=== PATIENT | female | born 1955 | race Caucasian/White ===

== ENCOUNTER 2017-02-24 18:40 | Inpatient (IN) | payer MEDICARE ==
[~2017-02-24] VITALS: Ht 157.5 cm; Wt 105.9 kg
--- NOTE | 2017-02-24 22:00 | NUR ---
Admission Note: Patient arrived to [facility] rm 228 via stretcher/EMS staff. Dx: Schizoaffective disorder; bipolar disorder. Vital sign on arrival: 98.1, 116/67, 18 unlabored, 93% RA , 66 (regular). PERRLA. On arrival, pt mood labile alternating between calm, anxious-wanting staff to stay with her and hold her hand. Patient alert to self and situation; difficulty expressing needs, following simple directions, and communicating with staff as patient is deaf and cannot sign. She does however reads lips. Assessment and history completed (see nursing documentation for details) and medications documented. Patient provided with HS snack and oral hydration prior to sleep. Nursing will continue to monitor.
[2017-02-24 23:00] VITALS: BP 116/67
[2017-02-25] MEDS ORDERED: LOSA50TA6 PO (00:29)
[2017-02-25] MEDS ORDERED: ACET325T9 PO (00:29)
[2017-02-25] MEDS ORDERED: CHLO25TA4 PO (00:29)
[2017-02-25] MEDS ORDERED: DIVA500T9 PO ×2 (00:29→07:04)
[2017-02-25] MEDS ORDERED: CITA20TA9 PO (00:29)
[2017-02-25] MEDS ORDERED: INSU100I13 SQ (00:29)
[2017-02-25] MEDS ORDERED: GABA-586 PO (00:29)
[2017-02-25] MEDS ORDERED: LORA1TAB PO (00:29)
[2017-02-25] MEDS ORDERED: TRAZ50TA15 PO (00:29)
[2017-02-25] MEDS ORDERED: HYDR-2758 PO (00:29)
[2017-02-25] MEDS ORDERED: INSU100I17 SQ (00:29)
[2017-02-25] MEDS ORDERED: RISP0.5T24 PO (00:29)
[2017-02-25] MEDS ORDERED: OXYC-323 PO (00:29)
[2017-02-25] MEDS ORDERED: SENN1TAB9 PO (00:29)
[2017-02-25] MEDS ORDERED: MAGN2400 PO (00:29)
[2017-02-25] MEDS ORDERED: AMLO10TA2 PO (00:29)
[2017-02-25] MEDS ORDERED: MAGNESIUM HYDROXIDE 2,400 MG/30 ML ORAL.SUSP. PO PRN ×2 (00:30→07:45)
[2017-02-25] MEDS ORDERED: ACETAMINOPHEN 325 MG TABLET PO PRN (00:30)
[2017-02-25] MEDS ORDERED: METHYL SALICYLATE/MENTHOL TOPICAL OINTMENT 29GM TUBE. TP PRN (00:30)
[2017-02-25] MEDS ORDERED: MAG HYDROX/AL HYDROX/SIMETH 30 ML ORAL.SUSP PO PRN (00:30)
[2017-02-25 01:31] LABS: ALBUMIN/GLOBULIN RATIO 0.8 (1.0-1.7); CALCIUM 8.5 mg/dL (8.5-10.1); CREATININE 0.8 mg/dL (0.6-1.0); GFR 72.9; MAGNESIUM 1.9 mg/dL (1.8-2.4); POTASSIUM 4.1 mmol/L (3.5-5.1); TOTAL BILIRUBIN 0.3 mg/dL (0.2-1.0); TOTAL PROTEIN 6.6 g/dL (6.4-8.2)
[2017-02-25 01:34] LABS: VAL ACID 56 mcg/mL (50-100)
[2017-02-25 01:39] LABS: BASO % 1 % (0-3); EOS # 0.1 x10^3/uL (0.0-0.7); EOS % 2 % (0-3); HEMATOCRIT 38.1 % (36.0-47.0); HEMOGLOBIN 12.4 g/dL (12.0-15.5); LYMPH # 2.4 x10^3/uL (1.0-4.8); LYMPH % 36 % (24-48); MEAN CORPUSCULAR HEMOGLOBIN 30 pg (25-35); MEAN CORPUSCULAR HGB CONC 33 g/dL (31-37); MEAN CORPUSCULAR VOLUME 94 fL (79-100); MONO # 0.6 x10^3/uL (0.0-1.1); MONO % 9 % (0-9); NEUT # 3.5 x10^3uL (1.8-7.7); NEUT % 52 % (31-73); PLATELET COUNT 188 x10^3/uL (140-400); RED BLOOD COUNT 4.07 x10^6/uL (3.50-5.40); RED CELL DISTRIBUTION WIDTH 14.1 % (11.5-14.5); WHITE BLOOD COUNT 6.7 x10^3/uL (4.0-11.0)
--- NOTE | 2017-02-25 06:12 | EKG ---
[address] [address] Test Date: 2017-02-25 Test Time: 05:12:26 Pat Name: HAILY MIR Department: Room: [address] [place] [address] Gender: F Emergency Communications Officer: LISA : 1955 Requested By: NANCY HAHN Order Number: [id number] Reading MD: Aleksander Alba Measurements Intervals [place] Rate: 65 P: 61 DC: 166 QRS: 73 QRSD: 86 T: 52 QT: 378 QTc: 394 Interpretive Statements SINUS RHYTHM POOR R-WAVE PROGRESSION Electronically Signed On 02-27-2017 15:31:56 CDT by Aleksander Alba
[2017-02-25 07:06] VITALS: BP 179/68
[2017-02-25] MEDS: INSULIN ASPART 300 UNITS/3 ML INSULN.PEN SQ SCH ×3 (08:00→17:36)
[2017-02-25] MEDS: amLODIPine BESYLATE 10 MG TABLET PO SCH (10:40)
[2017-02-25] MEDS: risperiDONE 0.5 MG TABLET. PO SCH ×2 (10:41→19:52)
[2017-02-25] MEDS: LOSARTAN 50 MG TABLET. PO SCH (10:41)
[2017-02-25] MEDS: SENNOSIDES/DOCUSATE 8.6/50MG TABLET. PO SCH (10:41)
[2017-02-25] MEDS: GABAPENTIN 300 MG CAPSULE. PO SCH ×3 (10:41→19:52)
[2017-02-25] MEDS: HYDROcodone/APAP 5/325MG 1 TAB TABLET PO SCH ×2 (10:42→19:52)
[2017-02-25] MEDS: CITALOPRAM 20 MG TABLET. PO SCH (10:42)
[2017-02-25] MEDS: DIVALPROEX 125 MG CAP.SPRINK PO SCH ×3 (10:42→19:52)
--- NOTE | 2017-02-25 10:45 | NUR ---
Behavior Intervention Response and Plan: BIRP Note: Behavior: Assumed Care of patient, patient located in Day Room at shift change. Patient exhibited the following behavior Restless, Demanding, Disorganized. Brief assessment on rounds of vital signs, medication needs, lab studies, and pain. Treatment plan problems 1 & 2. Intervention: Patient assessed and the following interventions initiated safety checks 15 Minute Checks Cognitive Assessment , Head to toe Assessment , Medications. Response: After interactions and interventions patient responded in the following manner, Calm , Compliant ,Cooperative. Continue to assess behaviors and condition will continue to monitor throughout the shift as needed. Plan: Continue to monitor Master Treatment Plan for patient's progress toward short term goals of Decreased Agitation, Decreased Aggression, drum maker goals to return to previous living setting vs placement. Continue to assess patient for changes in above assessment. Monitor for medication needs, pain, and safety concerns. Hourly rounding performed to ensure safe environment.
[2017-02-25] MEDS: chlorproMAZINE HCL 25 MG TABLET PO SCH ×2 (11:09→19:54)
[2017-02-25 11:29] LABS: THYROID STIM HORMONE (TSH) 2.507 uIU/mL (0.358-3.740)
[2017-02-25 14:07] LABS: T3 TOTAL 101 ng/dL (71-180); THYROXINE 6.4 ug/dL (4.5-12.0)
[2017-02-25 17:42] VITALS: BP 143/91
[2017-02-25] MEDS ORDERED: INSULIN DETEMIR 300 UNITS/3 ML INSULN.PEN. SQ SCH (21:00)
--- NOTE | 2017-02-25 21:11 | PDOC ---
Exam Johann Demential Exam: Johann Note: Please also refer to the separate dictated note~for this date of service dictated separately.~Patient seen individually. Discussed the patient with Nursing staff reviewed the chart.~Reviewed interim history and current functioning. Reviewed vital signs,~Labs/ Radiology~and current medications noted below. Continue current treatment with the changes noted in the dictated addendum note Assessment: Vital Signs: Vital Signs Date Time Temp Pulse Resp B/P Pulse Ox O2 Delivery O2 Flow Rate FiO2 02/25/17 19:52 18 02/25/17 17:42 97.6 81 143/91 93 02/24/17 23:00 Room Air Labs: Laboratory Tests Test 02/24/17 22:13 02/25/17 00:10 02/25/17 07:07 02/25/17 11:39 Glucose (Fingerstick) 91mg/dL (70-99) 179mg/dL (70-99) H 270mg/dL (70-99) H White Blood Count 6.7x10^3/uL (4.0-11.0) Red Blood Count 4.07x10^6/uL (3.50-5.40) Hemoglobin 12.4g/dL (12.0-15.5) Hematocrit 38.1% (36.0-47.0) Mean Corpuscular Volume 94fL (79-100) Mean Corpuscular Hemoglobin 30pg (25-35) Mean Corpuscular Hemoglobin Concent 33g/dL (31-37) Red Cell Distribution Width 14.1% (11.5-14.5) Platelet Count 188x10^3/uL (140-400) Neutrophils (%) (Auto) 52% (31-73) Lymphocytes (%) (Auto) 36% (24-48) Monocytes (%) (Auto) 9% (0-9) Eosinophils (%) (Auto) 2% (0-3) Basophils (%) (Auto) 1% (0-3) Neutrophils # (Auto) 3.5x10^3uL (1.8-7.7) Lymphocytes # (Auto) 2.4x10^3/uL (1.0-4.8) Monocytes # (Auto) 0.6x10^3/uL (0.0-1.1) Eosinophils # (Auto) 0.1x10^3/uL (0.0-0.7) Basophils # (Auto) 0.0x10^3/uL (0.0-0.2) Sodium Level 142mmol/L (136-145) Potassium Level 4.1mmol/L (3.5-5.1) Chloride Level 104mmol/L (98-107) Carbon Dioxide Level 29mmol/L (21-32) Anion Gap 9 (6-14) Blood Urea Nitrogen 13mg/dL (7-20) Creatinine 0.8mg/dL (0.6-1.0) Estimated GFR (Cockcroft-Gault) 72.9 BUN/Creatinine Ratio 16 (6-20) Glucose Level 135mg/dL (70-99) H Calcium Level 8.5mg/dL (8.5-10.1) Magnesium Level 1.9mg/dL (1.8-2.4) Iron Level 55ug/dL (50-170) Total Iron Binding Capacity 316ug/dL (250-450) Iron Saturation 17% (15-34) Total Bilirubin 0.3mg/dL (0.2-1.0) Aspartate Amino Transferase (AST) 21U/L (15-37) Alanine Aminotransferase (ALT) 19U/L (14-59) Alkaline Phosphatase 71U/L (46-116) Total Protein 6.6g/dL (6.4-8.2) Albumin 3.0g/dL (3.4-5.0) L Albumin/Globulin Ratio 0.8 (1.0-1.7) L Triglycerides Level 206mg/dL (0-150) H Cholesterol Level 140mg/dL (0-200) LDL Cholesterol, Calculated 56mg/dL (0-100) VLDL Cholesterol, Calculated 41mg/dL (0-40) H Non-HDL Cholesterol Calculated 97mg/dL (0-129) HDL Cholesterol 43mg/dL (40-60) Cholesterol/HDL Ratio 3.0 25-Hydroxy Vitamin D Total Pending Thyroid Stimulating Hormone (TSH) 2.507uIU/mL (0.358-3.740) Thyroxine (T4) 6.4ug/dL (4.5-12.0) Total Triiodothyronine (TT3) 101ng/dL (71-180) Valproic Acid Level 56mcg/mL (50-100) Valproic Acid Last Dose Date 02/24/17 Valproic Acid Last Dose Time 1400 RPR Titer Additional Testing Pending Test 02/25/17 17:17 02/25/17 19:18 Glucose (Fingerstick) 218mg/dL (70-99) H 242mg/dL (70-99) H Current Medications: Meds: Current Medications Acetaminophen (Tylenol) 650 mg PRN Q6HRS PRN PO PAIN / TEMP; Start 02/25/17 at 00:30; Stop 02/25/17 at 15:05; Status DC Multi-Ingredient Ointment (Analgesic [place]) 1 marcell PRN QID PRN TP MUSCLE PAIN; Start 02/25/17 at 00:30 Al Hydroxide/Mg Hydroxide (Mylanta Plus Xs) 15 ml PRN AFTMEALHC PRN PO DYSPEPSIA; Start 02/25/17 at 00:30 Magnesium Hydroxide (Milk Of Magnesia) 2,400 mg PRN QHS PRN PO CONSTIPATION; Start 02/25/17 at 00:30; Stop 02/25/17 at 15:05; Status DC Chlorpromazine HCl (Thorazine) 25 mg BID PO Last administered on 02/25/17 19: 54; Start 02/25/17 at 09:00 Citalopram Hydrobromide (Celexa) 20 mg DAILY PO Last administered on 02/25/17 10:42; Start 02/25/17 at 09:00 Lorazepam (Ativan) 1 mg PRN Q3HRS PRN PO ANXIETY / AGITATION; Start 02/25/17 at 00:30 Risperidone (Risperdal) 0.5 mg BID PO Last administered on 02/25/17 19:52; Start 02/25/17 at 09:00 Trazodone HCl (Desyrel) 50 mg PRN QHS PRN PO INSOMNIA; Start 02/25/17 at 00:30 Divalproex Sodium (Depakote Sprinkles) 500 mg TID PO Last administered on 19:52; Start 02/25/17 at 09:00 Acetaminophen (Tylenol) 650 mg PRN Q8HRS PRN PO PAIN; Start 02/25/17 at 07:30 Amlodipine Besylate (Norvasc) 10 mg DAILY PO Last administered on 02/25/17 10: 40; Start 02/25/17 at 09:00 Gabapentin (Neurontin) 300 mg TID PO Last administered on 02/25/17 19:52; Start 02/25/17 at 09:00 Acetaminophen/ Hydrocodone Bitart (Lortab 5/325) 1 tab Q12HR PO Last administered on 02/25/17 19:52; Start 02/25/17 at 09:00 Insulin Aspart (Novolog) 6 units TIDWMEALS SQ Last administered on 02/25/17 17 :36; Start 02/25/17 at 08:00 Losartan Potassium (Cozaar) 50 mg DAILY PO Last administered on 02/25/17 10:41 ; Start 02/25/17 at 09:00 Senna/Docusate Sodium (Senna Plus) 1 tab DAILY PO Last administered on 10:41; Start 02/25/17 at 09:00 Insulin Detemir (Levemir) 15 units QHS SQ Last administered on 02/25/17 19:55 ; Start 02/25/17 at 21:00 Magnesium Hydroxide (Milk Of Magnesia) 2,400 mg PRN DAILY PRN PO CONSTIPATION; Start 02/25/17 at 07:45 Active Scripts Active Reported Lantus Solostar (Insulin Glargine,Hum.rec.anlog) 100 Unit/1 Ml Insuln.pen 15 Unit SQ QHS Lorazepam 1 Mg Tablet 1 Mg PO PRN Q3HRS PRN Risperdal (Risperidone) 0.5 Mg Tablet 0.5 Mg PO BID Chlorpromazine Hcl 25 Mg Tablet 25 Mg PO BID Novolog Flexpen (Insulin Aspart) 100 Unit/1 Ml Insuln.pen 6 Unit SQ TIDWMEALS Gabapentin 300 Mg Capsule 300 Mg PO TID Milk Of Magnesia (Magnesium Hydroxide) 2,400 Mg/10 Ml Oral.susp 2,400 Mg PO PRN DAILY Trazodone Hcl 50 Mg Tablet 50 Mg PO PRN QHS PRN Divalproex Sodium 500 Mg Tablet.dr 500 Mg PO TID Losartan Potassium 50 Mg Tablet 50 Mg PO DAILY Senexon-S Tablet (Sennosides/Docusate Sodium) 1 Each Tablet 8.6-50 Mg PO DAILY Celexa (Citalopram Hydrobromide) 20 Mg Tablet 20 Mg PO DAILY Amlodipine Besylate 10 Mg Tablet 10 Mg PO DAILY Percocet 5-325 Mg Tablet (Oxycodone Hcl/Acetaminophen) 1 Each Tablet 1 Tab PO PRN Q8HRS PRN Hydrocodone-Apap 5-325 (Hydrocodone Bit/Acetaminophen) 1 Each Tablet 1 Tab PO Q12HR Tylenol (Acetaminophen) 325 Mg Tablet 650 Mg PO PRN Q8HRS PRN Diagnosis: Problems: (1) Psychiatric disorder NANCY HAHN MD Feb 25, 2017 21:11
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
--- NOTE | 2017-02-26 04:57 | NUR ---
Behavior Intervention Response and Plan: BIRP Note: Behavior: Assumed Care of patient, patient located in Day Room at shift change. Patient exhibited the following behavior Calm, Compliant, Cooperative. Brief assessment on rounds of vital signs, medication needs, lab studies, and pain. Treatment plan problems Alteration in Mood and Fall Risk. Intervention: Patient assessed and the following interventions initiated safety checks 15 Minute Checks Cognitive Assessment , Head to toe Assessment , Medications. Response: After interactions and interventions patient responded in the following manner, Calm , Compliant ,Cooperative. Continue to assess behaviors and condition will continue to monitor throughout the shift as needed. Plan: Continue to monitor Master Treatment Plan for patient's progress toward short term goals of Decreased Anxiety, Improved Mood, termination clerk goals to return to previous living setting vs placement. Continue to assess patient for changes in above assessment. Monitor for medication needs, pain, and safety concerns. Hourly rounding performed to ensure safe environment.
[2017-02-26 07:00] VITALS: BP 106/72
[2017-02-26] MEDS: GABAPENTIN 300 MG CAPSULE. PO SCH ×3 (09:33→19:48)
[2017-02-26] MEDS: DIVALPROEX 125 MG CAP.SPRINK PO SCH ×3 (09:33→19:49)
[2017-02-26] MEDS: amLODIPine BESYLATE 10 MG TABLET PO SCH (09:34)
[2017-02-26] MEDS: HYDROcodone/APAP 5/325MG 1 TAB TABLET PO SCH ×2 (09:34→19:48)
[2017-02-26] MEDS: CITALOPRAM 20 MG TABLET. PO SCH (09:34)
[2017-02-26] MEDS: chlorproMAZINE HCL 25 MG TABLET PO SCH (09:34)
[2017-02-26] MEDS: LOSARTAN 50 MG TABLET. PO SCH (09:34)
[2017-02-26] MEDS: risperiDONE 0.5 MG TABLET. PO SCH (09:34)
[2017-02-26] MEDS: SENNOSIDES/DOCUSATE 8.6/50MG TABLET. PO SCH (09:34)
[2017-02-26] MEDS: INSULIN ASPART 300 UNITS/3 ML INSULN.PEN SQ SCH ×3 (09:35→17:35)
--- NOTE | 2017-02-26 14:29 | NUR ---
Behavior Intervention Response and Plan: BIRP Note: Behavior: Assumed Care of patient, patient located in Day Room at shift change. Patient exhibited the following behavior Calm, Social, Compliant. Brief assessment on rounds of vital signs, medication needs, lab studies, and pain. Treatment plan problems . Intervention: Patient assessed and the following interventions initiated safety checks 15 Minute Checks Cognitive Assessment , Head to toe Assessment , Medications. Response: After interactions and interventions patient responded in the following manner, Calm , Compliant ,Cooperative. Continue to assess behaviors and condition will continue to monitor throughout the shift as needed. Plan: Continue to monitor Master Treatment Plan for patient's progress toward short term goals of Decreased Agitation, Decreased Aggression, adjunct faculty for medical terminology goals to return to previous living setting vs placement. Continue to assess patient for changes in above assessment. Monitor for medication needs, pain, and safety concerns. Hourly rounding performed to ensure safe environment.
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
--- NOTE | 2017-02-26 15:29 | NUR ---
SW reviewed PT. insurance upon admit. Face sheet, CSNAP and intake state Pt's insurance is Medicare Primary/only. No auth needed.
[2017-02-26 16:15] VITALS: BP 134/77
[2017-02-26] MEDS: INSULIN DETEMIR 300 UNITS/3 ML INSULN.PEN. SQ SCH (19:51)
[2017-02-26] MEDS: risperiDONE 0.25 MG TABLET. PO SCH (20:09)
[2017-02-26] MEDS ORDERED: risperiDONE 0.25 MG TABLET. PO SCH (21:00)
[2017-02-26] MEDS: LORazepam 1 MG TABLET PO PRN (22:54)
[2017-02-26] MEDS: traZODone 50 MG TABLET. PO PRN (22:55)
--- NOTE | 2017-02-26 23:06 | NUR ---
Behavior Intervention Response and Plan: BIRP Note: Behavior: Assumed Care of patient, patient located in hallway at shift change. Patient exhibited the following behavior Calm, Social, Compliant. Brief assessment on rounds of vital signs, medication needs, lab studies, and pain. Treatment plan problems 1-2 . Intervention: Patient assessed and the following interventions initiated safety checks 15 Minute Checks Cognitive Assessment , Head to toe Assessment , Medications. Response: After interactions and interventions patient responded in the following manner, Calm , Compliant ,Cooperative. Continue to assess behaviors and condition will continue to monitor throughout the shift as needed. Plan: Continue to monitor Master Treatment Plan for patient's progress toward short term goals of Decreased Agitation, Decreased Aggression, retirement goals to return to previous living setting vs placement. Continue to assess patient for changes in above assessment. Monitor for medication needs, pain, and safety concerns. Hourly rounding performed to ensure safe environment.
--- NOTE | 2017-02-26 23:08 | NUR ---
Patient very agitated, banging walker on the side of bed. Tried to redirect once that was unsuccessful I gave patient a PRN. Will continue to monitor.
--- NOTE | 2017-02-26 23:49 | PDOC ---
Exam Johann Demential Exam: Johann Note: Please also refer to the separate dictated note~for this date of service dictated separately.~Patient seen individually. Discussed the patient with Nursing staff reviewed the chart.~Reviewed interim history and current functioning. Reviewed vital signs,~Labs/ Radiology~and current medications noted below. Continue current treatment with the changes noted in the dictated addendum note Assessment: Vital Signs: Vital Signs Date Time Temp Pulse Resp B/P Pulse Ox O2 Delivery O2 Flow Rate FiO2 02/26/17 20:48 Room Air 02/26/17 16:15 97.1 73 17 134/77 94 I&O Intake and Output 02/26/17 07:00 Intake Total 1440 ml Balance 1440 ml Intake Oral 1440 ml # Bowel Movements 1 Labs: Laboratory Tests Test 02/26/17 07:21 02/26/17 11:46 02/26/17 17:09 02/26/17 19:16 Glucose (Fingerstick) 110mg/dL (70-99) H 106mg/dL (70-99) H 144mg/dL (70-99) H 230mg/dL (70-99) H Current Medications: Meds: Current Medications Acetaminophen (Tylenol) 650 mg PRN Q6HRS PRN PO PAIN / TEMP; Start 02/25/17 at 00:30; Stop 02/25/17 at 15:05; Status DC Multi-Ingredient Ointment (Analgesic [place]) 1 marcell PRN QID PRN TP MUSCLE PAIN; Start 02/25/17 at 00:30 Al Hydroxide/Mg Hydroxide (Mylanta Plus Xs) 15 ml PRN AFTMEALHC PRN PO DYSPEPSIA; Start 02/25/17 at 00:30 Magnesium Hydroxide (Milk Of Magnesia) 2,400 mg PRN QHS PRN PO CONSTIPATION; Start 02/25/17 at 00:30; Stop 02/25/17 at 15:05; Status DC Chlorpromazine HCl (Thorazine) 25 mg BID PO Last administered on 02/26/17 09: 34; Start 02/25/17 at 09:00; Stop 02/26/17 at 18:22; Status DC Citalopram Hydrobromide (Celexa) 20 mg DAILY PO Last administered on 02/26/17 09:34; Start 02/25/17 at 09:00 Lorazepam (Ativan) 1 mg PRN Q3HRS PRN PO ANXIETY / AGITATION Last administered on 02/26/17 22:54; Start 02/25/17 at 00:30 Risperidone (Risperdal) 0.5 mg BID PO Last administered on 02/26/17 09:34; Start 02/25/17 at 09:00; Stop 02/26/17 at 18:22; Status DC Trazodone HCl (Desyrel) 50 mg PRN QHS PRN PO INSOMNIA Last administered on 02/26 22:55; Start 02/25/17 at 00:30 Divalproex Sodium (Depakote Sprinkles) 500 mg TID PO Last administered on 19:49; Start 02/25/17 at 09:00 Acetaminophen (Tylenol) 650 mg PRN Q8HRS PRN PO PAIN; Start 02/25/17 at 07:30 Amlodipine Besylate (Norvasc) 10 mg DAILY PO Last administered on 02/26/17 09: 34; Start 02/25/17 at 09:00 Gabapentin (Neurontin) 300 mg TID PO Last administered on 02/26/17 19:48; Start 02/25/17 at 09:00 Acetaminophen/ Hydrocodone Bitart (Lortab 5/325) 1 tab Q12HR PO Last administered on 02/26/17 19:48; Start 02/25/17 at 09:00 Insulin Aspart (Novolog) 6 units TIDWMEALS SQ Last administered on 02/26/17 17 :35; Start 02/25/17 at 08:00 Losartan Potassium (Cozaar) 50 mg DAILY PO Last administered on 02/26/17 09:34 ; Start 02/25/17 at 09:00 Senna/Docusate Sodium (Senna Plus) 1 tab DAILY PO Last administered on 09:34; Start 02/25/17 at 09:00 Insulin Detemir (Levemir) 15 units QHS SQ Last administered on 02/25/17 19:55 ; Start 02/25/17 at 21:00; Stop 02/26/17 at 14:21; Status DC Magnesium Hydroxide (Milk Of Magnesia) 2,400 mg PRN DAILY PRN PO CONSTIPATION; Start 02/25/17 at 07:45 Insulin Detemir (Levemir) 15 units QHS SQ Last administered on 02/26/17 19:51 ; Start 02/26/17 at 14:21 Chlorpromazine HCl (Thorazine) 25 mg DAILY PO ; Start 02/27/17 at 09:00 Risperidone (Risperdal) 0.5 mg DAILY PO ; Start 02/27/17 at 09:00 Risperidone (Risperdal) 0.75 mg HS PO ; Start 02/26/17 at 21:00; Stop 02/26/17 at 21:00; Status DC Risperidone (Risperdal) 0.75 mg 14 PO Last administered on 02/26/17 20:09; Start 02/26/17 at 21:00 Active Scripts Active Reported Lantus Solostar (Insulin Glargine,Hum.rec.anlog) 100 Unit/1 Ml Insuln.pen 15 Unit SQ QHS Lorazepam 1 Mg Tablet 1 Mg PO PRN Q3HRS PRN Risperdal (Risperidone) 0.5 Mg Tablet 0.5 Mg PO BID Chlorpromazine Hcl 25 Mg Tablet 25 Mg PO BID Novolog Flexpen (Insulin Aspart) 100 Unit/1 Ml Insuln.pen 6 Unit SQ TIDWMEALS Gabapentin 300 Mg Capsule 300 Mg PO TID Milk Of Magnesia (Magnesium Hydroxide) 2,400 Mg/10 Ml Oral.susp 2,400 Mg PO PRN DAILY Trazodone Hcl 50 Mg Tablet 50 Mg PO PRN QHS PRN Divalproex Sodium 500 Mg Tablet.dr 500 Mg PO TID Losartan Potassium 50 Mg Tablet 50 Mg PO DAILY Senexon-S Tablet (Sennosides/Docusate Sodium) 1 Each Tablet 8.6-50 Mg PO DAILY Celexa (Citalopram Hydrobromide) 20 Mg Tablet 20 Mg PO DAILY Amlodipine Besylate 10 Mg Tablet 10 Mg PO DAILY Percocet 5-325 Mg Tablet (Oxycodone Hcl/Acetaminophen) 1 Each Tablet 1 Tab PO PRN Q8HRS PRN Hydrocodone-Apap 5-325 (Hydrocodone Bit/Acetaminophen) 1 Each Tablet 1 Tab PO Q12HR Tylenol (Acetaminophen) 325 Mg Tablet 650 Mg PO PRN Q8HRS PRN Diagnosis: Problems: (1) Psychiatric disorder (2) Bipolar affective, mixed, sev w/ psych (3) Anxiety disorder (4) Dementia in Alzheimer's disease with delusions (5) Impulse control disorder NANCY HAHN MD Feb 26, 2017 23:49
[2017-02-27 06:23] VITALS: BP 130/67
[2017-02-27] MEDS: INSULIN ASPART 300 UNITS/3 ML INSULN.PEN SQ SCH ×3 (09:17→17:41)
[2017-02-27] MEDS: LOSARTAN 50 MG TABLET. PO SCH (09:18)
[2017-02-27] MEDS: SENNOSIDES/DOCUSATE 8.6/50MG TABLET. PO SCH (09:18)
[2017-02-27] MEDS: GABAPENTIN 300 MG CAPSULE. PO SCH ×3 (09:18→19:58)
[2017-02-27] MEDS: DIVALPROEX 125 MG CAP.SPRINK PO SCH ×3 (09:19→20:01)
[2017-02-27] MEDS: amLODIPine BESYLATE 10 MG TABLET PO SCH (09:19)
[2017-02-27] MEDS: chlorproMAZINE HCL 25 MG TABLET PO SCH (09:19)
[2017-02-27] MEDS: CITALOPRAM 20 MG TABLET. PO SCH (09:19)
[2017-02-27] MEDS: HYDROcodone/APAP 5/325MG 1 TAB TABLET PO SCH ×2 (09:23→20:03)
[2017-02-27] MEDS: risperiDONE 0.5 MG TABLET. PO SCH (09:23)
--- NOTE | 2017-02-27 10:00 | NUR ---
THERAPEUTIC RECREATION GROUP NOTE TITLE :Butterflies and Hotbed Operator Art ACTIVITY : Arts and Crafts GOAL : Increase socialization, fine motor skills, creativity DURATION : 30 minutes RESPONSE : Moderate participation. Pt. joined the group about half way through and was social and pleasant. She messed with the materials but did not complete a desired task.
--- NOTE | 2017-02-27 11:15 | NUR ---
THERAPEUTIC RECREATION GROUP NOTE TITLE :Movement to Music: Flexibility ACTIVITY : Movement/ Exercise GOAL : Increase morale, attention, flexibility. Decrease stress/anxiety. DURATION : 40 Minutes RESPONSE : Full participation. Pt.sat next to a male patient and the two held hands occasionally. They were redirected to keep space between them and they complied each time. Pt. took breaks as needed and was pleasant the entire time.
[2017-02-27 12:08] LABS: HEMOGLOBIN A1C 6.9 % (4.8-5.6)
[2017-02-27] MEDS: risperiDONE 0.25 MG TABLET. PO SCH (13:43)
--- NOTE | 2017-02-27 14:00 | NUR ---
THERAPEUTIC RECREATION GROUP NOTE TITLE :Sing along with Frances ACTIVITY : Music GOAL : Increase socialization, elevate mood, stimulate memory DURATION : 60 Minutes RESPONSE : Full participation. Pt. followed along with rico sheet occasionally, swayed to the music, and was social with others and often sharing her rico sheet. She followed the beat and reminisced about several of the songs.
--- NOTE | 2017-02-27 14:00 | NUR ---
Behavior Intervention Response and Plan: BIRP Note: Behavior: Assumed Care of patient, patient located in Day Room at shift change. Patient exhibited the following behavior Calm, Disorganized, Cooperative. Brief assessment on rounds of vital signs, medication needs, lab studies, and pain. Treatment plan problems . Intervention: Patient assessed and the following interventions initiated safety checks 15 Minute Checks Call maddox in reach , Medications , Nutrition. Response: After interactions and interventions patient responded in the following manner, Calm , Disorganized ,Cooperative. Continue to assess behaviors and condition will continue to monitor throughout the shift as needed. 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 Continue to assess patient for changes in above assessment. Monitor for medication needs, pain, and safety concerns. Hourly rounding performed to ensure safe environment.
--- NOTE | 2017-02-27 15:30 | NUR ---
ACTIVITY THERAPY ASSESSMENT Completed based on observations and interview on [facility] Pt. was agreeable and talkative. She expressed herself clearly. 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 She can read if messages need to be wrote out and she will ask you to write it if she needs you to. She recalled past favorite leisure activities with ease. She does not like others going into her room. Pt. stated she is "very very lonely," "I'm so lonely I could ," "I'm desperate for friends." She talked about the suffering her parents and family went through. She enjoys reading, watching TV, and typing. She said she would take off her hear aid, leave the room or close her eyes if she gets stressed or overwhelmed. She talked about being thankful she is deaf because she can tune people out easily. Initial goal: Pt. will participate in all groups she is invited to.
[2017-02-27 16:24] VITALS: BP 133/85
[2017-02-27 16:52] LABS: CLARITY,URINE HAZY; COLOR,URINE YELLOW
[2017-02-27 16:53] LABS: BACTERIA,URINE MOD /HPF (0-FEW); BILIRUBIN,URINE NEG (NEG); GLUCOSE,URINE 500 mg/dL (NEG); NITRITE,URINE POS (NEG); RBC,URINE OCC /HPF (0-2); SQUAMOUS EPITHELIAL CELL,UR OCC /LPF; UROBILINOGEN,URINE 0.2 mg/dL (0.2 mg/dL)
[2017-02-27] MEDS: busPIRone 5 MG TABLET. PO SCH (20:01)
[2017-02-27] MEDS: INSULIN DETEMIR 300 UNITS/3 ML INSULN.PEN. SQ SCH (20:06)
--- NOTE | 2017-02-27 21:47 | PDOC ---
Exam Johann Demential Exam: Johann Note: Please also refer to the separate dictated note~for this date of service dictated separately.~Patient seen individually. Discussed the patient with Nursing staff reviewed the chart.~Reviewed interim history and current functioning. Reviewed vital signs,~Labs/ Radiology~and current medications noted below. Continue current treatment with the changes noted in the dictated addendum note Assessment: Vital Signs: Vital Signs Date Time Temp Pulse Resp B/P Pulse Ox O2 Delivery O2 Flow Rate FiO2 02/27/17 20:03 20 Nasal Cannula 02/27/17 16:24 97.4 69 133/85 93 I&O Intake and Output 02/27/17 07:00 Intake Total 1080 ml Balance 1080 ml Intake Oral 1080 ml Labs: Laboratory Tests Test 02/27/17 07:21 02/27/17 11:07 02/27/17 16:00 02/27/17 16:44 Glucose (Fingerstick) 101mg/dL (70-99) H 259mg/dL (70-99) H 217mg/dL (70-99) H Urine Collection Type Unknown Urine Color Yellow Urine Clarity Hazy Urine pH 6.0 Urine Specific [place] 1.015 Urine Protein Neg (NEG-TRACE) Urine Glucose (UA) 500mg/dL (NEG) Urine Ketones (Stick) Tracemg/dL (NEG) Urine Blood Small (NEG) Urine Nitrite Pos (NEG) Urine Bilirubin Neg (NEG) Urine Urobilinogen Dipstick 0.2mg/dL (0.2 mg/dL) Urine Leukocyte Esterase Trace (NEG) Urine RBC Occ/HPF (0-2) Urine WBC 1-4/HPF (0-4) Urine Squamous Epithelial Cells Occ/LPF Urine Bacteria Mod/HPF (0-FEW) Urine Mucus Slight/LPF Test 02/27/17 19:10 Glucose (Fingerstick) 248mg/dL (70-99) H Current Medications: Meds: Current Medications Acetaminophen (Tylenol) 650 mg PRN Q6HRS PRN PO PAIN / TEMP; Start 02/25/17 at 00:30; Stop 02/25/17 at 15:05; Status DC Multi-Ingredient Ointment (Analgesic [place]) 1 marcell PRN QID PRN TP MUSCLE PAIN; Start 02/25/17 at 00:30 Al Hydroxide/Mg Hydroxide (Mylanta Plus Xs) 15 ml PRN AFTMEALHC PRN PO DYSPEPSIA; Start 02/25/17 at 00:30 Magnesium Hydroxide (Milk Of Magnesia) 2,400 mg PRN QHS PRN PO CONSTIPATION; Start 02/25/17 at 00:30; Stop 02/25/17 at 15:05; Status DC Chlorpromazine HCl (Thorazine) 25 mg BID PO Last administered on 02/26/17 09: 34; Start 02/25/17 at 09:00; Stop 02/26/17 at 18:22; Status DC Citalopram Hydrobromide (Celexa) 20 mg DAILY PO Last administered on 02/27/17 09:19; Start 02/25/17 at 09:00 Lorazepam (Ativan) 1 mg PRN Q3HRS PRN PO ANXIETY / AGITATION Last administered on 02/26/17 22:54; Start 02/25/17 at 00:30 Risperidone (Risperdal) 0.5 mg BID PO Last administered on 02/26/17 09:34; Start 02/25/17 at 09:00; Stop 02/26/17 at 18:22; Status DC Trazodone HCl (Desyrel) 50 mg PRN QHS PRN PO INSOMNIA Last administered on 02/26 22:55; Start 02/25/17 at 00:30 Divalproex Sodium (Depakote Sprinkles) 500 mg TID PO Last administered on 20:01; Start 02/25/17 at 09:00 Acetaminophen (Tylenol) 650 mg PRN Q8HRS PRN PO PAIN; Start 02/25/17 at 07:30 Amlodipine Besylate (Norvasc) 10 mg DAILY PO Last administered on 02/27/17 09: 19; Start 02/25/17 at 09:00 Gabapentin (Neurontin) 300 mg TID PO Last administered on 02/27/17 19:58; Start 02/25/17 at 09:00 Acetaminophen/ Hydrocodone Bitart (Lortab 5/325) 1 tab Q12HR PO Last administered on 02/27/17 20:03; Start 02/25/17 at 09:00 Insulin Aspart (Novolog) 6 units TIDWMEALS SQ Last administered on 02/27/17 17 :41; Start 02/25/17 at 08:00 Losartan Potassium (Cozaar) 50 mg DAILY PO Last administered on 02/27/17 09:18 ; Start 02/25/17 at 09:00 Senna/Docusate Sodium (Senna Plus) 1 tab DAILY PO Last administered on 09:18; Start 02/25/17 at 09:00 Insulin Detemir (Levemir) 15 units QHS SQ Last administered on 02/25/17 19:55 ; Start 02/25/17 at 21:00; Stop 02/26/17 at 14:21; Status DC Magnesium Hydroxide (Milk Of Magnesia) 2,400 mg PRN DAILY PRN PO CONSTIPATION; Start 02/25/17 at 07:45 Insulin Detemir (Levemir) 15 units QHS SQ Last administered on 02/27/17 20:06 ; Start 02/26/17 at 14:21 Chlorpromazine HCl (Thorazine) 25 mg DAILY PO Last administered on 02/27/17 09 :19; Start 02/27/17 at 09:00 Risperidone (Risperdal) 0.5 mg DAILY PO Last administered on 02/27/17 09:23; Start 02/27/17 at 09:00 Risperidone (Risperdal) 0.75 mg HS PO ; Start 02/26/17 at 21:00; Stop 02/26/17 at 21:00; Status DC Risperidone (Risperdal) 0.75 mg 14 PO Last administered on 02/27/17 13:43; Start 02/26/17 at 21:00 Buspirone HCl (Buspar) 5 mg BID PO Last administered on 02/27/17 20:01; Start 02/27/17 at 21:00 Active Scripts Active Reported Lantus Solostar (Insulin Glargine,Hum.rec.anlog) 100 Unit/1 Ml Insuln.pen 15 Unit SQ QHS Lorazepam 1 Mg Tablet 1 Mg PO PRN Q3HRS PRN Risperdal (Risperidone) 0.5 Mg Tablet 0.5 Mg PO BID Chlorpromazine Hcl 25 Mg Tablet 25 Mg PO BID Novolog Flexpen (Insulin Aspart) 100 Unit/1 Ml Insuln.pen 6 Unit SQ TIDWMEALS Gabapentin 300 Mg Capsule 300 Mg PO TID Milk Of Magnesia (Magnesium Hydroxide) 2,400 Mg/10 Ml Oral.susp 2,400 Mg PO PRN DAILY Trazodone Hcl 50 Mg Tablet 50 Mg PO PRN QHS PRN Divalproex Sodium 500 Mg Tablet.dr 500 Mg PO TID Losartan Potassium 50 Mg Tablet 50 Mg PO DAILY Senexon-S Tablet (Sennosides/Docusate Sodium) 1 Each Tablet 8.6-50 Mg PO DAILY Celexa (Citalopram Hydrobromide) 20 Mg Tablet 20 Mg PO DAILY Amlodipine Besylate 10 Mg Tablet 10 Mg PO DAILY Percocet 5-325 Mg Tablet (Oxycodone Hcl/Acetaminophen) 1 Each Tablet 1 Tab PO PRN Q8HRS PRN Hydrocodone-Apap 5-325 (Hydrocodone Bit/Acetaminophen) 1 Each Tablet 1 Tab PO Q12HR Tylenol (Acetaminophen) 325 Mg Tablet 650 Mg PO PRN Q8HRS PRN Diagnosis: Problems: (1) Psychiatric disorder (2) Bipolar affective, mixed, sev w/ psych (3) Anxiety disorder (4) Dementia in Alzheimer's disease with delusions (5) Impulse control disorder NANCY HAHN MD Feb 27, 2017 21:47
--- NOTE | 2017-02-28 04:10 | PN ---
DATE: 02/26/2017 PSYCHIATRIC PROGRESS NOTE This is a late entry for 02/26/2017, covers the elements not covered in my initial note. SUBJECTIVE: Per nursing report, the patient has a history of frequent UTIs, antibiotics last course completed 02/05/2017. We will be repeating UA, extremely hard of hearing, communicate with nonverbally and by writing on a piece of paper and she has writing board as well. She gets easily agitated with noises, calling out loudly. REVIEW OF SYSTEMS: No CV, , pulmonary, eye system symptoms on review, hard of hearing. Reliability poor. MENTAL STATUS EXAM: Oriented to herself and situation. Speech coherent, loud at times, has marked speech deficit. Consequent to disability, abstraction fair, computation impaired, language function intact. Mood and affect, intermittently labile. LABORATORY DATA: Valproic acid level is 56, therapeutic. IMPRESSION: Bipolar 1 disorder, mixed with psychotic features, schizoaffective disorder, bipolar type, mixed with psychotic features, questionable history of ____. PLAN: Continue Celexa, increase Risperdal from 0.5 mg b.i.d. to 0.5 mg in the morning, 0.75 mg at 2 p.m., Thorazine is 25 mg b.i.d. We will reduce it to once a day and then taper and stop it. Continue Ativan p.r.n., trazodone p.r.n., Depakote 500 mg 3 times a day ____Valproic acid level therapeutic at 56. Adjust further as clinically indicated. NANCY HAHN MD DR: MARGA/estelle JOB#: [id number] / [id number]
[2017-02-28 06:35] VITALS: BP 131/84
--- NOTE | 2017-02-28 06:47 | NUR ---
Behavior Intervention Response and Plan: BIRP Note: Behavior: Assumed Care of patient, patient located in Day Room at shift change. Patient exhibited the following behavior Calm, Interactive, Appropriate. Brief assessment on rounds of vital signs, medication needs, lab studies, and pain. Treatment plan problems Alteration in Mood and Fall Risk. Intervention: Patient assessed and the following interventions initiated safety checks 15 Minute Checks Cognitive Assessment , Medications , Oral Hydration. Response: After interactions and interventions patient responded in the following manner, Calm , Interactive ,Appropriate. Continue to assess behaviors and condition will continue to monitor throughout the shift as needed. 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 Continue to assess patient for changes in above assessment. Monitor for medication needs, pain, and safety concerns. Hourly rounding performed to ensure safe environment.
[2017-02-28] MEDS: INSULIN ASPART 300 UNITS/3 ML INSULN.PEN SQ SCH ×3 (08:57→17:56)
[2017-02-28] MEDS: LOSARTAN 50 MG TABLET. PO SCH (08:58)
[2017-02-28] MEDS: CITALOPRAM 20 MG TABLET. PO SCH (08:58)
[2017-02-28] MEDS: busPIRone 5 MG TABLET. PO SCH ×2 (08:58→19:17)
[2017-02-28] MEDS: amLODIPine BESYLATE 10 MG TABLET PO SCH (08:58)
[2017-02-28] MEDS: SENNOSIDES/DOCUSATE 8.6/50MG TABLET. PO SCH (08:58)
[2017-02-28] MEDS: GABAPENTIN 300 MG CAPSULE. PO SCH ×3 (08:58→19:17)
[2017-02-28] MEDS: DIVALPROEX 125 MG CAP.SPRINK PO SCH ×3 (08:59→19:17)
[2017-02-28] MEDS: risperiDONE 0.5 MG TABLET. PO SCH (08:59)
[2017-02-28] MEDS: HYDROcodone/APAP 5/325MG 1 TAB TABLET PO SCH ×2 (09:09→19:20)
[2017-02-28] MEDS: chlorproMAZINE HCL 25 MG TABLET PO SCH (09:09)
[2017-02-28] MEDS: ACETAMINOPHEN 325 MG TABLET PO PRN (12:56)
[2017-02-28] MEDS: risperiDONE 0.25 MG TABLET. PO SCH (12:56)
--- NOTE | 2017-02-28 14:00 | NUR ---
Behavior Intervention Response and Plan: BIRP Note: Behavior: Assumed Care of patient, patient located in Day Room at shift change. Patient exhibited the following behavior Compliant, Disorganized, Calm. Brief assessment on rounds of vital signs, medication needs, lab studies, and pain. Treatment plan problems . Intervention: Patient assessed and the following interventions initiated safety checks 15 Minute Checks Personal Alarm in place , Call maddox in reach , Medications. Response: After interactions and interventions patient responded in the following manner, Compliant , Calm ,Disorganized. Continue to assess behaviors and condition will continue to monitor throughout the shift as needed. Plan: Continue to monitor Master Treatment Plan for patient's progress toward short term goals of Decreased Agitation, Decreased Anxiety, skilled nursing goals to return to previous living setting vs placement. Continue to assess patient for changes in above assessment. Monitor for medication needs, pain, and safety concerns. Hourly rounding performed to ensure safe environment.
[2017-02-28 15:58] VITALS: BP 136/73
[2017-02-28] MEDS: INSULIN DETEMIR 300 UNITS/3 ML INSULN.PEN. SQ SCH (19:23)
--- NOTE | 2017-02-28 21:14 | PDOC ---
Exam Johnan Demential Exam: Johann Note: Please also refer to the separate dictated note~for this date of service dictated separately.~Patient seen individually. Discussed the patient with Nursing staff reviewed the chart.~Reviewed interim history and current functioning. Reviewed vital signs,~Labs/ Radiology~and current medications noted below. Continue current treatment with the changes noted in the dictated addendum note Assessment: Vital Signs: Vital Signs Date Time Temp Pulse Resp B/P Pulse Ox O2 Delivery O2 Flow Rate FiO2 02/28/17 19:20 18 02/28/17 15:58 97.4 83 136/73 94 02/28/17 10:15 Room Air I&O Intake and Output 02/28/17 07:00 Intake Total 1100 ml Balance 1100 ml Intake Oral 1100 ml Labs: Laboratory Tests Test 02/28/17 07:54 02/28/17 12:23 02/28/17 16:48 02/28/17 19:17 Glucose (Fingerstick) 108mg/dL (70-99) H 109mg/dL (70-99) H 169mg/dL (70-99) H 253mg/dL (70-99) H Current Medications: Meds: Current Medications Acetaminophen (Tylenol) 650 mg PRN Q6HRS PRN PO PAIN / TEMP; Start 02/25/17 at 00:30; Stop 02/25/17 at 15:05; Status DC Multi-Ingredient Ointment (Analgesic [place]) 1 marcell PRN QID PRN TP MUSCLE PAIN; Start 02/25/17 at 00:30 Al Hydroxide/Mg Hydroxide (Mylanta Plus Xs) 15 ml PRN AFTMEALHC PRN PO DYSPEPSIA; Start 02/25/17 at 00:30 Magnesium Hydroxide (Milk Of Magnesia) 2,400 mg PRN QHS PRN PO CONSTIPATION; Start 02/25/17 at 00:30; Stop 02/25/17 at 15:05; Status DC Chlorpromazine HCl (Thorazine) 25 mg BID PO Last administered on 02/26/17 09: 34; Start 02/25/17 at 09:00; Stop 02/26/17 at 18:22; Status DC Citalopram Hydrobromide (Celexa) 20 mg DAILY PO Last administered on 02/28/17 08:58; Start 02/25/17 at 09:00 Lorazepam (Ativan) 1 mg PRN Q3HRS PRN PO ANXIETY / AGITATION Last administered on 02/26/17 22:54; Start 02/25/17 at 00:30 Risperidone (Risperdal) 0.5 mg BID PO Last administered on 02/26/17 09:34; Start 02/25/17 at 09:00; Stop 02/26/17 at 18:22; Status DC Trazodone HCl (Desyrel) 50 mg PRN QHS PRN PO INSOMNIA Last administered on 02/26 22:55; Start 02/25/17 at 00:30 Divalproex Sodium (Depakote Sprinkles) 500 mg TID PO Last administered on 19:17; Start 02/25/17 at 09:00 Acetaminophen (Tylenol) 650 mg PRN Q8HRS PRN PO PAIN Last administered on 12:56; Start 02/25/17 at 07:30 Amlodipine Besylate (Norvasc) 10 mg DAILY PO Last administered on 02/28/17 08: 58; Start 02/25/17 at 09:00 Gabapentin (Neurontin) 300 mg TID PO Last administered on 02/28/17 19:17; Start 02/25/17 at 09:00 Acetaminophen/ Hydrocodone Bitart (Lortab 5/325) 1 tab Q12HR PO Last administered on 02/28/17 19:20; Start 02/25/17 at 09:00 Insulin Aspart (Novolog) 6 units TIDWMEALS SQ Last administered on 02/28/17 17 :56; Start 02/25/17 at 08:00 Losartan Potassium (Cozaar) 50 mg DAILY PO Last administered on 02/28/17 08:58 ; Start 02/25/17 at 09:00 Senna/Docusate Sodium (Senna Plus) 1 tab DAILY PO Last administered on 08:58; Start 02/25/17 at 09:00 Insulin Detemir (Levemir) 15 units QHS SQ Last administered on 02/25/17 19:55 ; Start 02/25/17 at 21:00; Stop 02/26/17 at 14:21; Status DC Magnesium Hydroxide (Milk Of Magnesia) 2,400 mg PRN DAILY PRN PO CONSTIPATION; Start 02/25/17 at 07:45 Insulin Detemir (Levemir) 15 units QHS SQ Last administered on 02/28/17 19:23 ; Start 02/26/17 at 14:21 Chlorpromazine HCl (Thorazine) 25 mg DAILY PO Last administered on 02/28/17 09 :09; Start 02/27/17 at 09:00; Stop 02/28/17 at 15:50; Status DC Risperidone (Risperdal) 0.5 mg DAILY PO Last administered on 02/28/17 08:59; Start 02/27/17 at 09:00 Risperidone (Risperdal) 0.75 mg HS PO ; Start 02/26/17 at 21:00; Stop 02/26/17 at 21:00; Status DC Risperidone (Risperdal) 0.75 mg 14 PO Last administered on 02/28/17 12:56; Start 02/26/17 at 21:00 Buspirone HCl (Buspar) 5 mg BID PO Last administered on 02/28/17 19:17; Start 02/27/17 at 21:00 Active Scripts Active Reported Lantus Solostar (Insulin Glargine,Hum.rec.anlog) 100 Unit/1 Ml Insuln.pen 15 Unit SQ QHS Lorazepam 1 Mg Tablet 1 Mg PO PRN Q3HRS PRN Risperdal (Risperidone) 0.5 Mg Tablet 0.5 Mg PO BID Chlorpromazine Hcl 25 Mg Tablet 25 Mg PO BID Novolog Flexpen (Insulin Aspart) 100 Unit/1 Ml Insuln.pen 6 Unit SQ TIDWMEALS Gabapentin 300 Mg Capsule 300 Mg PO TID Milk Of Magnesia (Magnesium Hydroxide) 2,400 Mg/10 Ml Oral.susp 2,400 Mg PO PRN DAILY Trazodone Hcl 50 Mg Tablet 50 Mg PO PRN QHS PRN Divalproex Sodium 500 Mg Tablet.dr 500 Mg PO TID Losartan Potassium 50 Mg Tablet 50 Mg PO DAILY Senexon-S Tablet (Sennosides/Docusate Sodium) 1 Each Tablet 8.6-50 Mg PO DAILY Celexa (Citalopram Hydrobromide) 20 Mg Tablet 20 Mg PO DAILY Amlodipine Besylate 10 Mg Tablet 10 Mg PO DAILY Percocet 5-325 Mg Tablet (Oxycodone Hcl/Acetaminophen) 1 Each Tablet 1 Tab PO PRN Q8HRS PRN Hydrocodone-Apap 5-325 (Hydrocodone Bit/Acetaminophen) 1 Each Tablet 1 Tab PO Q12HR Tylenol (Acetaminophen) 325 Mg Tablet 650 Mg PO PRN Q8HRS PRN Diagnosis: Problems: (1) Psychiatric disorder (2) Bipolar affective, mixed, sev w/ psych (3) Anxiety disorder (4) Dementia in Alzheimer's disease with delusions (5) Impulse control disorder NANCY HAHN MD Feb 28, 2017 21:14
--- NOTE | 2017-02-28 23:05 | NUR ---
Behavior Intervention Response and Plan: BIRP Note: Behavior: Assumed Care of patient, patient located in Day Room at shift change. Patient exhibited the following behavior Calm, Interactive, Compliant. Brief assessment on rounds of vital signs, medication needs, lab studies, and pain. Treatment plan problems Alteration in Mood and Fall Risk. Intervention: Patient assessed and the following interventions initiated safety checks 15 Minute Checks Cognitive Assessment , Medications , Oral Hydration. Response: After interactions and interventions patient responded in the following manner, Calm , Disorganized ,Compliant. Continue to assess behaviors and condition will continue to monitor throughout the shift as needed. 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 Continue to assess patient for changes in above assessment. Monitor for medication needs, pain, and safety concerns. Hourly rounding performed to ensure safe environment.
[2017-03-01 06:53] VITALS: BP 120/65
[2017-03-01] MEDS: HYDROcodone/APAP 5/325MG 1 TAB TABLET PO SCH ×2 (08:38→20:22)
[2017-03-01] MEDS: CITALOPRAM 20 MG TABLET. PO SCH (08:38)
[2017-03-01] MEDS: risperiDONE 0.5 MG TABLET. PO SCH (08:38)
[2017-03-01] MEDS: SENNOSIDES/DOCUSATE 8.6/50MG TABLET. PO SCH (08:38)
[2017-03-01] MEDS: DIVALPROEX 125 MG CAP.SPRINK PO SCH ×3 (08:38→20:22)
[2017-03-01] MEDS: GABAPENTIN 300 MG CAPSULE. PO SCH ×3 (08:38→20:21)
[2017-03-01] MEDS: busPIRone 5 MG TABLET. PO SCH (08:38)
[2017-03-01] MEDS: amLODIPine BESYLATE 10 MG TABLET PO SCH (08:39)
[2017-03-01] MEDS: LOSARTAN 50 MG TABLET. PO SCH (08:39)
[2017-03-01] MEDS: INSULIN ASPART 300 UNITS/3 ML INSULN.PEN SQ SCH ×3 (08:41→17:36)
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
--- NOTE | 2017-03-01 11:15 | NUR ---
THERAPEUTIC RECREATION GROUP NOTE TITLE :Movement to Music: Flexibility ACTIVITY : Movement/ Exercise GOAL : Increase morale, attention, flexibility. Decrease stress/anxiety. DURATION : 40 Minutes RESPONSE : Minimal participation. Pt. joined the group a little late and did her own workout and dance moves for a few minutes. She read a magazine the rest of the time.
--- NOTE | 2017-03-01 11:36 | NUR ---
Behavior Intervention Response and Plan: BIRP Note: Behavior: Assumed Care of patient, patient located in Day Room at shift change. Patient exhibited the following behavior Interactive, Disorganized, Cooperative. Brief assessment on rounds of vital signs, medication needs, lab studies, and pain. Treatment plan problems . Intervention: Patient assessed and the following interventions initiated safety checks 15 Minute Checks Cognitive Assessment , Head to toe Assessment , Medications. Response: After interactions and interventions patient responded in the following manner, Disorganized , Cooperative ,Attention Seeking. Continue to assess behaviors and condition will continue to monitor throughout the shift as needed. 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 Continue to assess patient for changes in above assessment. Monitor for medication needs, pain, and safety concerns. Hourly rounding performed to ensure safe environment.
--- NOTE | 2017-03-01 14:00 | NUR ---
THERAPEUTIC RECREATION GROUP NOTE TITLE :Balloon Bop with Noodles ACTIVITY : Activities and Games GOAL : Increase socialization and alertness. Maintain/improve mental and physical functioning. DURATION : 30 minutes RESPONSE : Full participation. Pt. was playful and needed to prompting to stay on task. She was proud of herself when she batted the balloon on both sides. She got up and danced with pool noodle once in the activity. She was a pleasure to have in group.
[2017-03-01] MEDS: risperiDONE 0.25 MG TABLET. PO SCH (14:51)
[2017-03-01 15:53] VITALS: BP 144/83
--- NOTE | 2017-03-01 18:05 | NUR ---
Dr. Montesinos notified of pt's final urine cx. Received orders for Bactrim x7days.
[2017-03-01] MEDS: busPIRone 10 MG TABLET. PO SCH (20:21)
[2017-03-01] MEDS: INSULIN DETEMIR 300 UNITS/3 ML INSULN.PEN. SQ SCH (20:25)
--- NOTE | 2017-03-01 21:17 | PDOC ---
Exam Johann Demential Exam: Johann Note: Please also refer to the separate dictated note~for this date of service dictated separately.~Patient seen individually. Discussed the patient with Nursing staff reviewed the chart.~Reviewed interim history and current functioning. Reviewed vital signs,~Labs/ Radiology~and current medications noted below. Continue current treatment with the changes noted in the dictated addendum note Assessment: Vital Signs: Vital Signs Date Time Temp Pulse Resp B/P Pulse Ox O2 Delivery O2 Flow Rate FiO2 03/01/17 20:22 20 Room Air 03/01/17 15:53 97.9 66 144/83 94 I&O Intake and Output 03/01/17 07:00 Intake Total 1320 ml Balance 1320 ml Intake Oral 1320 ml # Bowel Movements 1 Labs: Laboratory Tests Test 03/01/17 07:08 03/01/17 11:13 03/01/17 16:10 03/01/17 19:12 Glucose (Fingerstick) 158mg/dL (70-99) H 148mg/dL (70-99) H 104mg/dL (70-99) H 176mg/dL (70-99) H Current Medications: Meds: Current Medications Acetaminophen (Tylenol) 650 mg PRN Q6HRS PRN PO PAIN / TEMP; Start 02/25/17 at 00:30; Stop 02/25/17 at 15:05; Status DC Multi-Ingredient Ointment (Analgesic [place]) 1 marcell PRN QID PRN TP MUSCLE PAIN; Start 02/25/17 at 00:30 Al Hydroxide/Mg Hydroxide (Mylanta Plus Xs) 15 ml PRN AFTMEALHC PRN PO DYSPEPSIA; Start 02/25/17 at 00:30 Magnesium Hydroxide (Milk Of Magnesia) 2,400 mg PRN QHS PRN PO CONSTIPATION; Start 02/25/17 at 00:30; Stop 02/25/17 at 15:05; Status DC Chlorpromazine HCl (Thorazine) 25 mg BID PO Last administered on 02/26/17 09: 34; Start 02/25/17 at 09:00; Stop 02/26/17 at 18:22; Status DC Citalopram Hydrobromide (Celexa) 20 mg DAILY PO Last administered on 03/01/17 08:38; Start 02/25/17 at 09:00 Lorazepam (Ativan) 1 mg PRN Q3HRS PRN PO ANXIETY / AGITATION Last administered on 02/26/17 22:54; Start 02/25/17 at 00:30 Risperidone (Risperdal) 0.5 mg BID PO Last administered on 02/26/17 09:34; Start 02/25/17 at 09:00; Stop 02/26/17 at 18:22; Status DC Trazodone HCl (Desyrel) 50 mg PRN QHS PRN PO INSOMNIA Last administered on 02/26 22:55; Start 02/25/17 at 00:30 Divalproex Sodium (Depakote Sprinkles) 500 mg TID PO Last administered on 20:22; Start 02/25/17 at 09:00 Acetaminophen (Tylenol) 650 mg PRN Q8HRS PRN PO PAIN Last administered on 12:56; Start 02/25/17 at 07:30 Amlodipine Besylate (Norvasc) 10 mg DAILY PO Last administered on 03/01/17 08: 39; Start 02/25/17 at 09:00 Gabapentin (Neurontin) 300 mg TID PO Last administered on 03/01/17 20:21; Start 02/25/17 at 09:00 Acetaminophen/ Hydrocodone Bitart (Lortab 5/325) 1 tab Q12HR PO Last administered on 03/01/17 20:22; Start 02/25/17 at 09:00 Insulin Aspart (Novolog) 6 units TIDWMEALS SQ Last administered on 03/01/17 17 :36; Start 02/25/17 at 08:00 Losartan Potassium (Cozaar) 50 mg DAILY PO Last administered on 03/01/17 08:39 ; Start 02/25/17 at 09:00 Senna/Docusate Sodium (Senna Plus) 1 tab DAILY PO Last administered on 08:38; Start 02/25/17 at 09:00 Insulin Detemir (Levemir) 15 units QHS SQ Last administered on 02/25/17 19:55 ; Start 02/25/17 at 21:00; Stop 02/26/17 at 14:21; Status DC Magnesium Hydroxide (Milk Of Magnesia) 2,400 mg PRN DAILY PRN PO CONSTIPATION; Start 02/25/17 at 07:45 Insulin Detemir (Levemir) 15 units QHS SQ Last administered on 03/01/17 20:25 ; Start 02/26/17 at 14:21 Chlorpromazine HCl (Thorazine) 25 mg DAILY PO Last administered on 02/28/17 09 :09; Start 02/27/17 at 09:00; Stop 02/28/17 at 15:50; Status DC Risperidone (Risperdal) 0.5 mg DAILY PO Last administered on 03/01/17 08:38; Start 02/27/17 at 09:00 Risperidone (Risperdal) 0.75 mg HS PO ; Start 02/26/17 at 21:00; Stop 02/26/17 at 21:00; Status DC Risperidone (Risperdal) 0.75 mg 14 PO Last administered on 03/01/17 14:51; Start 02/26/17 at 21:00 Buspirone HCl (Buspar) 5 mg BID PO Last administered on 03/01/17 08:38; Start 02/27/17 at 21:00; Stop 03/01/17 at 12:38; Status DC Buspirone HCl (Buspar) 10 mg BID PO Last administered on 03/01/17 20:21; Start 03/01/17 at 21:00 Trimethoprim/ Sulfamethoxazole (Bactrim Ds) 1 tab DAILY PO ; Start 03/02/17 at 09:00; Stop 03/09/17 at 09:01 Active Scripts Active Reported Lantus Solostar (Insulin Glargine,Hum.rec.anlog) 100 Unit/1 Ml Insuln.pen 15 Unit SQ QHS Lorazepam 1 Mg Tablet 1 Mg PO PRN Q3HRS PRN Risperdal (Risperidone) 0.5 Mg Tablet 0.5 Mg PO BID Chlorpromazine Hcl 25 Mg Tablet 25 Mg PO BID Novolog Flexpen (Insulin Aspart) 100 Unit/1 Ml Insuln.pen 6 Unit SQ TIDWMEALS Gabapentin 300 Mg Capsule 300 Mg PO TID Milk Of Magnesia (Magnesium Hydroxide) 2,400 Mg/10 Ml Oral.susp 2,400 Mg PO PRN DAILY Trazodone Hcl 50 Mg Tablet 50 Mg PO PRN QHS PRN Divalproex Sodium 500 Mg Tablet.dr 500 Mg PO TID Losartan Potassium 50 Mg Tablet 50 Mg PO DAILY Senexon-S Tablet (Sennosides/Docusate Sodium) 1 Each Tablet 8.6-50 Mg PO DAILY Celexa (Citalopram Hydrobromide) 20 Mg Tablet 20 Mg PO DAILY Amlodipine Besylate 10 Mg Tablet 10 Mg PO DAILY Percocet 5-325 Mg Tablet (Oxycodone Hcl/Acetaminophen) 1 Each Tablet 1 Tab PO PRN Q8HRS PRN Hydrocodone-Apap 5-325 (Hydrocodone Bit/Acetaminophen) 1 Each Tablet 1 Tab PO Q12HR Tylenol (Acetaminophen) 325 Mg Tablet 650 Mg PO PRN Q8HRS PRN Diagnosis: Problems: (1) Psychiatric disorder (2) Bipolar affective, mixed, sev w/ psych (3) Anxiety disorder (4) Dementia in Alzheimer's disease with delusions (5) Impulse control disorder NANCY HAHN MD Mar 01, 2017 21:17
[2017-03-01] MEDS: traZODone 50 MG TABLET. PO PRN (21:53)
[2017-03-01] MEDS: LORazepam 1 MG TABLET PO PRN (21:53)
--- NOTE | 2017-03-01 21:55 | NUR ---
Nursing Note Patient peeing on floor and yelling in rainey repeatedly. Patient non redirectable after multiple attempts. Patient given PRN Ativan and Trazodone.
--- NOTE | 2017-03-02 00:44 | NUR ---
Behavior Intervention Response and Plan: BIRP Note: Behavior: Assumed Care of patient, patient located in Hallway at shift change. Patient exhibited the following behavior Wandering, Disorganized, Social. Brief assessment on rounds of vital signs, medication needs, lab studies, and pain. Treatment plan problems Alteration in mood and fall risk. Intervention: Patient assessed and the following interventions initiated safety checks 15 Minute Checks Cognitive Assessment , Medications , ADL's. Response: After interactions and interventions patient responded in the following manner, Interactive , Wandering ,Social. Continue to assess behaviors and condition will continue to monitor throughout the shift as needed. 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 Continue to assess patient for changes in above assessment. Monitor for medication needs, pain, and safety concerns. Hourly rounding performed to ensure safe environment.
[2017-03-02 05:59] VITALS: BP 124/79
[2017-03-02] MEDS: busPIRone 10 MG TABLET. PO SCH ×2 (08:05→19:23)
[2017-03-02] MEDS: GABAPENTIN 300 MG CAPSULE. PO SCH ×4 (08:05→19:23)
[2017-03-02] MEDS: DIVALPROEX 125 MG CAP.SPRINK PO SCH ×4 (08:05→19:23)
[2017-03-02] MEDS: SENNOSIDES/DOCUSATE 8.6/50MG TABLET. PO SCH (08:05)
[2017-03-02] MEDS: amLODIPine BESYLATE 10 MG TABLET PO SCH (08:05)
[2017-03-02] MEDS: risperiDONE 0.5 MG TABLET. PO SCH (08:06)
[2017-03-02] MEDS: LOSARTAN 50 MG TABLET. PO SCH (08:06)
[2017-03-02] MEDS: CITALOPRAM 20 MG TABLET. PO SCH (08:06)
[2017-03-02] MEDS: HYDROcodone/APAP 5/325MG 1 TAB TABLET PO SCH ×2 (08:08→19:23)
[2017-03-02] MEDS: SMZ/TMP 800/160MG TABLET. PO SCH (08:08)
[2017-03-02] MEDS: INSULIN ASPART 300 UNITS/3 ML INSULN.PEN SQ SCH ×3 (08:10→17:00)
--- NOTE | 2017-03-02 12:18 | NUR ---
SW spoke w/PT's Justin COUCH regarding target dc date set for mid to late next week. SW will follow up early next week.
--- NOTE | 2017-03-02 12:41 | NUR ---
Patient became very agitated in the day room during lunch. Patient asking for corn bread and more water, nurse attempted to explain we had no more cornbread. She then proceeded to yell "more cornbread and water" over and over and not redirectable. Patient was removed from dining room d/t disruptive behaviors, and she continued to yell in hallway. She has been yelling and cursing at other patients and staff, will not allow nurse to speak with her. She is currently sitting in chair in hallway outside of dining room, will continue to monitor. Addendum: 03/02/17 at 1400 by JACQUIE STEVENSON RN Nurse went to check on patient who is now laying in bed in her room. Patient still very irritable and yelling at nurse. Patient states that this nurse is a "bitch" and she just wants to be left alone. Nurse used dry-erase board to communicate the reason why she was removed from dining room and she states she does not care. Patient told nurse to pour her meds in her mouth, then opened it while laying down. Nurse told her she needed to sit up and take her medicine, that this nurse will not pour them in her mouth, so then patient refused and states she wants to be left alone, will continue to monitor. Addendum: 03/02/17 at 1522 by JACQUIE STEVENSON RN Patient is now in the day room working on cross-word puzzles, appears to be in a better mood and was compliant with medications, no other concerns at this time.
[2017-03-02] MEDS: risperiDONE 0.25 MG TABLET. PO SCH ×2 (13:46→14:00)
--- NOTE | 2017-03-02 14:46 | NUR ---
SW provided PT. w/a variety of Anger/relaxation activities. The Activities were shown to Pt. and then left in the room. PT. asked politely to be left alone.
[2017-03-02 15:50] VITALS: BP 140/76
--- NOTE | 2017-03-02 15:56 | NUR ---
Behavior Intervention Response and Plan: BIRP Note: Behavior: Assumed Care of patient, patient located in Dining Room at shift change. Patient exhibited the following behavior Demanding, Irritable, Resistive. Brief assessment on rounds of vital signs, medication needs, lab studies, and pain. Treatment plan problems . Intervention: Patient assessed and the following interventions initiated safety checks 15 Minute Checks Cognitive Assessment , Head to toe Assessment , Medications. Response: After interactions and interventions patient responded in the following manner, Calm , Compliant ,Cooperative. Continue to assess behaviors and condition will continue to monitor throughout the shift as needed. Plan: Continue to monitor Master Treatment Plan for patient's progress toward short term goals of Decreased Agitation, Decreased Anxiety, [facility] goals to return to previous living setting vs placement. Continue to assess patient for changes in above assessment. Monitor for medication needs, pain, and safety concerns. Hourly rounding performed to ensure safe environment.
[2017-03-02] MEDS: INSULIN DETEMIR 300 UNITS/3 ML INSULN.PEN. SQ SCH (19:25)
--- NOTE | 2017-03-02 21:00 | NUR ---
Behavior Intervention Response and Plan: BIRP Note: Behavior: Assumed Care of patient, patient located in Day Room at shift change. Patient exhibited the following behavior Calm, Cooperative, Non Compliant, attention seeking, . Brief assessment on rounds of vital signs, medication needs, lab studies, and pain. Treatment plan problems: alteration in mood and fall risk . Intervention: Patient assessed and the following interventions initiated safety checks 15 Minute Checks Cognitive Assessment , Head to toe Assessment , Medications, oral hydration, nutrition. Response: After interactions and interventions patient responded in the following manner, Calm , Interactive ,Compliant, cooperative, less attention seeking . Continue to assess behaviors and condition will continue to monitor throughout the shift as needed. Plan: Continue to monitor Master Treatment Plan for patient's progress toward short term goals of Decreased Anxiety, Decreased Agitation, Medication Compliance, Improved Mood, longterm goals to return to previous living setting vs placement. Continue to assess patient for changes in above assessment. Monitor for medication needs, pain, and safety concerns. Hourly rounding performed to ensure safe environment.
--- NOTE | 2017-03-03 01:38 | PDOC ---
Exam Johann Demential Exam: Johann Note: Please also refer to the separate dictated note~for this date of service dictated separately.~Patient seen individually. Discussed the patient with Nursing staff reviewed the chart.~Reviewed interim history and current functioning. Reviewed vital signs,~Labs/ Radiology~and current medications noted below. Continue current treatment with the changes noted in the dictated addendum note Assessment: Vital Signs: Vital Signs Date Time Temp Pulse Resp B/P Pulse Ox O2 Delivery O2 Flow Rate FiO2 03/02/17 19:23 18 03/02/17 15:50 97.3 85 140/76 94 Room Air I&O Intake and Output 03/02/17 07:00 Intake Total 1640 ml Balance 1640 ml Intake Oral 1640 ml # Voids 2 Labs: Laboratory Tests Test 03/02/17 06:55 03/02/17 11:18 03/02/17 16:43 03/02/17 19:21 Glucose (Fingerstick) 76mg/dL (70-99) 113mg/dL (70-99) H 149mg/dL (70-99) H 265mg/dL (70-99) H Current Medications: Meds: Current Medications Acetaminophen (Tylenol) 650 mg PRN Q6HRS PRN PO PAIN / TEMP; Start 02/25/17 at 00:30; Stop 02/25/17 at 15:05; Status DC Multi-Ingredient Ointment (Analgesic Lohman) 1 marcell PRN QID PRN TP MUSCLE PAIN; Start 02/25/17 at 00:30 Al Hydroxide/Mg Hydroxide (Mylanta Plus Xs) 15 ml PRN AFTMEALHC PRN PO DYSPEPSIA; Start 02/25/17 at 00:30 Magnesium Hydroxide (Milk Of Magnesia) 2,400 mg PRN QHS PRN PO CONSTIPATION; Start 02/25/17 at 00:30; Stop 02/25/17 at 15:05; Status DC Chlorpromazine HCl (Thorazine) 25 mg BID PO Last administered on 02/26/17 09: 34; Start 02/25/17 at 09:00; Stop 02/26/17 at 18:22; Status DC Citalopram Hydrobromide (Celexa) 20 mg DAILY PO Last administered on 03/02/17 08:06; Start 02/25/17 at 09:00 Lorazepam (Ativan) 1 mg PRN Q3HRS PRN PO ANXIETY / AGITATION Last administered on 03/01/17 21:53; Start 02/25/17 at 00:30 Risperidone (Risperdal) 0.5 mg BID PO Last administered on 02/26/17 09:34; Start 02/25/17 at 09:00; Stop 02/26/17 at 18:22; Status DC Trazodone HCl (Desyrel) 50 mg PRN QHS PRN PO INSOMNIA Last administered on 03/01 21:53; Start 02/25/17 at 00:30 Divalproex Sodium (Depakote Sprinkles) 500 mg TID PO Last administered on 19:23; Start 02/25/17 at 09:00 Acetaminophen (Tylenol) 650 mg PRN Q8HRS PRN PO PAIN Last administered on 12:56; Start 02/25/17 at 07:30 Amlodipine Besylate (Norvasc) 10 mg DAILY PO Last administered on 03/02/17 08: 05; Start 02/25/17 at 09:00 Gabapentin (Neurontin) 300 mg TID PO Last administered on 03/02/17 19:23; Start 02/25/17 at 09:00 Acetaminophen/ Hydrocodone Bitart (Lortab 5/325) 1 tab Q12HR PO Last administered on 03/02/17 19:23; Start 02/25/17 at 09:00 Insulin Aspart (Novolog) 6 units TIDWMEALS SQ Last administered on 03/02/17 17 :00; Start 02/25/17 at 08:00 Losartan Potassium (Cozaar) 50 mg DAILY PO Last administered on 03/02/17 08:06 ; Start 02/25/17 at 09:00 Senna/Docusate Sodium (Senna Plus) 1 tab DAILY PO Last administered on 08:05; Start 02/25/17 at 09:00 Insulin Detemir (Levemir) 15 units QHS SQ Last administered on 02/25/17 19:55 ; Start 02/25/17 at 21:00; Stop 02/26/17 at 14:21; Status DC Magnesium Hydroxide (Milk Of Magnesia) 2,400 mg PRN DAILY PRN PO CONSTIPATION; Start 02/25/17 at 07:45 Insulin Detemir (Levemir) 15 units QHS SQ Last administered on 03/02/17 19:25 ; Start 02/26/17 at 14:21 Chlorpromazine HCl (Thorazine) 25 mg DAILY PO Last administered on 02/28/17 09 :09; Start 02/27/17 at 09:00; Stop 02/28/17 at 15:50; Status DC Risperidone (Risperdal) 0.5 mg DAILY PO Last administered on 03/02/17 08:06; Start 02/27/17 at 09:00 Risperidone (Risperdal) 0.75 mg HS PO ; Start 02/26/17 at 21:00; Stop 02/26/17 at 21:00; Status DC Risperidone (Risperdal) 0.75 mg 14 PO Last administered on 03/02/17 14:00; Start 02/26/17 at 21:00 Buspirone HCl (Buspar) 5 mg BID PO Last administered on 03/01/17 08:38; Start 02/27/17 at 21:00; Stop 03/01/17 at 12:38; Status DC Buspirone HCl (Buspar) 10 mg BID PO Last administered on 03/02/17 08:05; Start 03/01/17 at 21:00; Stop 03/02/17 at 18:06; Status DC Trimethoprim/ Sulfamethoxazole (Bactrim Ds) 1 tab DAILY PO Last administered on 03/02/17 08:08; Start 03/02/17 at 09:00; Stop 03/09/17 at 09:01 Buspirone HCl (Buspar) 10 mg TIDAFTMEAL PO Last administered on 03/02/17 19:23 ; Start 03/03/17 at 09:00 Vitamin D (Vitamin D3) 50,000 unit WEEKLY PO ; Start 03/03/17 at 09:00 Active Scripts Active Reported Lantus Solostar (Insulin Glargine,Hum.rec.anlog) 100 Unit/1 Ml Insuln.pen 15 Unit SQ QHS Lorazepam 1 Mg Tablet 1 Mg PO PRN Q3HRS PRN Risperdal (Risperidone) 0.5 Mg Tablet 0.5 Mg PO BID Chlorpromazine Hcl 25 Mg Tablet 25 Mg PO BID Novolog Flexpen (Insulin Aspart) 100 Unit/1 Ml Insuln.pen 6 Unit SQ TIDWMEALS Gabapentin 300 Mg Capsule 300 Mg PO TID Milk Of Magnesia (Magnesium Hydroxide) 2,400 Mg/10 Ml Oral.susp 2,400 Mg PO PRN DAILY Trazodone Hcl 50 Mg Tablet 50 Mg PO PRN QHS PRN Divalproex Sodium 500 Mg Tablet.dr 500 Mg PO TID Losartan Potassium 50 Mg Tablet 50 Mg PO DAILY Senexon-S Tablet (Sennosides/Docusate Sodium) 1 Each Tablet 8.6-50 Mg PO DAILY Celexa (Citalopram Hydrobromide) 20 Mg Tablet 20 Mg PO DAILY Amlodipine Besylate 10 Mg Tablet 10 Mg PO DAILY Percocet 5-325 Mg Tablet (Oxycodone Hcl/Acetaminophen) 1 Each Tablet 1 Tab PO PRN Q8HRS PRN Hydrocodone-Apap 5-325 (Hydrocodone Bit/Acetaminophen) 1 Each Tablet 1 Tab PO Q12HR Tylenol (Acetaminophen) 325 Mg Tablet 650 Mg PO PRN Q8HRS PRN Diagnosis: Problems: (1) Psychiatric disorder (2) Bipolar affective, mixed, sev w/ psych (3) Anxiety disorder (4) Dementia in Alzheimer's disease with delusions (5) Impulse control disorder NANCY HAHN MD Mar 02, 2017 21:08
[2017-03-03] MEDS: LORazepam 1 MG TABLET PO PRN (05:41)
[2017-03-03 06:07] VITALS: BP 127/73
[2017-03-03] MEDS: risperiDONE 0.5 MG TABLET. PO SCH (09:01)
[2017-03-03] MEDS: DIVALPROEX 125 MG CAP.SPRINK PO SCH ×3 (09:01→20:58)
[2017-03-03] MEDS: SMZ/TMP 800/160MG TABLET. PO SCH (09:01)
[2017-03-03] MEDS: GABAPENTIN 300 MG CAPSULE. PO SCH ×3 (09:01→20:59)
[2017-03-03] MEDS: LOSARTAN 50 MG TABLET. PO SCH (09:02)
[2017-03-03] MEDS: amLODIPine BESYLATE 10 MG TABLET PO SCH (09:02)
[2017-03-03] MEDS: SENNOSIDES/DOCUSATE 8.6/50MG TABLET. PO SCH (09:02)
[2017-03-03] MEDS: CITALOPRAM 20 MG TABLET. PO SCH (09:02)
[2017-03-03] MEDS: HYDROcodone/APAP 5/325MG 1 TAB TABLET PO SCH ×2 (09:03→20:59)
[2017-03-03] MEDS: CHOLECALCIFEROL (VITAMIN D3) 50,000 UNIT CAPSULE PO SCH (09:03)
[2017-03-03] MEDS: INSULIN ASPART 300 UNITS/3 ML INSULN.PEN SQ SCH ×3 (09:06→17:58)
--- NOTE | 2017-03-03 12:17 | PN ---
DATE: 02/28/2017 PSYCHIATRIC PROGRESS NOTE This is a late entry of 02/28/2017 covers elements not covered in my initial note. SUBJECTIVE: The patient's blood sugars have been stable. Sleeping about 7-3/4 hours extremely loud verbally, but that is partly because she is deaf. Not aggressive. REVIEW OF SYSTEMS: Hard of hearing, difficulty with her speech consequent to the above, impaired ambulation. No CV, , pulmonary, eye system symptoms on review. Reliability varies. MENTAL STATUS EXAM: Oriented to herself at times to situation. Speech is as above. Abstraction fair, computation impaired, language function intact. Mood and affect remains labile. LABORATORY DATA: Reviewed. IMPRESSION: Schizoaffective disorder bipolar type, mixed with psychotic features. Rest unchanged. PLAN: Continue psychotropics mentioned in my initial note. Valproic acid level therapeutic at 56. May need to increase BuSpar for anxiety in due course. Thorazine has been stopped. NANCY HAHN MD DR: MARGA/estelle JOB#: [id number] / [id number]
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
[2017-03-03] MEDS: risperiDONE 0.25 MG TABLET. PO SCH (13:16)
[2017-03-03] MEDS: busPIRone 10 MG TABLET. PO SCH ×2 (13:16→17:56)
--- NOTE | 2017-03-03 15:45 | NUR ---
Behavior Intervention Response and Plan: BIRP Note: Behavior: Assumed Care of patient, patient located in Hallway at shift change. Patient exhibited the following behavior Calm, Disorganized, Compliant. Brief assessment on rounds of vital signs, medication needs, lab studies, and pain. Treatment plan problems 1 and 2. Intervention: Patient assessed and the following interventions initiated safety checks 15 Minute Checks Cognitive Assessment , Head to toe Assessment , Medications. Response: After interactions and interventions patient responded in the following manner, Interactive , Disorganized ,Compliant. Continue to assess behaviors and condition will continue to monitor throughout the shift as needed. 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 Continue to assess patient for changes in above assessment. Monitor for medication needs, pain, and safety concerns. Hourly rounding performed to ensure safe environment.
--- NOTE | 2017-03-03 15:46 | NUR ---
Patient wandering hallway, calm and compliant with medications. Incontinent of urine, cooperative with cares during brief change. Will continue to monitor.
[2017-03-03 16:37] VITALS: BP 127/74
[2017-03-03] MEDS: traZODone 50 MG TABLET. PO PRN (21:01)
[2017-03-03] MEDS: INSULIN DETEMIR 300 UNITS/3 ML INSULN.PEN. SQ SCH (21:14)
--- NOTE | 2017-03-03 22:34 | PDOC ---
Exam Johann Demential Exam: Johann Note: Please also refer to the separate dictated note~for this date of service dictated separately.~Patient seen individually. Discussed the patient with Nursing staff reviewed the chart.~Reviewed interim history and current functioning. Reviewed vital signs,~Labs/ Radiology~and current medications noted below. Continue current treatment with the changes noted in the dictated addendum note Assessment: Vital Signs: Vital Signs Date Time Temp Pulse Resp B/P Pulse Ox O2 Delivery O2 Flow Rate FiO2 03/03/17 16:37 97.5 63 15 127/74 96 03/02/17 20:23 Room Air I&O Intake and Output 03/03/17 07:00 Intake Total 1380 ml Balance 1380 ml Intake Oral 1380 ml # Voids 2 Labs: Laboratory Tests Test 03/03/17 07:20 03/03/17 11:41 03/03/17 16:59 03/03/17 19:21 Glucose (Fingerstick) 225mg/dL (70-99) H 143mg/dL (70-99) H 205mg/dL (70-99) H 222mg/dL (70-99) H Current Medications: Meds: Current Medications Acetaminophen (Tylenol) 650 mg PRN Q6HRS PRN PO PAIN / TEMP; Start 02/25/17 at 00:30; Stop 02/25/17 at 15:05; Status DC Multi-Ingredient Ointment (Analgesic [place]) 1 marcell PRN QID PRN TP MUSCLE PAIN; Start 02/25/17 at 00:30 Al Hydroxide/Mg Hydroxide (Mylanta Plus Xs) 15 ml PRN AFTMEALHC PRN PO DYSPEPSIA; Start 02/25/17 at 00:30 Magnesium Hydroxide (Milk Of Magnesia) 2,400 mg PRN QHS PRN PO CONSTIPATION; Start 02/25/17 at 00:30; Stop 02/25/17 at 15:05; Status DC Chlorpromazine HCl (Thorazine) 25 mg BID PO Last administered on 02/26/17 09: 34; Start 02/25/17 at 09:00; Stop 02/26/17 at 18:22; Status DC Citalopram Hydrobromide (Celexa) 20 mg DAILY PO Last administered on 03/03/17 09:02; Start 02/25/17 at 09:00 Lorazepam (Ativan) 1 mg PRN Q3HRS PRN PO ANXIETY / AGITATION Last administered on 03/03/17 05:41; Start 02/25/17 at 00:30 Risperidone (Risperdal) 0.5 mg BID PO Last administered on 02/26/17 09:34; Start 02/25/17 at 09:00; Stop 02/26/17 at 18:22; Status DC Trazodone HCl (Desyrel) 50 mg PRN QHS PRN PO INSOMNIA Last administered on 03/03 21:01; Start 02/25/17 at 00:30 Divalproex Sodium (Depakote Sprinkles) 500 mg TID PO Last administered on 20:58; Start 02/25/17 at 09:00 Acetaminophen (Tylenol) 650 mg PRN Q8HRS PRN PO PAIN Last administered on 12:56; Start 02/25/17 at 07:30 Amlodipine Besylate (Norvasc) 10 mg DAILY PO Last administered on 03/03/17 09: 02; Start 02/25/17 at 09:00 Gabapentin (Neurontin) 300 mg TID PO Last administered on 03/03/17 20:59; Start 02/25/17 at 09:00 Acetaminophen/ Hydrocodone Bitart (Lortab 5/325) 1 tab Q12HR PO Last administered on 03/03/17 20:59; Start 02/25/17 at 09:00 Insulin Aspart (Novolog) 6 units TIDWMEALS SQ Last administered on 03/03/17 17 :58; Start 02/25/17 at 08:00 Losartan Potassium (Cozaar) 50 mg DAILY PO Last administered on 03/03/17 09:02 ; Start 02/25/17 at 09:00 Senna/Docusate Sodium (Senna Plus) 1 tab DAILY PO Last administered on 09:02; Start 02/25/17 at 09:00 Insulin Detemir (Levemir) 15 units QHS SQ Last administered on 02/25/17 19:55 ; Start 02/25/17 at 21:00; Stop 02/26/17 at 14:21; Status DC Magnesium Hydroxide (Milk Of Magnesia) 2,400 mg PRN DAILY PRN PO CONSTIPATION; Start 02/25/17 at 07:45 Insulin Detemir (Levemir) 15 units QHS SQ Last administered on 03/03/17 21:14 ; Start 02/26/17 at 14:21 Chlorpromazine HCl (Thorazine) 25 mg DAILY PO Last administered on 02/28/17 09 :09; Start 02/27/17 at 09:00; Stop 02/28/17 at 15:50; Status DC Risperidone (Risperdal) 0.5 mg DAILY PO Last administered on 03/03/17 09:01; Start 02/27/17 at 09:00 Risperidone (Risperdal) 0.75 mg HS PO ; Start 02/26/17 at 21:00; Stop 02/26/17 at 21:00; Status DC Risperidone (Risperdal) 0.75 mg 14 PO Last administered on 03/03/17 13:16; Start 02/26/17 at 21:00 Buspirone HCl (Buspar) 5 mg BID PO Last administered on 03/01/17 08:38; Start 02/27/17 at 21:00; Stop 03/01/17 at 12:38; Status DC Buspirone HCl (Buspar) 10 mg BID PO Last administered on 03/02/17 08:05; Start 03/01/17 at 21:00; Stop 03/02/17 at 18:06; Status DC Trimethoprim/ Sulfamethoxazole (Bactrim Ds) 1 tab DAILY PO Last administered on 03/03/17 09:01; Start 03/02/17 at 09:00; Stop 03/09/17 at 09:01 Buspirone HCl (Buspar) 10 mg TIDAFTMEAL PO Last administered on 03/03/17 17:56 ; Start 03/03/17 at 09:00 Vitamin D (Vitamin D3) 50,000 unit WEEKLY PO Last administered on 03/03/17 09: 03; Start 03/03/17 at 09:00 Active Scripts Active Reported Lantus Solostar (Insulin Glargine,Hum.rec.anlog) 100 Unit/1 Ml Insuln.pen 15 Unit SQ QHS Lorazepam 1 Mg Tablet 1 Mg PO PRN Q3HRS PRN Risperdal (Risperidone) 0.5 Mg Tablet 0.5 Mg PO BID Chlorpromazine Hcl 25 Mg Tablet 25 Mg PO BID Novolog Flexpen (Insulin Aspart) 100 Unit/1 Ml Insuln.pen 6 Unit SQ TIDWMEALS Gabapentin 300 Mg Capsule 300 Mg PO TID Milk Of Magnesia (Magnesium Hydroxide) 2,400 Mg/10 Ml Oral.susp 2,400 Mg PO PRN DAILY Trazodone Hcl 50 Mg Tablet 50 Mg PO PRN QHS PRN Divalproex Sodium 500 Mg Tablet.dr 500 Mg PO TID Losartan Potassium 50 Mg Tablet 50 Mg PO DAILY Senexon-S Tablet (Sennosides/Docusate Sodium) 1 Each Tablet 8.6-50 Mg PO DAILY Celexa (Citalopram Hydrobromide) 20 Mg Tablet 20 Mg PO DAILY Amlodipine Besylate 10 Mg Tablet 10 Mg PO DAILY Percocet 5-325 Mg Tablet (Oxycodone Hcl/Acetaminophen) 1 Each Tablet 1 Tab PO PRN Q8HRS PRN Hydrocodone-Apap 5-325 (Hydrocodone Bit/Acetaminophen) 1 Each Tablet 1 Tab PO Q12HR Tylenol (Acetaminophen) 325 Mg Tablet 650 Mg PO PRN Q8HRS PRN Diagnosis: Problems: (1) Psychiatric disorder (2) Bipolar affective, mixed, sev w/ psych (3) Anxiety disorder (4) Dementia in Alzheimer's disease with delusions (5) Impulse control disorder NANCY HAHN MD Mar 03, 2017 22:34
--- NOTE | 2017-03-04 00:40 | NUR ---
Behavior Intervention Response and Plan: BIRP Note: Behavior: Assumed Care of patient, patient located in Day Room at shift change. Patient exhibited the following behavior Calm, Able to Focus on Task, Compliant. Brief assessment on rounds of vital signs, medication needs, lab studies, and pain. Treatment plan problems:1-2 Intervention: Patient assessed and the following interventions initiated safety checks 15 Minute Checks Cognitive Assessment , Head to toe Assessment , Medications. Response: After interactions and interventions patient responded in the following manner, Calm , Disorganized ,Cooperative. Continue to assess behaviors and condition will continue to monitor throughout the shift as needed. Pt given prn trazadone w/ her HS meds tonight secondary to only sleeping 4hrs last noc. Currently pt is in bed & appears to be sleeping. 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 Continue to assess patient for changes in above assessment. Monitor for medication needs, pain, and safety concerns. Hourly rounding performed to ensure safe environment.
[2017-03-04 06:13] VITALS: BP 140/73
[2017-03-04] MEDS: SMZ/TMP 800/160MG TABLET. PO SCH (08:34)
[2017-03-04] MEDS: GABAPENTIN 300 MG CAPSULE. PO SCH ×3 (08:34→19:21)
[2017-03-04] MEDS: DIVALPROEX 125 MG CAP.SPRINK PO SCH ×3 (08:35→19:21)
[2017-03-04] MEDS: busPIRone 10 MG TABLET. PO SCH ×3 (08:35→17:24)
[2017-03-04] MEDS: SENNOSIDES/DOCUSATE 8.6/50MG TABLET. PO SCH (08:35)
[2017-03-04] MEDS: risperiDONE 0.5 MG TABLET. PO SCH (08:35)
[2017-03-04] MEDS: LOSARTAN 50 MG TABLET. PO SCH (08:35)
[2017-03-04] MEDS: amLODIPine BESYLATE 10 MG TABLET PO SCH (08:37)
[2017-03-04] MEDS: CITALOPRAM 20 MG TABLET. PO SCH (08:39)
[2017-03-04] MEDS: INSULIN ASPART 300 UNITS/3 ML INSULN.PEN SQ SCH ×3 (08:43→17:26)
[2017-03-04] MEDS: HYDROcodone/APAP 5/325MG 1 TAB TABLET PO SCH ×2 (08:44→19:21)
--- NOTE | 2017-03-04 13:14 | NUR ---
Behavior Intervention Response and Plan: BIRP Note: Behavior: Assumed Care of patient, patient located in Dining Room at shift change. Patient exhibited the following behavior Calm, Compliant, Cooperative. Brief assessment on rounds of vital signs, medication needs, lab studies, and pain. Treatment plan problems . Intervention: Patient assessed and the following interventions initiated safety checks 15 Minute Checks Cognitive Assessment , Head to toe Assessment , Medications. Response: After interactions and interventions patient responded in the following manner, Calm , Compliant ,Cooperative. Continue to assess behaviors and condition will continue to monitor throughout the shift as needed. 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 Continue to assess patient for changes in above assessment. Monitor for medication needs, pain, and safety concerns. Hourly rounding performed to ensure safe environment.
[2017-03-04] MEDS: risperiDONE 0.25 MG TABLET. PO SCH (13:26)
[2017-03-04 17:44] VITALS: BP 145/71
[2017-03-04] MEDS: INSULIN DETEMIR 300 UNITS/3 ML INSULN.PEN. SQ SCH (19:19)
[2017-03-04] MEDS: traZODone 50 MG TABLET. PO PRN (23:31)
--- NOTE | 2017-03-05 01:16 | NUR ---
Behavior Intervention Response and Plan: BIRP Note: Behavior: Assumed Care of patient, patient located in Day Room at shift change. Patient exhibited the following behavior Calm, Able to Focus on Task, Cooperative. Brief assessment on rounds of vital signs, medication needs, lab studies, and pain. Treatment plan problems :1-2 Intervention: Patient assessed and the following interventions initiated safety checks 15 Minute Checks Cognitive Assessment , Head to toe Assessment , Medications. Response: After interactions and interventions patient responded in the following manner, Able to Focus on Task , Anxious ,Defensive. Continue to assess behaviors and condition will continue to monitor throughout the shift as needed. Pt settled well @ HS but then awoke & was crying & upset stating that she missed her family. Pt was brought to the dayroom & allowed to express her sadness & was offered prn trazadone which she took w/ good results. Currently she is in bed & appears asleep. 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 Continue to assess patient for changes in above assessment. Monitor for medication needs, pain, and safety concerns. Hourly rounding performed to ensure safe environment.
--- NOTE | 2017-03-05 03:53 | PN ---
DATE: 03/02/2017 PSYCHIATRIC PROGRESS NOTE This is a late entry 03/02 covers elements not covered in my initial note. SUBJECTIVE: The patient remains somewhat labile, had a "meltdown at lunch," per nursing report, yelling, cursing, resistive to care, then apologize. REVIEW OF SYSTEMS: Hard of hearing, loud in her speech. No CV, , pulmonary, eye system symptoms on review. MENTAL STATUS EXAM: Oriented to herself and situation. Speech is difficult to understand, abstraction fair, computation impaired, language function intact, attention span short. Mood and affect remains intermittently labile. LABORATORY DATA: Valproic acid level 56. IMPRESSION: Unchanged from initial note. PLAN: Continue psychotropics include increase BuSpar from 10 b.i.d. to 10 t.i.d., maintain Risperdal, Celexa, Ativan p.r.n., trazodone, Depakote, valproic acid level therapeutic at 56. NANCY HAHN MD DR: MARGA/estelle JOB#: [id number] / [id number]
[2017-03-05 06:13] VITALS: BP 131/78
[2017-03-05] MEDS: busPIRone 10 MG TABLET. PO SCH ×3 (08:31→17:19)
[2017-03-05] MEDS: SMZ/TMP 800/160MG TABLET. PO SCH (08:31)
[2017-03-05] MEDS: HYDROcodone/APAP 5/325MG 1 TAB TABLET PO SCH ×2 (08:31→20:32)
[2017-03-05] MEDS: risperiDONE 0.5 MG TABLET. PO SCH (08:32)
[2017-03-05] MEDS: LOSARTAN 50 MG TABLET. PO SCH (08:32)
[2017-03-05] MEDS: GABAPENTIN 300 MG CAPSULE. PO SCH ×3 (08:32→20:31)
[2017-03-05] MEDS: DIVALPROEX 125 MG CAP.SPRINK PO SCH ×3 (08:32→20:32)
[2017-03-05] MEDS: CITALOPRAM 20 MG TABLET. PO SCH (08:32)
[2017-03-05] MEDS: SENNOSIDES/DOCUSATE 8.6/50MG TABLET. PO SCH (08:32)
[2017-03-05] MEDS: amLODIPine BESYLATE 10 MG TABLET PO SCH (08:32)
[2017-03-05] MEDS: INSULIN ASPART 300 UNITS/3 ML INSULN.PEN SQ SCH ×3 (08:35→17:19)
[2017-03-05 11:53] LABS: BASO % 0 % (0-3); EOS # 0.1 x10^3/uL (0.0-0.7); EOS % 1 % (0-3); HEMATOCRIT 42.7 % (36.0-47.0); HEMOGLOBIN 13.9 g/dL (12.0-15.5); LYMPH # 1.8 x10^3/uL (1.0-4.8); LYMPH % 29 % (24-48); MEAN CORPUSCULAR HEMOGLOBIN 30 pg (25-35); MEAN CORPUSCULAR HGB CONC 32 g/dL (31-37); MEAN CORPUSCULAR VOLUME 93 fL (79-100); MONO # 0.6 x10^3/uL (0.0-1.1); MONO % 10 % (0-9); NEUT # 3.6 x10^3uL (1.8-7.7); NEUT % 59 % (31-73); PLATELET COUNT 173 x10^3/uL (140-400); RED BLOOD COUNT 4.58 x10^6/uL (3.50-5.40); RED CELL DISTRIBUTION WIDTH 14.1 % (11.5-14.5); WHITE BLOOD COUNT 6.2 x10^3/uL (4.0-11.0)
[2017-03-05 12:06] LABS: ALBUMIN 3.4 g/dL (3.4-5.0); ALBUMIN/GLOBULIN RATIO 0.8 (1.0-1.7); ALK PHOS 73 U/L (46-116); ALT (SGPT) 23 U/L (14-59); ANION GAP 8 (6-14); AST (SGOT) 20 U/L (15-37); BLOOD UREA NITROGEN 15 mg/dL (7-20); BUN/CREATININE RATIO 17 (6-20); CARBON DIOXIDE 31 mmol/L (21-32); CHLORIDE 103 mmol/L (98-107); CREATININE 0.9 mg/dL (0.6-1.0); GFR 63.7; GLUCOSE 95 mg/dL (70-99); MAGNESIUM 2.1 mg/dL (1.8-2.4); POTASSIUM 4.3 mmol/L (3.5-5.1); SODIUM 142 mmol/L (136-145); TOTAL BILIRUBIN 0.5 mg/dL (0.2-1.0); TOTAL PROTEIN 7.5 g/dL (6.4-8.2)
[2017-03-05 12:09] LABS: VAL ACID 89 mcg/mL (50-100)
--- NOTE | 2017-03-05 12:59 | NUR ---
OMA received call from PT's DPOA/Justin and his regarding concerns w/Pt. returning to [place]. Justin believes Pt. may be better suited for a Level II facility due to her continued behaviors of tantrums and purposeful urinating on the floor. Pt's requirements while in [place] have become quite costly as they are having to pay additional money for certain cares (ie: incontinence). Pt. has previous psych admits at [facility] and [facility] both in 2016. OMA explained the Level II facilities in the area are somewhat limited. Pt. will be private pay for a while before having to apply for Medicaid. SW requested CARE Assessment for [place] to trigger for a Level II evaluation.
[2017-03-05] MEDS: risperiDONE 0.25 MG TABLET. PO SCH (13:32)
--- NOTE | 2017-03-05 14:28 | PN ---
DATE: 03/03/2017 PSYCHIATRIC PROGRESS NOTE This is a late entry 03/03/2017, covers the elements not covered in my initial note. SUBJECTIVE: Overall, the patient has been more cooperative, less labile, uses some sign language. REVIEW OF SYSTEMS: Hard of hearing. No CV, , pulmonary, eye system symptoms on review. MENTAL STATUS EXAM: Oriented to herself and situation, wanting to see her family and nursing staff, will attempt to get FaceTime to connect with the family if possible since she certainly cannot hear them on the telephone. MENTAL STATUS EXAM: Oriented to herself and situation. Speech is difficult to understand, loud at times. Abstraction fair, computation impaired, language function intact. Mood and affect somewhat anxious, labile showing improvement, less aggressive. LABORATORY DATA: Reviewed. IMPRESSION: Unchanged. PLAN: Continue current psychotropics mentioned in my initial note, rest as above. MAN Kemal HAHN MD DR: MARGA/estelle JOB#: [id number] / [id number]
--- NOTE | 2017-03-05 15:05 | RAD ---
Indication leg swelling. Grayscale color Doppler and spectral imaging was performed. The examination was targeted to the veins of the left lower extremity. The common femoral, femoral and popliteal vessels demonstrate normal flow compressibility and augmentation. No DVT is seen. Visualized calf veins appeared unremarkable IMPRESSION: Negative study for deep venous thrombosis
[2017-03-05 15:51] VITALS: BP 150/72
[2017-03-05] MEDS: MIRTAZAPINE 7.5 MG TABLET. PO SCH (20:31)
[2017-03-05] MEDS: INSULIN DETEMIR 300 UNITS/3 ML INSULN.PEN. SQ SCH (20:33)
--- NOTE | 2017-03-05 20:47 | PDOC ---
Exam Johann Demential Exam: Johann Note: Please also refer to the separate dictated note~for this date of service dictated separately.~Patient seen individually. Discussed the patient with Nursing staff reviewed the chart.~Reviewed interim history and current functioning. Reviewed vital signs,~Labs/ Radiology~and current medications noted below. Continue current treatment with the changes noted in the dictated addendum note Assessment: Vital Signs: Vital Signs Date Time Temp Pulse Resp B/P Pulse Ox O2 Delivery O2 Flow Rate FiO2 03/05/17 20:32 18 Room Air 03/05/17 15:51 97.3 70 150/72 97 I&O Intake and Output 03/05/17 07:00 Intake Total 1560 ml Balance 1560 ml Intake Oral 1560 ml # Bowel Movements 1 Labs: Laboratory Tests Test 03/05/17 07:35 03/05/17 11:45 03/05/17 11:56 03/05/17 17:13 Glucose (Fingerstick) 96mg/dL (70-99) 82mg/dL (70-99) 153mg/dL (70-99) H White Blood Count 6.2x10^3/uL (4.0-11.0) Red Blood Count 4.58x10^6/uL (3.50-5.40) Hemoglobin 13.9g/dL (12.0-15.5) Hematocrit 42.7% (36.0-47.0) Mean Corpuscular Volume 93fL (79-100) Mean Corpuscular Hemoglobin 30pg (25-35) Mean Corpuscular Hemoglobin Concent 32g/dL (31-37) Red Cell Distribution Width 14.1% (11.5-14.5) Platelet Count 173x10^3/uL (140-400) Neutrophils (%) (Auto) 59% (31-73) Lymphocytes (%) (Auto) 29% (24-48) Monocytes (%) (Auto) 10% (0-9) H Eosinophils (%) (Auto) 1% (0-3) Basophils (%) (Auto) 0% (0-3) Neutrophils # (Auto) 3.6x10^3uL (1.8-7.7) Lymphocytes # (Auto) 1.8x10^3/uL (1.0-4.8) Monocytes # (Auto) 0.6x10^3/uL (0.0-1.1) Eosinophils # (Auto) 0.1x10^3/uL (0.0-0.7) Basophils # (Auto) 0.0x10^3/uL (0.0-0.2) Sodium Level 142mmol/L (136-145) Potassium Level 4.3mmol/L (3.5-5.1) Chloride Level 103mmol/L (98-107) Carbon Dioxide Level 31mmol/L (21-32) Anion Gap 8 (6-14) Blood Urea Nitrogen 15mg/dL (7-20) Creatinine 0.9mg/dL (0.6-1.0) Estimated GFR (Cockcroft-Gault) 63.7 BUN/Creatinine Ratio 17 (6-20) Glucose Level 95mg/dL (70-99) Calcium Level 9.0mg/dL (8.5-10.1) Magnesium Level 2.1mg/dL (1.8-2.4) Total Bilirubin 0.5mg/dL (0.2-1.0) Aspartate Amino Transferase (AST) 20U/L (15-37) Alanine Aminotransferase (ALT) 23U/L (14-59) Alkaline Phosphatase 73U/L (46-116) Total Protein 7.5g/dL (6.4-8.2) Albumin 3.4g/dL (3.4-5.0) Albumin/Globulin Ratio 0.8 (1.0-1.7) L Valproic Acid Level 89mcg/mL (50-100) Valproic Acid Last Dose Date 03/04/17 Valproic Acid Last Dose Time 2100 Test 03/05/17 19:22 Glucose (Fingerstick) 184mg/dL (70-99) H Current Medications: Meds: Current Medications Acetaminophen (Tylenol) 650 mg PRN Q6HRS PRN PO PAIN / TEMP; Start 02/25/17 at 00:30; Stop 02/25/17 at 15:05; Status DC Multi-Ingredient Ointment (Analgesic [place]) 1 marcell PRN QID PRN TP MUSCLE PAIN; Start 02/25/17 at 00:30 Al Hydroxide/Mg Hydroxide (Mylanta Plus Xs) 15 ml PRN AFTMEALHC PRN PO DYSPEPSIA; Start 02/25/17 at 00:30 Magnesium Hydroxide (Milk Of Magnesia) 2,400 mg PRN QHS PRN PO CONSTIPATION; Start 02/25/17 at 00:30; Stop 02/25/17 at 15:05; Status DC Chlorpromazine HCl (Thorazine) 25 mg BID PO Last administered on 02/26/17 09: 34; Start 02/25/17 at 09:00; Stop 02/26/17 at 18:22; Status DC Citalopram Hydrobromide (Celexa) 20 mg DAILY PO Last administered on 03/05/17 08:32; Start 02/25/17 at 09:00 Lorazepam (Ativan) 1 mg PRN Q3HRS PRN PO ANXIETY / AGITATION Last administered on 03/03/17 05:41; Start 02/25/17 at 00:30 Risperidone (Risperdal) 0.5 mg BID PO Last administered on 02/26/17 09:34; Start 02/25/17 at 09:00; Stop 02/26/17 at 18:22; Status DC Trazodone HCl (Desyrel) 50 mg PRN QHS PRN PO INSOMNIA Last administered on 03/04 23:31; Start 02/25/17 at 00:30 Divalproex Sodium (Depakote Sprinkles) 500 mg TID PO Last administered on 20:32; Start 02/25/17 at 09:00 Acetaminophen (Tylenol) 650 mg PRN Q8HRS PRN PO PAIN Last administered on 12:56; Start 02/25/17 at 07:30 Amlodipine Besylate (Norvasc) 10 mg DAILY PO Last administered on 03/05/17 08: 32; Start 02/25/17 at 09:00 Gabapentin (Neurontin) 300 mg TID PO Last administered on 03/05/17 20:31; Start 02/25/17 at 09:00 Acetaminophen/ Hydrocodone Bitart (Lortab 5/325) 1 tab Q12HR PO Last administered on 03/05/17 20:32; Start 02/25/17 at 09:00 Insulin Aspart (Novolog) 6 units TIDWMEALS SQ Last administered on 03/05/17 17: 19; Start 02/25/17 at 08:00 Losartan Potassium (Cozaar) 50 mg DAILY PO Last administered on 03/05/17 08:32 ; Start 02/25/17 at 09:00 Senna/Docusate Sodium (Senna Plus) 1 tab DAILY PO Last administered on 08:32; Start 02/25/17 at 09:00 Insulin Detemir (Levemir) 15 units QHS SQ Last administered on 02/25/17 19:55 ; Start 02/25/17 at 21:00; Stop 02/26/17 at 14:21; Status DC Magnesium Hydroxide (Milk Of Magnesia) 2,400 mg PRN DAILY PRN PO CONSTIPATION; Start 02/25/17 at 07:45 Insulin Detemir (Levemir) 15 units QHS SQ Last administered on 03/05/17 20:33; Start 02/26/17 at 14:21 Chlorpromazine HCl (Thorazine) 25 mg DAILY PO Last administered on 02/28/17 09 :09; Start 02/27/17 at 09:00; Stop 02/28/17 at 15:50; Status DC Risperidone (Risperdal) 0.5 mg DAILY PO Last administered on 03/05/17 08:32; Start 02/27/17 at 09:00 Risperidone (Risperdal) 0.75 mg HS PO ; Start 02/26/17 at 21:00; Stop 02/26/17 at 21:00; Status DC Risperidone (Risperdal) 0.75 mg 14 PO Last administered on 03/05/17 13:32; Start 02/26/17 at 21:00 Buspirone HCl (Buspar) 5 mg BID PO Last administered on 03/01/17 08:38; Start 02/27/17 at 21:00; Stop 03/01/17 at 12:38; Status DC Buspirone HCl (Buspar) 10 mg BID PO Last administered on 03/02/17 08:05; Start 03/01/17 at 21:00; Stop 03/02/17 at 18:06; Status DC Trimethoprim/ Sulfamethoxazole (Bactrim Ds) 1 tab DAILY PO Last administered on 03/05/17 08:31; Start 03/02/17 at 09:00; Stop 03/09/17 at 09:01 Buspirone HCl (Buspar) 10 mg TIDAFTMEAL PO Last administered on 03/05/17 17:19 ; Start 03/03/17 at 09:00 Vitamin D (Vitamin D3) 50,000 unit WEEKLY PO Last administered on 03/03/17 09: 03; Start 03/03/17 at 09:00 Mirtazapine (Remeron) 7.5 mg QHS PO Last administered on 03/05/17 20:31; Start 03/05/17 at 21:00 Active Scripts Active Reported Lantus Solostar (Insulin Glargine,Hum.rec.anlog) 100 Unit/1 Ml Insuln.pen 15 Unit SQ QHS Lorazepam 1 Mg Tablet 1 Mg PO PRN Q3HRS PRN Risperdal (Risperidone) 0.5 Mg Tablet 0.5 Mg PO BID Chlorpromazine Hcl 25 Mg Tablet 25 Mg PO BID Novolog Flexpen (Insulin Aspart) 100 Unit/1 Ml Insuln.pen 6 Unit SQ TIDWMEALS Gabapentin 300 Mg Capsule 300 Mg PO TID Milk Of Magnesia (Magnesium Hydroxide) 2,400 Mg/10 Ml Oral.susp 2,400 Mg PO PRN DAILY Trazodone Hcl 50 Mg Tablet 50 Mg PO PRN QHS PRN Divalproex Sodium 500 Mg Tablet.dr 500 Mg PO TID Losartan Potassium 50 Mg Tablet 50 Mg PO DAILY Senexon-S Tablet (Sennosides/Docusate Sodium) 1 Each Tablet 8.6-50 Mg PO DAILY Celexa (Citalopram Hydrobromide) 20 Mg Tablet 20 Mg PO DAILY Amlodipine Besylate 10 Mg Tablet 10 Mg PO DAILY Percocet 5-325 Mg Tablet (Oxycodone Hcl/Acetaminophen) 1 Each Tablet 1 Tab PO PRN Q8HRS PRN Hydrocodone-Apap 5-325 (Hydrocodone Bit/Acetaminophen) 1 Each Tablet 1 Tab PO Q12HR Tylenol (Acetaminophen) 325 Mg Tablet 650 Mg PO PRN Q8HRS PRN Diagnosis: Problems: (1) Psychiatric disorder (2) Bipolar affective, mixed, sev w/ psych (3) Anxiety disorder (4) Dementia in Alzheimer's disease with delusions (5) Impulse control disorder NANCY HAHN MD March 05, 2017 20:47
--- NOTE | 2017-03-06 03:36 | NUR ---
Behavior Intervention Response and Plan: BIRP Note: Behavior: Assumed Care of patient, patient located in Patient Room at shift change. Patient exhibited the following behavior Interactive, Calm, Social. Brief assessment on rounds of vital signs, medication needs, lab studies, and pain. Treatment plan problems Alteration in mood and fall risk. Intervention: Patient assessed and the following interventions initiated safety checks 15 Minute Checks Cognitive Assessment , Medications , ADL's. Response: After interactions and interventions patient responded in the following manner, Wandering , Disorganized ,Compliant. Continue to assess behaviors and condition will continue to monitor throughout the shift as needed. 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 Continue to assess patient for changes in above assessment. Monitor for medication needs, pain, and safety concerns. Hourly rounding performed to ensure safe environment.
[2017-03-06 06:33] VITALS: BP 104/55
--- NOTE | 2017-03-06 07:47 | PN ---
DATE: 03/04/2017 SUBJECTIVE: This is late entry for date of service 03/04/2017. The patient was seen individually evening of 03/04/2017. Discussed with nursing staff and reviewed the chart. Temperature 97.6, BP 131/78, pulse 59, and respirations 18. Overall, the patient has done better. Her ex [id number] said she was very pleased with it and thanking me for arranging the visit. Happy and pleasant. No urination on the floor. Less labile and more helpful on the unit per nursing report. REVIEW OF SYSTEMS: Hard of hearing, difficulty with her speech. No CV, , pulmonary, or eye system symptoms on review. MENTAL STATUS EXAM: Reasonably oriented. Speech as above, abstraction fair, computation impaired, and language function intact. Attention span short, short term memory, and does have some deficits. LABORATORY DATA: Valproic acid level 56. IMPRESSION: Schizoaffective disorder bipolar type mixed with psychotic features, in partial remission. Rest unchanged. PLAN: Continue Celexa 20 mg a day, Risperdal 0.5 mg a.m. and 0.75 14:00; Ativan p.r.n., trazodone p.r.n., Depakote 500 mg 3 times a day, and BuSpar 10 t.i.d. Adjust further as clinically indicated. MAN Kemal HAHN MD DR: MARGA/estelle JOB#: [id number] / [id number]
[2017-03-06] MEDS: HYDROcodone/APAP 5/325MG 1 TAB TABLET PO SCH ×2 (08:56→19:28)
[2017-03-06] MEDS: busPIRone 10 MG TABLET. PO SCH ×3 (08:56→16:55)
[2017-03-06] MEDS: SMZ/TMP 800/160MG TABLET. PO SCH (08:56)
[2017-03-06] MEDS: DIVALPROEX 125 MG CAP.SPRINK PO SCH ×3 (08:56→19:25)
[2017-03-06] MEDS: risperiDONE 0.5 MG TABLET. PO SCH (08:57)
[2017-03-06] MEDS: CITALOPRAM 20 MG TABLET. PO SCH (08:57)
[2017-03-06] MEDS: SENNOSIDES/DOCUSATE 8.6/50MG TABLET. PO SCH (08:57)
[2017-03-06] MEDS: LOSARTAN 50 MG TABLET. PO SCH (08:57)
[2017-03-06] MEDS: amLODIPine BESYLATE 10 MG TABLET PO SCH (08:57)
[2017-03-06] MEDS: GABAPENTIN 300 MG CAPSULE. PO SCH ×3 (09:00→19:24)
[2017-03-06] MEDS: INSULIN ASPART 300 UNITS/3 ML INSULN.PEN SQ SCH ×3 (09:02→16:55)
--- NOTE | 2017-03-06 11:05 | NUR ---
Behavior Intervention Response and Plan: BIRP Note: Behavior: Assumed Care of patient, patient located in Day Room at shift change. Patient exhibited the following behavior Restless, Disorganized, Compliant. Brief assessment on rounds of vital signs, medication needs, lab studies, and pain. Treatment plan problems 1 & 2. Intervention: Patient assessed and the following interventions initiated safety checks 15 Minute Checks Cognitive Assessment , Head to toe Assessment , Medications. Response: After interactions and interventions patient responded in the following manner, Calm , Appropriate ,Cooperative. Continue to assess behaviors and condition will continue to monitor throughout the shift as needed. 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 Continue to assess patient for changes in above assessment. Monitor for medication needs, pain, and safety concerns. Hourly rounding performed to ensure safe environment.
--- NOTE | 2017-03-06 11:28 | NUR ---
Group Note [facility] Group Type [place] Start Time: 10:45 End Time: 11:10 Problem: Anxiety Purpose: Stimulate Memory, express feelings, Level of Participation: High Behaviors or Symptoms Observed: Pts talked about their mothers and the positive qualities Interventions: Reminiscence Response: Each pt wrote the qualities on a flower petal as they shared with the group. Plan: Group Participation Additional Comments:
[2017-03-06] MEDS: risperiDONE 0.25 MG TABLET. PO SCH (13:41)
[2017-03-06 16:01] VITALS: BP 134/64
[2017-03-06] MEDS: LORazepam 1 MG TABLET PO PRN (16:55)
--- NOTE | 2017-03-06 17:00 | NUR ---
Patient displaying increased agitation, speaking very loudly with an angry tone of voice. She is stating that she wants to call her [id number] because she is going home tonight. [id number] called, he hung up after listening to her, she became more agitated. She told me not to speak to her, just write everything down because she cannot understand me. PRN meds provided per eMAR, will monitor behaviours. Patient's FSBS is 89, insulin dose held
[2017-03-06] MEDS: MIRTAZAPINE 7.5 MG TABLET. PO SCH (19:24)
[2017-03-06] MEDS: MIRTAZAPINE 15 MG TABLET PO SCH (20:00)
[2017-03-06] MEDS: INSULIN DETEMIR 300 UNITS/3 ML INSULN.PEN. SQ SCH (20:03)
--- NOTE | 2017-03-06 21:24 | PDOC ---
Exam Johann Demential Exam: Johann Note: Please also refer to the separate dictated note~for this date of service dictated separately.~Patient seen individually. Discussed the patient with Nursing staff reviewed the chart.~Reviewed interim history and current functioning. Reviewed vital signs,~Labs/ Radiology~and current medications noted below. Continue current treatment with the changes noted in the dictated addendum note Assessment: Vital Signs: Vital Signs Date Time Temp Pulse Resp B/P Pulse Ox O2 Delivery O2 Flow Rate FiO2 03/06/17 19:28 20 Room Air 03/06/17 16:01 97.2 64 134/64 97 I&O Intake and Output 03/06/17 07:00 Intake Total 1200 ml Balance 1200 ml Intake Oral 1200 ml # Voids 2 Labs: Laboratory Tests Test 03/06/17 07:09 03/06/17 11:19 03/06/17 16:42 03/06/17 19:06 Glucose (Fingerstick) 90mg/dL (70-99) 126mg/dL (70-99) H 89mg/dL (70-99) 153mg/dL (70-99) H Current Medications: Meds: Current Medications Acetaminophen (Tylenol) 650 mg PRN Q6HRS PRN PO PAIN / TEMP; Start 02/25/17 at 00:30; Stop 02/25/17 at 15:05; Status DC Multi-Ingredient Ointment (Analgesic [place]) 1 marcell PRN QID PRN TP MUSCLE PAIN; Start 02/25/17 at 00:30 Al Hydroxide/Mg Hydroxide (Mylanta Plus Xs) 15 ml PRN AFTMEALHC PRN PO DYSPEPSIA; Start 02/25/17 at 00:30 Magnesium Hydroxide (Milk Of Magnesia) 2,400 mg PRN QHS PRN PO CONSTIPATION; Start 02/25/17 at 00:30; Stop 02/25/17 at 15:05; Status DC Chlorpromazine HCl (Thorazine) 25 mg BID PO Last administered on 02/26/17 09: 34; Start 02/25/17 at 09:00; Stop 02/26/17 at 18:22; Status DC Citalopram Hydrobromide (Celexa) 20 mg DAILY PO Last administered on 03/06/17 08:57; Start 02/25/17 at 09:00 Lorazepam (Ativan) 1 mg PRN Q3HRS PRN PO ANXIETY / AGITATION Last administered on 03/06/17 16:55; Start 02/25/17 at 00:30 Risperidone (Risperdal) 0.5 mg BID PO Last administered on 02/26/17 09:34; Start 02/25/17 at 09:00; Stop 02/26/17 at 18:22; Status DC Trazodone HCl (Desyrel) 50 mg PRN QHS PRN PO INSOMNIA Last administered on 03/04 23:31; Start 02/25/17 at 00:30 Divalproex Sodium (Depakote Sprinkles) 500 mg TID PO Last administered on 19:25; Start 02/25/17 at 09:00 Acetaminophen (Tylenol) 650 mg PRN Q8HRS PRN PO PAIN Last administered on 12:56; Start 02/25/17 at 07:30 Amlodipine Besylate (Norvasc) 10 mg DAILY PO Last administered on 03/06/17 08: 57; Start 02/25/17 at 09:00 Gabapentin (Neurontin) 300 mg TID PO Last administered on 03/06/17 19:24; Start 02/25/17 at 09:00 Acetaminophen/ Hydrocodone Bitart (Lortab 5/325) 1 tab Q12HR PO Last administered on 03/06/17 19:28; Start 02/25/17 at 09:00 Insulin Aspart (Novolog) 6 units TIDWMEALS SQ Last administered on 03/06/17 12: 14; Start 02/25/17 at 08:00 Losartan Potassium (Cozaar) 50 mg DAILY PO Last administered on 03/06/17 08:57 ; Start 02/25/17 at 09:00 Senna/Docusate Sodium (Senna Plus) 1 tab DAILY PO Last administered on 08:57; Start 02/25/17 at 09:00 Insulin Detemir (Levemir) 15 units QHS SQ Last administered on 02/25/17 19:55 ; Start 02/25/17 at 21:00; Stop 02/26/17 at 14:21; Status DC Magnesium Hydroxide (Milk Of Magnesia) 2,400 mg PRN DAILY PRN PO CONSTIPATION; Start 02/25/17 at 07:45 Insulin Detemir (Levemir) 15 units QHS SQ Last administered on 03/06/17 20:03; Start 02/26/17 at 14:21 Chlorpromazine HCl (Thorazine) 25 mg DAILY PO Last administered on 02/28/17 09 :09; Start 02/27/17 at 09:00; Stop 02/28/17 at 15:50; Status DC Risperidone (Risperdal) 0.5 mg DAILY PO Last administered on 03/06/17 08:57; Start 02/27/17 at 09:00 Risperidone (Risperdal) 0.75 mg HS PO ; Start 02/26/17 at 21:00; Stop 02/26/17 at 21:00; Status DC Risperidone (Risperdal) 0.75 mg 14 PO Last administered on 03/06/17 13:41; Start 02/26/17 at 21:00 Buspirone HCl (Buspar) 5 mg BID PO Last administered on 03/01/17 08:38; Start 02/27/17 at 21:00; Stop 03/01/17 at 12:38; Status DC Buspirone HCl (Buspar) 10 mg BID PO Last administered on 03/02/17 08:05; Start 03/01/17 at 21:00; Stop 03/02/17 at 18:06; Status DC Trimethoprim/ Sulfamethoxazole (Bactrim Ds) 1 tab DAILY PO Last administered on 03/06/17 08:56; Start 03/02/17 at 09:00; Stop 03/09/17 at 09:01 Buspirone HCl (Buspar) 10 mg TIDAFTMEAL PO Last administered on 03/06/17 16:55 ; Start 03/03/17 at 09:00 Vitamin D (Vitamin D3) 50,000 unit WEEKLY PO Last administered on 03/03/17 09: 03; Start 03/03/17 at 09:00 Mirtazapine (Remeron) 7.5 mg QHS PO Last administered on 03/06/17 19:24; Start 03/05/17 at 21:00 Mirtazapine (Remeron) 15 mg QHS PO Last administered on 5/2/17at 20:00; Start 03/06/17 at 21:00 Active Scripts Active Reported Lantus Solostar (Insulin Glargine,Hum.rec.anlog) 100 Unit/1 Ml Insuln.pen 15 Unit SQ QHS Lorazepam 1 Mg Tablet 1 Mg PO PRN Q3HRS PRN Risperdal (Risperidone) 0.5 Mg Tablet 0.5 Mg PO BID Chlorpromazine Hcl 25 Mg Tablet 25 Mg PO BID Novolog Flexpen (Insulin Aspart) 100 Unit/1 Ml Insuln.pen 6 Unit SQ TIDWMEALS Gabapentin 300 Mg Capsule 300 Mg PO TID Milk Of Magnesia (Magnesium Hydroxide) 2,400 Mg/10 Ml Oral.susp 2,400 Mg PO PRN DAILY Trazodone Hcl 50 Mg Tablet 50 Mg PO PRN QHS PRN Divalproex Sodium 500 Mg Tablet.dr 500 Mg PO TID Losartan Potassium 50 Mg Tablet 50 Mg PO DAILY Senexon-S Tablet (Sennosides/Docusate Sodium) 1 Each Tablet 8.6-50 Mg PO DAILY Celexa (Citalopram Hydrobromide) 20 Mg Tablet 20 Mg PO DAILY Amlodipine Besylate 10 Mg Tablet 10 Mg PO DAILY Percocet 5-325 Mg Tablet (Oxycodone Hcl/Acetaminophen) 1 Each Tablet 1 Tab PO PRN Q8HRS PRN Hydrocodone-Apap 5-325 (Hydrocodone Bit/Acetaminophen) 1 Each Tablet 1 Tab PO Q12HR Tylenol (Acetaminophen) 325 Mg Tablet 650 Mg PO PRN Q8HRS PRN Diagnosis: Problems: (1) Psychiatric disorder (2) Bipolar affective, mixed, sev w/ psych (3) Anxiety disorder (4) Dementia in Alzheimer's disease with delusions (5) Impulse control disorder NANCY HAHN MD March 06, 2017 21:24
--- NOTE | 2017-03-07 04:16 | NUR ---
Behavior Intervention Response and Plan: BIRP Note: Behavior: Assumed Care of patient, patient located in Day Room at shift change. Patient exhibited the following behavior Calm, Compliant, Cooperative. Brief assessment on rounds of vital signs, medication needs, lab studies, and pain. Treatment plan problems Alteration in mood and fall risk. Intervention: Patient assessed and the following interventions initiated safety checks 15 Minute Checks Cognitive Assessment , Medications , Oral Hydration. Response: After interactions and interventions patient responded in the following manner, Calm , Cooperative ,Compliant. Continue to assess behaviors and condition will continue to monitor throughout the shift as needed. Plan: Continue to monitor Master Treatment Plan for patient's progress toward short term goals of Decreased Agitation, Decreased Aggression, skilled nursing goals to return to previous living setting vs placement. Continue to assess patient for changes in above assessment. Monitor for medication needs, pain, and safety concerns. Hourly rounding performed to ensure safe environment.
[2017-03-07 06:35] VITALS: BP 149/84
--- NOTE | 2017-03-07 07:25 | NUR ---
Patient knocking on nurses' station door, states she was supposed to go home yesterday in an angry tone of voice. Informed her that she has to wait for Dr. Stokes, not clear if she understood; this information was written down for her yesterday. Will continue to monitor behaviours.
[2017-03-07] MEDS: INSULIN ASPART 300 UNITS/3 ML INSULN.PEN SQ SCH ×3 (07:33→17:04)
--- NOTE | 2017-03-07 07:34 | NUR ---
Patient's FSBS=86; morning insulin held.
[2017-03-07] MEDS: busPIRone 10 MG TABLET. PO SCH ×3 (08:22→17:00)
[2017-03-07] MEDS: LOSARTAN 50 MG TABLET. PO SCH (08:22)
[2017-03-07] MEDS: SENNOSIDES/DOCUSATE 8.6/50MG TABLET. PO SCH (08:22)
[2017-03-07] MEDS: CITALOPRAM 20 MG TABLET. PO SCH (08:23)
[2017-03-07] MEDS: SMZ/TMP 800/160MG TABLET. PO SCH (08:23)
[2017-03-07] MEDS: risperiDONE 0.5 MG TABLET. PO SCH (08:23)
[2017-03-07] MEDS: amLODIPine BESYLATE 10 MG TABLET PO SCH (08:23)
[2017-03-07] MEDS: GABAPENTIN 300 MG CAPSULE. PO SCH ×3 (08:23→19:20)
[2017-03-07] MEDS: DIVALPROEX 125 MG CAP.SPRINK PO SCH ×3 (08:24→19:20)
--- NOTE | 2017-03-07 08:25 | PN ---
DATE: 03/05/2017 This is a late entry for 03/05/2017, covers elements not covered in my initial note. SUBJECTIVE: The patient slept just 1-1/2 hours last night, excited as her family visited the previous day, restless the previous night, got trazodone with little effect. REVIEW OF SYSTEMS: Hard of hearing, difficulty with her speech, which is loud as a consequent of being hard of hearing. No CV, , Pulmonary, eye system symptoms on review. MENTAL STATUS EXAM: Oriented to herself and situation. Speech as above, abstraction fair, computation impaired, language function intact, attention span short. Mood and affect remain somewhat anxious, labile, but better than before. LABORATORY DATA: Reviewed. IMPRESSION: Schizoaffective disorder, bipolar type; anxiety disorder, unspecified. PLAN: Start Remeron 7.5 mg at bedtime to help with insomnia. Continue trazodone, Celexa 20 mg a day, Risperdal 0.5 in the morning, 0.75 at 1400; Ativan p.r.n., Depakote 500 mg 3 times a day, level therapeutic at 56; BuSpar 10 t.i.d., may need to increase this if anxiety resurfaces or agitation resurfaces. MAN Kemal HAHN MD DR: MARGA/estelle JOB#: [id number] / [id number]
[2017-03-07] MEDS: HYDROcodone/APAP 5/325MG 1 TAB TABLET PO SCH ×2 (08:27→19:26)
--- NOTE | 2017-03-07 09:50 | NUR ---
Behavior Intervention Response and Plan: BIRP Note: Behavior: Assumed Care of patient, patient located in Day Room at shift change. Patient exhibited the following behavior Demanding, Restless, Irritable. Brief assessment on rounds of vital signs, medication needs, lab studies, and pain. Treatment plan problems 1 & 2. Intervention: Patient assessed and the following interventions initiated safety checks 15 Minute Checks Cognitive Assessment , Head to toe Assessment , Medications. Response: After interactions and interventions patient responded in the following manner, Calm , Compliant ,Appropriate. Continue to assess behaviors and condition will continue to monitor throughout the shift as needed. 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 Continue to assess patient for changes in above assessment. Monitor for medication needs, pain, and safety concerns. Hourly rounding performed to ensure safe environment.
[2017-03-07] MEDS: LORazepam 1 MG TABLET PO PRN ×2 (13:50→19:20)
--- NOTE | 2017-03-07 13:51 | NUR ---
Pt is in the day room yelling, getting agitated with others. Pt yelling and writing on her white board "Hurry up!" Redirected numerous times without success. Directed pt to her room to encourage relaxation. PRN Ativan given at this time. Will continue to monitor and report.
[2017-03-07] MEDS: risperiDONE 0.25 MG TABLET. PO SCH (14:12)
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
--- NOTE | 2017-03-07 14:18 | NUR ---
SW followed up w/Keren from [facility] regarding status of Level II request. Information has been sent and SW awaiting for eval from [facility].
--- NOTE | 2017-03-07 15:16 | NUR ---
Patient currently sitting in dayroom with other patients, appears to be calmer. She is more polite and less demanding when asking for treats. Will continue to monitor behaviour.
[2017-03-07 15:49] VITALS: BP 118/64
[2017-03-07] MEDS: MIRTAZAPINE 15 MG TABLET PO SCH (19:20)
[2017-03-07] MEDS: MIRTAZAPINE 7.5 MG TABLET. PO SCH (19:20)
[2017-03-07] MEDS: traZODone 50 MG TABLET. PO PRN (19:20)
[2017-03-07] MEDS: INSULIN DETEMIR 300 UNITS/3 ML INSULN.PEN. SQ SCH (19:28)
--- NOTE | 2017-03-07 19:40 | NUR ---
Nursing Note Patient is yelling and demanding that staff call her claim rep and that she is going home "Now". Patient is difficult to redirect. Patient yelling at staff and other patients. Patient agitation is increasing. Patient given PRN Ativan and Trazodone per PRN order.
--- NOTE | 2017-03-07 21:11 | PDOC ---
Exam Johann Demential Exam: Johann Note: Please also refer to the separate dictated note~for this date of service dictated separately.~Patient seen individually. Discussed the patient with Nursing staff reviewed the chart.~Reviewed interim history and current functioning. Reviewed vital signs,~Labs/ Radiology~and current medications noted below. Continue current treatment with the changes noted in the dictated addendum note Assessment: Vital Signs: Vital Signs Date Time Temp Pulse Resp B/P Pulse Ox O2 Delivery O2 Flow Rate FiO2 03/07/17 19:26 20 Room Air 03/07/17 15:49 97.9 73 118/64 95 I&O Intake and Output 03/07/17 07:00 Intake Total 720 ml Balance 720 ml Intake Oral 720 ml # Voids 2 Labs: Laboratory Tests Test 03/07/17 07:21 03/07/17 11:38 03/07/17 16:57 03/07/17 19:14 Glucose (Fingerstick) 86mg/dL (70-99) 113mg/dL (70-99) H 219mg/dL (70-99) H 203mg/dL (70-99) H Current Medications: Meds: Current Medications Acetaminophen (Tylenol) 650 mg PRN Q6HRS PRN PO PAIN / TEMP; Start 02/25/17 at 00:30; Stop 02/25/17 at 15:05; Status DC Multi-Ingredient Ointment (Analgesic [place]) 1 marcell PRN QID PRN TP MUSCLE PAIN; Start 02/25/17 at 00:30 Al Hydroxide/Mg Hydroxide (Mylanta Plus Xs) 15 ml PRN AFTMEALHC PRN PO DYSPEPSIA; Start 02/25/17 at 00:30 Magnesium Hydroxide (Milk Of Magnesia) 2,400 mg PRN QHS PRN PO CONSTIPATION; Start 02/25/17 at 00:30; Stop 02/25/17 at 15:05; Status DC Chlorpromazine HCl (Thorazine) 25 mg BID PO Last administered on 02/26/17 09: 34; Start 02/25/17 at 09:00; Stop 02/26/17 at 18:22; Status DC Citalopram Hydrobromide (Celexa) 20 mg DAILY PO Last administered on 03/07/17 08:23; Start 02/25/17 at 09:00 Lorazepam (Ativan) 1 mg PRN Q3HRS PRN PO ANXIETY / AGITATION Last administered on 03/07/17 19:20; Start 02/25/17 at 00:30 Risperidone (Risperdal) 0.5 mg BID PO Last administered on 02/26/17 09:34; Start 02/25/17 at 09:00; Stop 02/26/17 at 18:22; Status DC Trazodone HCl (Desyrel) 50 mg PRN QHS PRN PO INSOMNIA Last administered on 19:20; Start 02/25/17 at 00:30 Divalproex Sodium (Depakote Sprinkles) 500 mg TID PO Last administered on 19:20; Start 02/25/17 at 09:00 Acetaminophen (Tylenol) 650 mg PRN Q8HRS PRN PO PAIN Last administered on 12:56; Start 02/25/17 at 07:30 Amlodipine Besylate (Norvasc) 10 mg DAILY PO Last administered on 03/07/17 08: 23; Start 02/25/17 at 09:00 Gabapentin (Neurontin) 300 mg TID PO Last administered on 03/07/17 19:20; Start 02/25/17 at 09:00 Acetaminophen/ Hydrocodone Bitart (Lortab 5/325) 1 tab Q12HR PO Last administered on 03/07/17 19:26; Start 02/25/17 at 09:00 Insulin Aspart (Novolog) 6 units TIDWMEALS SQ Last administered on 03/07/17 17: 04; Start 02/25/17 at 08:00 Losartan Potassium (Cozaar) 50 mg DAILY PO Last administered on 03/07/17 08:22 ; Start 02/25/17 at 09:00 Senna/Docusate Sodium (Senna Plus) 1 tab DAILY PO Last administered on 08:22; Start 02/25/17 at 09:00 Insulin Detemir (Levemir) 15 units QHS SQ Last administered on 02/25/17 19:55 ; Start 02/25/17 at 21:00; Stop 02/26/17 at 14:21; Status DC Magnesium Hydroxide (Milk Of Magnesia) 2,400 mg PRN DAILY PRN PO CONSTIPATION; Start 02/25/17 at 07:45 Insulin Detemir (Levemir) 15 units QHS SQ Last administered on 03/07/17 19:28; Start 02/26/17 at 14:21 Chlorpromazine HCl (Thorazine) 25 mg DAILY PO Last administered on 02/28/17 09 :09; Start 02/27/17 at 09:00; Stop 02/28/17 at 15:50; Status DC Risperidone (Risperdal) 0.5 mg DAILY PO Last administered on 03/07/17 08:23; Start 02/27/17 at 09:00; Stop 03/07/17 at 18:51; Status DC Risperidone (Risperdal) 0.75 mg HS PO ; Start 02/26/17 at 21:00; Stop 02/26/17 at 21:00; Status DC Risperidone (Risperdal) 0.75 mg 14 PO Last administered on 03/07/17 14:12; Start 02/26/17 at 21:00 Buspirone HCl (Buspar) 5 mg BID PO Last administered on 03/01/17 08:38; Start 02/27/17 at 21:00; Stop 03/01/17 at 12:38; Status DC Buspirone HCl (Buspar) 10 mg BID PO Last administered on 03/02/17 08:05; Start 03/01/17 at 21:00; Stop 03/02/17 at 18:06; Status DC Trimethoprim/ Sulfamethoxazole (Bactrim Ds) 1 tab DAILY PO Last administered on 03/07/17 08:23; Start 03/02/17 at 09:00; Stop 03/09/17 at 09:01 Buspirone HCl (Buspar) 10 mg TIDAFTMEAL PO Last administered on 03/07/17 17:00 ; Start 03/03/17 at 09:00 Vitamin D (Vitamin D3) 50,000 unit WEEKLY PO Last administered on 03/03/17 09: 03; Start 03/03/17 at 09:00 Mirtazapine (Remeron) 7.5 mg QHS PO Last administered on 03/07/17 19:20; Start 03/05/17 at 21:00 Mirtazapine (Remeron) 15 mg QHS PO Last administered on 03/07/17t 19:20; Start 03/06/17 at 21:00 Risperidone (Risperdal) 0.75 mg DAILY PO ; Start 03/08/17 at 09:00 Active Scripts Active Reported Lantus Solostar (Insulin Glargine,Hum.rec.anlog) 100 Unit/1 Ml Insuln.pen 15 Unit SQ QHS Lorazepam 1 Mg Tablet 1 Mg PO PRN Q3HRS PRN Risperdal (Risperidone) 0.5 Mg Tablet 0.5 Mg PO BID Chlorpromazine Hcl 25 Mg Tablet 25 Mg PO BID Novolog Flexpen (Insulin Aspart) 100 Unit/1 Ml Insuln.pen 6 Unit SQ TIDWMEALS Gabapentin 300 Mg Capsule 300 Mg PO TID Milk Of Magnesia (Magnesium Hydroxide) 2,400 Mg/10 Ml Oral.susp 2,400 Mg PO PRN DAILY Trazodone Hcl 50 Mg Tablet 50 Mg PO PRN QHS PRN Divalproex Sodium 500 Mg Tablet.dr 500 Mg PO TID Losartan Potassium 50 Mg Tablet 50 Mg PO DAILY Senexon-S Tablet (Sennosides/Docusate Sodium) 1 Each Tablet 8.6-50 Mg PO DAILY Celexa (Citalopram Hydrobromide) 20 Mg Tablet 20 Mg PO DAILY Amlodipine Besylate 10 Mg Tablet 10 Mg PO DAILY Percocet 5-325 Mg Tablet (Oxycodone Hcl/Acetaminophen) 1 Each Tablet 1 Tab PO PRN Q8HRS PRN Hydrocodone-Apap 5-325 (Hydrocodone Bit/Acetaminophen) 1 Each Tablet 1 Tab PO Q12HR Tylenol (Acetaminophen) 325 Mg Tablet 650 Mg PO PRN Q8HRS PRN Diagnosis: Problems: (1) Psychiatric disorder (2) Bipolar affective, mixed, sev w/ psych (3) Anxiety disorder (4) Dementia in Alzheimer's disease with delusions (5) Impulse control disorder NANCY HAHN MD March 07, 2017 21:11
--- NOTE | 2017-03-08 00:39 | NUR ---
Behavior Intervention Response and Plan: BIRP Note: Behavior: Assumed Care of patient, patient located in Day Room at shift change. Patient exhibited the following behavior Restless, Disorganized, Agitated. Brief assessment on rounds of vital signs, medication needs, lab studies, and pain. Treatment plan problems Alteration in Mood and Fall Risk. Intervention: Patient assessed and the following interventions initiated safety checks 15 Minute Checks Cognitive Assessment , Medications , ADL's. Response: After interactions and interventions patient responded in the following manner, Interactive , Agitated ,Anxious. Continue to assess behaviors and condition will continue to monitor throughout the shift as needed. 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 Continue to assess patient for changes in above assessment. Monitor for medication needs, pain, and safety concerns. Hourly rounding performed to ensure safe environment.
--- NOTE | 2017-03-08 02:55 | PN ---
DATE: 03/06/2017 PSYCHIATRIC PROGRESS NOTE This is a late entry for 03/06/2017, covers elements not covered in my initial note. SUBJECTIVE: The patient slept 7 hours previous night. The morning of 03/06/2017, she was anxious, restless, believes she was going home, confused, easily gets upset, loud at times, but redirects. She is again asking to call her [id number]. REVIEW OF SYSTEMS: Hard of hearing. Difficulty with her speech. No CV, , pulmonary, eye system symptoms on review. MENTAL STATUS EXAM: Oriented to herself and situation. Speech as above. Abstraction fair, computation impaired, language function intact, attention span short. Mood and affect remains somewhat anxious at times. LABORATORY DATA: Reviewed. IMPRESSION: Unchanged. PLAN: Continue Celexa 20 mg a day, Risperdal 0.5 mg in the morning and 0.75 mg at 1400 hours, Ativan as p.r.n., trazodone p.r.n., Depakote 500 mg 3 times a day, level therapeutic at 56, BuSpar 10 mg t.i.d., increase Remeron from 7.5 at bedtime to 15 mg at bedtime. Adjust further as clinically indicated. NANCY HAHN MD DR: MARGA/estelle JOB#: [id number] / [id number]
[2017-03-08] MEDS: INSULIN ASPART 300 UNITS/3 ML INSULN.PEN SQ SCH ×3 (07:50→17:00)
[2017-03-08] MEDS: busPIRone 10 MG TABLET. PO SCH ×4 (08:22→19:23)
[2017-03-08] MEDS: GABAPENTIN 300 MG CAPSULE. PO SCH ×4 (08:22→19:26)
[2017-03-08] MEDS: CITALOPRAM 20 MG TABLET. PO SCH (08:22)
[2017-03-08] MEDS: SMZ/TMP 800/160MG TABLET. PO SCH (08:23)
[2017-03-08] MEDS: LOSARTAN 50 MG TABLET. PO SCH (08:23)
[2017-03-08] MEDS: DIVALPROEX 125 MG CAP.SPRINK PO SCH ×4 (08:23→19:23)
[2017-03-08] MEDS: SENNOSIDES/DOCUSATE 8.6/50MG TABLET. PO SCH (08:23)
[2017-03-08] MEDS: amLODIPine BESYLATE 10 MG TABLET PO SCH (08:23)
[2017-03-08] MEDS: risperiDONE 0.5 MG TABLET. PO SCH (08:25)
[2017-03-08] MEDS: HYDROcodone/APAP 5/325MG 1 TAB TABLET PO SCH ×2 (08:26→19:25)
--- NOTE | 2017-03-08 08:43 | NUR ---
Patient upset, demanding to call [employer] Systems Administrator. Yelling in hallway. Redirected to dayroom to watch TV and will continue to monitor.
[2017-03-08 10:04] VITALS: BP 126/54
--- NOTE | 2017-03-08 10:47 | NUR ---
Behavior Intervention Response and Plan: BIRP Note: Behavior: Assumed Care of patient, patient located in Day Room at shift change. Patient exhibited the following behavior Able to Focus on Task, Attention Seeking, Cooperative. Brief assessment on rounds of vital signs, medication needs, lab studies, and pain. Treatment plan problems 1 and 2. Intervention: Patient assessed and the following interventions initiated safety checks 15 Minute Checks Cognitive Assessment , Head to toe Assessment , Medications. Response: After interactions and interventions patient responded in the following manner, Social , Compliant ,Restless. Continue to assess behaviors and condition will continue to monitor throughout the shift as needed. Plan: Continue to monitor Master Treatment Plan for patient's progress toward short term goals of Decreased Agitation, Decreased Aggression, fci goals to return to previous living setting vs placement. Continue to assess patient for changes in above assessment. Monitor for medication needs, pain, and safety concerns. Hourly rounding performed to ensure safe environment.
--- NOTE | 2017-03-08 10:48 | NUR ---
Patient writing letter with paper and marker. Looking at magazines at table in dayroom. Reduced agitation at this time.
--- NOTE | 2017-03-08 12:07 | NUR ---
Patient became very agitated in hallway near [facility]. Demanding to go home right now and call forensic identification specialist. Verbal redirection with dry erase board failed. Patient began screaming "I hate you", "I want to go home now", "you bitches and bastards". Patient escorted to [facility] for de-escalation. Will continue to monitor.
[2017-03-08] MEDS: LORazepam 1 MG TABLET PO PRN ×2 (12:13→19:26)
--- NOTE | 2017-03-08 12:30 | NUR ---
Patient remains highly agitated and is yelling "I will bridgette you" over and over at this nurse in the [facility]. Patient states she is angry because she was told she could go home on March 05, and it is now March 08 and she is still here. Patient refused lunch and insulin, swinging fist at this nurse. Patient refusing to use dry erase board to communicate (patient is deaf). This nurse then approached patient with PRN Lorazepam per order which she refused. Patient cursing and throwing up middle finger at staff in nursing station. Will continue to attempt to give PRN for agitation/anxiety.
--- NOTE | 2017-03-08 12:54 | NUR ---
Called Dr. Stokes regarding patients yelling, agitation, etc. Received order for PRN zyprexa zydis 5mg PRN [id number] for agitation, max dose 20mg/24 hours. Administered as ordered. Will continue to monitor.
[2017-03-08] MEDS: risperiDONE 0.25 MG TABLET. PO SCH ×2 (14:38→15:00)
--- NOTE | 2017-03-08 14:59 | NUR ---
approached multiple times with 1400 meds. patient yelling and refusing to take them. continues to be in the [facility].
--- NOTE | 2017-03-08 19:00 | NUR ---
Behavior Intervention Response and Plan: BIRP Note: Behavior: Assumed Care of patient, patient located in Hallway at shift change. Patient exhibited the following behavior Non Compliant with Meds, Demanding, Able to Focus on Task. Brief assessment on rounds of vital signs, medication needs, lab studies, and pain. Treatment plan problems . Intervention: Patient assessed and the following interventions initiated safety checks 15 Minute Checks Cognitive Assessment , Head to toe Assessment , Medications. Response: After interactions and interventions patient responded in the following manner, Disorganized , Manic ,Attention Seeking. Continue to assess behaviors and condition will continue to monitor throughout the shift as needed. Plan: Continue to monitor Master Treatment Plan for patient's progress toward short term goals of Decreased Aggression, Medication Compliance, shelter goals to return to previous living setting vs placement. Continue to assess patient for changes in above assessment. Monitor for medication needs, pain, and safety concerns. Hourly rounding performed to ensure safe environment.
[2017-03-08] MEDS: MIRTAZAPINE 15 MG TABLET PO SCH (19:26)
[2017-03-08] MEDS: traZODone 50 MG TABLET. PO PRN (19:26)
[2017-03-08] MEDS: MIRTAZAPINE 7.5 MG TABLET. PO SCH (19:26)
[2017-03-08] MEDS: INSULIN DETEMIR 300 UNITS/3 ML INSULN.PEN. SQ SCH (19:30)
--- NOTE | 2017-03-08 20:00 | NUR ---
Pt is aggressive, cussing, screaming, refusing to take meds, urinated on floor and then yelled for staff to do their job and clean up after her. Gave PRN zydis, and then ativan, but had little affect on behavior. After cleaning her up and the urine on the floor, she took off her clean brief, got down on floor and spread her legs, told staff to "look at my pussy". She then urinated on the floor again and rolled in it.
--- NOTE | 2017-03-08 20:30 | PDOC ---
Exam Johann Demential Exam: Johann Note: Please also refer to the separate dictated note~for this date of service dictated separately.~Patient seen individually. Discussed the patient with Nursing staff reviewed the chart.~Reviewed interim history and current functioning. Reviewed vital signs,~Labs/ Radiology~and current medications noted below. Continue current treatment with the changes noted in the dictated addendum note Assessment: Vital Signs: Vital Signs Date Time Temp Pulse Resp B/P (MAP) Pulse Ox O2 Delivery O2 Flow Rate FiO2 03/08/17 19:25 98 Room Air 03/08/17 10:04 97.8 82 16 126/54 (78) I&O Intake and Output 03/08/17 07:00 Intake Total 1320 ml Balance 1320 ml Intake Oral 1320 ml # Voids 1 Labs: Laboratory Tests Test 03/08/17 07:08 03/08/17 11:25 03/08/17 16:55 03/08/17 19:05 Glucose (Fingerstick) 88 mg/dL (70-99) 142 mg/dL (70-99) H 76 mg/dL (70-99) 219 mg/dL (70-99) H Current Medications: Meds: Current Medications Acetaminophen (Tylenol) 650 mg PRN Q6HRS PRN PO PAIN / TEMP; Start 02/25/17 at 00:30; Stop 02/25/17 at 15:05; Status DC Multi-Ingredient Ointment (Analgesic [place]) 1 marcell PRN QID PRN TP MUSCLE PAIN; Start 02/25/17 at 00:30 Al Hydroxide/Mg Hydroxide (Mylanta Plus Xs) 15 ml PRN AFTMEALHC PRN PO DYSPEPSIA; Start 02/25/17 at 00:30 Magnesium Hydroxide (Milk Of Magnesia) 2,400 mg PRN QHS PRN PO CONSTIPATION; Start 02/25/17 at 00:30; Stop 02/25/17 at 15:05; Status DC Chlorpromazine HCl (Thorazine) 25 mg BID PO Last administered on 02/26/17 09: 34; Start 02/25/17 at 09:00; Stop 02/26/17 at 18:22; Status DC Citalopram Hydrobromide (Celexa) 20 mg DAILY PO Last administered on 03/08/17 08:22; Start 02/25/17 at 09:00 Lorazepam (Ativan) 1 mg PRN Q3HRS PRN PO ANXIETY / AGITATION Last administered on 03/08/17 19:26; Start 02/25/17 at 00:30 Risperidone (Risperdal) 0.5 mg BID PO Last administered on 02/26/17 09:34; Start 02/25/17 at 09:00; Stop 02/26/17 at 18:22; Status DC Trazodone HCl (Desyrel) 50 mg PRN QHS PRN PO INSOMNIA Last administered on 19:26; Start 02/25/17 at 00:30 Divalproex Sodium (Depakote Sprinkles) 500 mg TID PO Last administered on 19:23; Start 02/25/17 at 09:00 Acetaminophen (Tylenol) 650 mg PRN Q8HRS PRN PO PAIN Last administered on 12:56; Start 02/25/17 at 07:30 Amlodipine Besylate (Norvasc) 10 mg DAILY PO Last administered on 03/08/17 08: 23; Start 02/25/17 at 09:00 Gabapentin (Neurontin) 300 mg TID PO Last administered on 03/08/17 19:26; Start 02/25/17 at 09:00 Acetaminophen/ Hydrocodone Bitart (Lortab 5/325) 1 tab Q12HR PO Last administered on 03/08/17 19:25; Start 02/25/17 at 09:00 Insulin Aspart (Novolog) 6 units TIDWMEALS SQ Last administered on 03/07/17 17: 04; Start 02/25/17 at 08:00 Losartan Potassium (Cozaar) 50 mg DAILY PO Last administered on 03/08/17 08:23 ; Start 02/25/17 at 09:00 Senna/Docusate Sodium (Senna Plus) 1 tab DAILY PO Last administered on 08:23; Start 02/25/17 at 09:00 Insulin Detemir (Levemir) 15 units QHS SQ Last administered on 02/25/17 19:55 ; Start 02/25/17 at 21:00; Stop 02/26/17 at 14:21; Status DC Magnesium Hydroxide (Milk Of Magnesia) 2,400 mg PRN DAILY PRN PO CONSTIPATION; Start 02/25/17 at 07:45 Insulin Detemir (Levemir) 15 units QHS SQ Last administered on 03/08/17 19:30; Start 02/26/17 at 14:21 Chlorpromazine HCl (Thorazine) 25 mg DAILY PO Last administered on 02/28/17 09 :09; Start 02/27/17 at 09:00; Stop 02/28/17 at 15:50; Status DC Risperidone (Risperdal) 0.5 mg DAILY PO Last administered on 03/07/17 08:23; Start 02/27/17 at 09:00; Stop 03/07/17 at 18:51; Status DC Risperidone (Risperdal) 0.75 mg HS PO ; Start 02/26/17 at 21:00; Stop 02/26/17 at 21:00; Status DC Risperidone (Risperdal) 0.75 mg 14 PO Last administered on 03/07/17 14:12; Start 02/26/17 at 21:00 Buspirone HCl (Buspar) 5 mg BID PO Last administered on 03/01/17 08:38; Start 02/27/17 at 21:00; Stop 03/01/17 at 12:38; Status DC Buspirone HCl (Buspar) 10 mg BID PO Last administered on 03/02/17 08:05; Start 03/01/17 at 21:00; Stop 03/02/17 at 18:06; Status DC Trimethoprim/ Sulfamethoxazole (Bactrim Ds) 1 tab DAILY PO Last administered on 03/08/17 08:23; Start 03/02/17 at 09:00; Stop 03/09/17 at 09:01 Buspirone HCl (Buspar) 10 mg TIDAFTMEAL PO Last administered on 03/08/17 08:22 ; Start 03/03/17 at 09:00; Stop 03/08/17 at 12:53; Status DC Vitamin D (Vitamin D3) 50,000 unit WEEKLY PO Last administered on 03/03/17 09: 03; Start 03/03/17 at 09:00 Mirtazapine (Remeron) 7.5 mg QHS PO Last administered on 03/08/17 19:26; Start 03/05/17 at 21:00 Mirtazapine (Remeron) 15 mg QHS PO Last administered on 03/08/17 19:26; Start 03/06/17 at 21:00 Risperidone (Risperdal) 0.75 mg DAILY PO Last administered on 03/08/17 08:25; Start 03/08/17 at 09:00 Buspirone HCl (Buspar) 20 mg DAILY PO ; Start 03/09/17 at 09:00 Buspirone HCl (Buspar) 10 mg BID@1400,2100 PO Last administered on 03/08/17 19: 23; Start 03/08/17 at 14:00 Olanzapine (Zyprexa Zydis) 5 mg PRN Q2HR PRN PO PSYCHOSIS Last administered on 03/08/17 13:01; Start 03/08/17 at 13:00 Active Scripts Active Reported Lantus Solostar (Insulin Glargine,Hum.rec.anlog) 100 Unit/1 Ml Insuln.pen 15 Unit SQ QHS Lorazepam 1 Mg Tablet 1 Mg PO PRN Q3HRS PRN Risperdal (Risperidone) 0.5 Mg Tablet 0.5 Mg PO BID Chlorpromazine Hcl 25 Mg Tablet 25 Mg PO BID Novolog Flexpen (Insulin Aspart) 100 Unit/1 Ml Insuln.pen 6 Unit SQ TIDWMEALS Gabapentin 300 Mg Capsule 300 Mg PO TID Milk Of Magnesia (Magnesium Hydroxide) 2,400 Mg/10 Ml Oral.susp 2,400 Mg PO PRN DAILY Trazodone Hcl 50 Mg Tablet 50 Mg PO PRN QHS PRN Divalproex Sodium 500 Mg Tablet.dr 500 Mg PO TID Losartan Potassium 50 Mg Tablet 50 Mg PO DAILY Senexon-S Tablet (Sennosides/Docusate Sodium) 1 Each Tablet 8.6-50 Mg PO DAILY Celexa (Citalopram Hydrobromide) 20 Mg Tablet 20 Mg PO DAILY Amlodipine Besylate 10 Mg Tablet 10 Mg PO DAILY Percocet 5-325 Mg Tablet (Oxycodone Hcl/Acetaminophen) 1 Each Tablet 1 Tab PO PRN Q8HRS PRN Hydrocodone-Apap 5-325 (Hydrocodone Bit/Acetaminophen) 1 Each Tablet 1 Tab PO Q12HR Tylenol (Acetaminophen) 325 Mg Tablet 650 Mg PO PRN Q8HRS PRN Diagnosis: Problems: (1) Psychiatric disorder (2) Bipolar affective, mixed, sev w/ psych (3) Anxiety disorder (4) Dementia in Alzheimer's disease with delusions (5) Impulse control disorder NANCY HAHN MD March 08, 2017 20:30
--- NOTE | 2017-03-08 23:30 | NUR ---
Pt finally agreed to take her medicine and wanted to go to bed. She was cleaned up again and put in bed.
[2017-03-09 06:28] VITALS: BP 135/61
[2017-03-09] MEDS: INSULIN ASPART 300 UNITS/3 ML INSULN.PEN SQ SCH ×3 (08:00→17:10)
[2017-03-09] MEDS: LOSARTAN 50 MG TABLET. PO SCH (09:29)
[2017-03-09] MEDS: CITALOPRAM 20 MG TABLET. PO SCH (09:29)
[2017-03-09] MEDS: amLODIPine BESYLATE 10 MG TABLET PO SCH (09:29)
[2017-03-09] MEDS: SMZ/TMP 800/160MG TABLET. PO SCH (09:29)
[2017-03-09] MEDS: SENNOSIDES/DOCUSATE 8.6/50MG TABLET. PO SCH (09:29)
[2017-03-09] MEDS: GABAPENTIN 300 MG CAPSULE. PO SCH ×3 (09:29→19:22)
[2017-03-09] MEDS: DIVALPROEX 125 MG CAP.SPRINK PO SCH ×3 (09:30→19:21)
[2017-03-09] MEDS: risperiDONE 0.5 MG TABLET. PO SCH (09:30)
[2017-03-09] MEDS: busPIRone 10 MG TABLET. PO SCH ×3 (09:31→19:21)
[2017-03-09] MEDS: HYDROcodone/APAP 5/325MG 1 TAB TABLET PO SCH ×2 (09:32→19:22)
--- NOTE | 2017-03-09 10:13 | NUR ---
patient is calmer this morning. Is sitting at table in dayroom participating in coloring and a craft. Patient compliant with AM medication. Will continue to monitor.
--- NOTE | 2017-03-09 10:14 | NUR ---
Behavior Intervention Response and Plan: BIRP Note: Behavior: Assumed Care of patient, patient located in Day Room at shift change. Patient exhibited the following behavior Calm, Interactive, Able to Focus on Task. Brief assessment on rounds of vital signs, medication needs, lab studies, and pain. Treatment plan problems 1 and 2. Intervention: Patient assessed and the following interventions initiated safety checks 15 Minute Checks Cognitive Assessment , Head to toe Assessment , Medications. Response: After interactions and interventions patient responded in the following manner, Interactive , Social ,Compliant. Continue to assess behaviors and condition will continue to monitor throughout the shift as needed. 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 Continue to assess patient for changes in above assessment. Monitor for medication needs, pain, and safety concerns. Hourly rounding performed to ensure safe environment.
[2017-03-09] MEDS: risperiDONE 0.25 MG TABLET. PO SCH (12:12)
[2017-03-09 15:54] VITALS: BP 133/73
[2017-03-09] MEDS: MIRTAZAPINE 15 MG TABLET PO SCH (19:22)
[2017-03-09] MEDS: INSULIN DETEMIR 300 UNITS/3 ML INSULN.PEN. SQ SCH (19:24)
--- NOTE | 2017-03-09 20:23 | PDOC ---
Exam Johann Demential Exam: Johann Note: Please also refer to the separate dictated note~for this date of service dictated separately.~Patient seen individually. Discussed the patient with Nursing staff reviewed the chart.~Reviewed interim history and current functioning. Reviewed vital signs,~Labs/ Radiology~and current medications noted below. Continue current treatment with the changes noted in the dictated addendum note Assessment: Vital Signs: Vital Signs Date Time Temp Pulse Resp B/P (MAP) Pulse Ox O2 Delivery O2 Flow Rate FiO2 03/09/17 19:22 Room Air 03/09/17 15:54 97.3 68 16 133/73 (93) 96 I&O Intake and Output 03/09/17 07:00 Intake Total 720 ml Balance 720 ml Intake Oral 720 ml # Voids 5 Labs: Laboratory Tests Test 03/09/17 07:06 03/09/17 11:03 03/09/17 16:18 03/09/17 19:11 Glucose (Fingerstick) 89 mg/dL (70-99) 91 mg/dL (70-99) 182 mg/dL (70-99) H 221 mg/dL (70-99) H Current Medications: Meds: Current Medications Acetaminophen (Tylenol) 650 mg PRN Q6HRS PRN PO PAIN / TEMP; Start 02/25/17 at 00:30; Stop 02/25/17 at 15:05; Status DC Multi-Ingredient Ointment (Analgesic [place]) 1 marcell PRN QID PRN TP MUSCLE PAIN; Start 02/25/17 at 00:30 Al Hydroxide/Mg Hydroxide (Mylanta Plus Xs) 15 ml PRN AFTMEALHC PRN PO DYSPEPSIA; Start 02/25/17 at 00:30 Magnesium Hydroxide (Milk Of Magnesia) 2,400 mg PRN QHS PRN PO CONSTIPATION; Start 02/25/17 at 00:30; Stop 02/25/17 at 15:05; Status DC Chlorpromazine HCl (Thorazine) 25 mg BID PO Last administered on 02/26/17 09: 34; Start 02/25/17 at 09:00; Stop 02/26/17 at 18:22; Status DC Citalopram Hydrobromide (Celexa) 20 mg DAILY PO Last administered on 03/09/17 09:29; Start 02/25/17 at 09:00 Lorazepam (Ativan) 1 mg PRN Q3HRS PRN PO ANXIETY / AGITATION Last administered on 03/08/17 19:26; Start 02/25/17 at 00:30 Risperidone (Risperdal) 0.5 mg BID PO Last administered on 02/26/17 09:34; Start 02/25/17 at 09:00; Stop 02/26/17 at 18:22; Status DC Trazodone HCl (Desyrel) 50 mg PRN QHS PRN PO INSOMNIA Last administered on 19:26; Start 02/25/17 at 00:30 Divalproex Sodium (Depakote Sprinkles) 500 mg TID PO Last administered on 19:21; Start 02/25/17 at 09:00 Acetaminophen (Tylenol) 650 mg PRN Q8HRS PRN PO PAIN Last administered on 12:56; Start 02/25/17 at 07:30 Amlodipine Besylate (Norvasc) 10 mg DAILY PO Last administered on 03/09/17 09: 29; Start 02/25/17 at 09:00 Gabapentin (Neurontin) 300 mg TID PO Last administered on 03/09/17 19:22; Start 02/25/17 at 09:00 Acetaminophen/ Hydrocodone Bitart (Lortab 5/325) 1 tab Q12HR PO Last administered on 03/09/17 19:22; Start 02/25/17 at 09:00 Insulin Aspart (Novolog) 6 units TIDWMEALS SQ Last administered on 03/09/17 17: 10; Start 02/25/17 at 08:00 Losartan Potassium (Cozaar) 50 mg DAILY PO Last administered on 03/09/17 09:29 ; Start 02/25/17 at 09:00 Senna/Docusate Sodium (Senna Plus) 1 tab DAILY PO Last administered on 09:29; Start 02/25/17 at 09:00 Insulin Detemir (Levemir) 15 units QHS SQ Last administered on 02/25/17 19:55 ; Start 02/25/17 at 21:00; Stop 02/26/17 at 14:21; Status DC Magnesium Hydroxide (Milk Of Magnesia) 2,400 mg PRN DAILY PRN PO CONSTIPATION; Start 02/25/17 at 07:45 Insulin Detemir (Levemir) 15 units QHS SQ Last administered on 03/09/17 19:24; Start 02/26/17 at 14:21 Chlorpromazine HCl (Thorazine) 25 mg DAILY PO Last administered on 02/28/17 09 :09; Start 02/27/17 at 09:00; Stop 02/28/17 at 15:50; Status DC Risperidone (Risperdal) 0.5 mg DAILY PO Last administered on 03/07/17 08:23; Start 02/27/17 at 09:00; Stop 03/07/17 at 18:51; Status DC Risperidone (Risperdal) 0.75 mg HS PO ; Start 02/26/17 at 21:00; Stop 02/26/17 at 21:00; Status DC Risperidone (Risperdal) 0.75 mg 14 PO Last administered on 03/09/17 12:12; Start 02/26/17 at 21:00 Buspirone HCl (Buspar) 5 mg BID PO Last administered on 03/01/17 08:38; Start 02/27/17 at 21:00; Stop 03/01/17 at 12:38; Status DC Buspirone HCl (Buspar) 10 mg BID PO Last administered on 03/02/17 08:05; Start 03/01/17 at 21:00; Stop 03/02/17 at 18:06; Status DC Trimethoprim/ Sulfamethoxazole (Bactrim Ds) 1 tab DAILY PO Last administered on 03/09/17 09:29; Start 03/02/17 at 09:00; Stop 03/09/17 at 09:01; Status DC Buspirone HCl (Buspar) 10 mg TIDAFTMEAL PO Last administered on 03/08/17 08:22 ; Start 03/03/17 at 09:00; Stop 03/08/17 at 12:53; Status DC Vitamin D (Vitamin D3) 50,000 unit WEEKLY PO Last administered on 03/03/17 09: 03; Start 03/03/17 at 09:00 Mirtazapine (Remeron) 7.5 mg QHS PO Last administered on 03/08/17 19:26; Start 03/05/17 at 21:00; Stop 03/09/17 at 18:14; Status DC Mirtazapine (Remeron) 15 mg QHS PO Last administered on 03/09/17 19:22; Start 03/06/17 at 21:00 Risperidone (Risperdal) 0.75 mg DAILY PO Last administered on 03/09/17 09:30; Start 03/08/17 at 09:00 Buspirone HCl (Buspar) 20 mg DAILY PO Last administered on 03/09/17 09:31; Start 03/09/17 at 09:00 Buspirone HCl (Buspar) 10 mg BID@1400,2100 PO Last administered on 03/09/17 19: 21; Start 03/08/17 at 14:00 Olanzapine (Zyprexa Zydis) 5 mg PRN Q2HR PRN PO PSYCHOSIS Last administered on 03/08/17 13:01; Start 03/08/17 at 13:00 Active Scripts Active Reported Lantus Solostar (Insulin Glargine,Hum.rec.anlog) 100 Unit/1 Ml Insuln.pen 15 Unit SQ QHS Lorazepam 1 Mg Tablet 1 Mg PO PRN Q3HRS PRN Risperdal (Risperidone) 0.5 Mg Tablet 0.5 Mg PO BID Chlorpromazine Hcl 25 Mg Tablet 25 Mg PO BID Novolog Flexpen (Insulin Aspart) 100 Unit/1 Ml Insuln.pen 6 Unit SQ TIDWMEALS Gabapentin 300 Mg Capsule 300 Mg PO TID Milk Of Magnesia (Magnesium Hydroxide) 2,400 Mg/10 Ml Oral.susp 2,400 Mg PO PRN DAILY Trazodone Hcl 50 Mg Tablet 50 Mg PO PRN QHS PRN Divalproex Sodium 500 Mg Tablet.dr 500 Mg PO TID Losartan Potassium 50 Mg Tablet 50 Mg PO DAILY Senexon-S Tablet (Sennosides/Docusate Sodium) 1 Each Tablet 8.6-50 Mg PO DAILY Celexa (Citalopram Hydrobromide) 20 Mg Tablet 20 Mg PO DAILY Amlodipine Besylate 10 Mg Tablet 10 Mg PO DAILY Percocet 5-325 Mg Tablet (Oxycodone Hcl/Acetaminophen) 1 Each Tablet 1 Tab PO PRN Q8HRS PRN Hydrocodone-Apap 5-325 (Hydrocodone Bit/Acetaminophen) 1 Each Tablet 1 Tab PO Q12HR Tylenol (Acetaminophen) 325 Mg Tablet 650 Mg PO PRN Q8HRS PRN Diagnosis: Problems: (1) Psychiatric disorder (2) Bipolar affective, mixed, sev w/ psych (3) Anxiety disorder (4) Dementia in Alzheimer's disease with delusions (5) Impulse control disorder NANCY HAHN MD March 09, 2017 20:23
--- NOTE | 2017-03-09 21:00 | NUR ---
Behavior Intervention Response and Plan: BIRP Note: Behavior: Assumed Care of patient, patient located in Day Room at shift change. Patient exhibited the following behavior Calm, Able to Focus on Task, Interactive. Brief assessment on rounds of vital signs, medication needs, lab studies, and pain. Treatment plan problems . Intervention: Patient assessed and the following interventions initiated safety checks 15 Minute Checks Cognitive Assessment , Head to toe Assessment , Medications. Response: After interactions and interventions patient responded in the following manner, Appropriate , Compliant ,Cooperative. Continue to assess behaviors and condition will continue to monitor throughout the shift as needed. 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 Continue to assess patient for changes in above assessment. Monitor for medication needs, pain, and safety concerns. Hourly rounding performed to ensure safe environment.
--- NOTE | 2017-03-10 03:58 | PN ---
DATE: 03/07/2017 This is a later entry, covers elements not covered in my initial note. SUBJECTIVE: The patient is quite demanding, labile on morning of 03/07/2017, increasingly agitated, yelling at 2 o'clock, very demanding, throwing things on the floor, and at the window, blood sugar was 86, insulin held. REVIEW OF SYSTEMS: Positive for hard of hearing, difficulty with his speech as a consequence of this. No CV, , pulmonary, eye system symptoms on review. Reliability poor. MENTAL STATUS EXAM: Oriented to herself situations. Speech can be loud at times, difficult to understand, but coherent, abstraction fair, computation impaired, language function intact, attention span short. Mood and affect remains intermittently labile. LABORATORY DATA: Reviewed. IMPRESSION: Schizoaffective disorder, bipolar type, mixed with psychotic features; anxiety disorder, unspecified. PLAN: Maintain Celexa at current dosage, increase Risperdal to 0.75 mg twice a day, Ativan, continue p.r.n. Depakote at current dosage level therapeutic at 89, trazodone at night, BuSpar 10 t.i.d., Remeron 15 at bedtime. NANCY HAHN MD DR: MARGA/estelle JOB#: [id number] / [id number]
--- NOTE | 2017-03-10 03:59 | PN ---
DATE: 03/08/2017 PSYCHIATRIC PROGRESS NOTE This is a late entry 03/08/2017, covers elements not covered in my initial note. SUBJECTIVE: The patient was staffed at treatment team meeting with the entire team and seen individually. Her ex [id number] is her guardian. The patient has been demanding obsessive holding hands with another patient, can be loud, aggressive all day. REVIEW OF SYSTEMS: Hard of hearing, difficulty with her speech. No CV, , pulmonary, eye system symptoms on review. MENTAL STATUS EXAM: Oriented to herself, situation. Speech can be loud at times. Abstraction fair, computation impaired, language function intact, attention span short. Mood and affect remains intermittently labile. LABORATORY DATA: Reviewed. IMPRESSION: Bipolar 1 disorder, mixed versus schizoaffective disorder, bipolar type, with psychotic features; anxiety disorder, unspecified. PLAN: Risperdal increased to 0.75 mg twice a day, BuSpar increased from 10 t.i.d. to 20 in the morning and 10 twice a day after that and Remeron 15 mg at bedtime, Ativan p.r.n., Celexa 20 mg a day, Depakote 500 three times a day level is therapeutic at 89. Adjust further as clinically indicated. NANCY HAHN MD DR: MARGA/estelle JOB#: [id number] / [id number]
[2017-03-10 06:52] VITALS: BP 124/82
[2017-03-10] MEDS: CITALOPRAM 20 MG TABLET. PO SCH (08:07)
[2017-03-10] MEDS: amLODIPine BESYLATE 10 MG TABLET PO SCH (08:08)
[2017-03-10] MEDS: CHOLECALCIFEROL (VITAMIN D3) 50,000 UNIT CAPSULE PO SCH (08:08)
[2017-03-10] MEDS: SENNOSIDES/DOCUSATE 8.6/50MG TABLET. PO SCH (08:08)
[2017-03-10] MEDS: busPIRone 10 MG TABLET. PO SCH ×3 (08:08→19:35)
[2017-03-10] MEDS: LOSARTAN 50 MG TABLET. PO SCH (08:08)
[2017-03-10] MEDS: GABAPENTIN 300 MG CAPSULE. PO SCH ×3 (08:08→19:35)
[2017-03-10] MEDS: HYDROcodone/APAP 5/325MG 1 TAB TABLET PO SCH ×2 (08:09→19:35)
[2017-03-10] MEDS: risperiDONE 0.5 MG TABLET. PO SCH (08:09)
[2017-03-10] MEDS: DIVALPROEX 125 MG CAP.SPRINK PO SCH ×3 (08:11→19:35)
[2017-03-10] MEDS: INSULIN ASPART 300 UNITS/3 ML INSULN.PEN SQ SCH ×3 (08:11→17:30)
--- NOTE | 2017-03-10 08:50 | NUR ---
Behavior Intervention Response and Plan: BIRP Note: Behavior: Assumed Care of patient, patient located in Day Room at shift change. Patient exhibited the following behavior Calm, Demanding, Cooperative. Brief assessment on rounds of vital signs, medication needs, lab studies, and pain. Treatment plan problems 1 & 2. Intervention: Patient assessed and the following interventions initiated safety checks 15 Minute Checks Cognitive Assessment , Head to toe Assessment , Medications. Response: After interactions and interventions patient responded in the following manner, Calm , Compliant ,Cooperative. Continue to assess behaviors and condition will continue to monitor throughout the shift as needed. 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 Continue to assess patient for changes in above assessment. Monitor for medication needs, pain, and safety concerns. Hourly rounding performed to ensure safe environment.
[2017-03-10] MEDS: risperiDONE 0.25 MG TABLET. PO SCH (14:10)
--- NOTE | 2017-03-10 16:00 | NUR ---
Patient is outside on the patio, happily yelling 'Hello' to passing planes.
[2017-03-10 16:14] VITALS: BP 142/80
--- NOTE | 2017-03-10 19:15 | PDOC ---
Exam Johann Demential Exam: Johann Note: Please also refer to the separate dictated note~for this date of service dictated separately.~Patient seen individually. Discussed the patient with Nursing staff reviewed the chart.~Reviewed interim history and current functioning. Reviewed vital signs,~Labs/ Radiology~and current medications noted below. Continue current treatment with the changes noted in the dictated addendum note Assessment: Vital Signs: Vital Signs Date Time Temp Pulse Resp B/P (MAP) Pulse Ox O2 Delivery O2 Flow Rate FiO2 03/10/17 16:14 97.5 61 16 142/80 (100) 94 03/10/17 11:49 Room Air I&O Intake and Output 03/10/17 07:00 Intake Total 360 ml Balance 360 ml Intake Oral 360 ml Labs: Laboratory Tests Test 03/10/17 07:14 03/10/17 11:15 03/10/17 16:33 Glucose (Fingerstick) 278 mg/dL (70-99) H 196 mg/dL (70-99) H 162 mg/dL (70-99) H Current Medications: Meds: Current Medications Acetaminophen (Tylenol) 650 mg PRN Q6HRS PRN PO PAIN / TEMP; Start 02/25/17 at 00:30; Stop 02/25/17 at 15:05; Status DC Multi-Ingredient Ointment (Analgesic [place]) 1 marcell PRN QID PRN TP MUSCLE PAIN; Start 02/25/17 at 00:30 Al Hydroxide/Mg Hydroxide (Mylanta Plus Xs) 15 ml PRN AFTMEALHC PRN PO DYSPEPSIA; Start 02/25/17 at 00:30 Magnesium Hydroxide (Milk Of Magnesia) 2,400 mg PRN QHS PRN PO CONSTIPATION; Start 02/25/17 at 00:30; Stop 02/25/17 at 15:05; Status DC Chlorpromazine HCl (Thorazine) 25 mg BID PO Last administered on 02/26/17 09: 34; Start 02/25/17 at 09:00; Stop 02/26/17 at 18:22; Status DC Citalopram Hydrobromide (Celexa) 20 mg DAILY PO Last administered on 03/10/17 08:07; Start 02/25/17 at 09:00 Lorazepam (Ativan) 1 mg PRN Q3HRS PRN PO ANXIETY / AGITATION Last administered on 03/08/17 19:26; Start 02/25/17 at 00:30 Risperidone (Risperdal) 0.5 mg BID PO Last administered on 02/26/17 09:34; Start 02/25/17 at 09:00; Stop 02/26/17 at 18:22; Status DC Trazodone HCl (Desyrel) 50 mg PRN QHS PRN PO INSOMNIA Last administered on 19:26; Start 02/25/17 at 00:30 Divalproex Sodium (Depakote Sprinkles) 500 mg TID PO Last administered on 14:08; Start 02/25/17 at 09:00 Acetaminophen (Tylenol) 650 mg PRN Q8HRS PRN PO PAIN Last administered on 12:56; Start 02/25/17 at 07:30 Amlodipine Besylate (Norvasc) 10 mg DAILY PO Last administered on 03/10/17 08: 08; Start 02/25/17 at 09:00 Gabapentin (Neurontin) 300 mg TID PO Last administered on 03/10/17 14:08; Start 02/25/17 at 09:00 Acetaminophen/ Hydrocodone Bitart (Lortab 5/325) 1 tab Q12HR PO Last administered on 03/10/17 08:09; Start 02/25/17 at 09:00 Insulin Aspart (Novolog) 6 units TIDWMEALS SQ Last administered on 03/10/17 17: 30; Start 02/25/17 at 08:00 Losartan Potassium (Cozaar) 50 mg DAILY PO Last administered on 03/10/17 08:08 ; Start 02/25/17 at 09:00 Senna/Docusate Sodium (Senna Plus) 1 tab DAILY PO Last administered on 08:08; Start 02/25/17 at 09:00 Insulin Detemir (Levemir) 15 units QHS SQ Last administered on 02/25/17 19:55 ; Start 02/25/17 at 21:00; Stop 02/26/17 at 14:21; Status DC Magnesium Hydroxide (Milk Of Magnesia) 2,400 mg PRN DAILY PRN PO CONSTIPATION; Start 02/25/17 at 07:45 Insulin Detemir (Levemir) 15 units QHS SQ Last administered on 03/09/17 19:24; Start 02/26/17 at 14:21 Chlorpromazine HCl (Thorazine) 25 mg DAILY PO Last administered on 02/28/17 09 :09; Start 02/27/17 at 09:00; Stop 02/28/17 at 15:50; Status DC Risperidone (Risperdal) 0.5 mg DAILY PO Last administered on 03/07/17 08:23; Start 02/27/17 at 09:00; Stop 03/07/17 at 18:51; Status DC Risperidone (Risperdal) 0.75 mg HS PO ; Start 02/26/17 at 21:00; Stop 02/26/17 at 21:00; Status DC Risperidone (Risperdal) 0.75 mg 14 PO Last administered on 03/10/17 14:10; Start 02/26/17 at 21:00 Buspirone HCl (Buspar) 5 mg BID PO Last administered on 03/01/17 08:38; Start 02/27/17 at 21:00; Stop 03/01/17 at 12:38; Status DC Buspirone HCl (Buspar) 10 mg BID PO Last administered on 03/02/17 08:05; Start 03/01/17 at 21:00; Stop 03/02/17 at 18:06; Status DC Trimethoprim/ Sulfamethoxazole (Bactrim Ds) 1 tab DAILY PO Last administered on 03/09/17 09:29; Start 03/02/17 at 09:00; Stop 03/09/17 at 09:01; Status DC Buspirone HCl (Buspar) 10 mg TIDAFTMEAL PO Last administered on 03/08/17 08:22 ; Start 03/03/17 at 09:00; Stop 03/08/17 at 12:53; Status DC Vitamin D (Vitamin D3) 50,000 unit WEEKLY PO Last administered on 03/10/17 08: 08; Start 03/03/17 at 09:00 Mirtazapine (Remeron) 7.5 mg QHS PO Last administered on 03/08/17 19:26; Start 03/05/17 at 21:00; Stop 03/09/17 at 18:14; Status DC Mirtazapine (Remeron) 15 mg QHS PO Last administered on 03/09/17 19:22; Start 03/06/17 at 21:00 Risperidone (Risperdal) 0.75 mg DAILY PO Last administered on 03/10/17 08:09; Start 03/08/17 at 09:00 Buspirone HCl (Buspar) 20 mg DAILY PO Last administered on 03/10/17 08:08; Start 03/09/17 at 09:00 Buspirone HCl (Buspar) 10 mg BID@1400,2100 PO Last administered on 03/10/17 14: 08; Start 03/08/17 at 14:00 Olanzapine (Zyprexa Zydis) 5 mg PRN Q2HR PRN PO PSYCHOSIS Last administered on 03/08/17 13:01; Start 03/08/17 at 13:00 Active Scripts Active Reported Lantus Solostar (Insulin Glargine,Hum.rec.anlog) 100 Unit/1 Ml Insuln.pen 15 Unit SQ QHS Lorazepam 1 Mg Tablet 1 Mg PO PRN Q3HRS PRN Risperdal (Risperidone) 0.5 Mg Tablet 0.5 Mg PO BID Chlorpromazine Hcl 25 Mg Tablet 25 Mg PO BID Novolog Flexpen (Insulin Aspart) 100 Unit/1 Ml Insuln.pen 6 Unit SQ TIDWMEALS Gabapentin 300 Mg Capsule 300 Mg PO TID Milk Of Magnesia (Magnesium Hydroxide) 2,400 Mg/10 Ml Oral.susp 2,400 Mg PO PRN DAILY Trazodone Hcl 50 Mg Tablet 50 Mg PO PRN QHS PRN Divalproex Sodium 500 Mg Tablet.dr 500 Mg PO TID Losartan Potassium 50 Mg Tablet 50 Mg PO DAILY Senexon-S Tablet (Sennosides/Docusate Sodium) 1 Each Tablet 8.6-50 Mg PO DAILY Celexa (Citalopram Hydrobromide) 20 Mg Tablet 20 Mg PO DAILY Amlodipine Besylate 10 Mg Tablet 10 Mg PO DAILY Percocet 5-325 Mg Tablet (Oxycodone Hcl/Acetaminophen) 1 Each Tablet 1 Tab PO PRN Q8HRS PRN Hydrocodone-Apap 5-325 (Hydrocodone Bit/Acetaminophen) 1 Each Tablet 1 Tab PO Q12HR Tylenol (Acetaminophen) 325 Mg Tablet 650 Mg PO PRN Q8HRS PRN Diagnosis: Problems: (1) Psychiatric disorder (2) Bipolar affective, mixed, sev w/ psych (3) Anxiety disorder (4) Dementia in Alzheimer's disease with delusions (5) Impulse control disorder NANCY HAHN MD March 10, 2017 19:15
[2017-03-10] MEDS: MIRTAZAPINE 15 MG TABLET PO SCH (19:35)
[2017-03-10] MEDS: INSULIN DETEMIR 300 UNITS/3 ML INSULN.PEN. SQ SCH (19:38)
--- NOTE | 2017-03-10 23:25 | NUR ---
Behavior Intervention Response and Plan: BIRP Note: Behavior: Assumed Care of patient, patient located in Day Room at shift change. Patient exhibited the following behavior Compulsive, Interactive, Social. Brief assessment on rounds of vital signs, medication needs, lab studies, and pain. Treatment plan problems . Intervention: Patient assessed and the following interventions initiated safety checks 15 Minute Checks Cognitive Assessment , Head to toe Assessment , Medications. Response: After interactions and interventions patient responded in the following manner, Compliant , Cooperative ,Attention Seeking. Continue to assess behaviors and condition will continue to monitor throughout the shift as needed. Plan: Continue to monitor Master Treatment Plan for patient's progress toward short term goals of Decreased Anxiety, Decreased Agitation, half-way goals to return to previous living setting vs placement. Continue to assess patient for changes in above assessment. Monitor for medication needs, pain, and safety concerns. Hourly rounding performed to ensure safe environment.
[2017-03-11 06:39] VITALS: BP 126/75
[2017-03-11] MEDS: DIVALPROEX 125 MG CAP.SPRINK PO SCH ×3 (08:49→20:22)
[2017-03-11] MEDS: busPIRone 10 MG TABLET. PO SCH ×3 (08:49→20:21)
[2017-03-11] MEDS: LOSARTAN 50 MG TABLET. PO SCH (08:50)
[2017-03-11] MEDS: risperiDONE 0.5 MG TABLET. PO SCH (08:50)
[2017-03-11] MEDS: GABAPENTIN 300 MG CAPSULE. PO SCH ×3 (08:50→20:22)
[2017-03-11] MEDS: amLODIPine BESYLATE 10 MG TABLET PO SCH (08:51)
[2017-03-11] MEDS: CITALOPRAM 20 MG TABLET. PO SCH (08:51)
[2017-03-11] MEDS: SENNOSIDES/DOCUSATE 8.6/50MG TABLET. PO SCH (08:52)
[2017-03-11] MEDS: INSULIN ASPART 300 UNITS/3 ML INSULN.PEN SQ SCH ×3 (09:13→18:04)
[2017-03-11] MEDS: HYDROcodone/APAP 5/325MG 1 TAB TABLET PO SCH ×2 (09:21→20:22)
[2017-03-11] MEDS: risperiDONE 0.25 MG TABLET. PO SCH (13:04)
--- NOTE | 2017-03-11 14:00 | NUR ---
Behavior Intervention Response and Plan: BIRP Note: Behavior: Assumed Care of patient, patient located in Day Room at shift change. Patient exhibited the following behavior Disorganized, Disorganized, Compliant. Brief assessment on rounds of vital signs, medication needs, lab studies, and pain. Treatment plan problems . Intervention: Patient assessed and the following interventions initiated safety checks 15 Minute Checks Call maddox in reach. Response: After interactions and interventions patient responded in the following manner, Interactive , Disorganized ,Compliant. Continue to assess behaviors and condition will continue to monitor throughout the shift as needed. Plan: Continue to monitor Master Treatment Plan for patient's progress toward short term goals of Decreased Agitation, Decreased Anxiety, intermediate goals to return to previous living setting vs placement. Continue to assess patient for changes in above assessment. Monitor for medication needs, pain, and safety concerns. Hourly rounding performed to ensure safe environment.
[2017-03-11 15:54] VITALS: BP 105/84
--- NOTE | 2017-03-11 19:56 | PDOC ---
Exam Johann Demential Exam: Johann Note: Please also refer to the separate dictated note~for this date of service dictated separately.~Patient seen individually. Discussed the patient with Nursing staff reviewed the chart.~Reviewed interim history and current functioning. Reviewed vital signs,~Labs/ Radiology~and current medications noted below. Continue current treatment with the changes noted in the dictated addendum note Assessment: Vital Signs: Vital Signs Date Time Temp Pulse Resp B/P (MAP) Pulse Ox O2 Delivery O2 Flow Rate FiO2 03/11/17 15:54 97.8 62 19 105/84 (91) 93 03/11/17 10:30 Room Air I&O Intake and Output 03/11/17 07:00 Intake Total 1440 ml Balance 1440 ml Intake Oral 1440 ml Labs: Laboratory Tests Test 03/11/17 07:11 03/11/17 11:45 03/11/17 16:38 03/11/17 19:26 Glucose (Fingerstick) 193 mg/dL (70-99) H 175 mg/dL (70-99) H 160 mg/dL (70-99) H 234 mg/dL (70-99) H Current Medications: Meds: Current Medications Acetaminophen (Tylenol) 650 mg PRN Q6HRS PRN PO PAIN / TEMP; Start 02/25/17 at 00:30; Stop 02/25/17 at 15:05; Status DC Multi-Ingredient Ointment (Analgesic [place]) 1 marcell PRN QID PRN TP MUSCLE PAIN; Start 02/25/17 at 00:30 Al Hydroxide/Mg Hydroxide (Mylanta Plus Xs) 15 ml PRN AFTMEALHC PRN PO DYSPEPSIA; Start 02/25/17 at 00:30 Magnesium Hydroxide (Milk Of Magnesia) 2,400 mg PRN QHS PRN PO CONSTIPATION; Start 02/25/17 at 00:30; Stop 02/25/17 at 15:05; Status DC Chlorpromazine HCl (Thorazine) 25 mg BID PO Last administered on 02/26/17 09: 34; Start 02/25/17 at 09:00; Stop 02/26/17 at 18:22; Status DC Citalopram Hydrobromide (Celexa) 20 mg DAILY PO Last administered on 03/11/17 08:51; Start 02/25/17 at 09:00 Lorazepam (Ativan) 1 mg PRN Q3HRS PRN PO ANXIETY / AGITATION Last administered on 03/08/17 19:26; Start 02/25/17 at 00:30 Risperidone (Risperdal) 0.5 mg BID PO Last administered on 02/26/17 09:34; Start 02/25/17 at 09:00; Stop 02/26/17 at 18:22; Status DC Trazodone HCl (Desyrel) 50 mg PRN QHS PRN PO INSOMNIA Last administered on 19:26; Start 02/25/17 at 00:30 Divalproex Sodium (Depakote Sprinkles) 500 mg TID PO Last administered on 13:05; Start 02/25/17 at 09:00 Acetaminophen (Tylenol) 650 mg PRN Q8HRS PRN PO PAIN Last administered on 12:56; Start 02/25/17 at 07:30 Amlodipine Besylate (Norvasc) 10 mg DAILY PO Last administered on 03/11/17 08: 51; Start 02/25/17 at 09:00 Gabapentin (Neurontin) 300 mg TID PO Last administered on 03/11/17 13:03; Start 02/25/17 at 09:00 Acetaminophen/ Hydrocodone Bitart (Lortab 5/325) 1 tab Q12HR PO Last administered on 03/11/17 09:21; Start 02/25/17 at 09:00 Insulin Aspart (Novolog) 6 units TIDWMEALS SQ Last administered on 03/11/17 18: 04; Start 02/25/17 at 08:00 Losartan Potassium (Cozaar) 50 mg DAILY PO Last administered on 03/11/17 08:50 ; Start 02/25/17 at 09:00 Senna/Docusate Sodium (Senna Plus) 1 tab DAILY PO Last administered on 08:52; Start 02/25/17 at 09:00 Insulin Detemir (Levemir) 15 units QHS SQ Last administered on 02/25/17 19:55 ; Start 02/25/17 at 21:00; Stop 02/26/17 at 14:21; Status DC Magnesium Hydroxide (Milk Of Magnesia) 2,400 mg PRN DAILY PRN PO CONSTIPATION; Start 02/25/17 at 07:45 Insulin Detemir (Levemir) 15 units QHS SQ Last administered on 03/10/17 19:38; Start 02/26/17 at 14:21 Chlorpromazine HCl (Thorazine) 25 mg DAILY PO Last administered on 02/28/17 09 :09; Start 02/27/17 at 09:00; Stop 02/28/17 at 15:50; Status DC Risperidone (Risperdal) 0.5 mg DAILY PO Last administered on 03/07/17 08:23; Start 02/27/17 at 09:00; Stop 03/07/17 at 18:51; Status DC Risperidone (Risperdal) 0.75 mg HS PO ; Start 02/26/17 at 21:00; Stop 02/26/17 at 21:00; Status DC Risperidone (Risperdal) 0.75 mg 14 PO Last administered on 03/11/17 13:04; Start 02/26/17 at 21:00 Buspirone HCl (Buspar) 5 mg BID PO Last administered on 03/01/17 08:38; Start 02/27/17 at 21:00; Stop 03/01/17 at 12:38; Status DC Buspirone HCl (Buspar) 10 mg BID PO Last administered on 03/02/17 08:05; Start 03/01/17 at 21:00; Stop 03/02/17 at 18:06; Status DC Trimethoprim/ Sulfamethoxazole (Bactrim Ds) 1 tab DAILY PO Last administered on 03/09/17 09:29; Start 03/02/17 at 09:00; Stop 03/09/17 at 09:01; Status DC Buspirone HCl (Buspar) 10 mg TIDAFTMEAL PO Last administered on 03/08/17 08:22 ; Start 03/03/17 at 09:00; Stop 03/08/17 at 12:53; Status DC Vitamin D (Vitamin D3) 50,000 unit WEEKLY PO Last administered on 03/10/17 08: 08; Start 03/03/17 at 09:00 Mirtazapine (Remeron) 7.5 mg QHS PO Last administered on 03/08/17 19:26; Start 03/05/17 at 21:00; Stop 03/09/17 at 18:14; Status DC Mirtazapine (Remeron) 15 mg QHS PO Last administered on 03/10/17 19:35; Start 03/06/17 at 21:00 Risperidone (Risperdal) 0.75 mg DAILY PO Last administered on 03/11/17 08:50; Start 03/08/17 at 09:00 Buspirone HCl (Buspar) 20 mg DAILY PO Last administered on 03/11/17 08:49; Start 03/09/17 at 09:00 Buspirone HCl (Buspar) 10 mg BID@1400,2100 PO Last administered on 03/11/17 13: 04; Start 03/08/17 at 14:00 Olanzapine (Zyprexa Zydis) 5 mg PRN Q2HR PRN PO PSYCHOSIS Last administered on 03/08/17 13:01; Start 03/08/17 at 13:00 Active Scripts Active Reported Lantus Solostar (Insulin Glargine,Hum.rec.anlog) 100 Unit/1 Ml Insuln.pen 15 Unit SQ QHS Lorazepam 1 Mg Tablet 1 Mg PO PRN Q3HRS PRN Risperdal (Risperidone) 0.5 Mg Tablet 0.5 Mg PO BID Chlorpromazine Hcl 25 Mg Tablet 25 Mg PO BID Novolog Flexpen (Insulin Aspart) 100 Unit/1 Ml Insuln.pen 6 Unit SQ TIDWMEALS Gabapentin 300 Mg Capsule 300 Mg PO TID Milk Of Magnesia (Magnesium Hydroxide) 2,400 Mg/10 Ml Oral.susp 2,400 Mg PO PRN DAILY Trazodone Hcl 50 Mg Tablet 50 Mg PO PRN QHS PRN Divalproex Sodium 500 Mg Tablet.dr 500 Mg PO TID Losartan Potassium 50 Mg Tablet 50 Mg PO DAILY Senexon-S Tablet (Sennosides/Docusate Sodium) 1 Each Tablet 8.6-50 Mg PO DAILY Celexa (Citalopram Hydrobromide) 20 Mg Tablet 20 Mg PO DAILY Amlodipine Besylate 10 Mg Tablet 10 Mg PO DAILY Percocet 5-325 Mg Tablet (Oxycodone Hcl/Acetaminophen) 1 Each Tablet 1 Tab PO PRN Q8HRS PRN Hydrocodone-Apap 5-325 (Hydrocodone Bit/Acetaminophen) 1 Each Tablet 1 Tab PO Q12HR Tylenol (Acetaminophen) 325 Mg Tablet 650 Mg PO PRN Q8HRS PRN Diagnosis: Problems: (1) Psychiatric disorder (2) Bipolar affective, mixed, sev w/ psych (3) Anxiety disorder (4) Dementia in Alzheimer's disease with delusions (5) Impulse control disorder NANCY HAHN MD March 11, 2017 19:56
[2017-03-11] MEDS: MIRTAZAPINE 15 MG TABLET PO SCH (20:20)
[2017-03-11] MEDS: INSULIN DETEMIR 300 UNITS/3 ML INSULN.PEN. SQ SCH (20:28)
--- NOTE | 2017-03-11 21:10 | NUR ---
Behavior Intervention Response and Plan: BIRP Note: Behavior: Assumed Care of patient, patient located in Day Room at shift change. Patient exhibited the following behavior Interactive, Social, Calm, minimal attention seeking/intrusion noted. Brief assessment on rounds of vital signs, medication needs, lab studies, and pain. Treatment plan problems: Alteration in Mood and Fall Risk. Intervention: Patient assessed and the following interventions initiated safety checks 15 Minute Checks Cognitive Assessment , Head to toe Assessment , Medications, Oral Hydration, and Nutrition. Response: After interactions and interventions patient responded in the following manner, Calm , Cooperative ,Compliant. Continue to assess behaviors and condition will continue to monitor throughout the shift as needed. Plan: Continue to monitor Master Treatment Plan for patient's progress toward short term goals of Medication Compliance, Improved Mood, Decreased Anxiety, salvage determiner goals to return to previous living setting vs placement. Continue to assess patient for changes in above assessment. Monitor for medication needs, pain, and safety concerns. Hourly rounding performed to ensure safe environment.
--- NOTE | 2017-03-11 23:36 | PN ---
DATE: 03/09/2017 PSYCHIATRIC PROGRESS NOTE This is a late entry of 03/09/2017 covers elements not covered in my initial note. SUBJECTIVE: The patient slept 5-1/2 hours previous night, much better today with respect to her mood on 03/09/2017 received Zyprexa and Ativan at 7:30 a.m. REVIEW OF SYSTEMS: Hard of hearing, difficulty with the speech, consequent to the hearing deficit. No CV, , pulmonary, eye system symptoms on review. MENTAL STATUS EXAM: Reasonably oriented. Speech is as above. Abstraction fair, computation impaired, language function intact. Mood and affect has some lability. LABORATORY DATA: Reviewed. IMPRESSION: Unchanged from initial note. PLAN: Continue current psychotropics mentioned in my initial note. Depakote at current dosage, level is 89 therapeutic. Start Remeron 15 mg at bedtime for her insomnia. She slept 5-1/2 hours previous night. MAN Kemal HAHN MD DR: MARGA/estelle JOB#: [id number] / [id number]
--- NOTE | 2017-03-11 23:37 | PN ---
DATE: 03/10/2017 PSYCHIATRIC PROGRESS NOTE This is a late entry of 03/10/2017 covers elements not covered in my initial note. The patient slept 7-1/2 hours previous night, doing better, less labile in her mood redirectable. REVIEW OF SYSTEMS: Hard of hearing. Speech is loud, consequent to the heart being hard of hearing. No CV, , pulmonary, eye system symptoms on review. MENTAL STATUS EXAM: Reasonably oriented speech as above. Abstraction fair, computation impaired, language function intact. She was loud, singing, sitting outside as I met with her. IMPRESSION: Unchanged from initial note. PLAN: Continue current psychotropics. Adjust further as clinically indicated. NANCY HAHN MD DR: MARGA/estelle JOB#: [id number] / [id number]
[2017-03-12 06:35] VITALS: BP 183/84
[2017-03-12] MEDS: SENNOSIDES/DOCUSATE 8.6/50MG TABLET. PO SCH (08:08)
[2017-03-12] MEDS: LOSARTAN 50 MG TABLET. PO SCH (08:08)
[2017-03-12] MEDS: busPIRone 10 MG TABLET. PO SCH ×3 (08:08→20:12)
[2017-03-12] MEDS: DIVALPROEX 125 MG CAP.SPRINK PO SCH ×3 (08:08→20:12)
[2017-03-12] MEDS: amLODIPine BESYLATE 10 MG TABLET PO SCH (08:09)
[2017-03-12] MEDS: GABAPENTIN 300 MG CAPSULE. PO SCH ×3 (08:09→20:12)
[2017-03-12] MEDS: HYDROcodone/APAP 5/325MG 1 TAB TABLET PO SCH ×2 (08:09→20:14)
[2017-03-12] MEDS: CITALOPRAM 20 MG TABLET. PO SCH (08:09)
[2017-03-12] MEDS: risperiDONE 0.5 MG TABLET. PO SCH (08:10)
[2017-03-12] MEDS: INSULIN ASPART 300 UNITS/3 ML INSULN.PEN SQ SCH ×3 (08:12→16:56)
--- NOTE | 2017-03-12 09:08 | NUR ---
[facility] was contacted by [facility] regarding the Level II eval requested. [facility] contacted [facility] to gather admit info from Pt's admit Summer 2015 and was told they did not have any record of PT's admit. [facility] is needing to have a release signed so she can contact [facility] for admission information. [facility] will contact [facility] and see how she can get his release. If [facility] is unable to gather the additional admit information, PT. will not qualify for a Level II placement.
--- NOTE | 2017-03-12 12:26 | NUR ---
Behavior Intervention Response and Plan: BIRP Note: Behavior: Assumed Care of patient, patient located in Day Room at shift change. Patient exhibited the following behavior Demanding, Compliant, Anxious. Brief assessment on rounds of vital signs, medication needs, lab studies, and pain. Treatment plan problems . Intervention: Patient assessed and the following interventions initiated safety checks 15 Minute Checks Cognitive Assessment , Head to toe Assessment , Medications. Response: After interactions and interventions patient responded in the following manner, Calm , Compliant ,Cooperative. Continue to assess behaviors and condition will continue to monitor throughout the shift as needed. Plan: Continue to monitor Master Treatment Plan for patient's progress toward short term goals of Decreased Anxiety, Decreased Agitation, senior care goals to return to previous living setting vs placement. Continue to assess patient for changes in above assessment. Monitor for medication needs, pain, and safety concerns. Hourly rounding performed to ensure safe environment.
[2017-03-12] MEDS: risperiDONE 0.25 MG TABLET. PO SCH (13:26)
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
[2017-03-12 16:16] VITALS: BP 150/84
[2017-03-12] MEDS: MIRTAZAPINE 15 MG TABLET PO SCH (20:12)
--- NOTE | 2017-03-12 20:14 | PDOC ---
Exam Johann Demential Exam: Johann Note: Please also refer to the separate dictated note~for this date of service dictated separately.~Patient seen individually. Discussed the patient with Nursing staff reviewed the chart.~Reviewed interim history and current functioning. Reviewed vital signs,~Labs/ Radiology~and current medications noted below. Continue current treatment with the changes noted in the dictated addendum note Assessment: Vital Signs: Vital Signs Date Time Temp Pulse Resp B/P (MAP) Pulse Ox O2 Delivery O2 Flow Rate FiO2 03/12/17 16:16 97.3 67 16 150/84 (106) 95 03/11/17 21:22 Room Air I&O Intake and Output 03/12/17 07:00 Intake Total 1200 ml Balance 1200 ml Intake Oral 1200 ml # Voids 1 Labs: Laboratory Tests Test 03/12/17 07:16 03/12/17 11:49 03/12/17 16:48 03/12/17 18:59 Glucose (Fingerstick) 120 mg/dL (70-99) H 176 mg/dL (70-99) H 198 mg/dL (70-99) H 281 mg/dL (70-99) H Current Medications: Meds: Current Medications Acetaminophen (Tylenol) 650 mg PRN Q6HRS PRN PO PAIN / TEMP; Start 02/25/17 at 00:30; Stop 02/25/17 at 15:05; Status DC Multi-Ingredient Ointment (Analgesic Brooks) 1 marcell PRN QID PRN TP MUSCLE PAIN; Start 02/25/17 at 00:30 Al Hydroxide/Mg Hydroxide (Mylanta Plus Xs) 15 ml PRN AFTMEALHC PRN PO DYSPEPSIA; Start 02/25/17 at 00:30 Magnesium Hydroxide (Milk Of Magnesia) 2,400 mg PRN QHS PRN PO CONSTIPATION; Start 02/25/17 at 00:30; Stop 02/25/17 at 15:05; Status DC Chlorpromazine HCl (Thorazine) 25 mg BID PO Last administered on 02/26/17 09: 34; Start 02/25/17 at 09:00; Stop 02/26/17 at 18:22; Status DC Citalopram Hydrobromide (Celexa) 20 mg DAILY PO Last administered on 03/12/17 08:09; Start 02/25/17 at 09:00 Lorazepam (Ativan) 1 mg PRN Q3HRS PRN PO ANXIETY / AGITATION Last administered on 03/08/17 19:26; Start 02/25/17 at 00:30 Risperidone (Risperdal) 0.5 mg BID PO Last administered on 02/26/17 09:34; Start 02/25/17 at 09:00; Stop 02/26/17 at 18:22; Status DC Trazodone HCl (Desyrel) 50 mg PRN QHS PRN PO INSOMNIA Last administered on 19:26; Start 02/25/17 at 00:30 Divalproex Sodium (Depakote Sprinkles) 500 mg TID PO Last administered on 13:25; Start 02/25/17 at 09:00 Acetaminophen (Tylenol) 650 mg PRN Q8HRS PRN PO PAIN Last administered on 12:56; Start 02/25/17 at 07:30 Amlodipine Besylate (Norvasc) 10 mg DAILY PO Last administered on 03/12/17 08: 09; Start 02/25/17 at 09:00 Gabapentin (Neurontin) 300 mg TID PO Last administered on 03/12/17 13:25; Start 02/25/17 at 09:00 Acetaminophen/ Hydrocodone Bitart (Lortab 5/325) 1 tab Q12HR PO Last administered on 03/12/17 08:09; Start 02/25/17 at 09:00 Insulin Aspart (Novolog) 6 units TIDWMEALS SQ Last administered on 03/12/17 16: 56; Start 02/25/17 at 08:00 Losartan Potassium (Cozaar) 50 mg DAILY PO Last administered on 03/12/17 08:08 ; Start 02/25/17 at 09:00 Senna/Docusate Sodium (Senna Plus) 1 tab DAILY PO Last administered on 08:08; Start 02/25/17 at 09:00 Insulin Detemir (Levemir) 15 units QHS SQ Last administered on 02/25/17 19:55 ; Start 02/25/17 at 21:00; Stop 02/26/17 at 14:21; Status DC Magnesium Hydroxide (Milk Of Magnesia) 2,400 mg PRN DAILY PRN PO CONSTIPATION; Start 02/25/17 at 07:45 Insulin Detemir (Levemir) 15 units QHS SQ Last administered on 03/11/17 20:28; Start 02/26/17 at 14:21 Chlorpromazine HCl (Thorazine) 25 mg DAILY PO Last administered on 02/28/17 09 :09; Start 02/27/17 at 09:00; Stop 02/28/17 at 15:50; Status DC Risperidone (Risperdal) 0.5 mg DAILY PO Last administered on 03/07/17 08:23; Start 02/27/17 at 09:00; Stop 03/07/17 at 18:51; Status DC Risperidone (Risperdal) 0.75 mg HS PO ; Start 02/26/17 at 21:00; Stop 02/26/17 at 21:00; Status DC Risperidone (Risperdal) 0.75 mg 14 PO Last administered on 03/12/17 13:26; Start 02/26/17 at 21:00 Buspirone HCl (Buspar) 5 mg BID PO Last administered on 03/01/17 08:38; Start 02/27/17 at 21:00; Stop 03/01/17 at 12:38; Status DC Buspirone HCl (Buspar) 10 mg BID PO Last administered on 03/02/17 08:05; Start 03/01/17 at 21:00; Stop 03/02/17 at 18:06; Status DC Trimethoprim/ Sulfamethoxazole (Bactrim Ds) 1 tab DAILY PO Last administered on 03/09/17 09:29; Start 03/02/17 at 09:00; Stop 03/09/17 at 09:01; Status DC Buspirone HCl (Buspar) 10 mg TIDAFTMEAL PO Last administered on 03/08/17 08:22 ; Start 03/03/17 at 09:00; Stop 03/08/17 at 12:53; Status DC Vitamin D (Vitamin D3) 50,000 unit WEEKLY PO Last administered on 03/10/17 08: 08; Start 03/03/17 at 09:00 Mirtazapine (Remeron) 7.5 mg QHS PO Last administered on 03/08/17 19:26; Start 03/05/17 at 21:00; Stop 03/09/17 at 18:14; Status DC Mirtazapine (Remeron) 15 mg QHS PO Last administered on 03/11/17 20:20; Start 03/06/17 at 21:00 Risperidone (Risperdal) 0.75 mg DAILY PO Last administered on 03/12/17 08:10; Start 03/08/17 at 09:00 Buspirone HCl (Buspar) 20 mg DAILY PO Last administered on 03/12/17 08:08; Start 03/09/17 at 09:00 Buspirone HCl (Buspar) 10 mg BID@1400,2100 PO Last administered on 03/12/17 13: 26; Start 03/08/17 at 14:00 Olanzapine (Zyprexa Zydis) 5 mg PRN Q2HR PRN PO PSYCHOSIS Last administered on 03/08/17 13:01; Start 03/08/17 at 13:00 Active Scripts Active Reported Lantus Solostar (Insulin Glargine,Hum.rec.anlog) 100 Unit/1 Ml Insuln.pen 15 Unit SQ QHS Lorazepam 1 Mg Tablet 1 Mg PO PRN Q3HRS PRN Risperdal (Risperidone) 0.5 Mg Tablet 0.5 Mg PO BID Chlorpromazine Hcl 25 Mg Tablet 25 Mg PO BID Novolog Flexpen (Insulin Aspart) 100 Unit/1 Ml Insuln.pen 6 Unit SQ TIDWMEALS Gabapentin 300 Mg Capsule 300 Mg PO TID Milk Of Magnesia (Magnesium Hydroxide) 2,400 Mg/10 Ml Oral.susp 2,400 Mg PO PRN DAILY Trazodone Hcl 50 Mg Tablet 50 Mg PO PRN QHS PRN Divalproex Sodium 500 Mg Tablet.dr 500 Mg PO TID Losartan Potassium 50 Mg Tablet 50 Mg PO DAILY Senexon-S Tablet (Sennosides/Docusate Sodium) 1 Each Tablet 8.6-50 Mg PO DAILY Celexa (Citalopram Hydrobromide) 20 Mg Tablet 20 Mg PO DAILY Amlodipine Besylate 10 Mg Tablet 10 Mg PO DAILY Percocet 5-325 Mg Tablet (Oxycodone Hcl/Acetaminophen) 1 Each Tablet 1 Tab PO PRN Q8HRS PRN Hydrocodone-Apap 5-325 (Hydrocodone Bit/Acetaminophen) 1 Each Tablet 1 Tab PO Q12HR Tylenol (Acetaminophen) 325 Mg Tablet 650 Mg PO PRN Q8HRS PRN Diagnosis: Problems: (1) Psychiatric disorder (2) Bipolar affective, mixed, sev w/ psych (3) Anxiety disorder (4) Dementia in Alzheimer's disease with delusions (5) Impulse control disorder NANCY HAHN MD March 12, 2017 20:14
[2017-03-12] MEDS: INSULIN DETEMIR 300 UNITS/3 ML INSULN.PEN. SQ SCH (20:16)
--- NOTE | 2017-03-12 21:15 | NUR ---
Behavior Intervention Response and Plan: BIRP Note: Behavior: Assumed Care of patient, patient located in Day Room at shift change. Patient exhibited the following behavior Calm, Interactive, Attention Seeking, c/o pain in shoulders. Brief assessment on rounds of vital signs, medication needs, lab studies, and pain. Treatment plan problems: Alteration in Mood and Fall Risk . Intervention: Patient assessed and the following interventions initiated safety checks 15 Minute Checks Cognitive Assessment , Head to toe Assessment , Medications, Oral Hydration, Nutrition, ADLs. Response: After interactions and interventions patient responded in the following manner, Calm , Able to Focus on Task ,Compliant, denies further pain/discomfort. Continue to assess behaviors and condition will continue to monitor throughout the shift as needed. Plan: Continue to monitor Master Treatment Plan for patient's progress toward short term goals of Decreased Anxiety, Medication Compliance, Improved Mood, Decreased Agitation, intermediate teacher goals to return to previous living setting vs placement. Continue to assess patient for changes in above assessment. Monitor for medication needs, pain, and safety concerns. Hourly rounding performed to ensure safe environment.
--- NOTE | 2017-03-13 02:16 | PN ---
DATE: 03/11/2017 This is a late entry for 03/11/2017, and covers the elements not covered in my initial note. SUBJECTIVE: Overall, the patient remains loud, but this is partly because she is hard of hearing. Has not being saying any foul things. REVIEW OF SYSTEMS: Hard of hearing, difficulty with her speech. No CV, , pulmonary, eye system symptoms on review. MENTAL STATUS EXAM: Reasonably oriented. Speech loud, abstraction fair, computation impaired, language function intact, attention span short, mood and affect lability despite the above is overall better. LABORATORY DATA: Reviewed. IMPRESSION: Schizoaffective disorder, bipolar type; anxiety disorder, unspecified. Rest diagnoses unchanged. PLAN: Valproic acid level is 89. Continue Depakote, Risperdal, Celexa along with Ativan p.r.n., BuSpar, Remeron and Zyprexa p.r.n. Adjust as clinically indicated. NANCY HAHN MD DR: MARGA/estelle JOB#: [id number] / [id number]
[2017-03-13 06:05] VITALS: BP 159/88
[2017-03-13 07:22] LABS: BASO % 1 % (0-3); EOS # 0.1 x10^3/uL (0.0-0.7); EOS % 3 % (0-3); HEMATOCRIT 42.7 % (36.0-47.0); HEMOGLOBIN 14.1 g/dL (12.0-15.5); LYMPH # 2.5 x10^3/uL (1.0-4.8); LYMPH % 53 % (24-48); MEAN CORPUSCULAR HEMOGLOBIN 31 pg (25-35); MEAN CORPUSCULAR HGB CONC 33 g/dL (31-37); MEAN CORPUSCULAR VOLUME 94 fL (79-100); MONO # 0.3 x10^3/uL (0.0-1.1); MONO % 7 % (0-9); NEUT # 1.7 x10^3uL (1.8-7.7); NEUT % 37 % (31-73); PLATELET COUNT 153 x10^3/uL (140-400); RED BLOOD COUNT 4.55 x10^6/uL (3.50-5.40); RED CELL DISTRIBUTION WIDTH 13.8 % (11.5-14.5); WHITE BLOOD COUNT 4.8 x10^3/uL (4.0-11.0)
[2017-03-13] MEDS: INSULIN ASPART 300 UNITS/3 ML INSULN.PEN SQ SCH ×3 (08:27→16:51)
[2017-03-13] MEDS: LOSARTAN 50 MG TABLET. PO SCH (08:27)
[2017-03-13] MEDS: CITALOPRAM 20 MG TABLET. PO SCH (08:27)
[2017-03-13] MEDS: risperiDONE 0.5 MG TABLET. PO SCH (08:28)
[2017-03-13] MEDS: busPIRone 10 MG TABLET. PO SCH ×3 (08:28→19:31)
[2017-03-13] MEDS: DIVALPROEX 125 MG CAP.SPRINK PO SCH ×3 (08:28→19:31)
[2017-03-13] MEDS: SENNOSIDES/DOCUSATE 8.6/50MG TABLET. PO SCH (08:29)
[2017-03-13] MEDS: amLODIPine BESYLATE 10 MG TABLET PO SCH (08:29)
[2017-03-13] MEDS: GABAPENTIN 300 MG CAPSULE. PO SCH ×3 (08:31→19:32)
[2017-03-13] MEDS: HYDROcodone/APAP 5/325MG 1 TAB TABLET PO SCH ×2 (08:32→19:32)
[2017-03-13 08:38] LABS: ALBUMIN 3.1 g/dL (3.4-5.0); ALBUMIN/GLOBULIN RATIO 0.8 (1.0-1.7); ALK PHOS 68 U/L (46-116); ALT (SGPT) 22 U/L (14-59); ANION GAP 6 (6-14); AST (SGOT) 16 U/L (15-37); BLOOD UREA NITROGEN 13 mg/dL (7-20); BUN/CREATININE RATIO 16 (6-20); CALCIUM 8.8 mg/dL (8.5-10.1); CARBON DIOXIDE 31 mmol/L (21-32); CHLORIDE 103 mmol/L (98-107); CREATININE 0.8 mg/dL (0.6-1.0); GFR 72.9; GLUCOSE 125 mg/dL (70-99); MAGNESIUM 1.9 mg/dL (1.8-2.4); POTASSIUM 4.6 mmol/L (3.5-5.1); SODIUM 140 mmol/L (136-145); TOTAL BILIRUBIN 0.4 mg/dL (0.2-1.0); TOTAL PROTEIN 7.2 g/dL (6.4-8.2)
[2017-03-13 08:39] LABS: VAL ACID 76 mcg/mL (50-100)
--- NOTE | 2017-03-13 09:53 | NUR ---
Behavior Intervention Response and Plan: BIRP Note: Behavior: Assumed Care of patient, patient located in Patient Room at shift change. Patient exhibited the following behavior Demanding, Disorganized, Agitated. Brief assessment on rounds of vital signs, medication needs, lab studies, and pain. Treatment plan problems . Intervention: Patient assessed and the following interventions initiated safety checks 15 Minute Checks Medications , Head to toe Assessment , Nutrition. Response: After interactions and interventions patient responded in the following manner, Disorganized , Wandering ,Compliant. Continue to assess behaviors and condition will continue to monitor throughout the shift as needed. Plan: Continue to monitor Master Treatment Plan for patient's progress toward short term goals of No harm To self/ others, Decreased Aggression, butter fat tester goals to return to previous living setting vs placement. Continue to assess patient for changes in above assessment. Monitor for medication needs, pain, and safety concerns. Hourly rounding performed to ensure safe environment.
[2017-03-13] MEDS: risperiDONE 0.25 MG TABLET. PO SCH (13:08)
[2017-03-13 14:54] VITALS: BP 114/77
--- NOTE | 2017-03-13 17:00 | NUR ---
SW GROUP NOTE TITLE: Windsocks! ACTIVITY: Materials provided for each person to decorate a windsock to hang in day room. DURATION: 3:00-4:30 TARGET BEHAVIOR: Directed focus, therapeutic expression, social skills, problem solving, reminisce RESPONSE: joined the group a little late, but was able to focus on project and place stickers on windsock. Asked for help from a peer appropriately.
[2017-03-13] MEDS: MIRTAZAPINE 15 MG TABLET PO SCH (19:32)
[2017-03-13] MEDS: INSULIN DETEMIR 300 UNITS/3 ML INSULN.PEN. SQ SCH (19:33)
--- NOTE | 2017-03-13 21:10 | NUR ---
Behavior Intervention Response and Plan: BIRP Note: Behavior: Assumed Care of patient, patient located in Day Room at shift change. Patient exhibited the following behavior Interactive, Calm, Social. Brief assessment on rounds of vital signs, medication needs, lab studies, and pain. Treatment plan problems . Intervention: Patient assessed and the following interventions initiated safety checks 15 Minute Checks Cognitive Assessment , Head to toe Assessment , Medications. Response: After interactions and interventions patient responded in the following manner, Cooperative , Appropriate ,Compliant. Continue to assess behaviors and condition will continue to monitor throughout the shift as needed. Plan: Continue to monitor Master Treatment Plan for patient's progress toward short term goals of Medication Compliance, Decreased Agitation, roasterman goals to return to previous living setting vs placement. Continue to assess patient for changes in above assessment. Monitor for medication needs, pain, and safety concerns. Hourly rounding performed to ensure safe environment.
--- NOTE | 2017-03-13 21:12 | PDOC ---
Exam Johann Demential Exam: Johann Note: Please also refer to the separate dictated note~for this date of service dictated separately.~Patient seen individually. Discussed the patient with Nursing staff reviewed the chart.~Reviewed interim history and current functioning. Reviewed vital signs,~Labs/ Radiology~and current medications noted below. Continue current treatment with the changes noted in the dictated addendum note Assessment: Vital Signs: Vital Signs Date Time Temp Pulse Resp B/P (MAP) Pulse Ox O2 Delivery O2 Flow Rate FiO2 03/13/17 19:32 94 Room Air 03/13/17 14:54 97.8 63 20 114/77 (89) I&O Intake and Output 03/13/17 07:00 Intake Total 1340 ml Balance 1340 ml Intake Oral 1340 ml Labs: Laboratory Tests Test 03/13/17 06:52 03/13/17 07:06 03/13/17 11:11 03/13/17 16:29 White Blood Count 4.8 x10^3/uL (4.0-11.0) Red Blood Count 4.55 x10^6/uL (3.50-5.40) Hemoglobin 14.1 g/dL (12.0-15.5) Hematocrit 42.7 % (36.0-47.0) Mean Corpuscular Volume 94 fL (79-100) Mean Corpuscular Hemoglobin 31 pg (25-35) Mean Corpuscular Hemoglobin Concent 33 g/dL (31-37) Red Cell Distribution Width 13.8 % (11.5-14.5) Platelet Count 153 x10^3/uL (140-400) Neutrophils (%) (Auto) 37 % (31-73) Lymphocytes (%) (Auto) 53 % (24-48) H Monocytes (%) (Auto) 7 % (0-9) Eosinophils (%) (Auto) 3 % (0-3) Basophils (%) (Auto) 1 % (0-3) Neutrophils # (Auto) 1.7 x10^3uL (1.8-7.7) L Lymphocytes # (Auto) 2.5 x10^3/uL (1.0-4.8) Monocytes # (Auto) 0.3 x10^3/uL (0.0-1.1) Eosinophils # (Auto) 0.1 x10^3/uL (0.0-0.7) Basophils # (Auto) 0.0 x10^3/uL (0.0-0.2) Sodium Level 140 mmol/L (136-145) Potassium Level 4.6 mmol/L (3.5-5.1) Chloride Level 103 mmol/L (98-107) Carbon Dioxide Level 31 mmol/L (21-32) Anion Gap 6 (6-14) Blood Urea Nitrogen 13 mg/dL (7-20) Creatinine 0.8 mg/dL (0.6-1.0) Estimated GFR (Cockcroft-Gault) 72.9 BUN/Creatinine Ratio 16 (6-20) Glucose Level 125 mg/dL (70-99) H Calcium Level 8.8 mg/dL (8.5-10.1) Magnesium Level 1.9 mg/dL (1.8-2.4) Total Bilirubin 0.4 mg/dL (0.2-1.0) Aspartate Amino Transferase (AST) 16 U/L (15-37) Alanine Aminotransferase (ALT) 22 U/L (14-59) Alkaline Phosphatase 68 U/L (46-116) Total Protein 7.2 g/dL (6.4-8.2) Albumin 3.1 g/dL (3.4-5.0) L Albumin/Globulin Ratio 0.8 (1.0-1.7) L Valproic Acid Level 76 mcg/mL (50-100) Valproic Acid Last Dose Date 03/09/2017 Valproic Acid Last Dose Time 2100 Glucose (Fingerstick) 99 mg/dL (70-99) 259 mg/dL (70-99) H 281 mg/dL (70-99) H Test 03/13/17 19:06 Glucose (Fingerstick) 259 mg/dL (70-99) H Current Medications: Meds: Current Medications Acetaminophen (Tylenol) 650 mg PRN Q6HRS PRN PO PAIN / TEMP; Start 02/25/17 at 00:30; Stop 02/25/17 at 15:05; Status DC Multi-Ingredient Ointment (Analgesic [place]) 1 marcell PRN QID PRN TP MUSCLE PAIN; Start 02/25/17 at 00:30 Al Hydroxide/Mg Hydroxide (Mylanta Plus Xs) 15 ml PRN AFTMEALHC PRN PO DYSPEPSIA; Start 02/25/17 at 00:30 Magnesium Hydroxide (Milk Of Magnesia) 2,400 mg PRN QHS PRN PO CONSTIPATION; Start 02/25/17 at 00:30; Stop 02/25/17 at 15:05; Status DC Chlorpromazine HCl (Thorazine) 25 mg BID PO Last administered on 02/26/17 09: 34; Start 02/25/17 at 09:00; Stop 02/26/17 at 18:22; Status DC Citalopram Hydrobromide (Celexa) 20 mg DAILY PO Last administered on 03/13/17 08:27; Start 02/25/17 at 09:00 Lorazepam (Ativan) 1 mg PRN Q3HRS PRN PO ANXIETY / AGITATION Last administered on 03/08/17 19:26; Start 02/25/17 at 00:30 Risperidone (Risperdal) 0.5 mg BID PO Last administered on 02/26/17 09:34; Start 02/25/17 at 09:00; Stop 02/26/17 at 18:22; Status DC Trazodone HCl (Desyrel) 50 mg PRN QHS PRN PO INSOMNIA Last administered on 19:26; Start 02/25/17 at 00:30 Divalproex Sodium (Depakote Sprinkles) 500 mg TID PO Last administered on 19:31; Start 02/25/17 at 09:00 Acetaminophen (Tylenol) 650 mg PRN Q8HRS PRN PO PAIN Last administered on 12:56; Start 02/25/17 at 07:30 Amlodipine Besylate (Norvasc) 10 mg DAILY PO Last administered on 03/13/17 08: 29; Start 02/25/17 at 09:00 Gabapentin (Neurontin) 300 mg TID PO Last administered on 03/13/17 19:32; Start 02/25/17 at 09:00 Acetaminophen/ Hydrocodone Bitart (Lortab 5/325) 1 tab Q12HR PO Last administered on 03/13/17 19:32; Start 02/25/17 at 09:00 Insulin Aspart (Novolog) 6 units TIDWMEALS SQ Last administered on 03/13/17 16: 51; Start 02/25/17 at 08:00 Losartan Potassium (Cozaar) 50 mg DAILY PO Last administered on 03/13/17 08:27 ; Start 02/25/17 at 09:00 Senna/Docusate Sodium (Senna Plus) 1 tab DAILY PO Last administered on 08:29; Start 02/25/17 at 09:00 Insulin Detemir (Levemir) 15 units QHS SQ Last administered on 02/25/17 19:55 ; Start 02/25/17 at 21:00; Stop 02/26/17 at 14:21; Status DC Magnesium Hydroxide (Milk Of Magnesia) 2,400 mg PRN DAILY PRN PO CONSTIPATION; Start 02/25/17 at 07:45 Insulin Detemir (Levemir) 15 units QHS SQ Last administered on 03/13/17 19:33; Start 02/26/17 at 14:21 Chlorpromazine HCl (Thorazine) 25 mg DAILY PO Last administered on 02/28/17 09 :09; Start 02/27/17 at 09:00; Stop 02/28/17 at 15:50; Status DC Risperidone (Risperdal) 0.5 mg DAILY PO Last administered on 03/07/17 08:23; Start 02/27/17 at 09:00; Stop 03/07/17 at 18:51; Status DC Risperidone (Risperdal) 0.75 mg HS PO ; Start 02/26/17 at 21:00; Stop 02/26/17 at 21:00; Status DC Risperidone (Risperdal) 0.75 mg 14 PO Last administered on 03/13/17 13:08; Start 02/26/17 at 21:00 Buspirone HCl (Buspar) 5 mg BID PO Last administered on 03/01/17 08:38; Start 02/27/17 at 21:00; Stop 03/01/17 at 12:38; Status DC Buspirone HCl (Buspar) 10 mg BID PO Last administered on 03/02/17 08:05; Start 03/01/17 at 21:00; Stop 03/02/17 at 18:06; Status DC Trimethoprim/ Sulfamethoxazole (Bactrim Ds) 1 tab DAILY PO Last administered on 03/09/17 09:29; Start 03/02/17 at 09:00; Stop 03/09/17 at 09:01; Status DC Buspirone HCl (Buspar) 10 mg TIDAFTMEAL PO Last administered on 03/08/17 08:22 ; Start 03/03/17 at 09:00; Stop 03/08/17 at 12:53; Status DC Vitamin D (Vitamin D3) 50,000 unit WEEKLY PO Last administered on 03/10/17 08: 08; Start 03/03/17 at 09:00 Mirtazapine (Remeron) 7.5 mg QHS PO Last administered on 03/08/17 19:26; Start 03/05/17 at 21:00; Stop 03/09/17 at 18:14; Status DC Mirtazapine (Remeron) 15 mg QHS PO Last administered on 03/13/17 19:32; Start 03/06/17 at 21:00 Risperidone (Risperdal) 0.75 mg DAILY PO Last administered on 03/13/17 08:28; Start 03/08/17 at 09:00 Buspirone HCl (Buspar) 20 mg DAILY PO Last administered on 03/13/17 08:28; Start 03/09/17 at 09:00 Buspirone HCl (Buspar) 10 mg BID@1400,2100 PO Last administered on 03/13/17 19: 31; Start 03/08/17 at 14:00 Olanzapine (Zyprexa Zydis) 5 mg PRN Q2HR PRN PO PSYCHOSIS Last administered on 03/08/17 13:01; Start 03/08/17 at 13:00 Active Scripts Active Reported Lantus Solostar (Insulin Glargine,Hum.rec.anlog) 100 Unit/1 Ml Insuln.pen 15 Unit SQ QHS Lorazepam 1 Mg Tablet 1 Mg PO PRN Q3HRS PRN Risperdal (Risperidone) 0.5 Mg Tablet 0.5 Mg PO BID Chlorpromazine Hcl 25 Mg Tablet 25 Mg PO BID Novolog Flexpen (Insulin Aspart) 100 Unit/1 Ml Insuln.pen 6 Unit SQ TIDWMEALS Gabapentin 300 Mg Capsule 300 Mg PO TID Milk Of Magnesia (Magnesium Hydroxide) 2,400 Mg/10 Ml Oral.susp 2,400 Mg PO PRN DAILY Trazodone Hcl 50 Mg Tablet 50 Mg PO PRN QHS PRN Divalproex Sodium 500 Mg Tablet.dr 500 Mg PO TID Losartan Potassium 50 Mg Tablet 50 Mg PO DAILY Senexon-S Tablet (Sennosides/Docusate Sodium) 1 Each Tablet 8.6-50 Mg PO DAILY Celexa (Citalopram Hydrobromide) 20 Mg Tablet 20 Mg PO DAILY Amlodipine Besylate 10 Mg Tablet 10 Mg PO DAILY Percocet 5-325 Mg Tablet (Oxycodone Hcl/Acetaminophen) 1 Each Tablet 1 Tab PO PRN Q8HRS PRN Hydrocodone-Apap 5-325 (Hydrocodone Bit/Acetaminophen) 1 Each Tablet 1 Tab PO Q12HR Tylenol (Acetaminophen) 325 Mg Tablet 650 Mg PO PRN Q8HRS PRN Diagnosis: Problems: (1) Psychiatric disorder (2) Bipolar affective, mixed, sev w/ psych (3) Anxiety disorder (4) Dementia in Alzheimer's disease with delusions (5) Impulse control disorder NANCY HAHN MD March 13, 2017 21:12
--- NOTE | 2017-03-14 00:15 | PN ---
DATE: 03/12/2017 PSYCHIATRIC PROGRESS NOTE This is a late entry of 03/12/2017 covers elements not covered in my initial note. SUBJECTIVE: The patient had a good day per nursing report, no outburst noted. She can be somewhat loud at times, but that is because she is so hard of hearing. No CV, , pulmonary, eye system symptoms on review. Extremely hard of hearing. MENTAL STATUS EXAM: Oriented to herself and situation. Speech difficult to understand loud. Abstraction fair, computation impaired, language function intact. Mood and affect showing improvement. LABORATORY DATA: Reviewed. IMPRESSION: Unchanged from initial notes. Schizoaffective disorder, bipolar type mixed with psychotic features in partial remission, hard of hearing, anxiety disorder, unspecified. PLAN: Valproic acid level is 89. Continue Depakote 500 mg 3 times a day. Maintain Celexa, Risperdal, Ativan p.r.n., trazodone, BuSpar, Remeron and Zyprexa p.r.n. Adjust further as clinically indicated. NANCY HAHN MD DR: MARGA/estelle JOB#: [id number] / [id number]
[2017-03-14 07:04] VITALS: BP 132/68
[2017-03-14] MEDS: risperiDONE 0.5 MG TABLET. PO SCH (07:50)
[2017-03-14] MEDS: LOSARTAN 50 MG TABLET. PO SCH (07:51)
[2017-03-14] MEDS: CITALOPRAM 20 MG TABLET. PO SCH (07:52)
[2017-03-14] MEDS: SENNOSIDES/DOCUSATE 8.6/50MG TABLET. PO SCH (07:52)
[2017-03-14] MEDS: busPIRone 10 MG TABLET. PO SCH ×3 (07:52→19:17)
[2017-03-14] MEDS: DIVALPROEX 125 MG CAP.SPRINK PO SCH ×3 (07:52→19:17)
[2017-03-14] MEDS: GABAPENTIN 300 MG CAPSULE. PO SCH ×3 (07:52→19:20)
[2017-03-14] MEDS: amLODIPine BESYLATE 10 MG TABLET PO SCH (07:53)
[2017-03-14] MEDS: HYDROcodone/APAP 5/325MG 1 TAB TABLET PO SCH ×2 (07:54→19:19)
[2017-03-14] MEDS: INSULIN ASPART 300 UNITS/3 ML INSULN.PEN SQ SCH ×3 (07:56→16:50)
--- NOTE | 2017-03-14 09:38 | NUR ---
Behavior Intervention Response and Plan: BIRP Note: Behavior: Assumed Care of patient, patient located in Patient Room at shift change. Patient exhibited the following behavior Disorganized, Social, Cooperative. Brief assessment on rounds of vital signs, medication needs, lab studies, and pain. Treatment plan problems . Intervention: Patient assessed and the following interventions initiated safety checks 15 Minute Checks Head to toe Assessment , Medications , Nutrition. Response: After interactions and interventions patient responded in the following manner, Able to Focus on Task , Disorganized ,Interactive. Continue to assess behaviors and condition will continue to monitor throughout the shift as needed. Plan: Continue to monitor Master Treatment Plan for patient's progress toward short term goals of No harm To self/ others, Medication Compliance, meterman goals to return to previous living setting vs placement. Continue to assess patient for changes in above assessment. Monitor for medication needs, pain, and safety concerns. Hourly rounding performed to ensure safe environment.
[2017-03-14] MEDS: risperiDONE 0.25 MG TABLET. PO SCH (13:54)
[2017-03-14 15:57] VITALS: BP 116/58
[2017-03-14] MEDS: MIRTAZAPINE 15 MG TABLET PO SCH (19:19)
[2017-03-14] MEDS: INSULIN DETEMIR 300 UNITS/3 ML INSULN.PEN. SQ SCH (19:21)
--- NOTE | 2017-03-14 20:17 | NUR ---
Behavior Intervention Response and Plan: BIRP Note: Behavior: Assumed Care of patient, patient located in Day Room at shift change. Patient exhibited the following behavior Calm, Calm, Able to Focus on Task. Brief assessment on rounds of vital signs, medication needs, lab studies, and pain. Treatment plan problems . Intervention: Patient assessed and the following interventions initiated safety checks 15 Minute Checks Cognitive Assessment , Head to toe Assessment , Medications. Response: After interactions and interventions patient responded in the following manner, Compliant , Cooperative ,Appropriate. Continue to assess behaviors and condition will continue to monitor throughout the shift as needed. Plan: Continue to monitor Master Treatment Plan for patient's progress toward short term goals of Improved Mood, Decreased Anxiety, senior living goals to return to previous living setting vs placement. Continue to assess patient for changes in above assessment. Monitor for medication needs, pain, and safety concerns. Hourly rounding performed to ensure safe environment.
--- NOTE | 2017-03-14 22:04 | PDOC ---
Exam Johann Demential Exam: Johann Note: Please also refer to the separate dictated note~for this date of service dictated separately.~Patient seen individually. Discussed the patient with Nursing staff reviewed the chart.~Reviewed interim history and current functioning. Reviewed vital signs,~Labs/ Radiology~and current medications noted below. Continue current treatment with the changes noted in the dictated addendum note Assessment: Vital Signs: Vital Signs Date Time Temp Pulse Resp B/P (MAP) Pulse Ox O2 Delivery O2 Flow Rate FiO2 03/14/17 20:20 93 Room Air 03/14/17 15:57 97.9 65 18 116/58 (77) I&O Intake and Output 03/14/17 07:00 Intake Total 1800 ml Balance 1800 ml Intake Oral 1800 ml Labs: Laboratory Tests Test 03/14/17 07:29 03/14/17 11:48 03/14/17 16:03 03/14/17 19:02 Glucose (Fingerstick) 196 mg/dL (70-99) H 198 mg/dL (70-99) H 236 mg/dL (70-99) H 269 mg/dL (70-99) H Current Medications: Meds: Current Medications Acetaminophen (Tylenol) 650 mg PRN Q6HRS PRN PO PAIN / TEMP; Start 02/25/17 at 00:30; Stop 02/25/17 at 15:05; Status DC Multi-Ingredient Ointment (Analgesic [place]) 1 marcell PRN QID PRN TP MUSCLE PAIN; Start 02/25/17 at 00:30 Al Hydroxide/Mg Hydroxide (Mylanta Plus Xs) 15 ml PRN AFTMEALHC PRN PO DYSPEPSIA; Start 02/25/17 at 00:30 Magnesium Hydroxide (Milk Of Magnesia) 2,400 mg PRN QHS PRN PO CONSTIPATION; Start 02/25/17 at 00:30; Stop 02/25/17 at 15:05; Status DC Chlorpromazine HCl (Thorazine) 25 mg BID PO Last administered on 02/26/17 09: 34; Start 02/25/17 at 09:00; Stop 02/26/17 at 18:22; Status DC Citalopram Hydrobromide (Celexa) 20 mg DAILY PO Last administered on 03/14/17 07:52; Start 02/25/17 at 09:00 Lorazepam (Ativan) 1 mg PRN Q3HRS PRN PO ANXIETY / AGITATION Last administered on 03/08/17 19:26; Start 02/25/17 at 00:30 Risperidone (Risperdal) 0.5 mg BID PO Last administered on 02/26/17 09:34; Start 02/25/17 at 09:00; Stop 02/26/17 at 18:22; Status DC Trazodone HCl (Desyrel) 50 mg PRN QHS PRN PO INSOMNIA Last administered on 19:26; Start 02/25/17 at 00:30 Divalproex Sodium (Depakote Sprinkles) 500 mg TID PO Last administered on 19:17; Start 02/25/17 at 09:00 Acetaminophen (Tylenol) 650 mg PRN Q8HRS PRN PO PAIN Last administered on 12:56; Start 02/25/17 at 07:30 Amlodipine Besylate (Norvasc) 10 mg DAILY PO Last administered on 03/14/17 07: 53; Start 02/25/17 at 09:00 Gabapentin (Neurontin) 300 mg TID PO Last administered on 03/14/17 19:20; Start 02/25/17 at 09:00 Acetaminophen/ Hydrocodone Bitart (Lortab 5/325) 1 tab Q12HR PO Last administered on 03/14/17 19:19; Start 02/25/17 at 09:00 Insulin Aspart (Novolog) 6 units TIDWMEALS SQ Last administered on 03/14/17 16 :50; Start 02/25/17 at 08:00 Losartan Potassium (Cozaar) 50 mg DAILY PO Last administered on 03/14/17 07:51 ; Start 02/25/17 at 09:00 Senna/Docusate Sodium (Senna Plus) 1 tab DAILY PO Last administered on 07:52; Start 02/25/17 at 09:00 Insulin Detemir (Levemir) 15 units QHS SQ Last administered on 02/25/17 19:55 ; Start 02/25/17 at 21:00; Stop 02/26/17 at 14:21; Status DC Magnesium Hydroxide (Milk Of Magnesia) 2,400 mg PRN DAILY PRN PO CONSTIPATION; Start 02/25/17 at 07:45 Insulin Detemir (Levemir) 15 units QHS SQ Last administered on 03/14/17 19:21 ; Start 02/26/17 at 14:21 Chlorpromazine HCl (Thorazine) 25 mg DAILY PO Last administered on 02/28/17 09 :09; Start 02/27/17 at 09:00; Stop 02/28/17 at 15:50; Status DC Risperidone (Risperdal) 0.5 mg DAILY PO Last administered on 03/07/17 08:23; Start 02/27/17 at 09:00; Stop 03/07/17 at 18:51; Status DC Risperidone (Risperdal) 0.75 mg HS PO ; Start 02/26/17 at 21:00; Stop 02/26/17 at 21:00; Status DC Risperidone (Risperdal) 0.75 mg 14 PO Last administered on 03/14/17 13:54; Start 02/26/17 at 21:00 Buspirone HCl (Buspar) 5 mg BID PO Last administered on 03/01/17 08:38; Start 02/27/17 at 21:00; Stop 03/01/17 at 12:38; Status DC Buspirone HCl (Buspar) 10 mg BID PO Last administered on 03/02/17 08:05; Start 03/01/17 at 21:00; Stop 03/02/17 at 18:06; Status DC Trimethoprim/ Sulfamethoxazole (Bactrim Ds) 1 tab DAILY PO Last administered on 03/09/17 09:29; Start 03/02/17 at 09:00; Stop 03/09/17 at 09:01; Status DC Buspirone HCl (Buspar) 10 mg TIDAFTMEAL PO Last administered on 03/08/17 08:22 ; Start 03/03/17 at 09:00; Stop 03/08/17 at 12:53; Status DC Vitamin D (Vitamin D3) 50,000 unit WEEKLY PO Last administered on 03/10/17 08: 08; Start 03/03/17 at 09:00 Mirtazapine (Remeron) 7.5 mg QHS PO Last administered on 5/4/17at 19:26; Start 03/05/17 at 21:00; Stop 03/09/17 at 18:14; Status DC Mirtazapine (Remeron) 15 mg QHS PO Last administered on 03/14/17 19:19; Start 03/06/17 at 21:00 Risperidone (Risperdal) 0.75 mg DAILY PO Last administered on 03/14/17 07:50; Start 03/08/17 at 09:00 Buspirone HCl (Buspar) 20 mg DAILY PO Last administered on 03/14/17 07:52; Start 03/09/17 at 09:00 Buspirone HCl (Buspar) 10 mg BID@1400,2100 PO Last administered on 03/14/17 19 :17; Start 03/08/17 at 14:00 Olanzapine (Zyprexa Zydis) 5 mg PRN Q2HR PRN PO PSYCHOSIS Last administered on 03/08/17 13:01; Start 03/08/17 at 13:00 Active Scripts Active Reported Lantus Solostar (Insulin Glargine,Hum.rec.anlog) 100 Unit/1 Ml Insuln.pen 15 Unit SQ QHS Lorazepam 1 Mg Tablet 1 Mg PO PRN Q3HRS PRN Risperdal (Risperidone) 0.5 Mg Tablet 0.5 Mg PO BID Chlorpromazine Hcl 25 Mg Tablet 25 Mg PO BID Novolog Flexpen (Insulin Aspart) 100 Unit/1 Ml Insuln.pen 6 Unit SQ TIDWMEALS Gabapentin 300 Mg Capsule 300 Mg PO TID Milk Of Magnesia (Magnesium Hydroxide) 2,400 Mg/10 Ml Oral.susp 2,400 Mg PO PRN DAILY Trazodone Hcl 50 Mg Tablet 50 Mg PO PRN QHS PRN Divalproex Sodium 500 Mg Tablet.dr 500 Mg PO TID Losartan Potassium 50 Mg Tablet 50 Mg PO DAILY Senexon-S Tablet (Sennosides/Docusate Sodium) 1 Each Tablet 8.6-50 Mg PO DAILY Celexa (Citalopram Hydrobromide) 20 Mg Tablet 20 Mg PO DAILY Amlodipine Besylate 10 Mg Tablet 10 Mg PO DAILY Percocet 5-325 Mg Tablet (Oxycodone Hcl/Acetaminophen) 1 Each Tablet 1 Tab PO PRN Q8HRS PRN Hydrocodone-Apap 5-325 (Hydrocodone Bit/Acetaminophen) 1 Each Tablet 1 Tab PO Q12HR Tylenol (Acetaminophen) 325 Mg Tablet 650 Mg PO PRN Q8HRS PRN NANCY HAHN MD March 14, 2017 22:04
[2017-03-15] MEDS: ACETAMINOPHEN 325 MG TABLET PO PRN (05:32)
[2017-03-15 06:34] VITALS: BP 124/52
[2017-03-15] MEDS: amLODIPine BESYLATE 10 MG TABLET PO SCH (07:43)
[2017-03-15] MEDS: busPIRone 10 MG TABLET. PO SCH ×3 (07:43→19:32)
[2017-03-15] MEDS: SENNOSIDES/DOCUSATE 8.6/50MG TABLET. PO SCH (07:44)
[2017-03-15] MEDS: LOSARTAN 50 MG TABLET. PO SCH (07:44)
[2017-03-15] MEDS: HYDROcodone/APAP 5/325MG 1 TAB TABLET PO SCH ×2 (07:44→19:33)
[2017-03-15] MEDS: CITALOPRAM 20 MG TABLET. PO SCH (07:45)
[2017-03-15] MEDS: risperiDONE 0.5 MG TABLET. PO SCH (07:45)
[2017-03-15] MEDS: GABAPENTIN 300 MG CAPSULE. PO SCH ×3 (07:46→19:33)
[2017-03-15] MEDS: DIVALPROEX 125 MG CAP.SPRINK PO SCH ×3 (07:47→19:32)
[2017-03-15] MEDS: INSULIN ASPART 300 UNITS/3 ML INSULN.PEN SQ SCH ×3 (07:49→16:59)
--- NOTE | 2017-03-15 09:41 | PN ---
DATE: 03/13/2017 PSYCHIATRIC PROGRESS NOTE This is a late entry 03/13/2017, covers elements not covered in my initial note. SUBJECTIVE: Per nursing report, the patient is doing better, cooperative. No anger noted. Compliant with the medications. Can be loud at times, but this is because she is so hard of hearing. REVIEW OF SYSTEMS: Hard of hearing. No CV, , pulmonary, eye system symptoms on review. MENTAL STATUS EXAM: Oriented to herself and situation. Speech is loud at times. Abstraction fair, computation impaired, language function intact. Mood and affect, intermittently anxious, labile. LABORATORY DATA: Reviewed. IMPRESSION: Unchanged from initial note. PLAN: Continue psychotropics mentioned in my initial note. MAN Kemal HAHN MD DR: MARGA/estelle JOB#: [id number] / [id number]
--- NOTE | 2017-03-15 09:44 | NUR ---
Behavior Intervention Response and Plan: BIRP Note: Behavior: Assumed Care of patient, patient located in Patient Room at shift change. Patient exhibited the following behavior Interactive, Calm, Able to Focus on Task. Brief assessment on rounds of vital signs, medication needs, lab studies, and pain. Treatment plan problems . Intervention: Patient assessed and the following interventions initiated safety checks 15 Minute Checks Head to toe Assessment , Oral Hydration , Nutrition. Response: After interactions and interventions patient responded in the following manner, Disorganized , Interactive ,Cooperative. Continue to assess behaviors and condition will continue to monitor throughout the shift as needed. 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 Continue to assess patient for changes in above assessment. Monitor for medication needs, pain, and safety concerns. Hourly rounding performed to ensure safe environment.
--- NOTE | 2017-03-15 10:45 | NUR ---
THERAPEUTIC RECREATION GROUP NOTE TITLE :Balloon Bop with Noodles ACTIVITY : Activities and Games GOAL : Increase socialization and alertness. Maintain/improve mental and physical functioning. DURATION : 60 Minutes RESPONSE : Full participation. Pt. needed minimal prompting to stay on task. She sat closely to another peer and started pushing her over. Pt. was redirected to ask instead of using force, Pt. complied and was social and playful with others.
[2017-03-15] MEDS: risperiDONE 0.25 MG TABLET. PO SCH (13:21)
--- NOTE | 2017-03-15 14:00 | NUR ---
THERAPEUTIC RECREATION GROUP NOTE TITLE :Mynor Velasco/ 21 ACTIVITY : Activities and Games GOAL : Increase social interaction, fine motor skills. Maintain or improve mental functioning. Decrease restlessness DURATION : 60 minutes RESPONSE : Full participation. Pt. flipped through a magazine in between her turns and needed to be reminded to play. She needed explanations and reminders and was able to play with constant assistance.
[2017-03-15 16:21] VITALS: BP 118/79
[2017-03-15] MEDS: LORazepam 1 MG TABLET PO PRN (16:37)
[2017-03-15] MEDS: MIRTAZAPINE 15 MG TABLET PO SCH (19:33)
[2017-03-15] MEDS: INSULIN DETEMIR 300 UNITS/3 ML INSULN.PEN. SQ SCH (19:34)
--- NOTE | 2017-03-15 21:07 | PDOC ---
Exam Johann Demential Exam: Johann Note: Please also refer to the separate dictated note~for this date of service dictated separately.~Patient seen individually. Discussed the patient with Nursing staff reviewed the chart.~Reviewed interim history and current functioning. Reviewed vital signs,~Labs/ Radiology~and current medications noted below. Continue current treatment with the changes noted in the dictated addendum note Assessment: Vital Signs: Vital Signs Date Time Temp Pulse Resp B/P (MAP) Pulse Ox O2 Delivery O2 Flow Rate FiO2 03/15/17 19:33 Room Air 03/15/17 16:21 98.4 63 18 118/79 (92) 95 I&O Intake and Output 03/15/17 07:00 Intake Total 1320 ml Balance 1320 ml Intake Oral 1320 ml Labs: Laboratory Tests Test 03/15/17 07:01 03/15/17 11:52 Glucose (Fingerstick) 110 mg/dL (70-99) H 139 mg/dL (70-99) H Current Medications: Meds: Current Medications Acetaminophen (Tylenol) 650 mg PRN Q6HRS PRN PO PAIN / TEMP; Start 02/25/17 at 00:30; Stop 02/25/17 at 15:05; Status DC Multi-Ingredient Ointment (Analgesic [place]) 1 marcell PRN QID PRN TP MUSCLE PAIN; Start 02/25/17 at 00:30 Al Hydroxide/Mg Hydroxide (Mylanta Plus Xs) 15 ml PRN AFTMEALHC PRN PO DYSPEPSIA; Start 02/25/17 at 00:30 Magnesium Hydroxide (Milk Of Magnesia) 2,400 mg PRN QHS PRN PO CONSTIPATION; Start 02/25/17 at 00:30; Stop 02/25/17 at 15:05; Status DC Chlorpromazine HCl (Thorazine) 25 mg BID PO Last administered on 02/26/17 09: 34; Start 02/25/17 at 09:00; Stop 02/26/17 at 18:22; Status DC Citalopram Hydrobromide (Celexa) 20 mg DAILY PO Last administered on 03/15/17 07:45; Start 02/25/17 at 09:00 Lorazepam (Ativan) 1 mg PRN Q3HRS PRN PO ANXIETY / AGITATION Last administered on 03/15/17 16:37; Start 02/25/17 at 00:30 Risperidone (Risperdal) 0.5 mg BID PO Last administered on 02/26/17 09:34; Start 02/25/17 at 09:00; Stop 02/26/17 at 18:22; Status DC Trazodone HCl (Desyrel) 50 mg PRN QHS PRN PO INSOMNIA Last administered on 19:26; Start 02/25/17 at 00:30 Divalproex Sodium (Depakote Sprinkles) 500 mg TID PO Last administered on 19:32; Start 02/25/17 at 09:00 Acetaminophen (Tylenol) 650 mg PRN Q8HRS PRN PO PAIN Last administered on 05:32; Start 02/25/17 at 07:30 Amlodipine Besylate (Norvasc) 10 mg DAILY PO Last administered on 03/15/17 07: 43; Start 02/25/17 at 09:00 Gabapentin (Neurontin) 300 mg TID PO Last administered on 03/15/17 19:33; Start 02/25/17 at 09:00 Acetaminophen/ Hydrocodone Bitart (Lortab 5/325) 1 tab Q12HR PO Last administered on 03/15/17 19:33; Start 02/25/17 at 09:00 Insulin Aspart (Novolog) 6 units TIDWMEALS SQ Last administered on 03/15/17 16 :59; Start 02/25/17 at 08:00 Losartan Potassium (Cozaar) 50 mg DAILY PO Last administered on 03/15/17 07:44 ; Start 02/25/17 at 09:00 Senna/Docusate Sodium (Senna Plus) 1 tab DAILY PO Last administered on 07:44; Start 02/25/17 at 09:00 Insulin Detemir (Levemir) 15 units QHS SQ Last administered on 02/25/17 19:55 ; Start 02/25/17 at 21:00; Stop 02/26/17 at 14:21; Status DC Magnesium Hydroxide (Milk Of Magnesia) 2,400 mg PRN DAILY PRN PO CONSTIPATION; Start 02/25/17 at 07:45 Insulin Detemir (Levemir) 15 units QHS SQ Last administered on 03/15/17 19:34 ; Start 02/26/17 at 14:21 Chlorpromazine HCl (Thorazine) 25 mg DAILY PO Last administered on 02/28/17 09 :09; Start 02/27/17 at 09:00; Stop 02/28/17 at 15:50; Status DC Risperidone (Risperdal) 0.5 mg DAILY PO Last administered on 03/07/17 08:23; Start 02/27/17 at 09:00; Stop 03/07/17 at 18:51; Status DC Risperidone (Risperdal) 0.75 mg HS PO ; Start 02/26/17 at 21:00; Stop 02/26/17 at 21:00; Status DC Risperidone (Risperdal) 0.75 mg 14 PO Last administered on 03/15/17 13:21; Start 02/26/17 at 21:00 Buspirone HCl (Buspar) 5 mg BID PO Last administered on 03/01/17 08:38; Start 02/27/17 at 21:00; Stop 03/01/17 at 12:38; Status DC Buspirone HCl (Buspar) 10 mg BID PO Last administered on 03/02/17 08:05; Start 03/01/17 at 21:00; Stop 03/02/17 at 18:06; Status DC Trimethoprim/ Sulfamethoxazole (Bactrim Ds) 1 tab DAILY PO Last administered on 03/09/17 09:29; Start 03/02/17 at 09:00; Stop 03/09/17 at 09:01; Status DC Buspirone HCl (Buspar) 10 mg TIDAFTMEAL PO Last administered on 03/08/17 08:22 ; Start 03/03/17 at 09:00; Stop 03/08/17 at 12:53; Status DC Vitamin D (Vitamin D3) 50,000 unit WEEKLY PO Last administered on 03/10/17 08: 08; Start 03/03/17 at 09:00 Mirtazapine (Remeron) 7.5 mg QHS PO Last administered on 03/08/17 19:26; Start 03/05/17 at 21:00; Stop 03/09/17 at 18:14; Status DC Mirtazapine (Remeron) 15 mg QHS PO Last administered on 03/15/17 19:33; Start 03/06/17 at 21:00 Risperidone (Risperdal) 0.75 mg DAILY PO Last administered on 03/15/17 07:45; Start 03/08/17 at 09:00 Buspirone HCl (Buspar) 20 mg DAILY PO Last administered on 03/15/17 07:43; Start 03/09/17 at 09:00 Buspirone HCl (Buspar) 10 mg BID@1400,2100 PO Last administered on 03/15/17 19 :32; Start 03/08/17 at 14:00 Olanzapine (Zyprexa Zydis) 5 mg PRN Q2HR PRN PO PSYCHOSIS Last administered on 03/08/17 13:01; Start 03/08/17 at 13:00 Active Scripts Active Reported Lantus Solostar (Insulin Glargine,Hum.rec.anlog) 100 Unit/1 Ml Insuln.pen 15 Unit SQ QHS Lorazepam 1 Mg Tablet 1 Mg PO PRN Q3HRS PRN Risperdal (Risperidone) 0.5 Mg Tablet 0.5 Mg PO BID Chlorpromazine Hcl 25 Mg Tablet 25 Mg PO BID Novolog Flexpen (Insulin Aspart) 100 Unit/1 Ml Insuln.pen 6 Unit SQ TIDWMEALS Gabapentin 300 Mg Capsule 300 Mg PO TID Milk Of Magnesia (Magnesium Hydroxide) 2,400 Mg/10 Ml Oral.susp 2,400 Mg PO PRN DAILY Trazodone Hcl 50 Mg Tablet 50 Mg PO PRN QHS PRN Divalproex Sodium 500 Mg Tablet.dr 500 Mg PO TID Losartan Potassium 50 Mg Tablet 50 Mg PO DAILY Senexon-S Tablet (Sennosides/Docusate Sodium) 1 Each Tablet 8.6-50 Mg PO DAILY Celexa (Citalopram Hydrobromide) 20 Mg Tablet 20 Mg PO DAILY Amlodipine Besylate 10 Mg Tablet 10 Mg PO DAILY Percocet 5-325 Mg Tablet (Oxycodone Hcl/Acetaminophen) 1 Each Tablet 1 Tab PO PRN Q8HRS PRN Hydrocodone-Apap 5-325 (Hydrocodone Bit/Acetaminophen) 1 Each Tablet 1 Tab PO Q12HR Tylenol (Acetaminophen) 325 Mg Tablet 650 Mg PO PRN Q8HRS PRN JOVANI,MAN M MD March 15, 2017 21:07
--- NOTE | 2017-03-15 21:47 | NUR ---
Behavior Intervention Response and Plan: BIRP Note: Behavior: Assumed Care of patient, patient located in Patient Room at shift change. Patient exhibited the following behavior Calm, Able to Focus on Task, Sleeping. Brief assessment on rounds of vital signs, medication needs, lab studies, and pain. Treatment plan problems . Intervention: Patient assessed and the following interventions initiated safety checks 15 Minute Checks Cognitive Assessment , Head to toe Assessment , Medications. Response: After interactions and interventions patient responded in the following manner, Compliant , Cooperative ,Drowsy. Continue to assess behaviors and condition will continue to monitor throughout the shift as needed. 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 Continue to assess patient for changes in above assessment. Monitor for medication needs, pain, and safety concerns. Hourly rounding performed to ensure safe environment.
[2017-03-16 06:45] VITALS: BP 128/78
[2017-03-16] MEDS: LOSARTAN 50 MG TABLET. PO SCH (08:05)
[2017-03-16] MEDS: risperiDONE 0.5 MG TABLET. PO SCH (08:05)
[2017-03-16] MEDS: DIVALPROEX 125 MG CAP.SPRINK PO SCH ×3 (08:05→20:57)
[2017-03-16] MEDS: CITALOPRAM 20 MG TABLET. PO SCH (08:05)
[2017-03-16] MEDS: SENNOSIDES/DOCUSATE 8.6/50MG TABLET. PO SCH (08:06)
[2017-03-16] MEDS: GABAPENTIN 300 MG CAPSULE. PO SCH ×3 (08:06→20:57)
[2017-03-16] MEDS: amLODIPine BESYLATE 10 MG TABLET PO SCH (08:06)
[2017-03-16] MEDS: busPIRone 10 MG TABLET. PO SCH ×3 (08:06→20:58)
[2017-03-16] MEDS: INSULIN ASPART 300 UNITS/3 ML INSULN.PEN SQ SCH ×3 (08:08→16:51)
[2017-03-16] MEDS: HYDROcodone/APAP 5/325MG 1 TAB TABLET PO SCH ×2 (08:10→20:58)
--- NOTE | 2017-03-16 10:00 | NUR ---
THERAPEUTIC RECREATION GROUP NOTE TITLE :Characteristics of a M-[id number] ACTIVITY : Cognitive Stimulation GOAL : Stimulate memory, Increase problem solving DURATION : 45 minutes RESPONSE : No participation.
--- NOTE | 2017-03-16 11:30 | NUR ---
THERAPEUTIC RECREATION GROUP NOTE TITLE :Movement to Music: Flexibility ACTIVITY : Movement/ Exercise GOAL : Increase morale, attention, flexibility. Decrease stress/anxiety. DURATION : 25 minutes RESPONSE : No participation.
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
[2017-03-16] MEDS: risperiDONE 0.25 MG TABLET. PO SCH (14:15)
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
--- NOTE | 2017-03-16 14:45 | NUR ---
THERAPEUTIC RECREATION GROUP NOTE TITLE :Mother's Day Jeopardy ACTIVITY : Cognitive Stimulation GOAL : Stimulate memory, Increase problem solving DURATION : 45 minutes RESPONSE : No participation.
[2017-03-16 15:38] VITALS: BP 149/76
--- NOTE | 2017-03-16 18:20 | PN ---
DATE: 03/14/2017 PSYCHIATRIC PROGRESS NOTE This is late entry of 03/14/2017, covers elements not covered in my initial note. SUBJECTIVE: The patient has been calmer, more appropriate, compliant, somewhat loud in her verbalization because she is hard of hearing. REVIEW OF SYSTEMS: No CV, , pulmonary, eye system symptoms on review. MENTAL STATUS EXAMINATION: Oriented to herself and situation. Speech loud at times. Abstraction fair, computation impaired, language function intact, attention span short. Mood and affect, lability is improved. No suicidal or homicidal ideation. LABORATORY DATA: Reviewed. IMPRESSION: Unchanged from initial note. PLAN: Continue psychotropics mentioned in my initial note. MAN Kemal HAHN MD DR: MARGA/estelle JOB#: [id number] / [id number]
[2017-03-16] MEDS: MIRTAZAPINE 15 MG TABLET PO SCH (20:58)
[2017-03-16] MEDS: INSULIN DETEMIR 300 UNITS/3 ML INSULN.PEN. SQ SCH (21:02)
--- NOTE | 2017-03-16 21:08 | PDOC ---
Exam Johann Demential Exam: Johann Note: Please also refer to the separate dictated note~for this date of service dictated separately.~Patient seen individually. Discussed the patient with Nursing staff reviewed the chart.~Reviewed interim history and current functioning. Reviewed vital signs,~Labs/ Radiology~and current medications noted below. Continue current treatment with the changes noted in the dictated addendum note Assessment: Vital Signs: Vital Signs Date Time Temp Pulse Resp B/P (MAP) Pulse Ox O2 Delivery O2 Flow Rate FiO2 03/16/17 20:58 22 Room Air 03/16/17 15:38 98.1 77 149/76 (100) 100 I&O Intake and Output 03/16/17 07:00 Intake Total 1200 ml Balance 1200 ml Intake Oral 1200 ml # Voids 1 Current Medications: Meds: Current Medications Acetaminophen (Tylenol) 650 mg PRN Q6HRS PRN PO PAIN / TEMP; Start 02/25/17 at 00:30; Stop 02/25/17 at 15:05; Status DC Multi-Ingredient Ointment (Analgesic [place]) 1 marcell PRN QID PRN TP MUSCLE PAIN; Start 02/25/17 at 00:30 Al Hydroxide/Mg Hydroxide (Mylanta Plus Xs) 15 ml PRN AFTMEALHC PRN PO DYSPEPSIA; Start 02/25/17 at 00:30 Magnesium Hydroxide (Milk Of Magnesia) 2,400 mg PRN QHS PRN PO CONSTIPATION; Start 02/25/17 at 00:30; Stop 02/25/17 at 15:05; Status DC Chlorpromazine HCl (Thorazine) 25 mg BID PO Last administered on 02/26/17 09: 34; Start 02/25/17 at 09:00; Stop 02/26/17 at 18:22; Status DC Citalopram Hydrobromide (Celexa) 20 mg DAILY PO Last administered on 03/16/17 08:05; Start 02/25/17 at 09:00 Lorazepam (Ativan) 1 mg PRN Q3HRS PRN PO ANXIETY / AGITATION Last administered on 03/15/17 16:37; Start 02/25/17 at 00:30 Risperidone (Risperdal) 0.5 mg BID PO Last administered on 02/26/17 09:34; Start 02/25/17 at 09:00; Stop 02/26/17 at 18:22; Status DC Trazodone HCl (Desyrel) 50 mg PRN QHS PRN PO INSOMNIA Last administered on 19:26; Start 02/25/17 at 00:30 Divalproex Sodium (Depakote Sprinkles) 500 mg TID PO Last administered on 20:57; Start 02/25/17 at 09:00 Acetaminophen (Tylenol) 650 mg PRN Q8HRS PRN PO PAIN Last administered on 05:32; Start 02/25/17 at 07:30 Amlodipine Besylate (Norvasc) 10 mg DAILY PO Last administered on 03/16/17 08: 06; Start 02/25/17 at 09:00 Gabapentin (Neurontin) 300 mg TID PO Last administered on 03/16/17 20:57; Start 02/25/17 at 09:00 Acetaminophen/ Hydrocodone Bitart (Lortab 5/325) 1 tab Q12HR PO Last administered on 03/16/17 20:58; Start 02/25/17 at 09:00 Insulin Aspart (Novolog) 6 units TIDWMEALS SQ Last administered on 03/16/17 16 :51; Start 02/25/17 at 08:00 Losartan Potassium (Cozaar) 50 mg DAILY PO Last administered on 03/16/17 08:05 ; Start 02/25/17 at 09:00 Senna/Docusate Sodium (Senna Plus) 1 tab DAILY PO Last administered on 08:06; Start 02/25/17 at 09:00 Insulin Detemir (Levemir) 15 units QHS SQ Last administered on 02/25/17 19:55 ; Start 02/25/17 at 21:00; Stop 02/26/17 at 14:21; Status DC Magnesium Hydroxide (Milk Of Magnesia) 2,400 mg PRN DAILY PRN PO CONSTIPATION; Start 02/25/17 at 07:45 Insulin Detemir (Levemir) 15 units QHS SQ Last administered on 03/16/17 21:02 ; Start 02/26/17 at 14:21 Chlorpromazine HCl (Thorazine) 25 mg DAILY PO Last administered on 02/28/17 09 :09; Start 02/27/17 at 09:00; Stop 02/28/17 at 15:50; Status DC Risperidone (Risperdal) 0.5 mg DAILY PO Last administered on 03/07/17 08:23; Start 02/27/17 at 09:00; Stop 03/07/17 at 18:51; Status DC Risperidone (Risperdal) 0.75 mg HS PO ; Start 02/26/17 at 21:00; Stop 02/26/17 at 21:00; Status DC Risperidone (Risperdal) 0.75 mg 14 PO Last administered on 03/16/17 14:15; Start 02/26/17 at 21:00 Buspirone HCl (Buspar) 5 mg BID PO Last administered on 03/01/17 08:38; Start 02/27/17 at 21:00; Stop 03/01/17 at 12:38; Status DC Buspirone HCl (Buspar) 10 mg BID PO Last administered on 03/02/17 08:05; Start 03/01/17 at 21:00; Stop 03/02/17 at 18:06; Status DC Trimethoprim/ Sulfamethoxazole (Bactrim Ds) 1 tab DAILY PO Last administered on 03/09/17 09:29; Start 03/02/17 at 09:00; Stop 03/09/17 at 09:01; Status DC Buspirone HCl (Buspar) 10 mg TIDAFTMEAL PO Last administered on 03/08/17 08:22 ; Start 03/03/17 at 09:00; Stop 03/08/17 at 12:53; Status DC Vitamin D (Vitamin D3) 50,000 unit WEEKLY PO Last administered on 03/10/17 08: 08; Start 03/03/17 at 09:00 Mirtazapine (Remeron) 7.5 mg QHS PO Last administered on 03/08/17 19:26; Start 03/05/17 at 21:00; Stop 03/09/17 at 18:14; Status DC Mirtazapine (Remeron) 15 mg QHS PO Last administered on 03/16/17 20:58; Start 03/06/17 at 21:00 Risperidone (Risperdal) 0.75 mg DAILY PO Last administered on 03/16/17 08:05; Start 03/08/17 at 09:00 Buspirone HCl (Buspar) 20 mg DAILY PO Last administered on 03/16/17 08:06; Start 03/09/17 at 09:00 Buspirone HCl (Buspar) 10 mg BID@1400,2100 PO Last administered on 03/16/17 20 :58; Start 03/08/17 at 14:00 Olanzapine (Zyprexa Zydis) 5 mg PRN Q2HR PRN PO PSYCHOSIS Last administered on 03/08/17 13:01; Start 03/08/17 at 13:00 Trazodone HCl (Desyrel) 12.5 mg BID92 PO ; Start 03/17/17 at 09:00 Active Scripts Active Reported Lantus Solostar (Insulin Glargine,Hum.rec.anlog) 100 Unit/1 Ml Insuln.pen 15 Unit SQ QHS Lorazepam 1 Mg Tablet 1 Mg PO PRN Q3HRS PRN Risperdal (Risperidone) 0.5 Mg Tablet 0.5 Mg PO BID Chlorpromazine Hcl 25 Mg Tablet 25 Mg PO BID Novolog Flexpen (Insulin Aspart) 100 Unit/1 Ml Insuln.pen 6 Unit SQ TIDWMEALS Gabapentin 300 Mg Capsule 300 Mg PO TID Milk Of Magnesia (Magnesium Hydroxide) 2,400 Mg/10 Ml Oral.susp 2,400 Mg PO PRN DAILY Trazodone Hcl 50 Mg Tablet 50 Mg PO PRN QHS PRN Divalproex Sodium 500 Mg Tablet.dr 500 Mg PO TID Losartan Potassium 50 Mg Tablet 50 Mg PO DAILY Senexon-S Tablet (Sennosides/Docusate Sodium) 1 Each Tablet 8.6-50 Mg PO DAILY Celexa (Citalopram Hydrobromide) 20 Mg Tablet 20 Mg PO DAILY Amlodipine Besylate 10 Mg Tablet 10 Mg PO DAILY Percocet 5-325 Mg Tablet (Oxycodone Hcl/Acetaminophen) 1 Each Tablet 1 Tab PO PRN Q8HRS PRN Hydrocodone-Apap 5-325 (Hydrocodone Bit/Acetaminophen) 1 Each Tablet 1 Tab PO Q12HR Tylenol (Acetaminophen) 325 Mg Tablet 650 Mg PO PRN Q8HRS PRN NANCY HAHN MD March 16, 2017 21:08
--- NOTE | 2017-03-16 23:08 | NUR ---
Behavior Intervention Response and Plan: BIRP Note: Behavior: Assumed Care of patient, patient located in Patient Room at shift change. Patient exhibited the following behavior Interactive, Calm, Able to Focus on Task. Brief assessment on rounds of vital signs, medication needs, lab studies, and pain. Treatment plan problems 1-2. Intervention: Patient assessed and the following interventions initiated safety checks 15 Minute Checks Head to toe Assessment , Oral Hydration , Nutrition. Response: After interactions and interventions patient responded in the following manner, Disorganized , Interactive ,Cooperative. Continue to assess behaviors and condition will continue to monitor throughout the shift as needed. 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 Continue to assess patient for changes in above assessment. Monitor for medication needs, pain, and safety concerns. Hourly rounding performed to ensure safe environment.
[2017-03-17 06:27] VITALS: BP 118/64
[2017-03-17] MEDS: GABAPENTIN 300 MG CAPSULE. PO SCH ×3 (07:54→21:08)
[2017-03-17] MEDS: risperiDONE 0.5 MG TABLET. PO SCH (07:54)
[2017-03-17] MEDS: HYDROcodone/APAP 5/325MG 1 TAB TABLET PO SCH ×2 (07:54→21:10)
[2017-03-17] MEDS: DIVALPROEX 125 MG CAP.SPRINK PO SCH ×3 (07:54→21:08)
[2017-03-17] MEDS: amLODIPine BESYLATE 10 MG TABLET PO SCH (07:55)
[2017-03-17] MEDS: LOSARTAN 50 MG TABLET. PO SCH (07:55)
[2017-03-17] MEDS: SENNOSIDES/DOCUSATE 8.6/50MG TABLET. PO SCH (07:55)
[2017-03-17] MEDS: busPIRone 10 MG TABLET. PO SCH ×3 (07:56→21:08)
[2017-03-17] MEDS: CITALOPRAM 20 MG TABLET. PO SCH (07:56)
[2017-03-17] MEDS: CHOLECALCIFEROL (VITAMIN D3) 50,000 UNIT CAPSULE PO SCH (07:57)
[2017-03-17] MEDS: traZODone 50 MG TABLET. PO SCH ×2 (07:58→13:35)
[2017-03-17] MEDS: INSULIN ASPART 300 UNITS/3 ML INSULN.PEN SQ SCH ×3 (08:02→17:01)
--- NOTE | 2017-03-17 08:59 | PN ---
DATE: 03/15/2017 PSYCHIATRIC PROGRESS NOTE This is late entry of 03/15/2017, covers elements not covered in my initial note. SUBJECTIVE: The patient was staffed at treatment team meeting with the entire team, sleeping about 6-1/2 hours, appetite 100%, had an outburst in the evening at 5:00 p.m. as I met with her individually, but redirected. REVIEW OF SYSTEMS: Hard of hearing. Speech is loud. No CV, , pulmonary, eye system symptoms on review. MENTAL STATUS EXAMINATION: Oriented to herself and situation. Speech loud, abstraction fair, computation impaired, language function intact. Mood and affect despite the above the lability is overall improved. LABORATORY DATA: Reviewed. IMPRESSION: Unchanged from initial note. PLAN: Continue psychotropics mentioned in my initial note. MAN Kemal HAHN MD DR: MARGA/estelle JOB#: [id number] / [id number]
--- NOTE | 2017-03-17 10:36 | NUR ---
Behavior Intervention Response and Plan: BIRP Note: Behavior: Assumed Care of patient, patient located in Day Room at shift change. Patient exhibited the following behavior Calm, Compliant, Cooperative. Brief assessment on rounds of vital signs, medication needs, lab studies, and pain. Treatment plan problems . Intervention: Patient assessed and the following interventions initiated safety checks 15 Minute Checks Cognitive Assessment , Head to toe Assessment , Medications. Response: After interactions and interventions patient responded in the following manner, Calm , Compliant ,Cooperative. Continue to assess behaviors and condition will continue to monitor throughout the shift as needed. Plan: Continue to monitor Master Treatment Plan for patient's progress toward short term goals of Decreased Anxiety, Decreased Agitation, longterm goals to return to previous living setting vs placement. Continue to assess patient for changes in above assessment. Monitor for medication needs, pain, and safety concerns. Hourly rounding performed to ensure safe environment.
[2017-03-17] MEDS: risperiDONE 0.25 MG TABLET. PO SCH (13:35)
[2017-03-17 16:07] VITALS: BP 152/70
--- NOTE | 2017-03-17 20:55 | PDOC ---
Exam Johann Demential Exam: Johann Note: Please also refer to the separate dictated note~for this date of service dictated separately.~Patient seen individually. Discussed the patient with Nursing staff reviewed the chart.~Reviewed interim history and current functioning. Reviewed vital signs,~Labs/ Radiology~and current medications noted below. Continue current treatment with the changes noted in the dictated addendum note Assessment: Vital Signs: Vital Signs Date Time Temp Pulse Resp B/P (MAP) Pulse Ox O2 Delivery O2 Flow Rate FiO2 03/17/17 16:07 97.7 72 18 152/70 (97) 94 03/16/17 20:58 Room Air I&O Intake and Output 03/17/17 07:00 Intake Total 1800 ml Balance 1800 ml Intake Oral 1800 ml # Voids 1 Current Medications: Meds: Current Medications Acetaminophen (Tylenol) 650 mg PRN Q6HRS PRN PO PAIN / TEMP; Start 02/25/17 at 00:30; Stop 02/25/17 at 15:05; Status DC Multi-Ingredient Ointment (Analgesic [place]) 1 marcell PRN QID PRN TP MUSCLE PAIN; Start 02/25/17 at 00:30 Al Hydroxide/Mg Hydroxide (Mylanta Plus Xs) 15 ml PRN AFTMEALHC PRN PO DYSPEPSIA; Start 02/25/17 at 00:30 Magnesium Hydroxide (Milk Of Magnesia) 2,400 mg PRN QHS PRN PO CONSTIPATION; Start 02/25/17 at 00:30; Stop 02/25/17 at 15:05; Status DC Chlorpromazine HCl (Thorazine) 25 mg BID PO Last administered on 02/26/17 09: 34; Start 02/25/17 at 09:00; Stop 02/26/17 at 18:22; Status DC Citalopram Hydrobromide (Celexa) 20 mg DAILY PO Last administered on 03/17/17 07:56; Start 02/25/17 at 09:00 Lorazepam (Ativan) 1 mg PRN Q3HRS PRN PO ANXIETY / AGITATION Last administered on 03/15/17 16:37; Start 02/25/17 at 00:30 Risperidone (Risperdal) 0.5 mg BID PO Last administered on 02/26/17 09:34; Start 02/25/17 at 09:00; Stop 02/26/17 at 18:22; Status DC Trazodone HCl (Desyrel) 50 mg PRN QHS PRN PO INSOMNIA Last administered on 19:26; Start 02/25/17 at 00:30 Divalproex Sodium (Depakote Sprinkles) 500 mg TID PO Last administered on 13:34; Start 02/25/17 at 09:00 Acetaminophen (Tylenol) 650 mg PRN Q8HRS PRN PO PAIN Last administered on 05:32; Start 02/25/17 at 07:30 Amlodipine Besylate (Norvasc) 10 mg DAILY PO Last administered on 03/16/17 08: 06; Start 02/25/17 at 09:00 Gabapentin (Neurontin) 300 mg TID PO Last administered on 03/17/17 13:34; Start 02/25/17 at 09:00 Acetaminophen/ Hydrocodone Bitart (Lortab 5/325) 1 tab Q12HR PO Last administered on 03/17/17 07:54; Start 02/25/17 at 09:00 Insulin Aspart (Novolog) 6 units TIDWMEALS SQ Last administered on 03/17/17 17 :01; Start 02/25/17 at 08:00 Losartan Potassium (Cozaar) 50 mg DAILY PO Last administered on 03/16/17 08:05 ; Start 02/25/17 at 09:00 Senna/Docusate Sodium (Senna Plus) 1 tab DAILY PO Last administered on 07:55; Start 02/25/17 at 09:00 Insulin Detemir (Levemir) 15 units QHS SQ Last administered on 02/25/17 19:55 ; Start 02/25/17 at 21:00; Stop 02/26/17 at 14:21; Status DC Magnesium Hydroxide (Milk Of Magnesia) 2,400 mg PRN DAILY PRN PO CONSTIPATION; Start 02/25/17 at 07:45 Insulin Detemir (Levemir) 15 units QHS SQ Last administered on 03/16/17 21:02 ; Start 02/26/17 at 14:21 Chlorpromazine HCl (Thorazine) 25 mg DAILY PO Last administered on 02/28/17 09 :09; Start 02/27/17 at 09:00; Stop 02/28/17 at 15:50; Status DC Risperidone (Risperdal) 0.5 mg DAILY PO Last administered on 03/07/17 08:23; Start 02/27/17 at 09:00; Stop 03/07/17 at 18:51; Status DC Risperidone (Risperdal) 0.75 mg HS PO ; Start 02/26/17 at 21:00; Stop 02/26/17 at 21:00; Status DC Risperidone (Risperdal) 0.75 mg 14 PO Last administered on 03/17/17 13:35; Start 02/26/17 at 21:00 Buspirone HCl (Buspar) 5 mg BID PO Last administered on 03/01/17 08:38; Start 02/27/17 at 21:00; Stop 03/01/17 at 12:38; Status DC Buspirone HCl (Buspar) 10 mg BID PO Last administered on 03/02/17 08:05; Start 03/01/17 at 21:00; Stop 03/02/17 at 18:06; Status DC Trimethoprim/ Sulfamethoxazole (Bactrim Ds) 1 tab DAILY PO Last administered on 03/09/17 09:29; Start 03/02/17 at 09:00; Stop 03/09/17 at 09:01; Status DC Buspirone HCl (Buspar) 10 mg TIDAFTMEAL PO Last administered on 03/08/17 08:22 ; Start 03/03/17 at 09:00; Stop 03/08/17 at 12:53; Status DC Vitamin D (Vitamin D3) 50,000 unit WEEKLY PO Last administered on 03/17/17 07: 57; Start 03/03/17 at 09:00 Mirtazapine (Remeron) 7.5 mg QHS PO Last administered on 03/08/17 19:26; Start 03/05/17 at 21:00; Stop 03/09/17 at 18:14; Status DC Mirtazapine (Remeron) 15 mg QHS PO Last administered on 03/16/17 20:58; Start 03/06/17 at 21:00 Risperidone (Risperdal) 0.75 mg DAILY PO Last administered on 03/17/17 07:54; Start 03/08/17 at 09:00 Buspirone HCl (Buspar) 20 mg DAILY PO Last administered on 03/17/17 07:56; Start 03/09/17 at 09:00 Buspirone HCl (Buspar) 10 mg BID@1400,2100 PO Last administered on 03/17/17 13 :34; Start 03/08/17 at 14:00 Olanzapine (Zyprexa Zydis) 5 mg PRN Q2HR PRN PO PSYCHOSIS Last administered on 03/08/17 13:01; Start 03/08/17 at 13:00 Trazodone HCl (Desyrel) 12.5 mg BID92 PO Last administered on 03/17/17 13:35; Start 03/17/17 at 09:00 Active Scripts Active Reported Lantus Solostar (Insulin Glargine,Hum.rec.anlog) 100 Unit/1 Ml Insuln.pen 15 Unit SQ QHS Lorazepam 1 Mg Tablet 1 Mg PO PRN Q3HRS PRN Risperdal (Risperidone) 0.5 Mg Tablet 0.5 Mg PO BID Chlorpromazine Hcl 25 Mg Tablet 25 Mg PO BID Novolog Flexpen (Insulin Aspart) 100 Unit/1 Ml Insuln.pen 6 Unit SQ TIDWMEALS Gabapentin 300 Mg Capsule 300 Mg PO TID Milk Of Magnesia (Magnesium Hydroxide) 2,400 Mg/10 Ml Oral.susp 2,400 Mg PO PRN DAILY Trazodone Hcl 50 Mg Tablet 50 Mg PO PRN QHS PRN Divalproex Sodium 500 Mg Tablet.dr 500 Mg PO TID Losartan Potassium 50 Mg Tablet 50 Mg PO DAILY Senexon-S Tablet (Sennosides/Docusate Sodium) 1 Each Tablet 8.6-50 Mg PO DAILY Celexa (Citalopram Hydrobromide) 20 Mg Tablet 20 Mg PO DAILY Amlodipine Besylate 10 Mg Tablet 10 Mg PO DAILY Percocet 5-325 Mg Tablet (Oxycodone Hcl/Acetaminophen) 1 Each Tablet 1 Tab PO PRN Q8HRS PRN Hydrocodone-Apap 5-325 (Hydrocodone Bit/Acetaminophen) 1 Each Tablet 1 Tab PO Q12HR Tylenol (Acetaminophen) 325 Mg Tablet 650 Mg PO PRN Q8HRS PRN Diagnosis: Problems: (1) Psychiatric disorder (2) Bipolar affective, mixed, sev w/ psych (3) Anxiety disorder (4) Dementia in Alzheimer's disease with delusions (5) Impulse control disorder NANCY HHAN MD March 17, 2017 20:55
[2017-03-17] MEDS: MIRTAZAPINE 15 MG TABLET PO SCH (21:08)
[2017-03-17] MEDS: INSULIN DETEMIR 300 UNITS/3 ML INSULN.PEN. SQ SCH (21:20)
--- NOTE | 2017-03-18 01:47 | NUR ---
Behavior Intervention Response and Plan: BIRP Note: Behavior: Assumed Care of patient, patient located in Day Room at shift change. Patient exhibited the following behavior Calm, Able to Focus on Task, Cooperative. Brief assessment on rounds of vital signs, medication needs, lab studies, and pain. Treatment plan problems :1-2 Intervention: Patient assessed and the following interventions initiated safety checks 15 Minute Checks Cognitive Assessment , Head to toe Assessment , Medications. Response: After interactions and interventions patient responded in the following manner, Interactive , Calm ,Cooperative. Continue to assess behaviors and condition will continue to monitor throughout the shift as needed. 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 Continue to assess patient for changes in above assessment. Monitor for medication needs, pain, and safety concerns. Hourly rounding performed to ensure safe environment.
[2017-03-18 06:36] VITALS: BP 132/65
[2017-03-18] MEDS: LOSARTAN 50 MG TABLET. PO SCH (08:07)
[2017-03-18] MEDS: SENNOSIDES/DOCUSATE 8.6/50MG TABLET. PO SCH (08:07)
[2017-03-18] MEDS: traZODone 50 MG TABLET. PO SCH ×2 (08:07→13:19)
[2017-03-18] MEDS: busPIRone 10 MG TABLET. PO SCH ×3 (08:08→20:43)
[2017-03-18] MEDS: CITALOPRAM 20 MG TABLET. PO SCH (08:10)
[2017-03-18] MEDS: risperiDONE 0.5 MG TABLET. PO SCH (08:10)
[2017-03-18] MEDS: DIVALPROEX 125 MG CAP.SPRINK PO SCH ×3 (08:10→20:43)
--- NOTE | 2017-03-18 08:10 | NUR ---
Behavior Intervention Response and Plan: BIRP Note: Behavior: Assumed Care of patient, patient located in Day Room at shift change. Patient exhibited the following behavior Disorganized, Compulsive, Social. Brief assessment on rounds of vital signs, medication needs, lab studies, and pain. Treatment plan problems . Intervention: Patient assessed and the following interventions initiated safety checks 15 Minute Checks Cognitive Assessment , Head to toe Assessment , Medications. Response: After interactions and interventions patient responded in the following manner, Calm , Compliant ,Social. Continue to assess behaviors and condition will continue to monitor throughout the shift as needed. 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 Continue to assess patient for changes in above assessment. Monitor for medication needs, pain, and safety concerns. Hourly rounding performed to ensure safe environment.
[2017-03-18] MEDS: INSULIN ASPART 300 UNITS/3 ML INSULN.PEN SQ SCH ×3 (08:11→17:39)
[2017-03-18] MEDS: GABAPENTIN 300 MG CAPSULE. PO SCH ×3 (08:13→20:43)
[2017-03-18] MEDS: HYDROcodone/APAP 5/325MG 1 TAB TABLET PO SCH ×2 (08:16→20:52)
[2017-03-18] MEDS: amLODIPine BESYLATE 10 MG TABLET PO SCH (08:17)
[2017-03-18] MEDS: risperiDONE 0.25 MG TABLET. PO SCH (13:21)
[2017-03-18 16:23] VITALS: BP 107/54
--- NOTE | 2017-03-18 20:14 | PDOC ---
Exam Johann Demential Exam: Johann Note: Please also refer to the separate dictated note~for this date of service dictated separately.~Patient seen individually. Discussed the patient with Nursing staff reviewed the chart.~Reviewed interim history and current functioning. Reviewed vital signs,~Labs/ Radiology~and current medications noted below. Continue current treatment with the changes noted in the dictated addendum note Assessment: Vital Signs: Vital Signs Date Time Temp Pulse Resp B/P (MAP) Pulse Ox O2 Delivery O2 Flow Rate FiO2 03/18/17 16:23 97.8 59 18 107/54 (71) 93 03/18/17 08:16 Room Air I&O Intake and Output 03/18/17 07:00 Intake Total 1440 ml Balance 1440 ml Intake Oral 1440 ml # Voids 1 Current Medications: Meds: Current Medications Acetaminophen (Tylenol) 650 mg PRN Q6HRS PRN PO PAIN / TEMP; Start 02/25/17 at 00:30; Stop 02/25/17 at 15:05; Status DC Multi-Ingredient Ointment (Analgesic [place]) 1 marcell PRN QID PRN TP MUSCLE PAIN; Start 02/25/17 at 00:30 Al Hydroxide/Mg Hydroxide (Mylanta Plus Xs) 15 ml PRN AFTMEALHC PRN PO DYSPEPSIA; Start 02/25/17 at 00:30 Magnesium Hydroxide (Milk Of Magnesia) 2,400 mg PRN QHS PRN PO CONSTIPATION; Start 02/25/17 at 00:30; Stop 02/25/17 at 15:05; Status DC Chlorpromazine HCl (Thorazine) 25 mg BID PO Last administered on 02/26/17 09: 34; Start 02/25/17 at 09:00; Stop 02/26/17 at 18:22; Status DC Citalopram Hydrobromide (Celexa) 20 mg DAILY PO Last administered on 03/18/17 08:10; Start 02/25/17 at 09:00 Lorazepam (Ativan) 1 mg PRN Q3HRS PRN PO ANXIETY / AGITATION Last administered on 03/15/17 16:37; Start 02/25/17 at 00:30 Risperidone (Risperdal) 0.5 mg BID PO Last administered on 02/26/17 09:34; Start 02/25/17 at 09:00; Stop 02/26/17 at 18:22; Status DC Trazodone HCl (Desyrel) 50 mg PRN QHS PRN PO INSOMNIA Last administered on 19:26; Start 02/25/17 at 00:30 Divalproex Sodium (Depakote Sprinkles) 500 mg TID PO Last administered on 13:20; Start 02/25/17 at 09:00 Acetaminophen (Tylenol) 650 mg PRN Q8HRS PRN PO PAIN Last administered on 05:32; Start 02/25/17 at 07:30 Amlodipine Besylate (Norvasc) 10 mg DAILY PO Last administered on 03/18/17 08: 17; Start 02/25/17 at 09:00 Gabapentin (Neurontin) 300 mg TID PO Last administered on 03/18/17 13:20; Start 02/25/17 at 09:00 Acetaminophen/ Hydrocodone Bitart (Lortab 5/325) 1 tab Q12HR PO Last administered on 03/18/17 08:16; Start 02/25/17 at 09:00 Insulin Aspart (Novolog) 6 units TIDWMEALS SQ Last administered on 03/18/17 17 :39; Start 02/25/17 at 08:00 Losartan Potassium (Cozaar) 50 mg DAILY PO Last administered on 03/18/17 08:07 ; Start 02/25/17 at 09:00 Senna/Docusate Sodium (Senna Plus) 1 tab DAILY PO Last administered on 08:07; Start 02/25/17 at 09:00 Insulin Detemir (Levemir) 15 units QHS SQ Last administered on 02/25/17 19:55 ; Start 02/25/17 at 21:00; Stop 02/26/17 at 14:21; Status DC Magnesium Hydroxide (Milk Of Magnesia) 2,400 mg PRN DAILY PRN PO CONSTIPATION; Start 02/25/17 at 07:45 Insulin Detemir (Levemir) 15 units QHS SQ Last administered on 03/17/17 21:20 ; Start 02/26/17 at 14:21 Chlorpromazine HCl (Thorazine) 25 mg DAILY PO Last administered on 02/28/17 09 :09; Start 02/27/17 at 09:00; Stop 02/28/17 at 15:50; Status DC Risperidone (Risperdal) 0.5 mg DAILY PO Last administered on 03/07/17 08:23; Start 02/27/17 at 09:00; Stop 03/07/17 at 18:51; Status DC Risperidone (Risperdal) 0.75 mg HS PO ; Start 02/26/17 at 21:00; Stop 02/26/17 at 21:00; Status DC Risperidone (Risperdal) 0.75 mg 14 PO Last administered on 03/18/17 13:21; Start 02/26/17 at 21:00 Buspirone HCl (Buspar) 5 mg BID PO Last administered on 03/01/17 08:38; Start 02/27/17 at 21:00; Stop 03/01/17 at 12:38; Status DC Buspirone HCl (Buspar) 10 mg BID PO Last administered on 03/02/17 08:05; Start 03/01/17 at 21:00; Stop 03/02/17 at 18:06; Status DC Trimethoprim/ Sulfamethoxazole (Bactrim Ds) 1 tab DAILY PO Last administered on 03/09/17 09:29; Start 03/02/17 at 09:00; Stop 03/09/17 at 09:01; Status DC Buspirone HCl (Buspar) 10 mg TIDAFTMEAL PO Last administered on 03/08/17 08:22 ; Start 03/03/17 at 09:00; Stop 03/08/17 at 12:53; Status DC Vitamin D (Vitamin D3) 50,000 unit WEEKLY PO Last administered on 03/17/17 07: 57; Start 03/03/17 at 09:00 Mirtazapine (Remeron) 7.5 mg QHS PO Last administered on 03/08/17 19:26; Start 03/05/17 at 21:00; Stop 03/09/17 at 18:14; Status DC Mirtazapine (Remeron) 15 mg QHS PO Last administered on 03/17/17 21:08; Start 03/06/17 at 21:00 Risperidone (Risperdal) 0.75 mg DAILY PO Last administered on 03/18/17 08:10; Start 03/08/17 at 09:00 Buspirone HCl (Buspar) 20 mg DAILY PO Last administered on 03/18/17 08:08; Start 03/09/17 at 09:00 Buspirone HCl (Buspar) 10 mg BID@1400,2100 PO Last administered on 03/18/17 13 :21; Start 03/08/17 at 14:00 Olanzapine (Zyprexa Zydis) 5 mg PRN Q2HR PRN PO PSYCHOSIS Last administered on 03/08/17 13:01; Start 03/08/17 at 13:00 Trazodone HCl (Desyrel) 12.5 mg BID92 PO Last administered on 03/18/17 13:19; Start 03/17/17 at 09:00 Active Scripts Active Reported Lantus Solostar (Insulin Glargine,Hum.rec.anlog) 100 Unit/1 Ml Insuln.pen 15 Unit SQ QHS Lorazepam 1 Mg Tablet 1 Mg PO PRN Q3HRS PRN Risperdal (Risperidone) 0.5 Mg Tablet 0.5 Mg PO BID Chlorpromazine Hcl 25 Mg Tablet 25 Mg PO BID Novolog Flexpen (Insulin Aspart) 100 Unit/1 Ml Insuln.pen 6 Unit SQ TIDWMEALS Gabapentin 300 Mg Capsule 300 Mg PO TID Milk Of Magnesia (Magnesium Hydroxide) 2,400 Mg/10 Ml Oral.susp 2,400 Mg PO PRN DAILY Trazodone Hcl 50 Mg Tablet 50 Mg PO PRN QHS PRN Divalproex Sodium 500 Mg Tablet.dr 500 Mg PO TID Losartan Potassium 50 Mg Tablet 50 Mg PO DAILY Senexon-S Tablet (Sennosides/Docusate Sodium) 1 Each Tablet 8.6-50 Mg PO DAILY Celexa (Citalopram Hydrobromide) 20 Mg Tablet 20 Mg PO DAILY Amlodipine Besylate 10 Mg Tablet 10 Mg PO DAILY Percocet 5-325 Mg Tablet (Oxycodone Hcl/Acetaminophen) 1 Each Tablet 1 Tab PO PRN Q8HRS PRN Hydrocodone-Apap 5-325 (Hydrocodone Bit/Acetaminophen) 1 Each Tablet 1 Tab PO Q12HR Tylenol (Acetaminophen) 325 Mg Tablet 650 Mg PO PRN Q8HRS PRN NANCY HAHN MD March 18, 2017 20:14
[2017-03-18] MEDS: MIRTAZAPINE 15 MG TABLET PO SCH (20:43)
[2017-03-18] MEDS: INSULIN DETEMIR 300 UNITS/3 ML INSULN.PEN. SQ SCH (20:54)
--- NOTE | 2017-03-18 23:29 | PN ---
DATE: 03/16/2017 PSYCHIATRIC PROGRESS NOTE This is a late entry for 03/16/2017, covers elements not covered in my initial note. SUBJECTIVE: The patient was quite frustrated morning of 03/16/2017. In the evening, she was convinced that news item had shown that her sister was involved in a car crash, then she was yelling and crying for over 1 hour and then seemed to be better as anxiety reduced and she was from the rest of the unit. REVIEW OF SYSTEMS: Hard of hearing. Speech can be loud at times consequent to the hard of hearing. No CV, , pulmonary, eye system symptoms on review. MENTAL STATUS EXAM: Oriented to herself and situation. Abstraction fair, computation impaired, language function intact, but her speech has effected due to being hard of hearing. No active suicidal or homicidal ideation. IMPRESSION: Unchanged from initial note. PLAN: Start trazodone 12.5 mg twice a day. Continue rest of the psychotropics mentioned in my initial note. MAN Kemal HAHN MD DR: MARGA/estelle JOB#: [id number] / [id number]
--- NOTE | 2017-03-19 01:34 | NUR ---
Behavior Intervention Response and Plan: BIRP Note: Behavior: Assumed Care of patient, patient located in Day Room at shift change. Patient exhibited the following behavior Interactive, Calm, Able to Focus on Task. Brief assessment on rounds of vital signs, medication needs, lab studies, and pain. Treatment plan problems :1-2 Intervention: Patient assessed and the following interventions initiated safety checks 15 Minute Checks Cognitive Assessment , Head to toe Assessment , Head to toe Assessment. Response: After interactions and interventions patient responded in the following manner, Calm , Compliant ,Interactive. Continue to assess behaviors and condition will continue to monitor throughout the shift as needed. Plan: Continue to monitor Master Treatment Plan for patient's progress toward short term goals of Decreased Agitation, Improved Mood, director product safety goals to return to previous living setting vs placement. Continue to assess patient for changes in above assessment. Monitor for medication needs, pain, and safety concerns. Hourly rounding performed to ensure safe environment.
[2017-03-19 06:39] VITALS: BP 158/75
[2017-03-19] MEDS: GABAPENTIN 300 MG CAPSULE. PO SCH ×3 (07:51→19:34)
[2017-03-19] MEDS: amLODIPine BESYLATE 10 MG TABLET PO SCH (07:51)
[2017-03-19] MEDS: CITALOPRAM 20 MG TABLET. PO SCH (07:51)
[2017-03-19] MEDS: LOSARTAN 50 MG TABLET. PO SCH (07:51)
[2017-03-19] MEDS: HYDROcodone/APAP 5/325MG 1 TAB TABLET PO SCH ×2 (07:52→19:34)
[2017-03-19] MEDS: busPIRone 10 MG TABLET. PO SCH ×3 (07:52→19:33)
[2017-03-19] MEDS: SENNOSIDES/DOCUSATE 8.6/50MG TABLET. PO SCH (07:52)
[2017-03-19] MEDS: DIVALPROEX 125 MG CAP.SPRINK PO SCH ×3 (07:52→19:34)
[2017-03-19] MEDS: risperiDONE 0.5 MG TABLET. PO SCH (07:53)
[2017-03-19] MEDS: traZODone 50 MG TABLET. PO SCH ×2 (07:53→14:07)
[2017-03-19] MEDS: INSULIN ASPART 300 UNITS/3 ML INSULN.PEN SQ SCH ×3 (07:58→17:09)
--- NOTE | 2017-03-19 10:45 | NUR ---
Behavior Intervention Response and Plan: BIRP Note: Behavior: Assumed Care of patient, patient located in Dining Room at shift change. Patient exhibited the following behavior Calm, Compliant, Cooperative. Brief assessment on rounds of vital signs, medication needs, lab studies, and pain. Treatment plan problems . Intervention: Patient assessed and the following interventions initiated safety checks 15 Minute Checks Cognitive Assessment , Head to toe Assessment , Medications. Response: After interactions and interventions patient responded in the following manner, Calm , Compliant ,Cooperative. Continue to assess behaviors and condition will continue to monitor throughout the shift as needed. Plan: Continue to monitor Master Treatment Plan for patient's progress toward short term goals of Decreased Anxiety, Decreased Agitation, chcf goals to return to previous living setting vs placement. Continue to assess patient for changes in above assessment. Monitor for medication needs, pain, and safety concerns. Hourly rounding performed to ensure safe environment.
--- NOTE | 2017-03-19 11:10 | NUR ---
THERAPEUTIC RECREATION GROUP NOTE TITLE :Q & A with yarn and noodles ACTIVITY : Reminiscing Activity GOAL : Increase socialization, gain perspective, elevate mood, stimulate memory, increase fine motor functioning DURATION : 40 Minutes RESPONSE : No participation.
[2017-03-19] MEDS: risperiDONE 0.25 MG TABLET. PO SCH (14:07)
--- NOTE | 2017-03-19 15:30 | NUR ---
THERAPEUTIC RECREATION GROUP NOTE TITLE :[employer] ACTIVITY : Music GOAL : Increase socialization, elevate mood, stimulate memory DURATION : 90 Minutes RESPONSE : Full participation. Pt. clapped and danced along with the music. She applauded the efforts of others and had a smile on her face most of the time.
[2017-03-19 16:18] VITALS: BP 125/60
[2017-03-19] MEDS: MIRTAZAPINE 15 MG TABLET PO SCH (19:34)
[2017-03-19] MEDS: INSULIN DETEMIR 300 UNITS/3 ML INSULN.PEN. SQ SCH (19:35)
--- NOTE | 2017-03-19 21:10 | PDOC ---
Exam Johann Demential Exam: Johann Note: Please also refer to the separate dictated note~for this date of service dictated separately.~Patient seen individually. Discussed the patient with Nursing staff reviewed the chart.~Reviewed interim history and current functioning. Reviewed vital signs,~Labs/ Radiology~and current medications noted below. Continue current treatment with the changes noted in the dictated addendum note Assessment: Vital Signs: Vital Signs Date Time Temp Pulse Resp B/P (MAP) Pulse Ox O2 Delivery O2 Flow Rate FiO2 03/19/17 19:34 95 Room Air 03/19/17 16:18 98.1 65 16 125/60 (81) I&O Intake and Output 03/19/17 07:00 Intake Total 1320 ml Balance 1320 ml Intake Oral 1320 ml Labs: Laboratory Tests Test 03/19/17 07:11 03/19/17 11:23 03/19/17 16:45 03/19/17 19:10 Glucose (Fingerstick) 124 mg/dL (70-99) H 146 mg/dL (70-99) H 168 mg/dL (70-99) H 273 mg/dL (70-99) H Current Medications: Meds: Current Medications Acetaminophen (Tylenol) 650 mg PRN Q6HRS PRN PO PAIN / TEMP; Start 02/25/17 at 00:30; Stop 02/25/17 at 15:05; Status DC Multi-Ingredient Ointment (Analgesic [place]) 1 marcell PRN QID PRN TP MUSCLE PAIN; Start 02/25/17 at 00:30 Al Hydroxide/Mg Hydroxide (Mylanta Plus Xs) 15 ml PRN AFTMEALHC PRN PO DYSPEPSIA; Start 02/25/17 at 00:30 Magnesium Hydroxide (Milk Of Magnesia) 2,400 mg PRN QHS PRN PO CONSTIPATION; Start 02/25/17 at 00:30; Stop 02/25/17 at 15:05; Status DC Chlorpromazine HCl (Thorazine) 25 mg BID PO Last administered on 02/26/17 09: 34; Start 02/25/17 at 09:00; Stop 02/26/17 at 18:22; Status DC Citalopram Hydrobromide (Celexa) 20 mg DAILY PO Last administered on 03/19/17 07:51; Start 02/25/17 at 09:00 Lorazepam (Ativan) 1 mg PRN Q3HRS PRN PO ANXIETY / AGITATION Last administered on 03/15/17 16:37; Start 02/25/17 at 00:30 Risperidone (Risperdal) 0.5 mg BID PO Last administered on 02/26/17 09:34; Start 02/25/17 at 09:00; Stop 02/26/17 at 18:22; Status DC Trazodone HCl (Desyrel) 50 mg PRN QHS PRN PO INSOMNIA Last administered on 19:26; Start 02/25/17 at 00:30 Divalproex Sodium (Depakote Sprinkles) 500 mg TID PO Last administered on 19:34; Start 02/25/17 at 09:00 Acetaminophen (Tylenol) 650 mg PRN Q8HRS PRN PO PAIN Last administered on 05:32; Start 02/25/17 at 07:30 Amlodipine Besylate (Norvasc) 10 mg DAILY PO Last administered on 03/19/17 07: 51; Start 02/25/17 at 09:00 Gabapentin (Neurontin) 300 mg TID PO Last administered on 03/19/17 19:34; Start 02/25/17 at 09:00 Acetaminophen/ Hydrocodone Bitart (Lortab 5/325) 1 tab Q12HR PO Last administered on 03/19/17 19:34; Start 02/25/17 at 09:00 Insulin Aspart (Novolog) 6 units TIDWMEALS SQ Last administered on 03/19/17 17 :09; Start 02/25/17 at 08:00 Losartan Potassium (Cozaar) 50 mg DAILY PO Last administered on 03/19/17 07:51 ; Start 02/25/17 at 09:00 Senna/Docusate Sodium (Senna Plus) 1 tab DAILY PO Last administered on 07:52; Start 02/25/17 at 09:00 Insulin Detemir (Levemir) 15 units QHS SQ Last administered on 02/25/17 19:55 ; Start 02/25/17 at 21:00; Stop 02/26/17 at 14:21; Status DC Magnesium Hydroxide (Milk Of Magnesia) 2,400 mg PRN DAILY PRN PO CONSTIPATION; Start 02/25/17 at 07:45 Insulin Detemir (Levemir) 15 units QHS SQ Last administered on 03/19/17 19:35 ; Start 02/26/17 at 14:21 Chlorpromazine HCl (Thorazine) 25 mg DAILY PO Last administered on 02/28/17 09 :09; Start 02/27/17 at 09:00; Stop 02/28/17 at 15:50; Status DC Risperidone (Risperdal) 0.5 mg DAILY PO Last administered on 03/07/17 08:23; Start 02/27/17 at 09:00; Stop 03/07/17 at 18:51; Status DC Risperidone (Risperdal) 0.75 mg HS PO ; Start 02/26/17 at 21:00; Stop 02/26/17 at 21:00; Status DC Risperidone (Risperdal) 0.75 mg 14 PO Last administered on 03/19/17 14:07; Start 02/26/17 at 21:00 Buspirone HCl (Buspar) 5 mg BID PO Last administered on 03/01/17 08:38; Start 02/27/17 at 21:00; Stop 03/01/17 at 12:38; Status DC Buspirone HCl (Buspar) 10 mg BID PO Last administered on 03/02/17 08:05; Start 03/01/17 at 21:00; Stop 03/02/17 at 18:06; Status DC Trimethoprim/ Sulfamethoxazole (Bactrim Ds) 1 tab DAILY PO Last administered on 03/09/17 09:29; Start 03/02/17 at 09:00; Stop 03/09/17 at 09:01; Status DC Buspirone HCl (Buspar) 10 mg TIDAFTMEAL PO Last administered on 03/08/17 08:22 ; Start 03/03/17 at 09:00; Stop 03/08/17 at 12:53; Status DC Vitamin D (Vitamin D3) 50,000 unit WEEKLY PO Last administered on 03/17/17 07: 57; Start 03/03/17 at 09:00 Mirtazapine (Remeron) 7.5 mg QHS PO Last administered on 03/08/17 19:26; Start 03/05/17 at 21:00; Stop 03/09/17 at 18:14; Status DC Mirtazapine (Remeron) 15 mg QHS PO Last administered on 03/19/17 19:34; Start 03/06/17 at 21:00 Risperidone (Risperdal) 0.75 mg DAILY PO Last administered on 03/19/17 07:53; Start 03/08/17 at 09:00 Buspirone HCl (Buspar) 20 mg DAILY PO Last administered on 03/19/17 07:52; Start 03/09/17 at 09:00 Buspirone HCl (Buspar) 10 mg BID@1400,2100 PO Last administered on 03/19/17 19 :33; Start 03/08/17 at 14:00 Olanzapine (Zyprexa Zydis) 5 mg PRN Q2HR PRN PO PSYCHOSIS Last administered on 03/08/17 13:01; Start 03/08/17 at 13:00 Trazodone HCl (Desyrel) 12.5 mg BID92 PO Last administered on 03/19/17 14:07; Start 03/17/17 at 09:00 Active Scripts Active Reported Lantus Solostar (Insulin Glargine,Hum.rec.anlog) 100 Unit/1 Ml Insuln.pen 15 Unit SQ QHS Lorazepam 1 Mg Tablet 1 Mg PO PRN Q3HRS PRN Risperdal (Risperidone) 0.5 Mg Tablet 0.5 Mg PO BID Chlorpromazine Hcl 25 Mg Tablet 25 Mg PO BID Novolog Flexpen (Insulin Aspart) 100 Unit/1 Ml Insuln.pen 6 Unit SQ TIDWMEALS Gabapentin 300 Mg Capsule 300 Mg PO TID Milk Of Magnesia (Magnesium Hydroxide) 2,400 Mg/10 Ml Oral.susp 2,400 Mg PO PRN DAILY Trazodone Hcl 50 Mg Tablet 50 Mg PO PRN QHS PRN Divalproex Sodium 500 Mg Tablet.dr 500 Mg PO TID Losartan Potassium 50 Mg Tablet 50 Mg PO DAILY Senexon-S Tablet (Sennosides/Docusate Sodium) 1 Each Tablet 8.6-50 Mg PO DAILY Celexa (Citalopram Hydrobromide) 20 Mg Tablet 20 Mg PO DAILY Amlodipine Besylate 10 Mg Tablet 10 Mg PO DAILY Percocet 5-325 Mg Tablet (Oxycodone Hcl/Acetaminophen) 1 Each Tablet 1 Tab PO PRN Q8HRS PRN Hydrocodone-Apap 5-325 (Hydrocodone Bit/Acetaminophen) 1 Each Tablet 1 Tab PO Q12HR Tylenol (Acetaminophen) 325 Mg Tablet 650 Mg PO PRN Q8HRS PRN NANCY HAHN MD March 19, 2017 21:10
[2017-03-19] MEDS ORDERED: MINERAL OIL/PETROLATUM TOPICAL CREAM 113GM JAR. TP PRN (22:45)
--- NOTE | 2017-03-20 01:04 | NUR ---
Behavior Intervention Response and Plan: BIRP Note: Behavior: Assumed Care of patient, patient located in Day Room at shift change. Patient exhibited the following behavior Calm, Interactive, Able to Focus on Task. Brief assessment on rounds of vital signs, medication needs, lab studies, and pain. Treatment plan problems . Intervention: Patient assessed and the following interventions initiated safety checks 15 Minute Checks Cognitive Assessment , Head to toe Assessment , Medications. Response: After interactions and interventions patient responded in the following manner, Appropriate , Compliant ,Cooperative. Continue to assess behaviors and condition will continue to monitor throughout the shift as needed. Plan: Continue to monitor Master Treatment Plan for patient's progress toward short term goals of Decreased Anxiety, Medication Compliance, joint terminal attack controller goals to return to previous living setting vs placement. Continue to assess patient for changes in above assessment. Monitor for medication needs, pain, and safety concerns. Hourly rounding performed to ensure safe environment.
--- NOTE | 2017-03-20 01:44 | PN ---
DATE: 03/17/2017 This is a late entry for 03/17/2017 covers elements not covered in my initial note. SUBJECTIVE: The patient has been compliant and cooperative, a little more animated, interactive. REVIEW OF SYSTEMS: No CV, , pulmonary, eye, ENT system symptoms on review. She is extremely hard of hearing, speech impaired as a consequence of this, but understandable and much better than when she was first admitted. MENTAL STATUS EXAM: Reasonably oriented. Speech as above, abstraction fair, computation impaired, language function intact. Mood and affect, lability is improved. LABORATORY DATA: Reviewed. IMPRESSION: Unchanged from initial note. PLAN: Continue psychotropics mentioned in my initial note. Valproic acid level therapeutic at 76. Adjust as clinically indicated. MAN Kemal HAHN MD DR: MARGA/estelle JOB#: [id number] / [id number]
--- NOTE | 2017-03-20 01:46 | PN ---
DATE: 03/18/2017 This is a late entry of 03/18/2017 covers elements not covered in my initial note. SUBJECTIVE: Overall, the patient has been fairly cooperative on the unit. REVIEW OF SYSTEMS: Hard of hearing and impaired speech as a consequence of this. No CV, , pulmonary, eye system symptoms on review. MENTAL STATUS EXAM: Reasonably oriented. Speech as above. Abstraction fair. Mood and affect appears improved, less anxious. No suicidal or homicidal ideation. IMPRESSION: Unchanged from initial note. PLAN: Continue psychotropics mentioned in my initial note. MAN Kemal HAHN MD DR: MARGA/estelle JOB#: [id number] / [id number]
[2017-03-20 06:08] VITALS: BP 130/69
[2017-03-20] MEDS: busPIRone 10 MG TABLET. PO SCH ×3 (07:55→19:23)
[2017-03-20] MEDS: CITALOPRAM 20 MG TABLET. PO SCH (07:56)
[2017-03-20] MEDS: GABAPENTIN 300 MG CAPSULE. PO SCH ×3 (07:56→19:24)
[2017-03-20] MEDS: LOSARTAN 50 MG TABLET. PO SCH (07:56)
[2017-03-20] MEDS: DIVALPROEX 125 MG CAP.SPRINK PO SCH ×3 (07:56→19:23)
[2017-03-20] MEDS: risperiDONE 0.5 MG TABLET. PO SCH (07:57)
[2017-03-20] MEDS: amLODIPine BESYLATE 10 MG TABLET PO SCH (07:57)
[2017-03-20] MEDS: traZODone 50 MG TABLET. PO SCH ×2 (07:57→13:39)
[2017-03-20] MEDS: SENNOSIDES/DOCUSATE 8.6/50MG TABLET. PO SCH (07:58)
[2017-03-20] MEDS: HYDROcodone/APAP 5/325MG 1 TAB TABLET PO SCH ×2 (07:59→19:24)
[2017-03-20] MEDS: INSULIN ASPART 300 UNITS/3 ML INSULN.PEN SQ SCH ×3 (08:00→16:59)
[2017-03-20 09:43] LABS: BASO # 0.1 x10^3/uL (0.0-0.2); BASO % 1 % (0-3); EOS # 0.1 x10^3/uL (0.0-0.7); EOS % 1 % (0-3); HEMATOCRIT 40.1 % (36.0-47.0); HEMOGLOBIN 13.5 g/dL (12.0-15.5); LYMPH # 1.9 x10^3/uL (1.0-4.8); LYMPH % 33 % (24-48); MEAN CORPUSCULAR HEMOGLOBIN 31 pg (25-35); MEAN CORPUSCULAR HGB CONC 34 g/dL (31-37); MEAN CORPUSCULAR VOLUME 92 fL (79-100); MONO # 0.6 x10^3/uL (0.0-1.1); MONO % 10 % (0-9); NEUT # 3.2 x10^3uL (1.8-7.7); NEUT % 55 % (31-73); PLATELET COUNT 166 x10^3/uL (140-400); RED BLOOD COUNT 4.37 x10^6/uL (3.50-5.40); RED CELL DISTRIBUTION WIDTH 14.4 % (11.5-14.5); WHITE BLOOD COUNT 5.9 x10^3/uL (4.0-11.0)
--- NOTE | 2017-03-20 09:52 | NUR ---
Behavior Intervention Response and Plan: BIRP Note: Behavior: Assumed Care of patient, patient located in Day Room at shift change. Patient exhibited the following behavior Disorganized, Demanding, Irritable. Brief assessment on rounds of vital signs, medication needs, lab studies, and pain. Treatment plan problems . Intervention: Patient assessed and the following interventions initiated safety checks 15 Minute Checks Medications , Head to toe Assessment , Nutrition. Response: After interactions and interventions patient responded in the following manner, Cooperative , Interactive ,Able to Focus on Task. Continue to assess behaviors and condition will continue to monitor throughout the shift as needed. Plan: Continue to monitor Master Treatment Plan for patient's progress toward short term goals of No harm To self/ others, Medication Compliance, long term acute care registered nurse goals to return to previous living setting vs placement. Continue to assess patient for changes in above assessment. Monitor for medication needs, pain, and safety concerns. Hourly rounding performed to ensure safe environment.
[2017-03-20 09:55] LABS: ALBUMIN 3.1 g/dL (3.4-5.0); ALBUMIN/GLOBULIN RATIO 0.8 (1.0-1.7); ALK PHOS 69 U/L (46-116); ALT (SGPT) 17 U/L (14-59); ANION GAP 9 (6-14); AST (SGOT) 16 U/L (15-37); BLOOD UREA NITROGEN 16 mg/dL (7-20); BUN/CREATININE RATIO 18 (6-20); CALCIUM 8.5 mg/dL (8.5-10.1); CARBON DIOXIDE 28 mmol/L (21-32); CHLORIDE 101 mmol/L (98-107); CREATININE 0.9 mg/dL (0.6-1.0); GFR 63.7; GLUCOSE 217 mg/dL (70-99); MAGNESIUM 1.8 mg/dL (1.8-2.4); POTASSIUM 4.6 mmol/L (3.5-5.1); SODIUM 138 mmol/L (136-145); TOTAL BILIRUBIN 0.4 mg/dL (0.2-1.0); TOTAL PROTEIN 7.2 g/dL (6.4-8.2)
[2017-03-20 09:56] LABS: VAL ACID 90 mcg/mL (50-100)
--- NOTE | 2017-03-20 11:07 | NUR ---
OMA left a message for Rocio Salcedo, [facility] regarding Level II evaluation. OMA has not received any further contact regarding the evaluation. OMA contacted Dameon, Pt's ex brother in law/DPOA regarding dc arrangements. OMA verified that the Pt's belongings are still at [facility] for the possibility of Pt. to return at DC. Dameon is fine w/the Pt. returning to [facility] as an option until the Level II can be completed. OMA shared the improvements of Pt. and that she may be more successful now in the [place]. Dameon stated he know's the Pt. is capable of making better choices, but that he is unsure she will be able to maintain any kind of good behavior to be able to continue living in the [place]. OMA stated he and the facility could re-evaluate the options of transitioning Pt. to a higher level of care, if needed. OMA contacted Anusha, Wellness nurse at [facility] about the possibility of PT. returning at dc. Anusha will notify the Staff Nurse [facility], Dillan, to come to this facility to complete an evaluation for re admit. OMA faxed updated clinical notes to facility for review. OMA has discussed PT. stating she is "returning home" as she has not mentioned returning to [facility], where she has resided for the past year. Pt. states she has a home in [place], [place] and she will return there and then find somewhere else to live. When OMA attempts to redirect her, she is unable to understand she is not returning to [place], [place]. Pt. is also unable to be redirected and will continue to fixate on this decision she has made, prompting the need for a PRN.
[2017-03-20] MEDS: LORazepam 1 MG TABLET PO PRN (11:12)
--- NOTE | 2017-03-20 12:53 | NUR ---
OMA attempted to help de-escalate Pt. after lunch as she was perseverating on the idea she was told she could dc on at 11:00 sharp. OMA attempted to help Pt. acknowledge her current behavior was not acceptable and she could no longer demand for people to allow her to leave - and to do things for her at that exact minute. Pt. will throw objects at this SW and demand she do (ie: mail the items, put them on her chart, etc). Pt. attempted to provide excuses for her behavior, such as she doesn't have her hearing aides in so that is why she is speaking loudly. SW continued to redirect Pt. to help her acknowledge her choices for her behavior are not acceptable. Pt. then began accusing everyone around her of being a liar because she thought she could go home tomorrow. Pt. then began to scream. OMA told Pt. she needed to go to her room if she wanted to continue those choices as it is bothering other Pts. around her. Pt. refused to move out of the hallway where other PT. where currently standing. An Aide assisted Pt. to the quiet hallway to help herself calm down.
[2017-03-20] MEDS: risperiDONE 0.25 MG TABLET. PO SCH (13:40)
--- NOTE | 2017-03-20 14:00 | NUR ---
THERAPEUTIC RECREATION GROUP NOTE TITLE :Dance and Sing along with Frances ACTIVITY : Music GOAL : Increase socialization, elevate mood, stimulate memory DURATION : 60 Minutes RESPONSE : No participation
[2017-03-20 16:00] VITALS: BP 118/53
--- NOTE | 2017-03-20 18:29 | NUR ---
Patient became highly agitated and demanded to leave tomorrow at 11am to her home that she previously lived in. She continued to escalate despite attempts made by social workers to talk to patient about placement and discharge date. Notes were written to patient to more clearly explain situation. She became even more agitated and banged on the glass window and screamed. The tantrum lasted approximately 2 hours. She was given Ativan and Zydis PRN. 2pm meds were given as ordered and following this, patient fell asleep. She remains fixated on leaving. MD spoke to patient about discharge plans. We will continue on 15 minute safety checks.
[2017-03-20] MEDS: MIRTAZAPINE 15 MG TABLET PO SCH (19:24)
[2017-03-20] MEDS: INSULIN DETEMIR 300 UNITS/3 ML INSULN.PEN. SQ SCH (19:26)
--- NOTE | 2017-03-20 21:11 | PDOC ---
Exam Johann Demential Exam: Johann Note: Please also refer to the separate dictated note~for this date of service dictated separately.~Patient seen individually. Discussed the patient with Nursing staff reviewed the chart.~Reviewed interim history and current functioning. Reviewed vital signs,~Labs/ Radiology~and current medications noted below. Continue current treatment with the changes noted in the dictated addendum note Assessment: Vital Signs: Vital Signs Date Time Temp Pulse Resp B/P (MAP) Pulse Ox O2 Delivery O2 Flow Rate FiO2 03/20/17 20:24 95 Room Air 03/20/17 16:00 97.8 59 18 118/53 (74) I&O Intake and Output 03/20/17 07:00 Intake Total 960 ml Balance 960 ml Intake Oral 960 ml Labs: Laboratory Tests Test 03/20/17 07:14 03/20/17 09:35 03/20/17 11:13 03/20/17 16:56 Glucose (Fingerstick) 129 mg/dL (70-99) H 168 mg/dL (70-99) H 160 mg/dL (70-99) H White Blood Count 5.9 x10^3/uL (4.0-11.0) Red Blood Count 4.37 x10^6/uL (3.50-5.40) Hemoglobin 13.5 g/dL (12.0-15.5) Hematocrit 40.1 % (36.0-47.0) Mean Corpuscular Volume 92 fL (79-100) Mean Corpuscular Hemoglobin 31 pg (25-35) Mean Corpuscular Hemoglobin Concent 34 g/dL (31-37) Red Cell Distribution Width 14.4 % (11.5-14.5) Platelet Count 166 x10^3/uL (140-400) Neutrophils (%) (Auto) 55 % (31-73) Lymphocytes (%) (Auto) 33 % (24-48) Monocytes (%) (Auto) 10 % (0-9) H Eosinophils (%) (Auto) 1 % (0-3) Basophils (%) (Auto) 1 % (0-3) Neutrophils # (Auto) 3.2 x10^3uL (1.8-7.7) Lymphocytes # (Auto) 1.9 x10^3/uL (1.0-4.8) Monocytes # (Auto) 0.6 x10^3/uL (0.0-1.1) Eosinophils # (Auto) 0.1 x10^3/uL (0.0-0.7) Basophils # (Auto) 0.1 x10^3/uL (0.0-0.2) Sodium Level 138 mmol/L (136-145) Potassium Level 4.6 mmol/L (3.5-5.1) Chloride Level 101 mmol/L (98-107) Carbon Dioxide Level 28 mmol/L (21-32) Anion Gap 9 (6-14) Blood Urea Nitrogen 16 mg/dL (7-20) Creatinine 0.9 mg/dL (0.6-1.0) Estimated GFR (Cockcroft-Gault) 63.7 BUN/Creatinine Ratio 18 (6-20) Glucose Level 217 mg/dL (70-99) H Calcium Level 8.5 mg/dL (8.5-10.1) Magnesium Level 1.8 mg/dL (1.8-2.4) Total Bilirubin 0.4 mg/dL (0.2-1.0) Aspartate Amino Transferase (AST) 16 U/L (15-37) Alanine Aminotransferase (ALT) 17 U/L (14-59) Alkaline Phosphatase 69 U/L (46-116) Total Protein 7.2 g/dL (6.4-8.2) Albumin 3.1 g/dL (3.4-5.0) L Albumin/Globulin Ratio 0.8 (1.0-1.7) L Valproic Acid Level 90 mcg/mL (50-100) Valproic Acid Last Dose Date 03/19/17 Valproic Acid Last Dose Time 2100 Test 03/20/17 19:01 Glucose (Fingerstick) 200 mg/dL (70-99) H Current Medications: Meds: Current Medications Acetaminophen (Tylenol) 650 mg PRN Q6HRS PRN PO PAIN / TEMP; Start 02/25/17 at 00:30; Stop 02/25/17 at 15:05; Status DC Multi-Ingredient Ointment (Analgesic Stamps) 1 marcell PRN QID PRN TP MUSCLE PAIN; Start 02/25/17 at 00:30 Al Hydroxide/Mg Hydroxide (Mylanta Plus Xs) 15 ml PRN AFTMEALHC PRN PO DYSPEPSIA; Start 02/25/17 at 00:30 Magnesium Hydroxide (Milk Of Magnesia) 2,400 mg PRN QHS PRN PO CONSTIPATION; Start 02/25/17 at 00:30; Stop 02/25/17 at 15:05; Status DC Chlorpromazine HCl (Thorazine) 25 mg BID PO Last administered on 02/26/17 09: 34; Start 02/25/17 at 09:00; Stop 02/26/17 at 18:22; Status DC Citalopram Hydrobromide (Celexa) 20 mg DAILY PO Last administered on 03/20/17 07:56; Start 02/25/17 at 09:00 Lorazepam (Ativan) 1 mg PRN Q3HRS PRN PO ANXIETY / AGITATION Last administered on 03/20/17 11:12; Start 02/25/17 at 00:30 Risperidone (Risperdal) 0.5 mg BID PO Last administered on 02/26/17 09:34; Start 02/25/17 at 09:00; Stop 02/26/17 at 18:22; Status DC Trazodone HCl (Desyrel) 50 mg PRN QHS PRN PO INSOMNIA Last administered on 19:26; Start 02/25/17 at 00:30 Divalproex Sodium (Depakote Sprinkles) 500 mg TID PO Last administered on 19:23; Start 02/25/17 at 09:00 Acetaminophen (Tylenol) 650 mg PRN Q8HRS PRN PO PAIN Last administered on 05:32; Start 02/25/17 at 07:30 Amlodipine Besylate (Norvasc) 10 mg DAILY PO Last administered on 03/20/17 07: 57; Start 02/25/17 at 09:00 Gabapentin (Neurontin) 300 mg TID PO Last administered on 03/20/17 19:24; Start 02/25/17 at 09:00 Acetaminophen/ Hydrocodone Bitart (Lortab 5/325) 1 tab Q12HR PO Last administered on 03/20/17 19:24; Start 02/25/17 at 09:00 Insulin Aspart (Novolog) 6 units TIDWMEALS SQ Last administered on 03/20/17 16 :59; Start 02/25/17 at 08:00 Losartan Potassium (Cozaar) 50 mg DAILY PO Last administered on 03/20/17 07:56 ; Start 02/25/17 at 09:00 Senna/Docusate Sodium (Senna Plus) 1 tab DAILY PO Last administered on 07:58; Start 02/25/17 at 09:00 Insulin Detemir (Levemir) 15 units QHS SQ Last administered on 02/25/17 19:55 ; Start 02/25/17 at 21:00; Stop 02/26/17 at 14:21; Status DC Magnesium Hydroxide (Milk Of Magnesia) 2,400 mg PRN DAILY PRN PO CONSTIPATION; Start 02/25/17 at 07:45 Insulin Detemir (Levemir) 15 units QHS SQ Last administered on 03/20/17 19:26 ; Start 02/26/17 at 14:21 Chlorpromazine HCl (Thorazine) 25 mg DAILY PO Last administered on 02/28/17 09 :09; Start 02/27/17 at 09:00; Stop 02/28/17 at 15:50; Status DC Risperidone (Risperdal) 0.5 mg DAILY PO Last administered on 03/07/17 08:23; Start 02/27/17 at 09:00; Stop 03/07/17 at 18:51; Status DC Risperidone (Risperdal) 0.75 mg HS PO ; Start 02/26/17 at 21:00; Stop 02/26/17 at 21:00; Status DC Risperidone (Risperdal) 0.75 mg 14 PO Last administered on 03/20/17 13:40; Start 02/26/17 at 21:00 Buspirone HCl (Buspar) 5 mg BID PO Last administered on 03/01/17 08:38; Start 02/27/17 at 21:00; Stop 03/01/17 at 12:38; Status DC Buspirone HCl (Buspar) 10 mg BID PO Last administered on 03/02/17 08:05; Start 03/01/17 at 21:00; Stop 03/02/17 at 18:06; Status DC Trimethoprim/ Sulfamethoxazole (Bactrim Ds) 1 tab DAILY PO Last administered on 03/09/17 09:29; Start 03/02/17 at 09:00; Stop 03/09/17 at 09:01; Status DC Buspirone HCl (Buspar) 10 mg TIDAFTMEAL PO Last administered on 03/08/17 08:22 ; Start 03/03/17 at 09:00; Stop 03/08/17 at 12:53; Status DC Vitamin D (Vitamin D3) 50,000 unit WEEKLY PO Last administered on 03/17/17 07: 57; Start 03/03/17 at 09:00 Mirtazapine (Remeron) 7.5 mg QHS PO Last administered on 03/08/17 19:26; Start 03/05/17 at 21:00; Stop 03/09/17 at 18:14; Status DC Mirtazapine (Remeron) 15 mg QHS PO Last administered on 03/20/17 19:24; Start 03/06/17 at 21:00 Risperidone (Risperdal) 0.75 mg DAILY PO Last administered on 03/20/17 07:57; Start 03/08/17 at 09:00 Buspirone HCl (Buspar) 20 mg DAILY PO Last administered on 03/20/17 07:55; Start 03/09/17 at 09:00 Buspirone HCl (Buspar) 10 mg BID@1400,2100 PO Last administered on 03/20/17 19 :23; Start 03/08/17 at 14:00 Olanzapine (Zyprexa Zydis) 5 mg PRN Q2HR PRN PO PSYCHOSIS Last administered on 03/20/17 12:22; Start 03/08/17 at 13:00 Trazodone HCl (Desyrel) 12.5 mg BID92 PO Last administered on 03/20/17 13:39; Start 03/17/17 at 09:00 Multi-Ingred Cream/Lotion/Oil/ Oint (Hydrocerin) 1 marcell PRN Q4HRS PRN TP REDNESS ; Start 03/19/17 at 22:45 Active Scripts Active Reported Lantus Solostar (Insulin Glargine,Hum.rec.anlog) 100 Unit/1 Ml Insuln.pen 15 Unit SQ QHS Lorazepam 1 Mg Tablet 1 Mg PO PRN Q3HRS PRN Risperdal (Risperidone) 0.5 Mg Tablet 0.5 Mg PO BID Chlorpromazine Hcl 25 Mg Tablet 25 Mg PO BID Novolog Flexpen (Insulin Aspart) 100 Unit/1 Ml Insuln.pen 6 Unit SQ TIDWMEALS Gabapentin 300 Mg Capsule 300 Mg PO TID Milk Of Magnesia (Magnesium Hydroxide) 2,400 Mg/10 Ml Oral.susp 2,400 Mg PO PRN DAILY Trazodone Hcl 50 Mg Tablet 50 Mg PO PRN QHS PRN Divalproex Sodium 500 Mg Tablet.dr 500 Mg PO TID Losartan Potassium 50 Mg Tablet 50 Mg PO DAILY Senexon-S Tablet (Sennosides/Docusate Sodium) 1 Each Tablet 8.6-50 Mg PO DAILY Celexa (Citalopram Hydrobromide) 20 Mg Tablet 20 Mg PO DAILY Amlodipine Besylate 10 Mg Tablet 10 Mg PO DAILY Percocet 5-325 Mg Tablet (Oxycodone Hcl/Acetaminophen) 1 Each Tablet 1 Tab PO PRN Q8HRS PRN Hydrocodone-Apap 5-325 (Hydrocodone Bit/Acetaminophen) 1 Each Tablet 1 Tab PO Q12HR Tylenol (Acetaminophen) 325 Mg Tablet 650 Mg PO PRN Q8HRS PRN NANCY HAHN MD March 20, 2017 21:11
--- NOTE | 2017-03-20 21:21 | NUR ---
Behavior Intervention Response and Plan: BIRP Note: Behavior: Assumed Care of patient, patient located in Day Room at shift change. Patient exhibited the following behavior Disorganized, Demanding, Defensive. Brief assessment on rounds of vital signs, medication needs, lab studies, and pain. Treatment plan problems . Intervention: Patient assessed and the following interventions initiated safety checks 15 Minute Checks Cognitive Assessment , Head to toe Assessment , Medications. Response: After interactions and interventions patient responded in the following manner, Compliant , Cooperative ,Anxious. Continue to assess behaviors and condition will continue to monitor throughout the shift as needed. Plan: Continue to monitor Master Treatment Plan for patient's progress toward short term goals of Decreased Anxiety, Improved Mood, intermediate goals to return to previous living setting vs placement. Continue to assess patient for changes in above assessment. Monitor for medication needs, pain, and safety concerns. Hourly rounding performed to ensure safe environment.
--- NOTE | 2017-03-21 01:36 | PN ---
DATE: 03/19/2017 PSYCHIATRIC PROGRESS NOTE This is late entry of 03/19/2017, covers elements not covered in my initial note. SUBJECTIVE: Overall, the patient has been fairly cooperative on the unit, gets a little loud at times, but that it because she is hard of hearing. REVIEW OF SYSTEMS: No CV, , pulmonary system symptoms on review. MENTAL STATUS EXAMINATION: Speech loud, abstraction fair, computation impaired. Mood and affect appears improved. IMPRESSION: Unchanged from initial note. PLAN: Continue current psychotropics mentioned in my initial note. MAN Kemal HAHN MD DR: MARGA/estelle JOB#: [id number] / [id number]
[2017-03-21 06:24] VITALS: BP 132/79
[2017-03-21] MEDS: DIVALPROEX 125 MG CAP.SPRINK PO SCH ×3 (08:35→19:38)
[2017-03-21] MEDS: CITALOPRAM 20 MG TABLET. PO SCH (08:35)
[2017-03-21] MEDS: SENNOSIDES/DOCUSATE 8.6/50MG TABLET. PO SCH (08:35)
[2017-03-21] MEDS: busPIRone 10 MG TABLET. PO SCH ×3 (08:35→19:38)
[2017-03-21] MEDS: GABAPENTIN 300 MG CAPSULE. PO SCH ×3 (08:36→19:38)
[2017-03-21] MEDS: LOSARTAN 50 MG TABLET. PO SCH (08:36)
[2017-03-21] MEDS: traZODone 50 MG TABLET. PO SCH ×3 (08:36→16:44)
[2017-03-21] MEDS: amLODIPine BESYLATE 10 MG TABLET PO SCH (08:36)
[2017-03-21] MEDS: risperiDONE 0.5 MG TABLET. PO SCH (08:37)
[2017-03-21] MEDS: HYDROcodone/APAP 5/325MG 1 TAB TABLET PO SCH ×2 (08:38→19:38)
[2017-03-21] MEDS: INSULIN ASPART 300 UNITS/3 ML INSULN.PEN SQ SCH ×3 (08:39→16:47)
--- NOTE | 2017-03-21 10:28 | NUR ---
Behavior Intervention Response and Plan: BIRP Note: Behavior: Assumed Care of patient, patient located in Patient Room at shift change. Patient exhibited the following behavior Disorganized, Demanding, Compulsive. Brief assessment on rounds of vital signs, medication needs, lab studies, and pain. Treatment plan problems . Intervention: Patient assessed and the following interventions initiated safety checks 15 Minute Checks Medications , Head to toe Assessment , Nutrition. Response: After interactions and interventions patient responded in the following manner, Sarcastic , Agitated ,Resistive. Continue to assess behaviors and condition will continue to monitor throughout the shift as needed. 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 Continue to assess patient for changes in above assessment. Monitor for medication needs, pain, and safety concerns. Hourly rounding performed to ensure safe environment.
[2017-03-21] MEDS: risperiDONE 0.25 MG TABLET. PO SCH (13:55)
[2017-03-21 16:13] VITALS: BP 131/68
[2017-03-21] MEDS: MIRTAZAPINE 15 MG TABLET PO SCH (19:38)
[2017-03-21] MEDS: INSULIN DETEMIR 300 UNITS/3 ML INSULN.PEN. SQ SCH (19:40)
--- NOTE | 2017-03-21 20:42 | PDOC ---
Exam Johann Demential Exam: Johann Note: Please also refer to the separate dictated note~for this date of service dictated separately.~Patient seen individually. Discussed the patient with Nursing staff reviewed the chart.~Reviewed interim history and current functioning. Reviewed vital signs,~Labs/ Radiology~and current medications noted below. Continue current treatment with the changes noted in the dictated addendum note Assessment: Vital Signs: Vital Signs Date Time Temp Pulse Resp B/P (MAP) Pulse Ox O2 Delivery O2 Flow Rate FiO2 03/21/17 19:38 18 97 Room Air 03/21/17 16:13 98.2 67 131/68 (89) I&O Intake and Output 03/21/17 07:00 Intake Total 960 ml Balance 960 ml Intake Oral 960 ml Labs: Laboratory Tests Test 03/21/17 07:36 03/21/17 11:39 03/21/17 16:27 03/21/17 19:01 Glucose (Fingerstick) 102 mg/dL (70-99) H 240 mg/dL (70-99) H 220 mg/dL (70-99) H 304 mg/dL (70-99) H Current Medications: Meds: Current Medications Acetaminophen (Tylenol) 650 mg PRN Q6HRS PRN PO PAIN / TEMP; Start 02/25/17 at 00:30; Stop 02/25/17 at 15:05; Status DC Multi-Ingredient Ointment (Analgesic [place]) 1 marcell PRN QID PRN TP MUSCLE PAIN; Start 02/25/17 at 00:30 Al Hydroxide/Mg Hydroxide (Mylanta Plus Xs) 15 ml PRN AFTMEALHC PRN PO DYSPEPSIA; Start 02/25/17 at 00:30 Magnesium Hydroxide (Milk Of Magnesia) 2,400 mg PRN QHS PRN PO CONSTIPATION; Start 02/25/17 at 00:30; Stop 02/25/17 at 15:05; Status DC Chlorpromazine HCl (Thorazine) 25 mg BID PO Last administered on 02/26/17 09: 34; Start 02/25/17 at 09:00; Stop 02/26/17 at 18:22; Status DC Citalopram Hydrobromide (Celexa) 20 mg DAILY PO Last administered on 03/21/17 08:35; Start 02/25/17 at 09:00 Lorazepam (Ativan) 1 mg PRN Q3HRS PRN PO ANXIETY / AGITATION Last administered on 03/20/17 11:12; Start 02/25/17 at 00:30 Risperidone (Risperdal) 0.5 mg BID PO Last administered on 02/26/17 09:34; Start 02/25/17 at 09:00; Stop 02/26/17 at 18:22; Status DC Trazodone HCl (Desyrel) 50 mg PRN QHS PRN PO INSOMNIA Last administered on 19:26; Start 02/25/17 at 00:30 Divalproex Sodium (Depakote Sprinkles) 500 mg TID PO Last administered on 19:38; Start 02/25/17 at 09:00 Acetaminophen (Tylenol) 650 mg PRN Q8HRS PRN PO PAIN Last administered on 05:32; Start 02/25/17 at 07:30 Amlodipine Besylate (Norvasc) 10 mg DAILY PO Last administered on 03/21/17 08: 36; Start 02/25/17 at 09:00 Gabapentin (Neurontin) 300 mg TID PO Last administered on 03/21/17 19:38; Start 02/25/17 at 09:00 Acetaminophen/ Hydrocodone Bitart (Lortab 5/325) 1 tab Q12HR PO Last administered on 03/21/17 19:38; Start 02/25/17 at 09:00 Insulin Aspart (Novolog) 6 units TIDWMEALS SQ Last administered on 03/21/17 16 :47; Start 02/25/17 at 08:00 Losartan Potassium (Cozaar) 50 mg DAILY PO Last administered on 03/21/17 08:36 ; Start 02/25/17 at 09:00 Senna/Docusate Sodium (Senna Plus) 1 tab DAILY PO Last administered on 08:35; Start 02/25/17 at 09:00 Insulin Detemir (Levemir) 15 units QHS SQ Last administered on 02/25/17 19:55 ; Start 02/25/17 at 21:00; Stop 02/26/17 at 14:21; Status DC Magnesium Hydroxide (Milk Of Magnesia) 2,400 mg PRN DAILY PRN PO CONSTIPATION; Start 02/25/17 at 07:45 Insulin Detemir (Levemir) 15 units QHS SQ Last administered on 03/21/17 19:40 ; Start 02/26/17 at 14:21 Chlorpromazine HCl (Thorazine) 25 mg DAILY PO Last administered on 02/28/17 09 :09; Start 02/27/17 at 09:00; Stop 02/28/17 at 15:50; Status DC Risperidone (Risperdal) 0.5 mg DAILY PO Last administered on 03/07/17 08:23; Start 02/27/17 at 09:00; Stop 03/07/17 at 18:51; Status DC Risperidone (Risperdal) 0.75 mg HS PO ; Start 02/26/17 at 21:00; Stop 02/26/17 at 21:00; Status DC Risperidone (Risperdal) 0.75 mg 14 PO Last administered on 03/21/17 13:55; Start 02/26/17 at 21:00 Buspirone HCl (Buspar) 5 mg BID PO Last administered on 03/01/17 08:38; Start 02/27/17 at 21:00; Stop 03/01/17 at 12:38; Status DC Buspirone HCl (Buspar) 10 mg BID PO Last administered on 03/02/17 08:05; Start 03/01/17 at 21:00; Stop 03/02/17 at 18:06; Status DC Trimethoprim/ Sulfamethoxazole (Bactrim Ds) 1 tab DAILY PO Last administered on 03/09/17 09:29; Start 03/02/17 at 09:00; Stop 03/09/17 at 09:01; Status DC Buspirone HCl (Buspar) 10 mg TIDAFTMEAL PO Last administered on 03/08/17 08:22 ; Start 03/03/17 at 09:00; Stop 03/08/17 at 12:53; Status DC Vitamin D (Vitamin D3) 50,000 unit WEEKLY PO Last administered on 03/17/17 07: 57; Start 03/03/17 at 09:00 Mirtazapine (Remeron) 7.5 mg QHS PO Last administered on 03/08/17 19:26; Start 03/05/17 at 21:00; Stop 03/09/17 at 18:14; Status DC Mirtazapine (Remeron) 15 mg QHS PO Last administered on 03/21/17 19:38; Start 03/06/17 at 21:00 Risperidone (Risperdal) 0.75 mg DAILY PO Last administered on 03/21/17 08:37; Start 03/08/17 at 09:00 Buspirone HCl (Buspar) 20 mg DAILY PO Last administered on 03/21/17 08:35; Start 03/09/17 at 09:00 Buspirone HCl (Buspar) 10 mg BID@1400,2100 PO Last administered on 03/21/17 19 :38; Start 03/08/17 at 14:00 Olanzapine (Zyprexa Zydis) 5 mg PRN Q2HR PRN PO PSYCHOSIS Last administered on 03/20/17 12:22; Start 03/08/17 at 13:00 Trazodone HCl (Desyrel) 12.5 mg BID92 PO Last administered on 03/21/17 08:36; Start 03/17/17 at 09:00; Stop 03/21/17 at 13:00; Status DC Multi-Ingred Cream/Lotion/Oil/ Oint (Hydrocerin) 1 marcell PRN Q4HRS PRN TP REDNESS Last administered on 03/21/17 16:52; Start 03/19/17 at 22:45 Trazodone HCl (Desyrel) 12.5 mg 0900,1200,1400,1900 PO Last administered on 16:44; Start 03/21/17 at 14:00 Active Scripts Active Reported Lantus Solostar (Insulin Glargine,Hum.rec.anlog) 100 Unit/1 Ml Insuln.pen 15 Unit SQ QHS Lorazepam 1 Mg Tablet 1 Mg PO PRN Q3HRS PRN Risperdal (Risperidone) 0.5 Mg Tablet 0.5 Mg PO BID Chlorpromazine Hcl 25 Mg Tablet 25 Mg PO BID Novolog Flexpen (Insulin Aspart) 100 Unit/1 Ml Insuln.pen 6 Unit SQ TIDWMEALS Gabapentin 300 Mg Capsule 300 Mg PO TID Milk Of Magnesia (Magnesium Hydroxide) 2,400 Mg/10 Ml Oral.susp 2,400 Mg PO PRN DAILY Trazodone Hcl 50 Mg Tablet 50 Mg PO PRN QHS PRN Divalproex Sodium 500 Mg Tablet.dr 500 Mg PO TID Losartan Potassium 50 Mg Tablet 50 Mg PO DAILY Senexon-S Tablet (Sennosides/Docusate Sodium) 1 Each Tablet 8.6-50 Mg PO DAILY Celexa (Citalopram Hydrobromide) 20 Mg Tablet 20 Mg PO DAILY Amlodipine Besylate 10 Mg Tablet 10 Mg PO DAILY Percocet 5-325 Mg Tablet (Oxycodone Hcl/Acetaminophen) 1 Each Tablet 1 Tab PO PRN Q8HRS PRN Hydrocodone-Apap 5-325 (Hydrocodone Bit/Acetaminophen) 1 Each Tablet 1 Tab PO Q12HR Tylenol (Acetaminophen) 325 Mg Tablet 650 Mg PO PRN Q8HRS PRN NANCY HAHN MD March 21, 2017 20:42
--- NOTE | 2017-03-21 20:49 | NUR ---
Behavior Intervention Response and Plan: BIRP Note: Behavior: Assumed Care of patient, patient located in Day Room at shift change. Patient exhibited the following behavior Calm, Social, Appropriate. Brief assessment on rounds of vital signs, medication needs, lab studies, and pain. Treatment plan problems . Intervention: Patient assessed and the following interventions initiated safety checks 15 Minute Checks Cognitive Assessment , Head to toe Assessment , Medications. Response: After interactions and interventions patient responded in the following manner, Compliant , Cooperative ,Attention Seeking. Continue to assess behaviors and condition will continue to monitor throughout the shift as needed. Plan: Continue to monitor Master Treatment Plan for patient's progress toward short term goals of Decreased Anxiety, Improved Mood, custodial goals to return to previous living setting vs placement. Continue to assess patient for changes in above assessment. Monitor for medication needs, pain, and safety concerns. Hourly rounding performed to ensure safe environment.
--- NOTE | 2017-03-21 21:00 | NUR ---
Pt slid herself onto the floor and refused to get herself up. She is fully capable. I attempted to give her some support to get her up but she only assisted until she was in a sitting position. She then rolled around and lay back down. After sleeping on the floor for about 30 minutes, she got up and went to bed.
--- NOTE | 2017-03-21 21:46 | PN ---
DATE: 03/20/2017 PSYCHIATRIC PROGRESS NOTE This is late entry of 03/20/2017, covers elements not covered in my initial note. SUBJECTIVE: The patient had a very difficult day on 03/20/2017. She has been angry, labile, screaming, yelling, using profanities towards staff and social service staff and even myself because she is fixated on being discharged on 03/21/2017 and no placement is open. She is unable to recognize how her increased mood lability, agitation, aggression only worsens and reduces the chance of an early discharge. She states she just wants to be let out into the street. She will find her car, she has a home to go to and she will take care of things herself, "I don't need anybody to help me." REVIEW OF SYSTEMS: Hard of hearing. Speech is loud. No CV, , pulmonary, eye system symptoms on review. MENTAL STATUS EXAMINATION: Oriented to herself and situation. Speech loud, abstraction fair, computation impaired, language function intact. Mood and affect remains labile. LABORATORY DATA: Reviewed. IMPRESSION: Schizoaffective disorder, bipolar type, mixed with psychotic features, in partial remission; anxiety disorder, unspecified; impulse control disorder, unspecified. PLAN: Maintain Celexa, Risperdal, Ativan, trazodone, Depakote level is therapeutic at 76, BuSpar, Remeron, Zyprexa, scheduled trazodone 12.5 at 9 and 2, will be increased to 4 times a day, may need to increase Risperdal as well. MAN Kemal HAHN MD DR: MARGA/estelle JOB#: [id number] / [id number]
[2017-03-22 05:56] VITALS: BP 132/65
[2017-03-22] MEDS: DIVALPROEX 125 MG CAP.SPRINK PO SCH ×3 (08:06→20:25)
[2017-03-22] MEDS: SENNOSIDES/DOCUSATE 8.6/50MG TABLET. PO SCH (08:06)
[2017-03-22] MEDS: amLODIPine BESYLATE 10 MG TABLET PO SCH (08:06)
[2017-03-22] MEDS: traZODone 50 MG TABLET. PO SCH ×4 (08:06→16:54)
[2017-03-22] MEDS: LOSARTAN 50 MG TABLET. PO SCH (08:07)
[2017-03-22] MEDS: CITALOPRAM 20 MG TABLET. PO SCH (08:07)
[2017-03-22] MEDS: GABAPENTIN 300 MG CAPSULE. PO SCH ×3 (08:07→20:25)
[2017-03-22] MEDS: busPIRone 10 MG TABLET. PO SCH ×3 (08:07→20:26)
[2017-03-22] MEDS: risperiDONE 0.5 MG TABLET. PO SCH (08:07)
[2017-03-22] MEDS: INSULIN ASPART 300 UNITS/3 ML INSULN.PEN SQ SCH ×3 (08:09→16:56)
[2017-03-22] MEDS: HYDROcodone/APAP 5/325MG 1 TAB TABLET PO SCH ×2 (08:09→20:25)
--- NOTE | 2017-03-22 09:47 | NUR ---
Behavior Intervention Response and Plan: BIRP Note: Behavior: Assumed Care of patient, patient located in Patient Room at shift change. Patient exhibited the following behavior Demanding, Able to Focus on Task, Wandering. Brief assessment on rounds of vital signs, medication needs, lab studies, and pain. Treatment plan problems . Intervention: Patient assessed and the following interventions initiated safety checks 15 Minute Checks Head to toe Assessment , Medications , Nutrition. Response: After interactions and interventions patient responded in the following manner, Drowsy , Demanding ,Exit Seeking. Continue to assess behaviors and condition will continue to monitor throughout the shift as needed. 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 Continue to assess patient for changes in above assessment. Monitor for medication needs, pain, and safety concerns. Hourly rounding performed to ensure safe environment.
--- NOTE | 2017-03-22 11:15 | NUR ---
THERAPEUTIC RECREATION GROUP NOTE TITLE :Movement to Music: Flexibility ACTIVITY : Movement/ Exercise GOAL : Increase morale, attention, flexibility. Decrease stress/anxiety. DURATION : 40 Minutes RESPONSE : Full participation. Pt. joined the group a little late but quickly followed along with moves. She smiled often and was pleasant to have in group.
[2017-03-22] MEDS: risperiDONE 0.25 MG TABLET. PO SCH (13:24)
--- NOTE | 2017-03-22 14:30 | NUR ---
THERAPEUTIC RECREATION GROUP NOTE TITLE :Coloring Gia Escobar ACTIVITY : Arts and Crafts GOAL : Increase socialization, fine motor skills, creativity DURATION : 105 minutes RESPONSE : Full participation. Pt. was very talkative and pleasant. She reminisced as she colored and needed occasional reminders to talk quietly when others were on the phone. Pt. was compliant.
--- NOTE | 2017-03-22 14:34 | NUR ---
OMA assisted Clif[facility] from [facility] in completing the Level II evaluation for Pt. SW should have determination in a few days to begin looking for new placement.
[2017-03-22 15:55] VITALS: BP 133/66
--- NOTE | 2017-03-22 16:04 | NUR ---
SW entered the Day room area several times throughout the afternoon and each time, PT. was sitting in the same chair near a door and waved and said hello to this SW, using SW's name.
[2017-03-22] MEDS: MIRTAZAPINE 15 MG TABLET PO SCH (20:25)
[2017-03-22] MEDS: INSULIN DETEMIR 300 UNITS/3 ML INSULN.PEN. SQ SCH (20:27)
--- NOTE | 2017-03-22 21:09 | PDOC ---
Exam Johann Demential Exam: Johann Note: Please also refer to the separate dictated note~for this date of service dictated separately.~Patient seen individually. Discussed the patient with Nursing staff reviewed the chart.~Reviewed interim history and current functioning. Reviewed vital signs,~Labs/ Radiology~and current medications noted below. Continue current treatment with the changes noted in the dictated addendum note Assessment: Vital Signs: Vital Signs Date Time Temp Pulse Resp B/P (MAP) Pulse Ox O2 Delivery O2 Flow Rate FiO2 03/22/17 20:25 96 Room Air 03/22/17 15:55 98.0 65 17 133/66 (88) I&O Intake and Output 03/22/17 07:00 Intake Total 1440 ml Balance 1440 ml Intake Oral 1440 ml Labs: Laboratory Tests Test 03/22/17 07:04 03/22/17 11:01 03/22/17 16:27 03/22/17 20:05 Glucose (Fingerstick) 116 mg/dL (70-99) H 259 mg/dL (70-99) H 251 mg/dL (70-99) H 223 mg/dL (70-99) H Current Medications: Meds: Current Medications Acetaminophen (Tylenol) 650 mg PRN Q6HRS PRN PO PAIN / TEMP; Start 02/25/17 at 00:30; Stop 02/25/17 at 15:05; Status DC Multi-Ingredient Ointment (Analgesic [place]) 1 marcell PRN QID PRN TP MUSCLE PAIN; Start 02/25/17 at 00:30 Al Hydroxide/Mg Hydroxide (Mylanta Plus Xs) 15 ml PRN AFTMEALHC PRN PO DYSPEPSIA; Start 02/25/17 at 00:30 Magnesium Hydroxide (Milk Of Magnesia) 2,400 mg PRN QHS PRN PO CONSTIPATION; Start 02/25/17 at 00:30; Stop 02/25/17 at 15:05; Status DC Chlorpromazine HCl (Thorazine) 25 mg BID PO Last administered on 02/26/17 09: 34; Start 02/25/17 at 09:00; Stop 02/26/17 at 18:22; Status DC Citalopram Hydrobromide (Celexa) 20 mg DAILY PO Last administered on 03/22/17 08:07; Start 02/25/17 at 09:00 Lorazepam (Ativan) 1 mg PRN Q3HRS PRN PO ANXIETY / AGITATION Last administered on 03/20/17 11:12; Start 02/25/17 at 00:30 Risperidone (Risperdal) 0.5 mg BID PO Last administered on 02/26/17 09:34; Start 02/25/17 at 09:00; Stop 02/26/17 at 18:22; Status DC Trazodone HCl (Desyrel) 50 mg PRN QHS PRN PO INSOMNIA Last administered on 19:26; Start 02/25/17 at 00:30 Divalproex Sodium (Depakote Sprinkles) 500 mg TID PO Last administered on 20:25; Start 02/25/17 at 09:00 Acetaminophen (Tylenol) 650 mg PRN Q8HRS PRN PO PAIN Last administered on 05:32; Start 02/25/17 at 07:30 Amlodipine Besylate (Norvasc) 10 mg DAILY PO Last administered on 03/22/17 08: 06; Start 02/25/17 at 09:00 Gabapentin (Neurontin) 300 mg TID PO Last administered on 03/22/17 20:25; Start 02/25/17 at 09:00 Acetaminophen/ Hydrocodone Bitart (Lortab 5/325) 1 tab Q12HR PO Last administered on 03/22/17 20:25; Start 02/25/17 at 09:00 Insulin Aspart (Novolog) 6 units TIDWMEALS SQ Last administered on 03/22/17 16 :56; Start 02/25/17 at 08:00 Losartan Potassium (Cozaar) 50 mg DAILY PO Last administered on 03/22/17 08:07 ; Start 02/25/17 at 09:00 Senna/Docusate Sodium (Senna Plus) 1 tab DAILY PO Last administered on 08:06; Start 02/25/17 at 09:00 Insulin Detemir (Levemir) 15 units QHS SQ Last administered on 02/25/17 19:55 ; Start 02/25/17 at 21:00; Stop 02/26/17 at 14:21; Status DC Magnesium Hydroxide (Milk Of Magnesia) 2,400 mg PRN DAILY PRN PO CONSTIPATION; Start 02/25/17 at 07:45 Insulin Detemir (Levemir) 15 units QHS SQ Last administered on 03/22/17 20:27 ; Start 02/26/17 at 14:21 Chlorpromazine HCl (Thorazine) 25 mg DAILY PO Last administered on 02/28/17 09 :09; Start 02/27/17 at 09:00; Stop 02/28/17 at 15:50; Status DC Risperidone (Risperdal) 0.5 mg DAILY PO Last administered on 03/07/17 08:23; Start 02/27/17 at 09:00; Stop 03/07/17 at 18:51; Status DC Risperidone (Risperdal) 0.75 mg HS PO ; Start 02/26/17 at 21:00; Stop 02/26/17 at 21:00; Status DC Risperidone (Risperdal) 0.75 mg 14 PO Last administered on 03/22/17 13:24; Start 02/26/17 at 21:00 Buspirone HCl (Buspar) 5 mg BID PO Last administered on 03/01/17 08:38; Start 02/27/17 at 21:00; Stop 03/01/17 at 12:38; Status DC Buspirone HCl (Buspar) 10 mg BID PO Last administered on 03/02/17 08:05; Start 03/01/17 at 21:00; Stop 03/02/17 at 18:06; Status DC Trimethoprim/ Sulfamethoxazole (Bactrim Ds) 1 tab DAILY PO Last administered on 03/09/17 09:29; Start 03/02/17 at 09:00; Stop 03/09/17 at 09:01; Status DC Buspirone HCl (Buspar) 10 mg TIDAFTMEAL PO Last administered on 03/08/17 08:22 ; Start 03/03/17 at 09:00; Stop 03/08/17 at 12:53; Status DC Vitamin D (Vitamin D3) 50,000 unit WEEKLY PO Last administered on 03/17/17 07: 57; Start 03/03/17 at 09:00 Mirtazapine (Remeron) 7.5 mg QHS PO Last administered on 03/08/17 19:26; Start 03/05/17 at 21:00; Stop 03/09/17 at 18:14; Status DC Mirtazapine (Remeron) 15 mg QHS PO Last administered on 03/22/17 20:25; Start 03/06/17 at 21:00 Risperidone (Risperdal) 0.75 mg DAILY PO Last administered on 03/22/17 08:07; Start 03/08/17 at 09:00 Buspirone HCl (Buspar) 20 mg DAILY PO Last administered on 03/22/17 08:07; Start 03/09/17 at 09:00 Buspirone HCl (Buspar) 10 mg BID@1400,2100 PO Last administered on 03/22/17 20 :26; Start 03/08/17 at 14:00 Olanzapine (Zyprexa Zydis) 5 mg PRN Q2HR PRN PO PSYCHOSIS Last administered on 03/20/17 12:22; Start 03/08/17 at 13:00 Trazodone HCl (Desyrel) 12.5 mg BID92 PO Last administered on 03/21/17 08:36; Start 03/17/17 at 09:00; Stop 03/21/17 at 13:00; Status DC Multi-Ingred Cream/Lotion/Oil/ Oint (Hydrocerin) 1 marcell PRN Q4HRS PRN TP REDNESS Last administered on 03/21/17 16:52; Start 03/19/17 at 22:45 Trazodone HCl (Desyrel) 12.5 mg 0900,1200,1400,1900 PO Last administered on 16:54; Start 03/21/17 at 14:00 Active Scripts Active Reported Lantus Solostar (Insulin Glargine,Hum.rec.anlog) 100 Unit/1 Ml Insuln.pen 15 Unit SQ QHS Lorazepam 1 Mg Tablet 1 Mg PO PRN Q3HRS PRN Risperdal (Risperidone) 0.5 Mg Tablet 0.5 Mg PO BID Chlorpromazine Hcl 25 Mg Tablet 25 Mg PO BID Novolog Flexpen (Insulin Aspart) 100 Unit/1 Ml Insuln.pen 6 Unit SQ TIDWMEALS Gabapentin 300 Mg Capsule 300 Mg PO TID Milk Of Magnesia (Magnesium Hydroxide) 2,400 Mg/10 Ml Oral.susp 2,400 Mg PO PRN DAILY Trazodone Hcl 50 Mg Tablet 50 Mg PO PRN QHS PRN Divalproex Sodium 500 Mg Tablet.dr 500 Mg PO TID Losartan Potassium 50 Mg Tablet 50 Mg PO DAILY Senexon-S Tablet (Sennosides/Docusate Sodium) 1 Each Tablet 8.6-50 Mg PO DAILY Celexa (Citalopram Hydrobromide) 20 Mg Tablet 20 Mg PO DAILY Amlodipine Besylate 10 Mg Tablet 10 Mg PO DAILY Percocet 5-325 Mg Tablet (Oxycodone Hcl/Acetaminophen) 1 Each Tablet 1 Tab PO PRN Q8HRS PRN Hydrocodone-Apap 5-325 (Hydrocodone Bit/Acetaminophen) 1 Each Tablet 1 Tab PO Q12HR Tylenol (Acetaminophen) 325 Mg Tablet 650 Mg PO PRN Q8HRS PRN NANCY HAHN MD March 22, 2017 21:09
--- NOTE | 2017-03-22 21:21 | NUR ---
Behavior Intervention Response and Plan: BIRP Note: Behavior: Assumed Care of patient, patient located in Day Room at shift change. Patient exhibited the following behavior Calm, Disorganized, Able to Focus on Task. Brief assessment on rounds of vital signs, medication needs, lab studies, and pain. Treatment plan problems . Intervention: Patient assessed and the following interventions initiated safety checks 15 Minute Checks Cognitive Assessment , Head to toe Assessment , Medications. Response: After interactions and interventions patient responded in the following manner, Appropriate , Cooperative ,Compliant. Continue to assess behaviors and condition will continue to monitor throughout the shift as needed. 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 Continue to assess patient for changes in above assessment. Monitor for medication needs, pain, and safety concerns. Hourly rounding performed to ensure safe environment.
[2017-03-23 05:20] VITALS: BP 121/59
[2017-03-23] MEDS: DIVALPROEX 125 MG CAP.SPRINK PO SCH ×3 (08:27→20:01)
[2017-03-23] MEDS: risperiDONE 0.5 MG TABLET. PO SCH (08:27)
[2017-03-23] MEDS: busPIRone 10 MG TABLET. PO SCH ×3 (08:27→20:01)
[2017-03-23] MEDS: CITALOPRAM 20 MG TABLET. PO SCH (08:27)
[2017-03-23] MEDS: traZODone 50 MG TABLET. PO SCH ×4 (08:28→17:22)
[2017-03-23] MEDS: GABAPENTIN 300 MG CAPSULE. PO SCH ×3 (08:28→20:00)
[2017-03-23] MEDS: SENNOSIDES/DOCUSATE 8.6/50MG TABLET. PO SCH (08:28)
[2017-03-23] MEDS: HYDROcodone/APAP 5/325MG 1 TAB TABLET PO SCH ×2 (08:29→20:01)
[2017-03-23] MEDS: INSULIN ASPART 300 UNITS/3 ML INSULN.PEN SQ SCH ×3 (08:30→17:23)
[2017-03-23 08:42] VITALS: BP 107/52
[2017-03-23] MEDS: amLODIPine BESYLATE 10 MG TABLET PO SCH (08:42)
[2017-03-23] MEDS: LOSARTAN 50 MG TABLET. PO SCH (08:42)
--- NOTE | 2017-03-23 10:02 | NUR ---
Behavior Intervention Response and Plan: BIRP Note: Behavior: Assumed Care of patient, patient located in Day Room at shift change. Patient exhibited the following behavior Calm, Compliant, Cooperative. Brief assessment on rounds of vital signs, medication needs, lab studies, and pain. Treatment plan problems . Intervention: Patient assessed and the following interventions initiated safety checks 15 Minute Checks Cognitive Assessment , Head to toe Assessment , Medications. Response: After interactions and interventions patient responded in the following manner, Calm , Compliant ,Cooperative. Continue to assess behaviors and condition will continue to monitor throughout the shift as needed. 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 Continue to assess patient for changes in above assessment. Monitor for medication needs, pain, and safety concerns. Hourly rounding performed to ensure safe environment.
[2017-03-23] MEDS: risperiDONE 0.25 MG TABLET. PO SCH (14:05)
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
--- NOTE | 2017-03-23 14:15 | NUR ---
THERAPEUTIC RECREATION GROUP NOTE TITLE :Leisure Awareness: [place] ACTIVITY : Leisure Awareness GOAL : Increase knowledge of leisure activities DURATION : 45 Minutes RESPONSE : Full participation. Pt. helped FURNACE CARETAKER prepare for activity by taping jean to the window. She offered many suggestions of leisure activities during the activity. She had a smile on her face most of the time.
[2017-03-23 16:29] VITALS: BP 114/62
[2017-03-23] MEDS: MIRTAZAPINE 15 MG TABLET PO SCH (20:00)
[2017-03-23] MEDS: INSULIN DETEMIR 300 UNITS/3 ML INSULN.PEN. SQ SCH (20:28)
--- NOTE | 2017-03-23 21:00 | NUR ---
Behavior Intervention Response and Plan: BIRP Note: Behavior: Assumed Care of patient, patient located in Day Room at shift change. Patient exhibited the following behavior Calm, Cooperative, Interactive. Brief assessment on rounds of vital signs, medication needs, lab studies, and pain. Treatment plan problems: Altered Mood/thought process and Fall Risk. Intervention: Patient assessed and the following interventions initiated safety checks 15 Minute Checks Cognitive Assessment , Head to toe Assessment , Medications, Oral Hydration, and, Nutrition. Response: After interactions and interventions patient responded in the following manner, Calm , Interactive ,Compliant. Continue to assess behaviors and condition will continue to monitor throughout the shift as needed. Plan: Continue to monitor Master Treatment Plan for patient's progress toward short term goals of Decreased Anxiety, Medication Compliance, Improved Mood, alf goals to return to previous living setting vs placement. Continue to assess patient for changes in above assessment. Monitor for medication needs, pain, and safety concerns. Hourly rounding performed to ensure safe environment.
--- NOTE | 2017-03-23 21:12 | PDOC ---
Exam Johann Demential Exam: Johann Note: Please also refer to the separate dictated note~for this date of service dictated separately.~Patient seen individually. Discussed the patient with Nursing staff reviewed the chart.~Reviewed interim history and current functioning. Reviewed vital signs,~Labs/ Radiology~and current medications noted below. Continue current treatment with the changes noted in the dictated addendum note Assessment: Vital Signs: Vital Signs Date Time Temp Pulse Resp B/P (MAP) Pulse Ox O2 Delivery O2 Flow Rate FiO2 03/23/17 20:01 18 Room Air 03/23/17 16:29 97.7 67 114/62 (79) 94 I&O Intake and Output 03/23/17 07:00 Intake Total 1080 ml Balance 1080 ml Intake Oral 1080 ml Labs: Laboratory Tests Test 03/23/17 07:42 03/23/17 11:05 03/23/17 16:50 03/23/17 19:19 Glucose (Fingerstick) 97 mg/dL (70-99) 159 mg/dL (70-99) H 131 mg/dL (70-99) H 199 mg/dL (70-99) H Current Medications: Meds: Current Medications Acetaminophen (Tylenol) 650 mg PRN Q6HRS PRN PO PAIN / TEMP; Start 02/25/17 at 00:30; Stop 02/25/17 at 15:05; Status DC Multi-Ingredient Ointment (Analgesic [place]) 1 marcell PRN QID PRN TP MUSCLE PAIN; Start 02/25/17 at 00:30 Al Hydroxide/Mg Hydroxide (Mylanta Plus Xs) 15 ml PRN AFTMEALHC PRN PO DYSPEPSIA; Start 02/25/17 at 00:30 Magnesium Hydroxide (Milk Of Magnesia) 2,400 mg PRN QHS PRN PO CONSTIPATION; Start 02/25/17 at 00:30; Stop 02/25/17 at 15:05; Status DC Chlorpromazine HCl (Thorazine) 25 mg BID PO Last administered on 02/26/17 09: 34; Start 02/25/17 at 09:00; Stop 02/26/17 at 18:22; Status DC Citalopram Hydrobromide (Celexa) 20 mg DAILY PO Last administered on 03/23/17 08:27; Start 02/25/17 at 09:00 Lorazepam (Ativan) 1 mg PRN Q3HRS PRN PO ANXIETY / AGITATION Last administered on 03/20/17 11:12; Start 02/25/17 at 00:30 Risperidone (Risperdal) 0.5 mg BID PO Last administered on 02/26/17 09:34; Start 02/25/17 at 09:00; Stop 02/26/17 at 18:22; Status DC Trazodone HCl (Desyrel) 50 mg PRN QHS PRN PO INSOMNIA Last administered on 19:26; Start 02/25/17 at 00:30 Divalproex Sodium (Depakote Sprinkles) 500 mg TID PO Last administered on 20:01; Start 02/25/17 at 09:00 Acetaminophen (Tylenol) 650 mg PRN Q8HRS PRN PO PAIN Last administered on 05:32; Start 02/25/17 at 07:30 Amlodipine Besylate (Norvasc) 10 mg DAILY PO Last administered on 03/22/17 08: 06; Start 02/25/17 at 09:00 Gabapentin (Neurontin) 300 mg TID PO Last administered on 03/23/17 20:00; Start 02/25/17 at 09:00 Acetaminophen/ Hydrocodone Bitart (Lortab 5/325) 1 tab Q12HR PO Last administered on 03/23/17 20:01; Start 02/25/17 at 09:00 Insulin Aspart (Novolog) 6 units TIDWMEALS SQ Last administered on 03/23/17 17 :23; Start 02/25/17 at 08:00 Losartan Potassium (Cozaar) 50 mg DAILY PO Last administered on 03/22/17 08:07 ; Start 02/25/17 at 09:00 Senna/Docusate Sodium (Senna Plus) 1 tab DAILY PO Last administered on 08:28; Start 02/25/17 at 09:00 Insulin Detemir (Levemir) 15 units QHS SQ Last administered on 02/25/17 19:55 ; Start 02/25/17 at 21:00; Stop 02/26/17 at 14:21; Status DC Magnesium Hydroxide (Milk Of Magnesia) 2,400 mg PRN DAILY PRN PO CONSTIPATION; Start 02/25/17 at 07:45 Insulin Detemir (Levemir) 15 units QHS SQ Last administered on 03/23/17 20:28 ; Start 02/26/17 at 14:21 Chlorpromazine HCl (Thorazine) 25 mg DAILY PO Last administered on 02/28/17 09 :09; Start 02/27/17 at 09:00; Stop 02/28/17 at 15:50; Status DC Risperidone (Risperdal) 0.5 mg DAILY PO Last administered on 03/07/17 08:23; Start 02/27/17 at 09:00; Stop 03/07/17 at 18:51; Status DC Risperidone (Risperdal) 0.75 mg HS PO ; Start 02/26/17 at 21:00; Stop 02/26/17 at 21:00; Status DC Risperidone (Risperdal) 0.75 mg 14 PO Last administered on 03/23/17 14:05; Start 02/26/17 at 21:00 Buspirone HCl (Buspar) 5 mg BID PO Last administered on 03/01/17 08:38; Start 02/27/17 at 21:00; Stop 03/01/17 at 12:38; Status DC Buspirone HCl (Buspar) 10 mg BID PO Last administered on 03/02/17 08:05; Start 03/01/17 at 21:00; Stop 03/02/17 at 18:06; Status DC Trimethoprim/ Sulfamethoxazole (Bactrim Ds) 1 tab DAILY PO Last administered on 03/09/17 09:29; Start 03/02/17 at 09:00; Stop 03/09/17 at 09:01; Status DC Buspirone HCl (Buspar) 10 mg TIDAFTMEAL PO Last administered on 03/08/17 08:22 ; Start 03/03/17 at 09:00; Stop 03/08/17 at 12:53; Status DC Vitamin D (Vitamin D3) 50,000 unit WEEKLY PO Last administered on 03/17/17 07: 57; Start 03/03/17 at 09:00 Mirtazapine (Remeron) 7.5 mg QHS PO Last administered on 03/08/17 19:26; Start 03/05/17 at 21:00; Stop 03/09/17 at 18:14; Status DC Mirtazapine (Remeron) 15 mg QHS PO Last administered on 03/23/17 20:00; Start 03/06/17 at 21:00 Risperidone (Risperdal) 0.75 mg DAILY PO Last administered on 03/23/17 08:27; Start 03/08/17 at 09:00 Buspirone HCl (Buspar) 20 mg DAILY PO Last administered on 03/23/17 08:27; Start 03/09/17 at 09:00 Buspirone HCl (Buspar) 10 mg BID@1400,2100 PO Last administered on 03/23/17 20 :01; Start 03/08/17 at 14:00 Olanzapine (Zyprexa Zydis) 5 mg PRN Q2HR PRN PO PSYCHOSIS Last administered on 03/20/17 12:22; Start 03/08/17 at 13:00 Trazodone HCl (Desyrel) 12.5 mg BID92 PO Last administered on 03/21/17 08:36; Start 03/17/17 at 09:00; Stop 03/21/17 at 13:00; Status DC Multi-Ingred Cream/Lotion/Oil/ Oint (Hydrocerin) 1 marcell PRN Q4HRS PRN TP REDNESS Last administered on 03/21/17 16:52; Start 03/19/17 at 22:45 Trazodone HCl (Desyrel) 12.5 mg 0900,1200,1400,1900 PO Last administered on 17:22; Start 03/21/17 at 14:00 Active Scripts Active Reported Lantus Solostar (Insulin Glargine,Hum.rec.anlog) 100 Unit/1 Ml Insuln.pen 15 Unit SQ QHS Lorazepam 1 Mg Tablet 1 Mg PO PRN Q3HRS PRN Risperdal (Risperidone) 0.5 Mg Tablet 0.5 Mg PO BID Chlorpromazine Hcl 25 Mg Tablet 25 Mg PO BID Novolog Flexpen (Insulin Aspart) 100 Unit/1 Ml Insuln.pen 6 Unit SQ TIDWMEALS Gabapentin 300 Mg Capsule 300 Mg PO TID Milk Of Magnesia (Magnesium Hydroxide) 2,400 Mg/10 Ml Oral.susp 2,400 Mg PO PRN DAILY Trazodone Hcl 50 Mg Tablet 50 Mg PO PRN QHS PRN Divalproex Sodium 500 Mg Tablet.dr 500 Mg PO TID Losartan Potassium 50 Mg Tablet 50 Mg PO DAILY Senexon-S Tablet (Sennosides/Docusate Sodium) 1 Each Tablet 8.6-50 Mg PO DAILY Celexa (Citalopram Hydrobromide) 20 Mg Tablet 20 Mg PO DAILY Amlodipine Besylate 10 Mg Tablet 10 Mg PO DAILY Percocet 5-325 Mg Tablet (Oxycodone Hcl/Acetaminophen) 1 Each Tablet 1 Tab PO PRN Q8HRS PRN Hydrocodone-Apap 5-325 (Hydrocodone Bit/Acetaminophen) 1 Each Tablet 1 Tab PO Q12HR Tylenol (Acetaminophen) 325 Mg Tablet 650 Mg PO PRN Q8HRS PRN NANCY HAHN MD March 23, 2017 21:12
--- NOTE | 2017-03-24 00:39 | PN ---
DATE: 03/21/2017 PSYCHIATRIC PROGRESS NOTE This is a late entry of 03/21/2017 covers elements not covered in my initial note. SUBJECTIVE: The patient slid herself to the floor repeatedly stating help me, help me, help me, and then does okay for a short periods of time with her anxiety REVIEW OF SYSTEMS: Hard of hearing, difficulty with the speech, which is loud as a consequence of her hearing deficit. No CV, , pulmonary, eye system symptoms on review. MENTAL STATUS EXAM: Reasonably oriented to place and situation. Speech is above. Abstraction fair, computation impaired, language function intact. Mood and affect still somewhat anxious, labile, but other than before labs. LABORATORY DATA: Reviewed. IMPRESSION: Schizoaffective disorder, bipolar type, mixed with psychotic features, in partial remission; anxiety disorder, unspecified. Rest unchanged. PLAN: Continue psychotropics mention in my initial note. Adjust as clinically indicated. MAN Kemal HAHN MD DR: MARGA/estelle JOB#: [id number] / [id number]
--- NOTE | 2017-03-24 00:41 | PN ---
DATE: 03/22/2017 PSYCHIATRIC PROGRESS NOTE This is a late entry of 03/22/2017 covers elements not covered in my initial note. SUBJECTIVE: The patient was staffed at a treatment team meeting with the entire team seen individually. She is wearing socks on her hand states she feels cold, somewhat little bizarre putting herself on the floor previous evening, screaming, no injuries noted, somewhat dramatic compliant with meds. REVIEW OF SYSTEMS: Hard of hearing. No CV, , pulmonary system symptoms on review. MENTAL STATUS EXAM: Oriented to herself and situation. Speech loud at times. Abstraction fair, computation impaired, language function intact. Attention span short. Mood and affect, lability is improved. LABORATORY DATA: Reviewed. IMPRESSION: Unchanged from initial note. PLAN: Continue psychotropics mentioned in my initial note. Adjust further as clinically indicated. MAN Kemal HAHN MD DR: MARGA/estelle JOB#: [id number] / [id number]
[2017-03-24 06:18] VITALS: BP 151/88
[2017-03-24] MEDS: CITALOPRAM 20 MG TABLET. PO SCH (09:02)
[2017-03-24] MEDS: amLODIPine BESYLATE 10 MG TABLET PO SCH (09:02)
[2017-03-24] MEDS: SENNOSIDES/DOCUSATE 8.6/50MG TABLET. PO SCH (09:02)
[2017-03-24] MEDS: GABAPENTIN 300 MG CAPSULE. PO SCH ×3 (09:02→20:34)
[2017-03-24] MEDS: busPIRone 10 MG TABLET. PO SCH ×3 (09:03→20:36)
[2017-03-24] MEDS: CHOLECALCIFEROL (VITAMIN D3) 50,000 UNIT CAPSULE PO SCH (09:03)
[2017-03-24] MEDS: LOSARTAN 50 MG TABLET. PO SCH (09:03)
[2017-03-24] MEDS: DIVALPROEX 125 MG CAP.SPRINK PO SCH ×3 (09:04→20:37)
[2017-03-24] MEDS: risperiDONE 0.5 MG TABLET. PO SCH (09:04)
[2017-03-24] MEDS: traZODone 50 MG TABLET. PO SCH ×5 (09:04→20:35)
[2017-03-24] MEDS: HYDROcodone/APAP 5/325MG 1 TAB TABLET PO SCH ×2 (09:16→20:37)
[2017-03-24] MEDS: INSULIN ASPART 300 UNITS/3 ML INSULN.PEN SQ SCH ×3 (09:59→17:44)
[2017-03-24] MEDS: risperiDONE 0.25 MG TABLET. PO SCH (13:48)
--- NOTE | 2017-03-24 14:47 | NUR ---
Behavior Intervention Response and Plan: BIRP Note: Behavior: Assumed Care of patient, patient located in Day Room at shift change. Patient exhibited the following behavior Calm, Cooperative, Interactive. Brief assessment on rounds of vital signs, medication needs, lab studies, and pain. Treatment plan problems: Altered Mood/thought process and Fall Risk. Intervention: Patient assessed and the following interventions initiated safety checks 15 Minute Checks Cognitive Assessment , Head to toe Assessment , Medications, Oral Hydration, and, Nutrition. Response: After interactions and interventions patient responded in the following manner, Calm , Interactive ,Compliant. Continue to assess behaviors and condition will continue to monitor throughout the shift as needed. 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 Continue to assess patient for changes in above assessment. Monitor for medication needs, pain, and safety concerns. Hourly rounding performed to ensure safe environment.
[2017-03-24 16:37] VITALS: BP 123/63
[2017-03-24] MEDS: MIRTAZAPINE 15 MG TABLET PO SCH (20:37)
[2017-03-24] MEDS: INSULIN DETEMIR 300 UNITS/3 ML INSULN.PEN. SQ SCH (20:41)
--- NOTE | 2017-03-24 21:03 | PDOC ---
Exam Johann Demential Exam: Johann Note: Please also refer to the separate dictated note~for this date of service dictated separately.~Patient seen individually. Discussed the patient with Nursing staff reviewed the chart.~Reviewed interim history and current functioning. Reviewed vital signs,~Labs/ Radiology~and current medications noted below. Continue current treatment with the changes noted in the dictated addendum note Assessment: Vital Signs: Vital Signs Date Time Temp Pulse Resp B/P (MAP) Pulse Ox O2 Delivery O2 Flow Rate FiO2 03/24/17 16:37 97.7 68 18 123/63 (83) 96 03/24/17 10:16 Room Air I&O Intake and Output 03/24/17 07:00 Intake Total 960 ml Balance 960 ml Intake Oral 960 ml # Bowel Movements 1 Labs: Laboratory Tests Test 03/24/17 07:10 03/24/17 11:55 03/24/17 17:15 03/24/17 19:16 Glucose (Fingerstick) 193 mg/dL (70-99) H 130 mg/dL (70-99) H 263 mg/dL (70-99) H 298 mg/dL (70-99) H Current Medications: Meds: Current Medications Acetaminophen (Tylenol) 650 mg PRN Q6HRS PRN PO PAIN / TEMP; Start 02/25/17 at 00:30; Stop 02/25/17 at 15:05; Status DC Multi-Ingredient Ointment (Analgesic [place]) 1 marcell PRN QID PRN TP MUSCLE PAIN; Start 02/25/17 at 00:30 Al Hydroxide/Mg Hydroxide (Mylanta Plus Xs) 15 ml PRN AFTMEALHC PRN PO DYSPEPSIA; Start 02/25/17 at 00:30 Magnesium Hydroxide (Milk Of Magnesia) 2,400 mg PRN QHS PRN PO CONSTIPATION; Start 02/25/17 at 00:30; Stop 02/25/17 at 15:05; Status DC Chlorpromazine HCl (Thorazine) 25 mg BID PO Last administered on 02/26/17 09: 34; Start 02/25/17 at 09:00; Stop 02/26/17 at 18:22; Status DC Citalopram Hydrobromide (Celexa) 20 mg DAILY PO Last administered on 03/24/17 09:02; Start 02/25/17 at 09:00 Lorazepam (Ativan) 1 mg PRN Q3HRS PRN PO ANXIETY / AGITATION Last administered on 03/20/17 11:12; Start 02/25/17 at 00:30 Risperidone (Risperdal) 0.5 mg BID PO Last administered on 02/26/17 09:34; Start 02/25/17 at 09:00; Stop 02/26/17 at 18:22; Status DC Trazodone HCl (Desyrel) 50 mg PRN QHS PRN PO INSOMNIA Last administered on 19:26; Start 02/25/17 at 00:30 Divalproex Sodium (Depakote Sprinkles) 500 mg TID PO Last administered on 13:47; Start 02/25/17 at 09:00 Acetaminophen (Tylenol) 650 mg PRN Q8HRS PRN PO PAIN Last administered on 05:32; Start 02/25/17 at 07:30 Amlodipine Besylate (Norvasc) 10 mg DAILY PO Last administered on 03/24/17 09: 02; Start 02/25/17 at 09:00 Gabapentin (Neurontin) 300 mg TID PO Last administered on 03/24/17 13:48; Start 02/25/17 at 09:00 Acetaminophen/ Hydrocodone Bitart (Lortab 5/325) 1 tab Q12HR PO Last administered on 03/24/17 09:16; Start 02/25/17 at 09:00 Insulin Aspart (Novolog) 6 units TIDWMEALS SQ Last administered on 03/24/17 12 :10; Start 02/25/17 at 08:00 Losartan Potassium (Cozaar) 50 mg DAILY PO Last administered on 03/24/17 09:03 ; Start 02/25/17 at 09:00 Senna/Docusate Sodium (Senna Plus) 1 tab DAILY PO Last administered on 09:02; Start 02/25/17 at 09:00 Insulin Detemir (Levemir) 15 units QHS SQ Last administered on 02/25/17 19:55 ; Start 02/25/17 at 21:00; Stop 02/26/17 at 14:21; Status DC Magnesium Hydroxide (Milk Of Magnesia) 2,400 mg PRN DAILY PRN PO CONSTIPATION; Start 02/25/17 at 07:45 Insulin Detemir (Levemir) 15 units QHS SQ Last administered on 03/23/17 20:28 ; Start 02/26/17 at 14:21 Chlorpromazine HCl (Thorazine) 25 mg DAILY PO Last administered on 02/28/17 09 :09; Start 02/27/17 at 09:00; Stop 02/28/17 at 15:50; Status DC Risperidone (Risperdal) 0.5 mg DAILY PO Last administered on 03/07/17 08:23; Start 02/27/17 at 09:00; Stop 03/07/17 at 18:51; Status DC Risperidone (Risperdal) 0.75 mg HS PO ; Start 02/26/17 at 21:00; Stop 02/26/17 at 21:00; Status DC Risperidone (Risperdal) 0.75 mg 14 PO Last administered on 03/24/17 13:48; Start 02/26/17 at 21:00 Buspirone HCl (Buspar) 5 mg BID PO Last administered on 03/01/17 08:38; Start 02/27/17 at 21:00; Stop 03/01/17 at 12:38; Status DC Buspirone HCl (Buspar) 10 mg BID PO Last administered on 03/02/17 08:05; Start 03/01/17 at 21:00; Stop 03/02/17 at 18:06; Status DC Trimethoprim/ Sulfamethoxazole (Bactrim Ds) 1 tab DAILY PO Last administered on 03/09/17 09:29; Start 03/02/17 at 09:00; Stop 03/09/17 at 09:01; Status DC Buspirone HCl (Buspar) 10 mg TIDAFTMEAL PO Last administered on 03/08/17 08:22 ; Start 03/03/17 at 09:00; Stop 03/08/17 at 12:53; Status DC Vitamin D (Vitamin D3) 50,000 unit WEEKLY PO Last administered on 03/24/17 09: 03; Start 03/03/17 at 09:00 Mirtazapine (Remeron) 7.5 mg QHS PO Last administered on 03/08/17 19:26; Start 03/05/17 at 21:00; Stop 03/09/17 at 18:14; Status DC Mirtazapine (Remeron) 15 mg QHS PO Last administered on 03/23/17 20:00; Start 03/06/17 at 21:00 Risperidone (Risperdal) 0.75 mg DAILY PO Last administered on 03/24/17 09:04; Start 03/08/17 at 09:00 Buspirone HCl (Buspar) 20 mg DAILY PO Last administered on 03/24/17 09:03; Start 03/09/17 at 09:00 Buspirone HCl (Buspar) 10 mg BID@1400,2100 PO Last administered on 03/24/17 13 :47; Start 03/08/17 at 14:00 Olanzapine (Zyprexa Zydis) 5 mg PRN Q2HR PRN PO PSYCHOSIS Last administered on 03/20/17 12:22; Start 03/08/17 at 13:00 Trazodone HCl (Desyrel) 12.5 mg BID92 PO Last administered on 03/21/17 08:36; Start 03/17/17 at 09:00; Stop 03/21/17 at 13:00; Status DC Multi-Ingred Cream/Lotion/Oil/ Oint (Hydrocerin) 1 marcell PRN Q4HRS PRN TP REDNESS Last administered on 03/21/17 16:52; Start 03/19/17 at 22:45 Trazodone HCl (Desyrel) 12.5 mg 0900,1200,1400,1900 PO Last administered on 13:48; Start 03/21/17 at 14:00 Active Scripts Active Reported Lantus Solostar (Insulin Glargine,Hum.rec.anlog) 100 Unit/1 Ml Insuln.pen 15 Unit SQ QHS Lorazepam 1 Mg Tablet 1 Mg PO PRN Q3HRS PRN Risperdal (Risperidone) 0.5 Mg Tablet 0.5 Mg PO BID Chlorpromazine Hcl 25 Mg Tablet 25 Mg PO BID Novolog Flexpen (Insulin Aspart) 100 Unit/1 Ml Insuln.pen 6 Unit SQ TIDWMEALS Gabapentin 300 Mg Capsule 300 Mg PO TID Milk Of Magnesia (Magnesium Hydroxide) 2,400 Mg/10 Ml Oral.susp 2,400 Mg PO PRN DAILY Trazodone Hcl 50 Mg Tablet 50 Mg PO PRN QHS PRN Divalproex Sodium 500 Mg Tablet.dr 500 Mg PO TID Losartan Potassium 50 Mg Tablet 50 Mg PO DAILY Senexon-S Tablet (Sennosides/Docusate Sodium) 1 Each Tablet 8.6-50 Mg PO DAILY Celexa (Citalopram Hydrobromide) 20 Mg Tablet 20 Mg PO DAILY Amlodipine Besylate 10 Mg Tablet 10 Mg PO DAILY Percocet 5-325 Mg Tablet (Oxycodone Hcl/Acetaminophen) 1 Each Tablet 1 Tab PO PRN Q8HRS PRN Hydrocodone-Apap 5-325 (Hydrocodone Bit/Acetaminophen) 1 Each Tablet 1 Tab PO Q12HR Tylenol (Acetaminophen) 325 Mg Tablet 650 Mg PO PRN Q8HRS PRN Diagnosis: Problems: (1) Psychiatric disorder (2) Bipolar affective, mixed, sev w/ psych (3) Anxiety disorder (4) Dementia in Alzheimer's disease with delusions (5) Impulse control disorder NANCY HAHN MD March 24, 2017 21:03
--- NOTE | 2017-03-25 01:53 | NUR ---
Behavior Intervention Response and Plan: BIRP Note: Behavior: Assumed Care of patient, patient located in Patient Room at shift change. Patient exhibited the following behavior Calm, Cooperative, Interactive. Brief assessment on rounds of vital signs, medication needs, lab studies, and pain. Treatment plan problems: Altered Mood and Fall Risk. Intervention: Patient assessed and the following interventions initiated safety checks 15 Minute Checks Cognitive Assessment , Head to toe Assessment , Medications, Oral Hydration, and, Nutrition. Response: After interactions and interventions patient responded in the following manner, Calm , Interactive ,Compliant. Continue to assess behaviors and condition will continue to monitor throughout the shift as needed. Plan: Continue to monitor Master Treatment Plan for patient's progress toward short term goals of Decreased Anxiety, Medication Compliance, Improved Mood, correction goals to return to previous living setting vs placement. Continue to assess patient for changes in above assessment. Monitor for medication needs, pain, and safety concerns. Hourly rounding performed to ensure safe environment.
[2017-03-25 07:00] VITALS: BP 118/62
[2017-03-25] MEDS: GABAPENTIN 300 MG CAPSULE. PO SCH ×3 (07:53→19:28)
[2017-03-25] MEDS: LOSARTAN 50 MG TABLET. PO SCH (07:54)
[2017-03-25] MEDS: CITALOPRAM 20 MG TABLET. PO SCH (07:54)
[2017-03-25] MEDS: DIVALPROEX 125 MG CAP.SPRINK PO SCH ×3 (07:54→19:27)
[2017-03-25] MEDS: SENNOSIDES/DOCUSATE 8.6/50MG TABLET. PO SCH (07:54)
[2017-03-25] MEDS: HYDROcodone/APAP 5/325MG 1 TAB TABLET PO SCH ×2 (07:54→19:27)
[2017-03-25] MEDS: risperiDONE 0.5 MG TABLET. PO SCH (07:54)
[2017-03-25] MEDS: traZODone 50 MG TABLET. PO SCH ×3 (07:55→16:59)
[2017-03-25] MEDS: busPIRone 10 MG TABLET. PO SCH ×3 (07:55→19:27)
[2017-03-25] MEDS: amLODIPine BESYLATE 10 MG TABLET PO SCH (07:55)
[2017-03-25] MEDS: INSULIN ASPART 300 UNITS/3 ML INSULN.PEN SQ SCH ×3 (07:56→16:59)
--- NOTE | 2017-03-25 10:29 | NUR ---
Behavior Intervention Response and Plan: BIRP Note: Behavior: Assumed Care of patient, patient located in Patient Room at shift change. Patient exhibited the following behavior Calm, Compliant, Drowsy. Brief assessment on rounds of vital signs, medication needs, lab studies, and pain. Treatment plan problems . Intervention: Patient assessed and the following interventions initiated safety checks 15 Minute Checks Cognitive Assessment , Head to toe Assessment , Medications. Response: After interactions and interventions patient responded in the following manner, Calm , Compliant ,Cooperative. Continue to assess behaviors and condition will continue to monitor throughout the shift as needed. Plan: Continue to monitor Master Treatment Plan for patient's progress toward short term goals of Decreased Anxiety, Decreased Agitation, half-way goals to return to previous living setting vs placement. Continue to assess patient for changes in above assessment. Monitor for medication needs, pain, and safety concerns. Hourly rounding performed to ensure safe environment.
[2017-03-25] MEDS ORDERED: IPRATRPIUM/ALBUTEROL 0.5/2.5MG 3 ML NEBU. NEB ONE (13:15)
[2017-03-25] MEDS ORDERED: ALBUTEROL SULFATE 2.5 MG/3 ML NEBU. NEB ONE (13:15)
[2017-03-25] MEDS: risperiDONE 0.25 MG TABLET. PO SCH (13:22)
[2017-03-25] MEDS: ACETAMINOPHEN 325 MG TABLET PO PRN (13:43)
[2017-03-25 16:19] VITALS: BP 145/67
[2017-03-25] MEDS: MIRTAZAPINE 15 MG TABLET PO SCH (19:28)
[2017-03-25] MEDS: INSULIN DETEMIR 300 UNITS/3 ML INSULN.PEN. SQ SCH (19:30)
--- NOTE | 2017-03-25 19:52 | PDOC ---
Exam Johann Demential Exam: Johann Note: Please also refer to the separate dictated note~for this date of service dictated separately.~Patient seen individually. Discussed the patient with Nursing staff reviewed the chart.~Reviewed interim history and current functioning. Reviewed vital signs,~Labs/ Radiology~and current medications noted below. Continue current treatment with the changes noted in the dictated addendum note Assessment: Vital Signs: Vital Signs Date Time Temp Pulse Resp B/P (MAP) Pulse Ox O2 Delivery O2 Flow Rate FiO2 03/25/17 19:27 20 03/25/17 16:19 97.7 62 145/67 (93) 94 03/25/17 13:19 Room Air I&O Intake and Output 03/25/17 07:00 Intake Total 1560 ml Balance 1560 ml Intake Oral 1560 ml Labs: Laboratory Tests Test 03/25/17 07:49 03/25/17 11:52 03/25/17 16:43 03/25/17 19:10 Glucose (Fingerstick) 105 mg/dL (70-99) H 184 mg/dL (70-99) H 164 mg/dL (70-99) H 219 mg/dL (70-99) H Current Medications: Meds: Current Medications Acetaminophen (Tylenol) 650 mg PRN Q6HRS PRN PO PAIN / TEMP; Start 02/25/17 at 00:30; Stop 02/25/17 at 15:05; Status DC Multi-Ingredient Ointment (Analgesic [place]) 1 marcell PRN QID PRN TP MUSCLE PAIN; Start 02/25/17 at 00:30 Al Hydroxide/Mg Hydroxide (Mylanta Plus Xs) 15 ml PRN AFTMEALHC PRN PO DYSPEPSIA; Start 02/25/17 at 00:30 Magnesium Hydroxide (Milk Of Magnesia) 2,400 mg PRN QHS PRN PO CONSTIPATION; Start 02/25/17 at 00:30; Stop 02/25/17 at 15:05; Status DC Chlorpromazine HCl (Thorazine) 25 mg BID PO Last administered on 02/26/17 09: 34; Start 02/25/17 at 09:00; Stop 02/26/17 at 18:22; Status DC Citalopram Hydrobromide (Celexa) 20 mg DAILY PO Last administered on 03/25/17 07:54; Start 02/25/17 at 09:00 Lorazepam (Ativan) 1 mg PRN Q3HRS PRN PO ANXIETY / AGITATION Last administered on 03/20/17 11:12; Start 02/25/17 at 00:30 Risperidone (Risperdal) 0.5 mg BID PO Last administered on 02/26/17 09:34; Start 02/25/17 at 09:00; Stop 02/26/17 at 18:22; Status DC Trazodone HCl (Desyrel) 50 mg PRN QHS PRN PO INSOMNIA Last administered on 19:26; Start 02/25/17 at 00:30 Divalproex Sodium (Depakote Sprinkles) 500 mg TID PO Last administered on 19:27; Start 02/25/17 at 09:00 Acetaminophen (Tylenol) 650 mg PRN Q8HRS PRN PO PAIN Last administered on 13:43; Start 02/25/17 at 07:30 Amlodipine Besylate (Norvasc) 10 mg DAILY PO Last administered on 03/25/17 07: 55; Start 02/25/17 at 09:00 Gabapentin (Neurontin) 300 mg TID PO Last administered on 03/25/17 19:28; Start 02/25/17 at 09:00 Acetaminophen/ Hydrocodone Bitart (Lortab 5/325) 1 tab Q12HR PO Last administered on 03/25/17 19:27; Start 02/25/17 at 09:00 Insulin Aspart (Novolog) 6 units TIDWMEALS SQ Last administered on 03/25/17 16 :59; Start 02/25/17 at 08:00 Losartan Potassium (Cozaar) 50 mg DAILY PO Last administered on 03/25/17 07:54 ; Start 02/25/17 at 09:00 Senna/Docusate Sodium (Senna Plus) 1 tab DAILY PO Last administered on 07:54; Start 02/25/17 at 09:00 Insulin Detemir (Levemir) 15 units QHS SQ Last administered on 02/25/17 19:55 ; Start 02/25/17 at 21:00; Stop 02/26/17 at 14:21; Status DC Magnesium Hydroxide (Milk Of Magnesia) 2,400 mg PRN DAILY PRN PO CONSTIPATION; Start 02/25/17 at 07:45 Insulin Detemir (Levemir) 15 units QHS SQ Last administered on 03/25/17 19:30 ; Start 02/26/17 at 14:21 Chlorpromazine HCl (Thorazine) 25 mg DAILY PO Last administered on 02/28/17 09 :09; Start 02/27/17 at 09:00; Stop 02/28/17 at 15:50; Status DC Risperidone (Risperdal) 0.5 mg DAILY PO Last administered on 03/07/17 08:23; Start 02/27/17 at 09:00; Stop 03/07/17 at 18:51; Status DC Risperidone (Risperdal) 0.75 mg HS PO ; Start 02/26/17 at 21:00; Stop 02/26/17 at 21:00; Status DC Risperidone (Risperdal) 0.75 mg 14 PO Last administered on 03/25/17 13:22; Start 02/26/17 at 21:00 Buspirone HCl (Buspar) 5 mg BID PO Last administered on 03/01/17 08:38; Start 02/27/17 at 21:00; Stop 03/01/17 at 12:38; Status DC Buspirone HCl (Buspar) 10 mg BID PO Last administered on 03/02/17 08:05; Start 03/01/17 at 21:00; Stop 03/02/17 at 18:06; Status DC Trimethoprim/ Sulfamethoxazole (Bactrim Ds) 1 tab DAILY PO Last administered on 03/09/17 09:29; Start 03/02/17 at 09:00; Stop 03/09/17 at 09:01; Status DC Buspirone HCl (Buspar) 10 mg TIDAFTMEAL PO Last administered on 03/08/17 08:22 ; Start 03/03/17 at 09:00; Stop 03/08/17 at 12:53; Status DC Vitamin D (Vitamin D3) 50,000 unit WEEKLY PO Last administered on 03/24/17 09: 03; Start 03/03/17 at 09:00 Mirtazapine (Remeron) 7.5 mg QHS PO Last administered on 03/08/17 19:26; Start 03/05/17 at 21:00; Stop 03/09/17 at 18:14; Status DC Mirtazapine (Remeron) 15 mg QHS PO Last administered on 03/25/17 19:28; Start 03/06/17 at 21:00 Risperidone (Risperdal) 0.75 mg DAILY PO Last administered on 03/25/17 07:54; Start 03/08/17 at 09:00 Buspirone HCl (Buspar) 20 mg DAILY PO Last administered on 03/25/17 07:55; Start 03/09/17 at 09:00 Buspirone HCl (Buspar) 10 mg BID@1400,2100 PO Last administered on 03/25/17 19 :27; Start 03/08/17 at 14:00 Olanzapine (Zyprexa Zydis) 5 mg PRN Q2HR PRN PO PSYCHOSIS Last administered on 03/20/17 12:22; Start 03/08/17 at 13:00 Trazodone HCl (Desyrel) 12.5 mg BID92 PO Last administered on 03/21/17 08:36; Start 03/17/17 at 09:00; Stop 03/21/17 at 13:00; Status DC Multi-Ingred Cream/Lotion/Oil/ Oint (Hydrocerin) 1 marcell PRN Q4HRS PRN TP REDNESS Last administered on 03/21/17 16:52; Start 03/19/17 at 22:45 Trazodone HCl (Desyrel) 12.5 mg 0900,1200,1400,1900 PO Last administered on 16:59; Start 03/21/17 at 14:00 Albuterol Sulfate (Ventolin) 2.5 mg 1X ONCE NEB ; Start 03/25/17 at 13:15; Stop 03/25/17 at 13:15; Status DC Albuterol/ Ipratropium (Duoneb) 3 ml 1X ONCE NEB Last administered on 13:18; Start 03/25/17 at 13:15; Stop 03/25/17 at 13:16; Status DC Active Scripts Active Reported Lantus Solostar (Insulin Glargine,Hum.rec.anlog) 100 Unit/1 Ml Insuln.pen 15 Unit SQ QHS Lorazepam 1 Mg Tablet 1 Mg PO PRN Q3HRS PRN Risperdal (Risperidone) 0.5 Mg Tablet 0.5 Mg PO BID Chlorpromazine Hcl 25 Mg Tablet 25 Mg PO BID Novolog Flexpen (Insulin Aspart) 100 Unit/1 Ml Insuln.pen 6 Unit SQ TIDWMEALS Gabapentin 300 Mg Capsule 300 Mg PO TID Milk Of Magnesia (Magnesium Hydroxide) 2,400 Mg/10 Ml Oral.susp 2,400 Mg PO PRN DAILY Trazodone Hcl 50 Mg Tablet 50 Mg PO PRN QHS PRN Divalproex Sodium 500 Mg Tablet.dr 500 Mg PO TID Losartan Potassium 50 Mg Tablet 50 Mg PO DAILY Senexon-S Tablet (Sennosides/Docusate Sodium) 1 Each Tablet 8.6-50 Mg PO DAILY Celexa (Citalopram Hydrobromide) 20 Mg Tablet 20 Mg PO DAILY Amlodipine Besylate 10 Mg Tablet 10 Mg PO DAILY Percocet 5-325 Mg Tablet (Oxycodone Hcl/Acetaminophen) 1 Each Tablet 1 Tab PO PRN Q8HRS PRN Hydrocodone-Apap 5-325 (Hydrocodone Bit/Acetaminophen) 1 Each Tablet 1 Tab PO Q12HR Tylenol (Acetaminophen) 325 Mg Tablet 650 Mg PO PRN Q8HRS PRN NANCY HAHN MD March 25, 2017 19:52
--- NOTE | 2017-03-25 20:45 | NUR ---
Behavior Intervention Response and Plan: BIRP Note: Behavior: Assumed Care of patient, patient located in Patient Room at shift change. Patient exhibited the following behavior Calm, Cooperative, Interactive, Happy, Hyperverbal. Brief assessment on rounds of vital signs, medication needs, lab studies, and pain. Treatment plan problems: Altered Mood and Fall Risk. Intervention: Patient assessed and the following interventions initiated safety checks 15 Minute Checks Cognitive Assessment , Head to toe Assessment , Medications, Oral Hydration, and, Nutrition. Response: After interactions and interventions patient responded in the following manner, Calm , Interactive ,Compliant. Continue to assess behaviors and condition will continue to monitor throughout the shift as needed. 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 Continue to assess patient for changes in above assessment. Monitor for medication needs, pain, and safety concerns. Hourly rounding performed to ensure safe environment.
[2017-03-26 06:00] VITALS: BP 120/58
--- NOTE | 2017-03-26 06:55 | ACF ---
Admission Criteria Forms MENTAL STATUS CHANGE Clinical Indications for Inpatient Care (Place 'X' for any and all applicable criteria): Ongoing inpatient care may be needed for 1 or more of the following(1)(2)(3)(5)( 6): [X]I. Suspected serious etiology (eg, medical disorder, OFFICE WORKER event) of altered mental status [ ]II. Danger to self or others not manageable at lower level of care [ ]III. Grave disability (eg, inability to perform self care necessary at lower level of care) [ ]IV. Agitation or inappropriate behavior interfering with care for primary condition (eg, attempting to discontinue lines or drains prematurely, unable to cooperate with respiratory care) [ ]V. Delirium [A] [D][E] as described by 1 or more of the following(26): [ ]a) Delirium due to alcohol or sedative [F] withdrawal [ ]b) Delirium of uncertain etiology that has not responded to appropriate empiric treatment [ ]c) Delirium that prevents performance of a life-sustaining function (eg, feeding or hydrating oneself) [ ]. General contraindications and/or Inappropriate clinical situations for Observational Care in patients with Mental Status Change, when ANY ONE of the following is required: [ ]a) Prediction of prolongation of LOS based on ANY ONE of the following may be considered as a contraindication for observational care 2, 3, 4, 5, 6, 7, 8, 9, 10, 11 [ ]i) Age > 65 yrs. [ ]ii) Patient arriving by ambulance [ ]iii) Patient with high acuity [ ]iv) Patient requiring vital sign monitoring [ ]v) Patient on IV medication [ ]b) Systolic blood pressures greater than or equal to 180mmHg 3, 12 [ ]c) Patient with altered mental status including delirium and other alteration of consciousness, (3) [ ]d) Patient whose discharge disposition will be to a assisted home or rehabilitation home should not be managed in Emergency Department Observation Unit. CMS rule requires 3 days hospital stay before such placement.3,13 [ ]e) Patient with failure to thrive due to broad array of etiologies 3,16,17 [ ]f) Inability to ambulate 3,14 Extended stay beyond goal length of stay for the primary condition may be needed until ALL of the following are present(3)(5): [ ]a) Underlying medical etiology of mental status change is absent, or has been established and adequately treated [ ]b) Danger to self or others is absent or manageable at lower level of care. [ ]c) Behavior crisis management, including physical or chemical restraints, is not required or available at lower level of car [ ]d) Substance or alcohol withdrawal is absent or manageable at lower level of care. [ ]e) Behavioral symptoms (eg, agitation, somnolence, inappropriate behavior) are absent, or are manageable at lower level of care. The original [facility] [email or web address] content created by [facility] [email or web address] has been revised. The portions of the content which have been revised are identified through the use of italic text or in bold, and [facility] has neither reviewed nor approved the modified material. All other unmodified content is copyright [email or web address]. Please see references footnoted in the original [email or web address] edition 2016 Admission Criteria Met?: Yes KAITLYN BURR March 26, 2017 06:55
[2017-03-26 06:58] LABS: BASO % 0 % (0-3); EOS # 0.2 x10^3/uL (0.0-0.7); EOS % 3 % (0-3); HEMATOCRIT 36.7 % (36.0-47.0); HEMOGLOBIN 12.3 g/dL (12.0-15.5); LYMPH # 2.5 x10^3/uL (1.0-4.8); LYMPH % 47 % (24-48); MEAN CORPUSCULAR HEMOGLOBIN 31 pg (25-35); MEAN CORPUSCULAR HGB CONC 33 g/dL (31-37); MEAN CORPUSCULAR VOLUME 93 fL (79-100); MONO # 0.5 x10^3/uL (0.0-1.1); MONO % 10 % (0-9); NEUT # 2.2 x10^3uL (1.8-7.7); NEUT % 41 % (31-73); PLATELET COUNT 162 x10^3/uL (140-400); RED BLOOD COUNT 3.95 x10^6/uL (3.50-5.40); WHITE BLOOD COUNT 5.4 x10^3/uL (4.0-11.0)
[2017-03-26 07:08] LABS: ALBUMIN 2.7 g/dL (3.4-5.0); ALBUMIN/GLOBULIN RATIO 0.7 (1.0-1.7); ALK PHOS 59 U/L (46-116); ALT (SGPT) 14 U/L (14-59); ANION GAP 5 (6-14); AST (SGOT) 14 U/L (15-37); BLOOD UREA NITROGEN 13 mg/dL (7-20); BUN/CREATININE RATIO 16 (6-20); CALCIUM 8.4 mg/dL (8.5-10.1); CARBON DIOXIDE 31 mmol/L (21-32); CHLORIDE 106 mmol/L (98-107); CREATININE 0.8 mg/dL (0.6-1.0); GFR 72.9; GLUCOSE 107 mg/dL (70-99); MAGNESIUM 1.9 mg/dL (1.8-2.4); POTASSIUM 4.8 mmol/L (3.5-5.1); SODIUM 142 mmol/L (136-145); TOTAL BILIRUBIN 0.3 mg/dL (0.2-1.0); TOTAL PROTEIN 6.5 g/dL (6.4-8.2)
[2017-03-26 07:16] LABS: VAL ACID 57 mcg/mL (50-100)
[2017-03-26] MEDS: INSULIN ASPART 300 UNITS/3 ML INSULN.PEN SQ SCH ×3 (08:00→17:31)
[2017-03-26] MEDS: CITALOPRAM 20 MG TABLET. PO SCH (09:24)
[2017-03-26] MEDS: SENNOSIDES/DOCUSATE 8.6/50MG TABLET. PO SCH (09:24)
[2017-03-26] MEDS: DIVALPROEX 125 MG CAP.SPRINK PO SCH ×3 (09:25→20:26)
[2017-03-26] MEDS: risperiDONE 0.5 MG TABLET. PO SCH (09:25)
[2017-03-26] MEDS: amLODIPine BESYLATE 10 MG TABLET PO SCH (09:25)
[2017-03-26] MEDS: GABAPENTIN 300 MG CAPSULE. PO SCH ×3 (09:25→20:26)
[2017-03-26] MEDS: LOSARTAN 50 MG TABLET. PO SCH (09:26)
[2017-03-26] MEDS: traZODone 50 MG TABLET. PO SCH ×4 (09:26→17:30)
[2017-03-26] MEDS: busPIRone 10 MG TABLET. PO SCH ×3 (09:26→20:26)
[2017-03-26] MEDS: HYDROcodone/APAP 5/325MG 1 TAB TABLET PO SCH ×2 (09:26→20:31)
--- NOTE | 2017-03-26 10:49 | NUR ---
Group Note [facility] Group Type UNGAME Start Time: 09:40 End Time: 10:20 Problem: Depression Purpose: Increase Stimulation, Increase socialization, express thoughts/feelings Level of Participation: absent- Shower Behaviors or Symptoms Observed: Pts sat within group and answered questions from the UNGAME and shared experiences and thoughts and feelings around questions that were asked. Interventions: Directed Focus Plan: group Additional Comments:
--- NOTE | 2017-03-26 11:15 | NUR ---
Behavior Intervention Response and Plan: BIRP Note: Behavior: Assumed Care of patient, patient located in Day Room at shift change. Patient exhibited the following behavior Calm, Compliant, Cooperative. Brief assessment on rounds of vital signs, medication needs, lab studies, and pain. Treatment plan problems . Intervention: Patient assessed and the following interventions initiated safety checks 15 Minute Checks Cognitive Assessment , Head to toe Assessment , Medications. Response: After interactions and interventions patient responded in the following manner, Calm , Interactive ,Compliant. Continue to assess behaviors and condition will continue to monitor throughout the shift as needed. Plan: Continue to monitor Master Treatment Plan for patient's progress toward short term goals of Decreased Agitation, Decreased Aggression, retirement goals to return to previous living setting vs placement. Continue to assess patient for changes in above assessment. Monitor for medication needs, pain, and safety concerns. Hourly rounding performed to ensure safe environment.
--- NOTE | 2017-03-26 11:25 | NUR ---
THERAPEUTIC RECREATION GROUP NOTE TITLE :Movement to Music: Flexibility ACTIVITY : Movement/ Exercise GOAL : Increase morale, attention, flexibility. Decrease stress/anxiety. DURATION : 30 Minutes RESPONSE : Full participation. Pt. followed along with moves with minimal prompting. She smiled often and was pleasant to have in group.
--- NOTE | 2017-03-26 13:34 | NUR ---
SW spoke w/PT's Guardian/ex brother in law, Dameon during visiting hours. Family inquired about status of Level II completion and SW reported the final report was sent last Sunday. SW will put together admit packet to all Level II facilities in the area and contact family w/any further developments.
--- NOTE | 2017-03-26 13:35 | NUR ---
SW faxed admit referral to [facility], [facility]), [facility] and [facility], [place], [facility]. Family requested referral not be sent to [facility] as there is a family member that is employed there and a family member that is a resident there.
--- NOTE | 2017-03-26 14:45 | NUR ---
THERAPEUTIC RECREATION GROUP NOTE TITLE :Coffee Filter Poppy Escobar ACTIVITY : Arts [employer] GOAL : Increase socialization, fine motor skills, creativity DURATION : 105 Minutes RESPONSE : No participation.
[2017-03-26] MEDS: risperiDONE 0.25 MG TABLET. PO SCH (14:47)
[2017-03-26 16:56] VITALS: BP 137/77
--- NOTE | 2017-03-26 20:05 | PDOC ---
Exam Johann Demential Exam: Johann Note: Please also refer to the separate dictated note~for this date of service dictated separately.~Patient seen individually. Discussed the patient with Nursing staff reviewed the chart.~Reviewed interim history and current functioning. Reviewed vital signs,~Labs/ Radiology~and current medications noted below. Continue current treatment with the changes noted in the dictated addendum note Assessment: Vital Signs: Vital Signs Date Time Temp Pulse Resp B/P (MAP) Pulse Ox O2 Delivery O2 Flow Rate FiO2 03/26/17 16:56 97.5 66 20 137/77 (97) 92 Room Air I&O Intake and Output 03/26/17 07:00 Intake Total 1680 ml Balance 1680 ml Intake Oral 1680 ml Labs: Laboratory Tests Test 03/26/17 06:45 03/26/17 07:42 03/26/17 11:26 03/26/17 16:47 White Blood Count 5.4 x10^3/uL (4.0-11.0) Red Blood Count 3.95 x10^6/uL (3.50-5.40) Hemoglobin 12.3 g/dL (12.0-15.5) Hematocrit 36.7 % (36.0-47.0) Mean Corpuscular Volume 93 fL (79-100) Mean Corpuscular Hemoglobin 31 pg (25-35) Mean Corpuscular Hemoglobin Concent 33 g/dL (31-37) Red Cell Distribution Width 14.0 % (11.5-14.5) Platelet Count 162 x10^3/uL (140-400) Neutrophils (%) (Auto) 41 % (31-73) Lymphocytes (%) (Auto) 47 % (24-48) Monocytes (%) (Auto) 10 % (0-9) H Eosinophils (%) (Auto) 3 % (0-3) Basophils (%) (Auto) 0 % (0-3) Neutrophils # (Auto) 2.2 x10^3uL (1.8-7.7) Lymphocytes # (Auto) 2.5 x10^3/uL (1.0-4.8) Monocytes # (Auto) 0.5 x10^3/uL (0.0-1.1) Eosinophils # (Auto) 0.2 x10^3/uL (0.0-0.7) Basophils # (Auto) 0.0 x10^3/uL (0.0-0.2) Sodium Level 142 mmol/L (136-145) Potassium Level 4.8 mmol/L (3.5-5.1) Chloride Level 106 mmol/L (98-107) Carbon Dioxide Level 31 mmol/L (21-32) Anion Gap 5 (6-14) L Blood Urea Nitrogen 13 mg/dL (7-20) Creatinine 0.8 mg/dL (0.6-1.0) Estimated GFR (Cockcroft-Gault) 72.9 BUN/Creatinine Ratio 16 (6-20) Glucose Level 107 mg/dL (70-99) H Calcium Level 8.4 mg/dL (8.5-10.1) L Magnesium Level 1.9 mg/dL (1.8-2.4) Total Bilirubin 0.3 mg/dL (0.2-1.0) Aspartate Amino Transferase (AST) 14 U/L (15-37) L Alanine Aminotransferase (ALT) 14 U/L (14-59) Alkaline Phosphatase 59 U/L (46-116) Total Protein 6.5 g/dL (6.4-8.2) Albumin 2.7 g/dL (3.4-5.0) L Albumin/Globulin Ratio 0.7 (1.0-1.7) L Valproic Acid Level 57 mcg/mL (50-100) Valproic Acid Last Dose Date 03/25/2017 Valproic Acid Last Dose Time 2100 Glucose (Fingerstick) 86 mg/dL (70-99) 238 mg/dL (70-99) H 142 mg/dL (70-99) H Current Medications: Meds: Current Medications Acetaminophen (Tylenol) 650 mg PRN Q6HRS PRN PO PAIN / TEMP; Start 02/25/17 at 00:30; Stop 02/25/17 at 15:05; Status DC Multi-Ingredient Ointment (Analgesic [place]) 1 marcell PRN QID PRN TP MUSCLE PAIN; Start 02/25/17 at 00:30 Al Hydroxide/Mg Hydroxide (Mylanta Plus Xs) 15 ml PRN AFTMEALHC PRN PO DYSPEPSIA; Start 02/25/17 at 00:30 Magnesium Hydroxide (Milk Of Magnesia) 2,400 mg PRN QHS PRN PO CONSTIPATION; Start 02/25/17 at 00:30; Stop 02/25/17 at 15:05; Status DC Chlorpromazine HCl (Thorazine) 25 mg BID PO Last administered on 02/26/17 09: 34; Start 02/25/17 at 09:00; Stop 02/26/17 at 18:22; Status DC Citalopram Hydrobromide (Celexa) 20 mg DAILY PO Last administered on 03/26/17 09:24; Start 02/25/17 at 09:00 Lorazepam (Ativan) 1 mg PRN Q3HRS PRN PO ANXIETY / AGITATION Last administered on 03/20/17 11:12; Start 02/25/17 at 00:30 Risperidone (Risperdal) 0.5 mg BID PO Last administered on 02/26/17 09:34; Start 02/25/17 at 09:00; Stop 02/26/17 at 18:22; Status DC Trazodone HCl (Desyrel) 50 mg PRN QHS PRN PO INSOMNIA Last administered on 19:26; Start 02/25/17 at 00:30 Divalproex Sodium (Depakote Sprinkles) 500 mg TID PO Last administered on 14:48; Start 02/25/17 at 09:00 Acetaminophen (Tylenol) 650 mg PRN Q8HRS PRN PO PAIN Last administered on 13:43; Start 02/25/17 at 07:30 Amlodipine Besylate (Norvasc) 10 mg DAILY PO Last administered on 03/26/17 09: 25; Start 02/25/17 at 09:00 Gabapentin (Neurontin) 300 mg TID PO Last administered on 03/26/17 14:45; Start 02/25/17 at 09:00 Acetaminophen/ Hydrocodone Bitart (Lortab 5/325) 1 tab Q12HR PO Last administered on 03/26/17 09:26; Start 02/25/17 at 09:00 Insulin Aspart (Novolog) 6 units TIDWMEALS SQ Last administered on 03/26/17 17 :31; Start 02/25/17 at 08:00 Losartan Potassium (Cozaar) 50 mg DAILY PO Last administered on 03/26/17 09:26 ; Start 02/25/17 at 09:00 Senna/Docusate Sodium (Senna Plus) 1 tab DAILY PO Last administered on 09:24; Start 02/25/17 at 09:00 Insulin Detemir (Levemir) 15 units QHS SQ Last administered on 02/25/17 19:55 ; Start 02/25/17 at 21:00; Stop 02/26/17 at 14:21; Status DC Magnesium Hydroxide (Milk Of Magnesia) 2,400 mg PRN DAILY PRN PO CONSTIPATION; Start 02/25/17 at 07:45 Insulin Detemir (Levemir) 15 units QHS SQ Last administered on 03/25/17 19:30 ; Start 02/26/17 at 14:21 Chlorpromazine HCl (Thorazine) 25 mg DAILY PO Last administered on 02/28/17 09 :09; Start 02/27/17 at 09:00; Stop 02/28/17 at 15:50; Status DC Risperidone (Risperdal) 0.5 mg DAILY PO Last administered on 03/07/17 08:23; Start 02/27/17 at 09:00; Stop 03/07/17 at 18:51; Status DC Risperidone (Risperdal) 0.75 mg HS PO ; Start 02/26/17 at 21:00; Stop 02/26/17 at 21:00; Status DC Risperidone (Risperdal) 0.75 mg 14 PO Last administered on 03/26/17 14:47; Start 02/26/17 at 21:00 Buspirone HCl (Buspar) 5 mg BID PO Last administered on 03/01/17 08:38; Start 02/27/17 at 21:00; Stop 03/01/17 at 12:38; Status DC Buspirone HCl (Buspar) 10 mg BID PO Last administered on 03/02/17 08:05; Start 03/01/17 at 21:00; Stop 03/02/17 at 18:06; Status DC Trimethoprim/ Sulfamethoxazole (Bactrim Ds) 1 tab DAILY PO Last administered on 03/09/17 09:29; Start 03/02/17 at 09:00; Stop 03/09/17 at 09:01; Status DC Buspirone HCl (Buspar) 10 mg TIDAFTMEAL PO Last administered on 03/08/17 08:22 ; Start 03/03/17 at 09:00; Stop 03/08/17 at 12:53; Status DC Vitamin D (Vitamin D3) 50,000 unit WEEKLY PO Last administered on 03/24/17 09: 03; Start 03/03/17 at 09:00 Mirtazapine (Remeron) 7.5 mg QHS PO Last administered on 03/08/17 19:26; Start 03/05/17 at 21:00; Stop 03/09/17 at 18:14; Status DC Mirtazapine (Remeron) 15 mg QHS PO Last administered on 03/25/17 19:28; Start 03/06/17 at 21:00 Risperidone (Risperdal) 0.75 mg DAILY PO Last administered on 03/26/17 09:25; Start 03/08/17 at 09:00 Buspirone HCl (Buspar) 20 mg DAILY PO Last administered on 03/26/17 09:26; Start 03/09/17 at 09:00 Buspirone HCl (Buspar) 10 mg BID@1400,2100 PO Last administered on 03/26/17 14 :45; Start 03/08/17 at 14:00 Olanzapine (Zyprexa Zydis) 5 mg PRN Q2HR PRN PO PSYCHOSIS Last administered on 03/20/17 12:22; Start 03/08/17 at 13:00 Trazodone HCl (Desyrel) 12.5 mg BID92 PO Last administered on 03/21/17 08:36; Start 03/17/17 at 09:00; Stop 03/21/17 at 13:00; Status DC Multi-Ingred Cream/Lotion/Oil/ Oint (Hydrocerin) 1 marcell PRN Q4HRS PRN TP REDNESS Last administered on 03/21/17 16:52; Start 03/19/17 at 22:45 Trazodone HCl (Desyrel) 12.5 mg 0900,1200,1400,1900 PO Last administered on 17:30; Start 03/21/17 at 14:00 Albuterol Sulfate (Ventolin) 2.5 mg 1X ONCE NEB ; Start 03/25/17 at 13:15; Stop 03/25/17 at 13:15; Status DC Albuterol/ Ipratropium (Duoneb) 3 ml 1X ONCE NEB Last administered on t 13:18; Start 03/25/17 at 13:15; Stop 03/25/17 at 13:16; Status DC Active Scripts Active Reported Lantus Solostar (Insulin Glargine,Hum.rec.anlog) 100 Unit/1 Ml Insuln.pen 15 Unit SQ QHS Lorazepam 1 Mg Tablet 1 Mg PO PRN Q3HRS PRN Risperdal (Risperidone) 0.5 Mg Tablet 0.5 Mg PO BID Chlorpromazine Hcl 25 Mg Tablet 25 Mg PO BID Novolog Flexpen (Insulin Aspart) 100 Unit/1 Ml Insuln.pen 6 Unit SQ TIDWMEALS Gabapentin 300 Mg Capsule 300 Mg PO TID Milk Of Magnesia (Magnesium Hydroxide) 2,400 Mg/10 Ml Oral.susp 2,400 Mg PO PRN DAILY Trazodone Hcl 50 Mg Tablet 50 Mg PO PRN QHS PRN Divalproex Sodium 500 Mg Tablet.dr 500 Mg PO TID Losartan Potassium 50 Mg Tablet 50 Mg PO DAILY Senexon-S Tablet (Sennosides/Docusate Sodium) 1 Each Tablet 8.6-50 Mg PO DAILY Celexa (Citalopram Hydrobromide) 20 Mg Tablet 20 Mg PO DAILY Amlodipine Besylate 10 Mg Tablet 10 Mg PO DAILY Percocet 5-325 Mg Tablet (Oxycodone Hcl/Acetaminophen) 1 Each Tablet 1 Tab PO PRN Q8HRS PRN Hydrocodone-Apap 5-325 (Hydrocodone Bit/Acetaminophen) 1 Each Tablet 1 Tab PO Q12HR Tylenol (Acetaminophen) 325 Mg Tablet 650 Mg PO PRN Q8HRS PRN NANCY HAHN MD March 26, 2017 20:05
[2017-03-26] MEDS: INSULIN DETEMIR 300 UNITS/3 ML INSULN.PEN. SQ SCH (20:25)
[2017-03-26] MEDS: MIRTAZAPINE 15 MG TABLET PO SCH (20:25)
--- NOTE | 2017-03-26 20:45 | NUR ---
Behavior Intervention Response and Plan: BIRP Note: Behavior: Assumed Care of patient, patient located in Patient Room at shift change. Patient exhibited the following behavior Calm, Cooperative, Interactive, Happy, Hyperverbal. Brief assessment on rounds of vital signs, medication needs, lab studies, and pain. Treatment plan problems: Altered Mood and Fall Risk. Intervention: Patient assessed and the following interventions initiated safety checks 15 Minute Checks Cognitive Assessment , Head to toe Assessment , Medications, Oral Hydration, and, Nutrition. Response: After interactions and interventions patient responded in the following manner, Calm , Interactive ,Compliant. Continue to assess behaviors and condition will continue to monitor throughout the shift as needed. Plan: Continue to monitor Master Treatment Plan for patient's progress toward short term goals of Decreased Anxiety, Medication Compliance, Improved Mood, local [employer] goals to return to previous living setting vs placement. Continue to assess patient for changes in above assessment. Monitor for medication needs, pain, and safety concerns. Hourly rounding performed to ensure safe environment.
[2017-03-26] MEDS: ACETAMINOPHEN 325 MG TABLET PO PRN (22:00)
--- NOTE | 2017-03-27 06:17 | PN ---
DATE: 03/23/2017 This late entry for 03/23/2017 covers elements not covered in my initial note. SUBJECTIVE: Overall, the patient is more compliant, still very loud in her speech because she is hard of hearing. REVIEW OF SYSTEMS: No CV, , pulmonary system symptoms on review. MENTAL STATUS EXAM: Reasonably oriented. Abstraction fair, computation impaired, language function intact. Mood and affect, lability is improved. LABORATORY DATA: Reviewed. IMPRESSION: Unchanged from initial note. PLAN: Continue current psychotropics. Adjust as clinically indicated. MAN Kemal HAHN MD DR: MARGA/estelle JOB#: [id number] / [id number]
[2017-03-27 06:19] VITALS: BP 132/71
--- NOTE | 2017-03-27 06:21 | PN ---
DATE: 03/24/2017 This late entry for 03/24/2017 covers elements not covered in my initial note. SUBJECTIVE: Overall, the patient continues to be more cooperative, pleasant. REVIEW OF SYSTEMS: Hard of hearing. Speech is loud, abstraction fair, computation impaired, language function intact. Mood and affect is improved. No CV, , pulmonary, eye system symptoms on review. LABORATORY DATA: Reviewed. IMPRESSION: Unchanged from initial note. PLAN: Continue current psychotropics. Adjust further as clinically indicated. MAN Kemal HAHN MD DR: MARGA/estelle JOB#: [id number] / [id number]
--- NOTE | 2017-03-27 06:25 | PN ---
DATE: 03/25/2017 PSYCHIATRIC PROGRESS NOTE This is late entry of 03/25/2017, covers elements not covered in my initial note. SUBJECTIVE: I met with the patient in her room. She has been fairly cooperative, less labile in her mood. REVIEW OF SYSTEMS: Hard of hearing. No CV, , pulmonary, eye system symptoms on review. She is loud in her speech. MENTAL STATUS EXAMINATION: Abstraction fair, computation impaired, language function intact. Mood and affect at times labile but improved. IMPRESSION: Unchanged from initial note. PLAN: Continue current psychotropics. MAN Kemal HAHN MD DR: MARGA/estelle JOB#: [id number] / [id number]
[2017-03-27] MEDS: GABAPENTIN 300 MG CAPSULE. PO SCH ×3 (09:05→19:41)
[2017-03-27] MEDS: risperiDONE 0.5 MG TABLET. PO SCH (09:05)
[2017-03-27] MEDS: DIVALPROEX 125 MG CAP.SPRINK PO SCH ×3 (09:05→19:41)
[2017-03-27] MEDS: LOSARTAN 50 MG TABLET. PO SCH (09:05)
[2017-03-27] MEDS: amLODIPine BESYLATE 10 MG TABLET PO SCH (09:06)
[2017-03-27] MEDS: busPIRone 10 MG TABLET. PO SCH ×3 (09:07→19:41)
[2017-03-27] MEDS: CITALOPRAM 20 MG TABLET. PO SCH (09:07)
[2017-03-27] MEDS: traZODone 50 MG TABLET. PO SCH ×4 (09:07→18:13)
[2017-03-27] MEDS: SENNOSIDES/DOCUSATE 8.6/50MG TABLET. PO SCH (09:07)
[2017-03-27] MEDS: HYDROcodone/APAP 5/325MG 1 TAB TABLET PO SCH ×2 (09:11→19:41)
[2017-03-27] MEDS: INSULIN ASPART 300 UNITS/3 ML INSULN.PEN SQ SCH ×3 (09:12→17:24)
--- NOTE | 2017-03-27 12:34 | NUR ---
[facility] GROUP NOTE TITLE: Jenga! ACTIVITY: Jenga blocks w/various prompts to be answered by the group. DURATION: 45 minutes TARGET BEHAVIOR: Cognitive, social skills, coordination/skill, directed focus, reminisce, therapeutic expression RESPONSE: Pt. actively participated in group. Pt. was able to follow directions, share her answers and wait her turn. Pt. did very well in team work w/rebuilding the blocks and was able to maintain her composure when she made the blocks tumble.
[2017-03-27] MEDS: risperiDONE 0.25 MG TABLET. PO SCH (13:23)
--- NOTE | 2017-03-27 14:00 | NUR ---
THERAPEUTIC RECREATION GROUP NOTE TITLE :Dance and Sing along with Frances-Patriotic Songs/ Poppy Recognition ACTIVITY : Music GOAL : Increase socialization, elevate mood, stimulate memory DURATION : 60 Minutes RESPONSE : Full participation. Pt. sat with the group the entire time. She tapped foot along with everyone and was able to name a family member we could remember over Memorial Day
--- NOTE | 2017-03-27 14:24 | NUR ---
[facility] followed up w/all Level II admit faxes. [facility] - FULL [facility] - left message w/admissions [facility] - left message w/admissions [facility] - FULL [place] - Administration out for review [place] - admit refaxed today as their previous number was not accepting the information.
--- NOTE | 2017-03-27 15:26 | NUR ---
Behavior Intervention Response and Plan: BIRP Note: Behavior: Assumed Care of patient, patient located in Day Room at shift change. Patient exhibited the following behavior Interactive, Calm, Social. Brief assessment on rounds of vital signs, medication needs, lab studies, and pain. Treatment plan problems 1 and 2. Intervention: Patient assessed and the following interventions initiated safety checks 15 Minute Checks Cognitive Assessment , Head to toe Assessment , Medications. Response: After interactions and interventions patient responded in the following manner, Appropriate , Cooperative ,Restless. Continue to assess behaviors and condition will continue to monitor throughout the shift as needed. Plan: Continue to monitor Master Treatment Plan for patient's progress toward short term goals of No harm To self/ others, Decreased Agitation, assisted goals to return to previous living setting vs placement. Continue to assess patient for changes in above assessment. Monitor for medication needs, pain, and safety concerns. Hourly rounding performed to ensure safe environment.
--- NOTE | 2017-03-27 16:18 | NUR ---
Group Note [facility] Group Type "What is your Shell" Start Time: 9:30 End Time: 10:50 Problem: Anxiety Purpose: Express Feelings, Increase socialization, Increase self awareness Level of Participation: absent -in day room declined Group: In observation of National turtle awareness day, Pts discussed facts about turtle, then directed to talk about qualities a turtle has such as "non-assertive",what "non assertive" looks like. Why a turtle has a shell- related the turtles shell to what each pts "shell" looks like. While discussing this pts colored and put together their own turtle. Interventions: Directed Focus, Clarification Plan: Group Participation, higher level Additional Comments:
[2017-03-27 16:34] VITALS: BP 129/74
[2017-03-27] MEDS: MIRTAZAPINE 15 MG TABLET PO SCH (19:41)
[2017-03-27] MEDS: INSULIN DETEMIR 300 UNITS/3 ML INSULN.PEN. SQ SCH (19:42)
--- NOTE | 2017-03-27 20:48 | NUR ---
Behavior Intervention Response and Plan: BIRP Note: Behavior: Assumed Care of patient, patient located in Day Room at shift change. Patient exhibited the following behavior Calm, Social, Able to Focus on Task. Brief assessment on rounds of vital signs, medication needs, lab studies, and pain. Treatment plan problems . Intervention: Patient assessed and the following interventions initiated safety checks 15 Minute Checks Cognitive Assessment , Head to toe Assessment , Medications. Response: After interactions and interventions patient responded in the following manner, Compliant , Appropriate ,Cooperative. Continue to assess behaviors and condition will continue to monitor throughout the shift as needed. Plan: Continue to monitor Master Treatment Plan for patient's progress toward short term goals of Improved Mood, Decreased Aggression, manager intermediate goals to return to previous living setting vs placement. Continue to assess patient for changes in above assessment. Monitor for medication needs, pain, and safety concerns. Hourly rounding performed to ensure safe environment.
--- NOTE | 2017-03-27 21:11 | PDOC ---
Exam Johann Demential Exam: Johann Note: Please also refer to the separate dictated note~for this date of service dictated separately.~Patient seen individually. Discussed the patient with Nursing staff reviewed the chart.~Reviewed interim history and current functioning. Reviewed vital signs,~Labs/ Radiology~and current medications noted below. Continue current treatment with the changes noted in the dictated addendum note Assessment: Vital Signs: Vital Signs Date Time Temp Pulse Resp B/P (MAP) Pulse Ox O2 Delivery O2 Flow Rate FiO2 03/27/17 19:41 96 Room Air 03/27/17 16:34 97.8 58 16 129/74 (92) I&O Intake and Output 03/27/17 07:00 Intake Total 1320 ml Balance 1320 ml Intake Oral 1320 ml Labs: Laboratory Tests Test 03/27/17 07:35 03/27/17 11:42 03/27/17 15:37 03/27/17 18:56 Glucose (Fingerstick) 122 mg/dL (70-99) H 229 mg/dL (70-99) H 193 mg/dL (70-99) H 164 mg/dL (70-99) H Current Medications: Meds: Current Medications Acetaminophen (Tylenol) 650 mg PRN Q6HRS PRN PO PAIN / TEMP; Start 02/25/17 at 00:30; Stop 02/25/17 at 15:05; Status DC Multi-Ingredient Ointment (Analgesic [place]) 1 marcell PRN QID PRN TP MUSCLE PAIN; Start 02/25/17 at 00:30 Al Hydroxide/Mg Hydroxide (Mylanta Plus Xs) 15 ml PRN AFTMEALHC PRN PO DYSPEPSIA; Start 02/25/17 at 00:30 Magnesium Hydroxide (Milk Of Magnesia) 2,400 mg PRN QHS PRN PO CONSTIPATION; Start 02/25/17 at 00:30; Stop 02/25/17 at 15:05; Status DC Chlorpromazine HCl (Thorazine) 25 mg BID PO Last administered on 02/26/17 09: 34; Start 02/25/17 at 09:00; Stop 02/26/17 at 18:22; Status DC Citalopram Hydrobromide (Celexa) 20 mg DAILY PO Last administered on 03/27/17 09:07; Start 02/25/17 at 09:00 Lorazepam (Ativan) 1 mg PRN Q3HRS PRN PO ANXIETY / AGITATION Last administered on 03/20/17 11:12; Start 02/25/17 at 00:30 Risperidone (Risperdal) 0.5 mg BID PO Last administered on 02/26/17 09:34; Start 02/25/17 at 09:00; Stop 02/26/17 at 18:22; Status DC Trazodone HCl (Desyrel) 50 mg PRN QHS PRN PO INSOMNIA Last administered on 19:26; Start 02/25/17 at 00:30 Divalproex Sodium (Depakote Sprinkles) 500 mg TID PO Last administered on 19:41; Start 02/25/17 at 09:00 Acetaminophen (Tylenol) 650 mg PRN Q8HRS PRN PO PAIN Last administered on 22:00; Start 02/25/17 at 07:30 Amlodipine Besylate (Norvasc) 10 mg DAILY PO Last administered on 03/27/17 09: 06; Start 02/25/17 at 09:00 Gabapentin (Neurontin) 300 mg TID PO Last administered on 03/27/17 19:41; Start 02/25/17 at 09:00 Acetaminophen/ Hydrocodone Bitart (Lortab 5/325) 1 tab Q12HR PO Last administered on 03/27/17 19:41; Start 02/25/17 at 09:00 Insulin Aspart (Novolog) 6 units TIDWMEALS SQ Last administered on 03/27/17 17 :24; Start 02/25/17 at 08:00 Losartan Potassium (Cozaar) 50 mg DAILY PO Last administered on 03/27/17 09:05 ; Start 02/25/17 at 09:00 Senna/Docusate Sodium (Senna Plus) 1 tab DAILY PO Last administered on 09:07; Start 02/25/17 at 09:00 Insulin Detemir (Levemir) 15 units QHS SQ Last administered on 02/25/17 19:55 ; Start 02/25/17 at 21:00; Stop 02/26/17 at 14:21; Status DC Magnesium Hydroxide (Milk Of Magnesia) 2,400 mg PRN DAILY PRN PO CONSTIPATION; Start 02/25/17 at 07:45 Insulin Detemir (Levemir) 15 units QHS SQ Last administered on 03/27/17 19:42 ; Start 02/26/17 at 14:21 Chlorpromazine HCl (Thorazine) 25 mg DAILY PO Last administered on 02/28/17 09 :09; Start 02/27/17 at 09:00; Stop 02/28/17 at 15:50; Status DC Risperidone (Risperdal) 0.5 mg DAILY PO Last administered on 03/07/17 08:23; Start 02/27/17 at 09:00; Stop 03/07/17 at 18:51; Status DC Risperidone (Risperdal) 0.75 mg HS PO ; Start 02/26/17 at 21:00; Stop 02/26/17 at 21:00; Status DC Risperidone (Risperdal) 0.75 mg 14 PO Last administered on 03/27/17 13:23; Start 02/26/17 at 21:00 Buspirone HCl (Buspar) 5 mg BID PO Last administered on 03/01/17 08:38; Start 02/27/17 at 21:00; Stop 03/01/17 at 12:38; Status DC Buspirone HCl (Buspar) 10 mg BID PO Last administered on 03/02/17 08:05; Start 03/01/17 at 21:00; Stop 03/02/17 at 18:06; Status DC Trimethoprim/ Sulfamethoxazole (Bactrim Ds) 1 tab DAILY PO Last administered on 03/09/17 09:29; Start 03/02/17 at 09:00; Stop 03/09/17 at 09:01; Status DC Buspirone HCl (Buspar) 10 mg TIDAFTMEAL PO Last administered on 03/08/17 08:22 ; Start 03/03/17 at 09:00; Stop 03/08/17 at 12:53; Status DC Vitamin D (Vitamin D3) 50,000 unit WEEKLY PO Last administered on 03/24/17 09: 03; Start 03/03/17 at 09:00 Mirtazapine (Remeron) 7.5 mg QHS PO Last administered on 03/08/17 19:26; Start 03/05/17 at 21:00; Stop 03/09/17 at 18:14; Status DC Mirtazapine (Remeron) 15 mg QHS PO Last administered on 03/27/17 19:41; Start 03/06/17 at 21:00 Risperidone (Risperdal) 0.75 mg DAILY PO Last administered on 03/27/17 09:05; Start 03/08/17 at 09:00 Buspirone HCl (Buspar) 20 mg DAILY PO Last administered on 03/27/17 09:07; Start 03/09/17 at 09:00 Buspirone HCl (Buspar) 10 mg BID@1400,2100 PO Last administered on 03/27/17 19 :41; Start 03/08/17 at 14:00 Olanzapine (Zyprexa Zydis) 5 mg PRN Q2HR PRN PO PSYCHOSIS Last administered on 03/20/17 12:22; Start 03/08/17 at 13:00 Trazodone HCl (Desyrel) 12.5 mg BID92 PO Last administered on 03/21/17 08:36; Start 03/17/17 at 09:00; Stop 03/21/17 at 13:00; Status DC Multi-Ingred Cream/Lotion/Oil/ Oint (Hydrocerin) 1 marcell PRN Q4HRS PRN TP REDNESS Last administered on 03/21/17 16:52; Start 03/19/17 at 22:45 Trazodone HCl (Desyrel) 12.5 mg 0900,1200,1400,1900 PO Last administered on 18:13; Start 03/21/17 at 14:00 Albuterol Sulfate (Ventolin) 2.5 mg 1X ONCE NEB ; Start 03/25/17 at 13:15; Stop 03/25/17 at 13:15; Status DC Albuterol/ Ipratropium (Duoneb) 3 ml 1X ONCE NEB Last administered on 13:18; Start 03/25/17 at 13:15; Stop 03/25/17 at 13:16; Status DC Active Scripts Active Reported Lantus Solostar (Insulin Glargine,Hum.rec.anlog) 100 Unit/1 Ml Insuln.pen 15 Unit SQ QHS Lorazepam 1 Mg Tablet 1 Mg PO PRN Q3HRS PRN Risperdal (Risperidone) 0.5 Mg Tablet 0.5 Mg PO BID Chlorpromazine Hcl 25 Mg Tablet 25 Mg PO BID Novolog Flexpen (Insulin Aspart) 100 Unit/1 Ml Insuln.pen 6 Unit SQ TIDWMEALS Gabapentin 300 Mg Capsule 300 Mg PO TID Milk Of Magnesia (Magnesium Hydroxide) 2,400 Mg/10 Ml Oral.susp 2,400 Mg PO PRN DAILY Trazodone Hcl 50 Mg Tablet 50 Mg PO PRN QHS PRN Divalproex Sodium 500 Mg Tablet.dr 500 Mg PO TID Losartan Potassium 50 Mg Tablet 50 Mg PO DAILY Senexon-S Tablet (Sennosides/Docusate Sodium) 1 Each Tablet 8.6-50 Mg PO DAILY Celexa (Citalopram Hydrobromide) 20 Mg Tablet 20 Mg PO DAILY Amlodipine Besylate 10 Mg Tablet 10 Mg PO DAILY Percocet 5-325 Mg Tablet (Oxycodone Hcl/Acetaminophen) 1 Each Tablet 1 Tab PO PRN Q8HRS PRN Hydrocodone-Apap 5-325 (Hydrocodone Bit/Acetaminophen) 1 Each Tablet 1 Tab PO Q12HR Tylenol (Acetaminophen) 325 Mg Tablet 650 Mg PO PRN Q8HRS PRN NANCY HAHN MD March 27, 2017 21:11
[2017-03-28 06:20] VITALS: BP 120/68
[2017-03-28] MEDS: GABAPENTIN 300 MG CAPSULE. PO SCH ×3 (07:51→19:54)
[2017-03-28] MEDS: busPIRone 10 MG TABLET. PO SCH ×3 (07:52→19:55)
[2017-03-28] MEDS: SENNOSIDES/DOCUSATE 8.6/50MG TABLET. PO SCH (07:52)
[2017-03-28] MEDS: DIVALPROEX 125 MG CAP.SPRINK PO SCH ×3 (07:52→19:53)
[2017-03-28] MEDS: CITALOPRAM 20 MG TABLET. PO SCH (07:52)
[2017-03-28] MEDS: amLODIPine BESYLATE 10 MG TABLET PO SCH (07:53)
[2017-03-28] MEDS: traZODone 50 MG TABLET. PO SCH ×4 (07:53→17:05)
[2017-03-28] MEDS: LOSARTAN 50 MG TABLET. PO SCH (07:54)
[2017-03-28] MEDS: risperiDONE 0.5 MG TABLET. PO SCH (07:54)
[2017-03-28] MEDS: HYDROcodone/APAP 5/325MG 1 TAB TABLET PO SCH ×2 (07:56→19:54)
[2017-03-28] MEDS: INSULIN ASPART 300 UNITS/3 ML INSULN.PEN SQ SCH ×3 (07:58→17:10)
--- NOTE | 2017-03-28 09:16 | PN ---
DATE: 03/26/2017 PSYCHIATRIC PROGRESS NOTE This is late entry of 03/26/2017, covers elements not covered in my initial note. SUBJECTIVE: Per nursing report, the patient has done better. She has not been agitated, aggressive, disruptive; has been singing to herself in her room as I met with her. REVIEW OF SYSTEMS: Hard of hearing. Speech is loud. No CV, , GI system symptoms on review. MENTAL STATUS EXAMINATION: Oriented to herself and situation. Speech loud, abstraction fair, computation impaired, language function intact. Mood and affect improved. Her family visited her and she was able to share this with me, brought her clothes and she was very elated about this. LABORATORY DATA: Reviewed. IMPRESSION: Unchanged from initial note. PLAN: Continue psychotropics mentioned in my initial note, adjust as clinically indicated. MAN Kemal HAHN MD DR: MARGA/estelle JOB#: [id number] / [id number]
--- NOTE | 2017-03-28 09:45 | NUR ---
Behavior Intervention Response and Plan: BIRP Note: Behavior: Assumed Care of patient, patient located in Patient Room at shift change. Patient exhibited the following behavior Wandering, Disorganized, Calm. Brief assessment on rounds of vital signs, medication needs, lab studies, and pain. Treatment plan problems . Intervention: Patient assessed and the following interventions initiated safety checks 15 Minute Checks Head to toe Assessment , Medications , Nutrition. Response: After interactions and interventions patient responded in the following manner, Able to Focus on Task , Compliant ,Wandering. Continue to assess behaviors and condition will continue to monitor throughout the shift as needed. Plan: Continue to monitor Master Treatment Plan for patient's progress toward short term goals of No harm To self/ others, Decreased Agitation, terminal carman goals to return to previous living setting vs placement. Continue to assess patient for changes in above assessment. Monitor for medication needs, pain, and safety concerns. Hourly rounding performed to ensure safe environment.
--- NOTE | 2017-03-28 10:20 | NUR ---
THERAPEUTIC RECREATION GROUP NOTE TITLE :CHARMAINE[place]- Led by Chavo ACTIVITY : Cognitive Stimulation GOAL : Stimulate memory, Increase problem solving DURATION : 60 minutes RESPONSE : No participation.
--- NOTE | 2017-03-28 13:00 | NUR ---
THERAPEUTIC RECREATION GROUP NOTE TITLE :Characteristics of a [place] ACTIVITY : Cognitive Stimulation GOAL : Stimulate memory, Increase problem solving DURATION : 45 minutes RESPONSE : Full participation. Pt. was alert the entire time. She offered several suggestions.
[2017-03-28] MEDS: risperiDONE 0.25 MG TABLET. PO SCH (13:55)
--- NOTE | 2017-03-28 14:49 | NUR ---
[facility] came out to screen Pt. for possible admit first thing this am. Pt. was sleeping. SW provided ample information to screener and also introduced screener to several techs that have worked closely w/Pt. Screener will take info back to team for Administration to review, although screener stated there shouldn't be any problem accepting Pt. Facility to follow up w/SW on .
[2017-03-28 16:28] VITALS: BP 132/80
[2017-03-28] MEDS: MIRTAZAPINE 15 MG TABLET PO SCH (19:54)
[2017-03-28] MEDS: INSULIN DETEMIR 300 UNITS/3 ML INSULN.PEN. SQ SCH (19:56)
--- NOTE | 2017-03-28 20:47 | NUR ---
Behavior Intervention Response and Plan: BIRP Note: Behavior: Assumed Care of patient, patient located in Day Room at shift change. Patient exhibited the following behavior Calm, Interactive, Social. Brief assessment on rounds of vital signs, medication needs, lab studies, and pain. Treatment plan problems . Intervention: Patient assessed and the following interventions initiated safety checks 15 Minute Checks Call maddox in reach , Cognitive Assessment , Head to toe Assessment. Response: After interactions and interventions patient responded in the following manner, Compliant , Appropriate ,Cooperative. Continue to assess behaviors and condition will continue to monitor throughout the shift as needed. Plan: Continue to monitor Master Treatment Plan for patient's progress toward short term goals of Decreased Anxiety, Improved Mood, middle or intermediate school principal goals to return to previous living setting vs placement. Continue to assess patient for changes in above assessment. Monitor for medication needs, pain, and safety concerns. Hourly rounding performed to ensure safe environment.
--- NOTE | 2017-03-28 20:59 | PDOC ---
Exam Johann Demential Exam: Johann Note: Please also refer to the separate dictated note~for this date of service dictated separately.~Patient seen individually. Discussed the patient with Nursing staff reviewed the chart.~Reviewed interim history and current functioning. Reviewed vital signs,~Labs/ Radiology~and current medications noted below. Continue current treatment with the changes noted in the dictated addendum note Assessment: Vital Signs: Vital Signs Date Time Temp Pulse Resp B/P (MAP) Pulse Ox O2 Delivery O2 Flow Rate FiO2 03/28/17 20:56 18 95 Room Air 03/28/17 16:28 97.8 59 132/80 (97) I&O Intake and Output 03/28/17 07:00 Intake Total 1200 ml Balance 1200 ml Intake Oral 1200 ml Labs: Laboratory Tests Test 03/28/17 07:25 03/28/17 11:52 03/28/17 16:36 03/28/17 19:06 Glucose (Fingerstick) 118 mg/dL (70-99) H 135 mg/dL (70-99) H 165 mg/dL (70-99) H 167 mg/dL (70-99) H Current Medications: Meds: Current Medications Acetaminophen (Tylenol) 650 mg PRN Q6HRS PRN PO PAIN / TEMP; Start 02/25/17 at 00:30; Stop 02/25/17 at 15:05; Status DC Multi-Ingredient Ointment (Analgesic [place]) 1 marcell PRN QID PRN TP MUSCLE PAIN; Start 02/25/17 at 00:30 Al Hydroxide/Mg Hydroxide (Mylanta Plus Xs) 15 ml PRN AFTMEALHC PRN PO DYSPEPSIA; Start 02/25/17 at 00:30 Magnesium Hydroxide (Milk Of Magnesia) 2,400 mg PRN QHS PRN PO CONSTIPATION; Start 02/25/17 at 00:30; Stop 02/25/17 at 15:05; Status DC Chlorpromazine HCl (Thorazine) 25 mg BID PO Last administered on 02/26/17 09: 34; Start 02/25/17 at 09:00; Stop 02/26/17 at 18:22; Status DC Citalopram Hydrobromide (Celexa) 20 mg DAILY PO Last administered on 03/28/17 07:52; Start 02/25/17 at 09:00 Lorazepam (Ativan) 1 mg PRN Q3HRS PRN PO ANXIETY / AGITATION Last administered on 03/20/17 11:12; Start 02/25/17 at 00:30 Risperidone (Risperdal) 0.5 mg BID PO Last administered on 02/26/17 09:34; Start 02/25/17 at 09:00; Stop 02/26/17 at 18:22; Status DC Trazodone HCl (Desyrel) 50 mg PRN QHS PRN PO INSOMNIA Last administered on 19:26; Start 02/25/17 at 00:30 Divalproex Sodium (Depakote Sprinkles) 500 mg TID PO Last administered on 19:53; Start 02/25/17 at 09:00 Acetaminophen (Tylenol) 650 mg PRN Q8HRS PRN PO PAIN Last administered on 22:00; Start 02/25/17 at 07:30 Amlodipine Besylate (Norvasc) 10 mg DAILY PO Last administered on 03/28/17 07: 53; Start 02/25/17 at 09:00 Gabapentin (Neurontin) 300 mg TID PO Last administered on 03/28/17 19:54; Start 02/25/17 at 09:00 Acetaminophen/ Hydrocodone Bitart (Lortab 5/325) 1 tab Q12HR PO Last administered on 03/28/17 19:54; Start 02/25/17 at 09:00 Insulin Aspart (Novolog) 6 units TIDWMEALS SQ Last administered on 03/28/17 17 :10; Start 02/25/17 at 08:00 Losartan Potassium (Cozaar) 50 mg DAILY PO Last administered on 03/28/17 07:54 ; Start 02/25/17 at 09:00 Senna/Docusate Sodium (Senna Plus) 1 tab DAILY PO Last administered on 07:52; Start 02/25/17 at 09:00 Insulin Detemir (Levemir) 15 units QHS SQ Last administered on 02/25/17 19:55 ; Start 02/25/17 at 21:00; Stop 02/26/17 at 14:21; Status DC Magnesium Hydroxide (Milk Of Magnesia) 2,400 mg PRN DAILY PRN PO CONSTIPATION; Start 02/25/17 at 07:45 Insulin Detemir (Levemir) 15 units QHS SQ Last administered on 03/28/17 19:56 ; Start 02/26/17 at 14:21 Chlorpromazine HCl (Thorazine) 25 mg DAILY PO Last administered on 02/28/17 09 :09; Start 02/27/17 at 09:00; Stop 02/28/17 at 15:50; Status DC Risperidone (Risperdal) 0.5 mg DAILY PO Last administered on 03/07/17 08:23; Start 02/27/17 at 09:00; Stop 03/07/17 at 18:51; Status DC Risperidone (Risperdal) 0.75 mg HS PO ; Start 02/26/17 at 21:00; Stop 02/26/17 at 21:00; Status DC Risperidone (Risperdal) 0.75 mg 14 PO Last administered on 03/28/17 13:55; Start 02/26/17 at 21:00 Buspirone HCl (Buspar) 5 mg BID PO Last administered on 03/01/17 08:38; Start 02/27/17 at 21:00; Stop 03/01/17 at 12:38; Status DC Buspirone HCl (Buspar) 10 mg BID PO Last administered on 03/02/17 08:05; Start 03/01/17 at 21:00; Stop 03/02/17 at 18:06; Status DC Trimethoprim/ Sulfamethoxazole (Bactrim Ds) 1 tab DAILY PO Last administered on 03/09/17 09:29; Start 03/02/17 at 09:00; Stop 03/09/17 at 09:01; Status DC Buspirone HCl (Buspar) 10 mg TIDAFTMEAL PO Last administered on 03/08/17 08:22 ; Start 03/03/17 at 09:00; Stop 03/08/17 at 12:53; Status DC Vitamin D (Vitamin D3) 50,000 unit WEEKLY PO Last administered on 03/24/17 09: 03; Start 03/03/17 at 09:00 Mirtazapine (Remeron) 7.5 mg QHS PO Last administered on 03/08/17 19:26; Start 03/05/17 at 21:00; Stop 03/09/17 at 18:14; Status DC Mirtazapine (Remeron) 15 mg QHS PO Last administered on 03/28/17 19:54; Start 03/06/17 at 21:00 Risperidone (Risperdal) 0.75 mg DAILY PO Last administered on 03/28/17 07:54; Start 03/08/17 at 09:00 Buspirone HCl (Buspar) 20 mg DAILY PO Last administered on 03/28/17 07:52; Start 03/09/17 at 09:00 Buspirone HCl (Buspar) 10 mg BID@1400,2100 PO Last administered on 03/28/17 19 :55; Start 03/08/17 at 14:00 Olanzapine (Zyprexa Zydis) 5 mg PRN Q2HR PRN PO PSYCHOSIS Last administered on 03/20/17 12:22; Start 03/08/17 at 13:00 Trazodone HCl (Desyrel) 12.5 mg BID92 PO Last administered on 03/21/17 08:36; Start 03/17/17 at 09:00; Stop 03/21/17 at 13:00; Status DC Multi-Ingred Cream/Lotion/Oil/ Oint (Hydrocerin) 1 marcell PRN Q4HRS PRN TP REDNESS Last administered on 03/21/17 16:52; Start 03/19/17 at 22:45 Trazodone HCl (Desyrel) 12.5 mg 0900,1200,1400,1900 PO Last administered on 17:05; Start 03/21/17 at 14:00 Albuterol Sulfate (Ventolin) 2.5 mg 1X ONCE NEB ; Start 03/25/17 at 13:15; Stop 03/25/17 at 13:15; Status DC Albuterol/ Ipratropium (Duoneb) 3 ml 1X ONCE NEB Last administered on 13:18; Start 03/25/17 at 13:15; Stop 03/25/17 at 13:16; Status DC Active Scripts Active Reported Lantus Solostar (Insulin Glargine,Hum.rec.anlog) 100 Unit/1 Ml Insuln.pen 15 Unit SQ QHS Lorazepam 1 Mg Tablet 1 Mg PO PRN Q3HRS PRN Risperdal (Risperidone) 0.5 Mg Tablet 0.5 Mg PO BID Chlorpromazine Hcl 25 Mg Tablet 25 Mg PO BID Novolog Flexpen (Insulin Aspart) 100 Unit/1 Ml Insuln.pen 6 Unit SQ TIDWMEALS Gabapentin 300 Mg Capsule 300 Mg PO TID Milk Of Magnesia (Magnesium Hydroxide) 2,400 Mg/10 Ml Oral.susp 2,400 Mg PO PRN DAILY Trazodone Hcl 50 Mg Tablet 50 Mg PO PRN QHS PRN Divalproex Sodium 500 Mg Tablet.dr 500 Mg PO TID Losartan Potassium 50 Mg Tablet 50 Mg PO DAILY Senexon-S Tablet (Sennosides/Docusate Sodium) 1 Each Tablet 8.6-50 Mg PO DAILY Celexa (Citalopram Hydrobromide) 20 Mg Tablet 20 Mg PO DAILY Amlodipine Besylate 10 Mg Tablet 10 Mg PO DAILY Percocet 5-325 Mg Tablet (Oxycodone Hcl/Acetaminophen) 1 Each Tablet 1 Tab PO PRN Q8HRS PRN Hydrocodone-Apap 5-325 (Hydrocodone Bit/Acetaminophen) 1 Each Tablet 1 Tab PO Q12HR Tylenol (Acetaminophen) 325 Mg Tablet 650 Mg PO PRN Q8HRS PRN NANCY HAHN MD March 28, 2017 20:59
[2017-03-29] MEDS: ACETAMINOPHEN 325 MG TABLET PO PRN (04:12)
[2017-03-29 06:21] VITALS: BP 122/67
--- NOTE | 2017-03-29 08:00 | PN ---
DATE: 03/27/2017 This is a late entry for 03/27/2017 covers elements not covered in my initial note. SUBJECTIVE: The patient has done very well per nursing report, cooperative, pleasant, slept 5-1/4 hours, looking for a level 2 placement per social service staff. REVIEW OF SYSTEMS: Hard of hearing. Speech is loud. No CV, , GI, or pulmonary system symptoms on review. MENTAL STATUS EXAM: Oriented to herself and situation. Abstraction fair, computation impaired, language function intact. Mood and affect, lability is improved. LABORATORY DATA: Reviewed. Valproic acid level 57. IMPRESSION: Unchanged from initial note schizoaffective disorder, bipolar type, mixed with psychotic features, in partial remission. PLAN: Continue current psychotropics mentioned in my initial note. Adjust further as clinically indicated. MAN Kemal HAHN MD DR: MARGA/estelle JOB#: [id number] / [id number]
[2017-03-29] MEDS: GABAPENTIN 300 MG CAPSULE. PO SCH ×3 (08:01→20:52)
[2017-03-29] MEDS: HYDROcodone/APAP 5/325MG 1 TAB TABLET PO SCH ×2 (08:01→20:57)
[2017-03-29] MEDS: busPIRone 10 MG TABLET. PO SCH ×3 (08:01→20:51)
[2017-03-29] MEDS: amLODIPine BESYLATE 10 MG TABLET PO SCH (08:02)
[2017-03-29] MEDS: LOSARTAN 50 MG TABLET. PO SCH (08:02)
[2017-03-29] MEDS: CITALOPRAM 20 MG TABLET. PO SCH (08:03)
[2017-03-29] MEDS: risperiDONE 0.5 MG TABLET. PO SCH (08:03)
[2017-03-29] MEDS: SENNOSIDES/DOCUSATE 8.6/50MG TABLET. PO SCH (08:03)
[2017-03-29] MEDS: traZODone 50 MG TABLET. PO SCH ×4 (08:03→17:01)
[2017-03-29] MEDS: DIVALPROEX 125 MG CAP.SPRINK PO SCH ×3 (08:04→20:51)
[2017-03-29] MEDS: INSULIN ASPART 300 UNITS/3 ML INSULN.PEN SQ SCH ×3 (08:05→17:03)
--- NOTE | 2017-03-29 13:30 | NUR ---
THERAPEUTIC RECREATION GROUP NOTE TITLE :[place] Flag and Star Painting Popsicle Sticks ACTIVITY : Arts and Crafts GOAL : Increase socialization, fine motor skills, creativity DURATION : 90 Minutes RESPONSE : Full participation. Pt. stayed on task with no prompting and asked for more paint when necessary. She had a messy work area and painted two pictures after she completed a flag and a star. She was pleasant the entire session.
[2017-03-29] MEDS: risperiDONE 0.25 MG TABLET. PO SCH (14:00)
--- NOTE | 2017-03-29 14:29 | NUR ---
Behavior Intervention Response and Plan: BIRP Note: Behavior: Assumed Care of patient, patient located in Patient Room at shift change. Patient exhibited the following behavior Able to Focus on Task, Social, Calm. Brief assessment on rounds of vital signs, medication needs, lab studies, and pain. Treatment plan problems . Intervention: Patient assessed and the following interventions initiated safety checks 15 Minute Checks Head to toe Assessment , Medications , Oral Hydration. Response: After interactions and interventions patient responded in the following manner, Cooperative , Compliant ,Appropriate. Continue to assess behaviors and condition will continue to monitor throughout the shift as needed. Plan: Continue to monitor Master Treatment Plan for patient's progress toward short term goals of No harm To self/ others, Medication Compliance, half-way goals to return to previous living setting vs placement. Continue to assess patient for changes in above assessment. Monitor for medication needs, pain, and safety concerns. Hourly rounding performed to ensure safe environment.
[2017-03-29 15:52] VITALS: BP 120/72
--- NOTE | 2017-03-29 16:06 | NUR ---
OMA received confirmation from Milly at [facility] of acceptance. Arrangements will be made for shredder picker on Wednesday 04/04 at 10-11. Pt's Guardian was contacted by [facility] and by this OMA as he made arrangements to sign paperwork Sunday.
--- NOTE | 2017-03-29 16:45 | NUR ---
CARTON FILLING MACHINE OPERATOR approved several books for Pt. to take when discharged. CARTON FILLING MACHINE OPERATOR wrote "Jayna can have-Felicitas Gaines" on the books she can have. No crayons, marker, colored pencils shall be taken. CARTON FILLING MACHINE OPERATOR also wrote this note on Pt's possession sheet in her chart.
[2017-03-29] MEDS: MIRTAZAPINE 15 MG TABLET PO SCH (20:52)
[2017-03-29] MEDS: INSULIN DETEMIR 300 UNITS/3 ML INSULN.PEN. SQ SCH (20:53)
--- NOTE | 2017-03-29 21:00 | PDOC ---
Exam Johann Demential Exam: Johann Note: Please also refer to the separate dictated note~for this date of service dictated separately.~Patient seen individually. Discussed the patient with Nursing staff reviewed the chart.~Reviewed interim history and current functioning. Reviewed vital signs,~Labs/ Radiology~and current medications noted below. Continue current treatment with the changes noted in the dictated addendum note Assessment: Vital Signs: Vital Signs Date Time Temp Pulse Resp B/P (MAP) Pulse Ox O2 Delivery O2 Flow Rate FiO2 03/29/17 20:57 16 Room Air 03/29/17 15:52 98.1 64 120/72 (88) 96 I&O Intake and Output 03/29/17 07:00 Intake Total 1200 ml Balance 1200 ml Intake Oral 1200 ml # Bowel Movements 1 Labs: Laboratory Tests Test 03/29/17 07:30 03/29/17 11:04 03/29/17 16:34 03/29/17 19:02 Glucose (Fingerstick) 106 mg/dL (70-99) H 234 mg/dL (70-99) H 168 mg/dL (70-99) H 273 mg/dL (70-99) H Current Medications: Meds: Current Medications Acetaminophen (Tylenol) 650 mg PRN Q6HRS PRN PO PAIN / TEMP; Start 02/25/17 at 00:30; Stop 02/25/17 at 15:05; Status DC Multi-Ingredient Ointment (Analgesic [place]) 1 marcell PRN QID PRN TP MUSCLE PAIN Last administered on 03/29/17 04:12; Start 02/25/17 at 00:30 Al Hydroxide/Mg Hydroxide (Mylanta Plus Xs) 15 ml PRN AFTMEALHC PRN PO DYSPEPSIA; Start 02/25/17 at 00:30 Magnesium Hydroxide (Milk Of Magnesia) 2,400 mg PRN QHS PRN PO CONSTIPATION; Start 02/25/17 at 00:30; Stop 02/25/17 at 15:05; Status DC Chlorpromazine HCl (Thorazine) 25 mg BID PO Last administered on 02/26/17 09: 34; Start 02/25/17 at 09:00; Stop 02/26/17 at 18:22; Status DC Citalopram Hydrobromide (Celexa) 20 mg DAILY PO Last administered on 03/29/17 08:03; Start 02/25/17 at 09:00 Lorazepam (Ativan) 1 mg PRN Q3HRS PRN PO ANXIETY / AGITATION Last administered on 03/20/17 11:12; Start 02/25/17 at 00:30 Risperidone (Risperdal) 0.5 mg BID PO Last administered on 02/26/17 09:34; Start 02/25/17 at 09:00; Stop 02/26/17 at 18:22; Status DC Trazodone HCl (Desyrel) 50 mg PRN QHS PRN PO INSOMNIA Last administered on 19:26; Start 02/25/17 at 00:30 Divalproex Sodium (Depakote Sprinkles) 500 mg TID PO Last administered on 20:51; Start 02/25/17 at 09:00 Acetaminophen (Tylenol) 650 mg PRN Q8HRS PRN PO PAIN Last administered on 04:12; Start 02/25/17 at 07:30 Amlodipine Besylate (Norvasc) 10 mg DAILY PO Last administered on 03/29/17 08: 02; Start 02/25/17 at 09:00 Gabapentin (Neurontin) 300 mg TID PO Last administered on 03/29/17 20:52; Start 02/25/17 at 09:00 Acetaminophen/ Hydrocodone Bitart (Lortab 5/325) 1 tab Q12HR PO Last administered on 03/29/17 20:57; Start 02/25/17 at 09:00 Insulin Aspart (Novolog) 6 units TIDWMEALS SQ Last administered on 03/29/17 17 :03; Start 02/25/17 at 08:00 Losartan Potassium (Cozaar) 50 mg DAILY PO Last administered on 03/29/17 08:02 ; Start 02/25/17 at 09:00 Senna/Docusate Sodium (Senna Plus) 1 tab DAILY PO Last administered on 08:03; Start 02/25/17 at 09:00 Insulin Detemir (Levemir) 15 units QHS SQ Last administered on 02/25/17 19:55 ; Start 02/25/17 at 21:00; Stop 02/26/17 at 14:21; Status DC Magnesium Hydroxide (Milk Of Magnesia) 2,400 mg PRN DAILY PRN PO CONSTIPATION; Start 02/25/17 at 07:45 Insulin Detemir (Levemir) 15 units QHS SQ Last administered on 03/29/17 20:53 ; Start 02/26/17 at 14:21 Chlorpromazine HCl (Thorazine) 25 mg DAILY PO Last administered on 02/28/17 09 :09; Start 02/27/17 at 09:00; Stop 02/28/17 at 15:50; Status DC Risperidone (Risperdal) 0.5 mg DAILY PO Last administered on 03/07/17 08:23; Start 02/27/17 at 09:00; Stop 03/07/17 at 18:51; Status DC Risperidone (Risperdal) 0.75 mg HS PO ; Start 02/26/17 at 21:00; Stop 02/26/17 at 21:00; Status DC Risperidone (Risperdal) 0.75 mg 14 PO Last administered on 03/29/17 14:00; Start 02/26/17 at 21:00 Buspirone HCl (Buspar) 5 mg BID PO Last administered on 03/01/17 08:38; Start 02/27/17 at 21:00; Stop 03/01/17 at 12:38; Status DC Buspirone HCl (Buspar) 10 mg BID PO Last administered on 03/02/17 08:05; Start 03/01/17 at 21:00; Stop 03/02/17 at 18:06; Status DC Trimethoprim/ Sulfamethoxazole (Bactrim Ds) 1 tab DAILY PO Last administered on 03/09/17 09:29; Start 03/02/17 at 09:00; Stop 03/09/17 at 09:01; Status DC Buspirone HCl (Buspar) 10 mg TIDAFTMEAL PO Last administered on 03/08/17 08:22 ; Start 03/03/17 at 09:00; Stop 03/08/17 at 12:53; Status DC Vitamin D (Vitamin D3) 50,000 unit WEEKLY PO Last administered on 03/24/17 09: 03; Start 03/03/17 at 09:00 Mirtazapine (Remeron) 7.5 mg QHS PO Last administered on 03/08/17 19:26; Start 03/05/17 at 21:00; Stop 03/09/17 at 18:14; Status DC Mirtazapine (Remeron) 15 mg QHS PO Last administered on 03/29/17 20:52; Start 03/06/17 at 21:00 Risperidone (Risperdal) 0.75 mg DAILY PO Last administered on 03/29/17 08:03; Start 03/08/17 at 09:00 Buspirone HCl (Buspar) 20 mg DAILY PO Last administered on 03/29/17 08:01; Start 03/09/17 at 09:00 Buspirone HCl (Buspar) 10 mg BID@1400,2100 PO Last administered on 03/29/17 20 :51; Start 03/08/17 at 14:00 Olanzapine (Zyprexa Zydis) 5 mg PRN Q2HR PRN PO PSYCHOSIS Last administered on 03/20/17 12:22; Start 03/08/17 at 13:00 Trazodone HCl (Desyrel) 12.5 mg BID92 PO Last administered on 03/21/17 08:36; Start 03/17/17 at 09:00; Stop 03/21/17 at 13:00; Status DC Multi-Ingred Cream/Lotion/Oil/ Oint (Hydrocerin) 1 marcell PRN Q4HRS PRN TP REDNESS Last administered on 03/21/17 16:52; Start 03/19/17 at 22:45 Trazodone HCl (Desyrel) 12.5 mg 0900,1200,1400,1900 PO Last administered on 17:01; Start 03/21/17 at 14:00 Albuterol Sulfate (Ventolin) 2.5 mg 1X ONCE NEB ; Start 03/25/17 at 13:15; Stop 03/25/17 at 13:15; Status DC Albuterol/ Ipratropium (Duoneb) 3 ml 1X ONCE NEB Last administered on 13:18; Start 03/25/17 at 13:15; Stop 03/25/17 at 13:16; Status DC Active Scripts Active Reported Lantus Solostar (Insulin Glargine,Hum.rec.anlog) 100 Unit/1 Ml Insuln.pen 15 Unit SQ QHS Lorazepam 1 Mg Tablet 1 Mg PO PRN Q3HRS PRN Risperdal (Risperidone) 0.5 Mg Tablet 0.5 Mg PO BID Chlorpromazine Hcl 25 Mg Tablet 25 Mg PO BID Novolog Flexpen (Insulin Aspart) 100 Unit/1 Ml Insuln.pen 6 Unit SQ TIDWMEALS Gabapentin 300 Mg Capsule 300 Mg PO TID Milk Of Magnesia (Magnesium Hydroxide) 2,400 Mg/10 Ml Oral.susp 2,400 Mg PO PRN DAILY Trazodone Hcl 50 Mg Tablet 50 Mg PO PRN QHS PRN Divalproex Sodium 500 Mg Tablet.dr 500 Mg PO TID Losartan Potassium 50 Mg Tablet 50 Mg PO DAILY Senexon-S Tablet (Sennosides/Docusate Sodium) 1 Each Tablet 8.6-50 Mg PO DAILY Celexa (Citalopram Hydrobromide) 20 Mg Tablet 20 Mg PO DAILY Amlodipine Besylate 10 Mg Tablet 10 Mg PO DAILY Percocet 5-325 Mg Tablet (Oxycodone Hcl/Acetaminophen) 1 Each Tablet 1 Tab PO PRN Q8HRS PRN Hydrocodone-Apap 5-325 (Hydrocodone Bit/Acetaminophen) 1 Each Tablet 1 Tab PO Q12HR Tylenol (Acetaminophen) 325 Mg Tablet 650 Mg PO PRN Q8HRS PRN NANCY HAHN MD March 29, 2017 21:00
--- NOTE | 2017-03-29 21:15 | NUR ---
Behavior Intervention Response and Plan: BIRP Note: Behavior: Assumed Care of patient, patient located in Patient Room at shift change. Patient exhibited the following behavior Able to Focus on Task, Interactive, Calm. Brief assessment on rounds of vital signs, medication needs, lab studies, and pain. Treatment plan problems: 1-2 . Intervention: Patient assessed and the following interventions initiated safety checks 15 Minute Checks Head to toe Assessment , Medications , Oral Hydration. Response: After interactions and interventions patient responded in the following manner, Cooperative , Compliant ,Appropriate. Continue to assess behaviors and condition will continue to monitor throughout the shift as needed. Plan: Continue to monitor Master Treatment Plan for patient's progress toward short term goals of No harm To self/ others, Medication Compliance, group home goals to return to previous living setting vs placement. Continue to assess patient for changes in above assessment. Monitor for medication needs, pain, and safety concerns. Hourly rounding performed to ensure safe environment.
[2017-03-30 06:30] VITALS: BP 137/62
[2017-03-30] MEDS: CITALOPRAM 20 MG TABLET. PO SCH (09:12)
[2017-03-30] MEDS: traZODone 50 MG TABLET. PO SCH ×4 (09:12→18:05)
[2017-03-30] MEDS: risperiDONE 0.5 MG TABLET. PO SCH (09:13)
[2017-03-30] MEDS: LOSARTAN 50 MG TABLET. PO SCH (09:13)
[2017-03-30] MEDS: GABAPENTIN 300 MG CAPSULE. PO SCH ×3 (09:13→21:00)
[2017-03-30] MEDS: SENNOSIDES/DOCUSATE 8.6/50MG TABLET. PO SCH (09:13)
[2017-03-30] MEDS: amLODIPine BESYLATE 10 MG TABLET PO SCH (09:13)
[2017-03-30] MEDS: busPIRone 10 MG TABLET. PO SCH ×3 (09:14→21:00)
[2017-03-30] MEDS: DIVALPROEX 125 MG CAP.SPRINK PO SCH ×3 (09:14→21:02)
[2017-03-30] MEDS: HYDROcodone/APAP 5/325MG 1 TAB TABLET PO SCH ×2 (09:15→21:01)
[2017-03-30] MEDS: INSULIN ASPART 300 UNITS/3 ML INSULN.PEN SQ SCH ×3 (09:16→18:08)
--- NOTE | 2017-03-30 11:15 | NUR ---
Behavior Intervention Response and Plan: BIRP Note: Behavior: Assumed Care of patient, patient located in Day Room at shift change. Patient exhibited the following behavior Interactive, Social, Compliant. Brief assessment on rounds of vital signs, medication needs, lab studies, and pain. Treatment plan problems . Intervention: Patient assessed and the following interventions initiated safety checks 15 Minute Checks Cognitive Assessment , Head to toe Assessment , Medications. Response: After interactions and interventions patient responded in the following manner, Social , Cooperative ,Compliant. Continue to assess behaviors and condition will continue to monitor throughout the shift as needed. Plan: Continue to monitor Master Treatment Plan for patient's progress toward short term goals of Improved Mood, Decreased Anxiety, terminal clerk goals to return to previous living setting vs placement. Continue to assess patient for changes in above assessment. Monitor for medication needs, pain, and safety concerns. Hourly rounding performed to ensure safe environment.
[2017-03-30] MEDS: risperiDONE 0.25 MG TABLET. PO SCH (13:40)
--- NOTE | 2017-03-30 14:00 | NUR ---
THERAPEUTIC RECREATION GROUP NOTE TITLE :Cookie Decorating: [facility] ACTIVITY : Activities and Games GOAL : Facilitate sense of belonging and well-being, elevate mood, increase socialization and social skills. Incorporate traditions. DURATION : 45 minutes RESPONSE : Full participation. Pt. was quick to decorate and eat her cookies. She needed no prompting to stay on task and expressed her satisfaction with the activity.
[2017-03-30 16:03] VITALS: BP 110/66
[2017-03-30] MEDS: MIRTAZAPINE 15 MG TABLET PO SCH (21:01)
--- NOTE | 2017-03-30 21:28 | PDOC ---
Exam Johann Demential Exam: Johann Note: Please also refer to the separate dictated note~for this date of service dictated separately.~Patient seen individually. Discussed the patient with Nursing staff reviewed the chart.~Reviewed interim history and current functioning. Reviewed vital signs,~Labs/ Radiology~and current medications noted below. Continue current treatment with the changes noted in the dictated addendum note Assessment: Vital Signs: Vital Signs Date Time Temp Pulse Resp B/P (MAP) Pulse Ox O2 Delivery O2 Flow Rate FiO2 03/30/17 21:01 16 Room Air 03/30/17 16:03 98.7 71 110/66 (81) 95 I&O Intake and Output 03/30/17 07:00 Intake Total 1320 ml Balance 1320 ml Intake Oral 1320 ml Labs: Laboratory Tests Test 03/30/17 07:18 03/30/17 11:08 03/30/17 16:58 03/30/17 19:17 Glucose (Fingerstick) 122 mg/dL (70-99) H 169 mg/dL (70-99) H 226 mg/dL (70-99) H 224 mg/dL (70-99) H Current Medications: Meds: Current Medications Acetaminophen (Tylenol) 650 mg PRN Q6HRS PRN PO PAIN / TEMP; Start 02/25/17 at 00:30; Stop 02/25/17 at 15:05; Status DC Multi-Ingredient Ointment (Analgesic [place]) 1 marcell PRN QID PRN TP MUSCLE PAIN Last administered on 03/29/17 04:12; Start 02/25/17 at 00:30 Al Hydroxide/Mg Hydroxide (Mylanta Plus Xs) 15 ml PRN AFTMEALHC PRN PO DYSPEPSIA; Start 02/25/17 at 00:30 Magnesium Hydroxide (Milk Of Magnesia) 2,400 mg PRN QHS PRN PO CONSTIPATION; Start 02/25/17 at 00:30; Stop 02/25/17 at 15:05; Status DC Chlorpromazine HCl (Thorazine) 25 mg BID PO Last administered on 02/26/17 09: 34; Start 02/25/17 at 09:00; Stop 02/26/17 at 18:22; Status DC Citalopram Hydrobromide (Celexa) 20 mg DAILY PO Last administered on 03/30/17 09:12; Start 02/25/17 at 09:00 Lorazepam (Ativan) 1 mg PRN Q3HRS PRN PO ANXIETY / AGITATION Last administered on 03/20/17 11:12; Start 02/25/17 at 00:30 Risperidone (Risperdal) 0.5 mg BID PO Last administered on 02/26/17 09:34; Start 02/25/17 at 09:00; Stop 02/26/17 at 18:22; Status DC Trazodone HCl (Desyrel) 50 mg PRN QHS PRN PO INSOMNIA Last administered on 19:26; Start 02/25/17 at 00:30 Divalproex Sodium (Depakote Sprinkles) 500 mg TID PO Last administered on 21:02; Start 02/25/17 at 09:00 Acetaminophen (Tylenol) 650 mg PRN Q8HRS PRN PO PAIN Last administered on 04:12; Start 02/25/17 at 07:30 Amlodipine Besylate (Norvasc) 10 mg DAILY PO Last administered on 03/30/17 09: 13; Start 02/25/17 at 09:00 Gabapentin (Neurontin) 300 mg TID PO Last administered on 03/30/17 21:00; Start 02/25/17 at 09:00 Acetaminophen/ Hydrocodone Bitart (Lortab 5/325) 1 tab Q12HR PO Last administered on 03/30/17 21:01; Start 02/25/17 at 09:00 Insulin Aspart (Novolog) 6 units TIDWMEALS SQ Last administered on 03/30/17 18 :08; Start 02/25/17 at 08:00 Losartan Potassium (Cozaar) 50 mg DAILY PO Last administered on 03/30/17 09:13 ; Start 02/25/17 at 09:00 Senna/Docusate Sodium (Senna Plus) 1 tab DAILY PO Last administered on 09:13; Start 02/25/17 at 09:00 Insulin Detemir (Levemir) 15 units QHS SQ Last administered on 02/25/17 19:55 ; Start 02/25/17 at 21:00; Stop 02/26/17 at 14:21; Status DC Magnesium Hydroxide (Milk Of Magnesia) 2,400 mg PRN DAILY PRN PO CONSTIPATION; Start 02/25/17 at 07:45 Insulin Detemir (Levemir) 15 units QHS SQ Last administered on 03/29/17 20:53 ; Start 02/26/17 at 14:21 Chlorpromazine HCl (Thorazine) 25 mg DAILY PO Last administered on 02/28/17 09 :09; Start 02/27/17 at 09:00; Stop 02/28/17 at 15:50; Status DC Risperidone (Risperdal) 0.5 mg DAILY PO Last administered on 03/07/17 08:23; Start 02/27/17 at 09:00; Stop 03/07/17 at 18:51; Status DC Risperidone (Risperdal) 0.75 mg HS PO ; Start 02/26/17 at 21:00; Stop 02/26/17 at 21:00; Status DC Risperidone (Risperdal) 0.75 mg 14 PO Last administered on 03/30/17 13:40; Start 02/26/17 at 21:00 Buspirone HCl (Buspar) 5 mg BID PO Last administered on 03/01/17 08:38; Start 02/27/17 at 21:00; Stop 03/01/17 at 12:38; Status DC Buspirone HCl (Buspar) 10 mg BID PO Last administered on 03/02/17 08:05; Start 03/01/17 at 21:00; Stop 03/02/17 at 18:06; Status DC Trimethoprim/ Sulfamethoxazole (Bactrim Ds) 1 tab DAILY PO Last administered on 03/09/17 09:29; Start 03/02/17 at 09:00; Stop 03/09/17 at 09:01; Status DC Buspirone HCl (Buspar) 10 mg TIDAFTMEAL PO Last administered on 03/08/17 08:22 ; Start 03/03/17 at 09:00; Stop 03/08/17 at 12:53; Status DC Vitamin D (Vitamin D3) 50,000 unit WEEKLY PO Last administered on 03/24/17 09: 03; Start 03/03/17 at 09:00 Mirtazapine (Remeron) 7.5 mg QHS PO Last administered on 03/08/17 19:26; Start 03/05/17 at 21:00; Stop 03/09/17 at 18:14; Status DC Mirtazapine (Remeron) 15 mg QHS PO Last administered on 03/30/17 21:01; Start 03/06/17 at 21:00 Risperidone (Risperdal) 0.75 mg DAILY PO Last administered on 03/30/17 09:13; Start 03/08/17 at 09:00 Buspirone HCl (Buspar) 20 mg DAILY PO Last administered on 03/30/17 09:14; Start 03/09/17 at 09:00 Buspirone HCl (Buspar) 10 mg BID@1400,2100 PO Last administered on 03/30/17 21 :00; Start 03/08/17 at 14:00 Olanzapine (Zyprexa Zydis) 5 mg PRN Q2HR PRN PO PSYCHOSIS Last administered on 03/20/17 12:22; Start 03/08/17 at 13:00 Trazodone HCl (Desyrel) 12.5 mg BID92 PO Last administered on 03/21/17 08:36; Start 03/17/17 at 09:00; Stop 03/21/17 at 13:00; Status DC Multi-Ingred Cream/Lotion/Oil/ Oint (Hydrocerin) 1 marcell PRN Q4HRS PRN TP REDNESS Last administered on 03/21/17 16:52; Start 03/19/17 at 22:45 Trazodone HCl (Desyrel) 12.5 mg 0900,1200,1400,1900 PO Last administered on 18:05; Start 03/21/17 at 14:00 Albuterol Sulfate (Ventolin) 2.5 mg 1X ONCE NEB ; Start 03/25/17 at 13:15; Stop 03/25/17 at 13:15; Status DC Albuterol/ Ipratropium (Duoneb) 3 ml 1X ONCE NEB Last administered on 13:18; Start 03/25/17 at 13:15; Stop 03/25/17 at 13:16; Status DC Active Scripts Active Reported Lantus Solostar (Insulin Glargine,Hum.rec.anlog) 100 Unit/1 Ml Insuln.pen 15 Unit SQ QHS Lorazepam 1 Mg Tablet 1 Mg PO PRN Q3HRS PRN Risperdal (Risperidone) 0.5 Mg Tablet 0.5 Mg PO BID Chlorpromazine Hcl 25 Mg Tablet 25 Mg PO BID Novolog Flexpen (Insulin Aspart) 100 Unit/1 Ml Insuln.pen 6 Unit SQ TIDWMEALS Gabapentin 300 Mg Capsule 300 Mg PO TID Milk Of Magnesia (Magnesium Hydroxide) 2,400 Mg/10 Ml Oral.susp 2,400 Mg PO PRN DAILY Trazodone Hcl 50 Mg Tablet 50 Mg PO PRN QHS PRN Divalproex Sodium 500 Mg Tablet.dr 500 Mg PO TID Losartan Potassium 50 Mg Tablet 50 Mg PO DAILY Senexon-S Tablet (Sennosides/Docusate Sodium) 1 Each Tablet 8.6-50 Mg PO DAILY Celexa (Citalopram Hydrobromide) 20 Mg Tablet 20 Mg PO DAILY Amlodipine Besylate 10 Mg Tablet 10 Mg PO DAILY Percocet 5-325 Mg Tablet (Oxycodone Hcl/Acetaminophen) 1 Each Tablet 1 Tab PO PRN Q8HRS PRN Hydrocodone-Apap 5-325 (Hydrocodone Bit/Acetaminophen) 1 Each Tablet 1 Tab PO Q12HR Tylenol (Acetaminophen) 325 Mg Tablet 650 Mg PO PRN Q8HRS PRN NANCY HAHN MD March 30, 2017 21:28
--- NOTE | 2017-03-30 21:45 | NUR ---
Behavior Intervention Response and Plan: BIRP Note: Behavior: Assumed Care of patient, patient located in Patient Room at shift change. Patient exhibited the following behavior Able to Focus on Task, Interactive, Calm. Brief assessment on rounds of vital signs, medication needs, lab studies, and pain. Treatment plan problems: 1-2 . Intervention: Patient assessed and the following interventions initiated safety checks 15 Minute Checks Head to toe Assessment , Medications , Oral Hydration. Response: After interactions and interventions patient responded in the following manner, Cooperative , Compliant ,Appropriate. Continue to assess behaviors and condition will continue to monitor throughout the shift as needed. Plan: Continue to monitor Master Treatment Plan for patient's progress toward short term goals of No harm To self/ others, Medication Compliance, skilled nursing goals to return to previous living setting vs placement. Continue to assess patient for changes in above assessment. Monitor for medication needs, pain, and safety concerns. Hourly rounding performed to ensure safe environment.
[2017-03-30] MEDS: INSULIN DETEMIR 300 UNITS/3 ML INSULN.PEN. SQ SCH (21:54)
[2017-03-31 06:11] VITALS: BP 128/69
[2017-03-31] MEDS: INSULIN ASPART 300 UNITS/3 ML INSULN.PEN SQ SCH ×3 (08:00→17:48)
[2017-03-31] MEDS: CITALOPRAM 20 MG TABLET. PO SCH (09:21)
[2017-03-31] MEDS: busPIRone 10 MG TABLET. PO SCH ×3 (09:21→21:04)
[2017-03-31] MEDS: DIVALPROEX 125 MG CAP.SPRINK PO SCH ×3 (09:22→21:05)
[2017-03-31] MEDS: traZODone 50 MG TABLET. PO SCH ×4 (09:22→17:48)
[2017-03-31] MEDS: GABAPENTIN 300 MG CAPSULE. PO SCH ×3 (09:22→21:04)
[2017-03-31] MEDS: SENNOSIDES/DOCUSATE 8.6/50MG TABLET. PO SCH (09:23)
[2017-03-31] MEDS: CHOLECALCIFEROL (VITAMIN D3) 50,000 UNIT CAPSULE PO SCH (09:23)
[2017-03-31] MEDS: risperiDONE 0.5 MG TABLET. PO SCH (09:23)
[2017-03-31 09:29] VITALS: BP 123/68
[2017-03-31] MEDS: amLODIPine BESYLATE 10 MG TABLET PO SCH (09:32)
[2017-03-31] MEDS: LOSARTAN 50 MG TABLET. PO SCH (09:33)
[2017-03-31] MEDS: HYDROcodone/APAP 5/325MG 1 TAB TABLET PO SCH ×2 (09:35→21:04)
--- NOTE | 2017-03-31 12:21 | PN ---
DATE: 03/28/2017 PSYCHIATRIC PROGRESS NOTE This is a late entry of 03/28/2017 covers elements not covered in my initial note. SUBJECTIVE: The patient had a good day per nursing report, pleasant, cooperative, repeatedly saying thank you. REVIEW OF SYSTEMS: Hard of hearing. No CV, , pulmonary, eye system symptoms on review. MENTAL STATUS EXAM: Oriented to herself and situation. Speech is loud consequent to being hard of hearing. Abstraction fair, computation impaired, language function intact. Mood and affect lability is improved. LABORATORY DATA: Reviewed. IMPRESSION: Unchanged from initial note schizoaffective disorder, bipolar type mixed with psychotic features in partial remission. PLAN: Continue psychotropics mentioned in my initial note. MAN Kemal HAHN MD DR: MARGA/estelle JOB#: [id number] / [id number]
--- NOTE | 2017-03-31 12:22 | PN ---
DATE: 03/29/2017 PSYCHIATRIC PROGRESS NOTE This is a late entry 03/29/2017, covers elements not covered in my initial note. SUBJECTIVE: The patient was staffed at treatment team meeting with the entire team and seen individually. She remains fairly pleasant, less labile, still talking about wanting to be discharged, but not aggressive about this. REVIEW OF SYSTEMS: Hard of hearing. No CV, , pulmonary, eye system symptoms on review. MENTAL STATUS EXAM: Oriented to herself and situation. Speech loud because she is hard of hearing. Abstraction fair, computation impaired, language function intact, attention span short. Mood and affect, lability is improved. LABORATORY DATA: Reviewed. IMPRESSION: Schizoaffective disorder, bipolar type, mixed with psychotic features, in partial remission. Rest unchanged. PLAN: Continue psychotropics mentioned in my initial note. Adjust further as clinically indicated. MAN Kemal HAHN MD DR: MARGA/estelle JOB#: [id number] / [id number]
--- NOTE | 2017-03-31 12:42 | NUR ---
Behavior Intervention Response and Plan: BIRP Note: Behavior: Assumed Care of patient, patient located in Patient Room at shift change. Patient exhibited the following behavior Able to Focus on Task, Interactive, social, compliant, Calm. Brief assessment on rounds of vital signs, medication needs, lab studies, and pain. Treatment plan problems: 1-2 . Intervention: Patient assessed and the following interventions initiated safety checks 15 Minute Checks Head to toe Assessment , Medications , Oral Hydration. Response: After interactions and interventions patient responded in the following manner, Cooperative , Compliant ,Appropriate. Continue to assess behaviors and condition will continue to monitor throughout the shift as needed. 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 Continue to assess patient for changes in above assessment. Monitor for medication needs, pain, and safety concerns. Hourly rounding performed to ensure safe environment.
[2017-03-31 13:48] LABS: BASO % 0 % (0-3); EOS # 0.2 x10^3/uL (0.0-0.7); EOS % 4 % (0-3); HEMATOCRIT 38.2 % (36.0-47.0); LYMPH % 37 % (24-48); MEAN CORPUSCULAR HEMOGLOBIN 32 pg (25-35); MEAN CORPUSCULAR HGB CONC 34 g/dL (31-37); MEAN CORPUSCULAR VOLUME 92 fL (79-100); MONO # 0.5 x10^3/uL (0.0-1.1); MONO % 9 % (0-9); NEUT # 2.7 x10^3uL (1.8-7.7); NEUT % 50 % (31-73); PLATELET COUNT 161 x10^3/uL (140-400); RED BLOOD COUNT 4.14 x10^6/uL (3.50-5.40); WHITE BLOOD COUNT 5.4 x10^3/uL (4.0-11.0)
[2017-03-31 14:02] LABS: ALBUMIN/GLOBULIN RATIO 0.8 (1.0-1.7); CALCIUM 8.4 mg/dL (8.5-10.1); POTASSIUM 4.6 mmol/L (3.5-5.1); TOTAL BILIRUBIN 0.3 mg/dL (0.2-1.0)
[2017-03-31 14:06] LABS: GFR 56.4
[2017-03-31] MEDS: risperiDONE 0.25 MG TABLET. PO SCH (14:30)
[2017-03-31 16:01] VITALS: BP 124/76
[2017-03-31] MEDS: MIRTAZAPINE 15 MG TABLET PO SCH (21:05)
[2017-03-31] MEDS: INSULIN DETEMIR 300 UNITS/3 ML INSULN.PEN. SQ SCH (21:14)
--- NOTE | 2017-03-31 22:56 | PDOC ---
Exam Johann Demential Exam: Johann Note: Please also refer to the separate dictated note~for this date of service dictated separately.~Patient seen individually. Discussed the patient with Nursing staff reviewed the chart.~Reviewed interim history and current functioning. Reviewed vital signs,~Labs/ Radiology~and current medications noted below. Continue current treatment with the changes noted in the dictated addendum note Assessment: Vital Signs: Vital Signs Date Time Temp Pulse Resp B/P (MAP) Pulse Ox O2 Delivery O2 Flow Rate FiO2 03/31/17 16:01 97.6 74 21 124/76 (92) 96 03/30/17 22:30 Room Air I&O Intake and Output 03/31/17 07:00 Intake Total 1200 ml Balance 1200 ml Intake Oral 1200 ml Labs: Laboratory Tests Test 03/31/17 07:26 03/31/17 11:39 03/31/17 13:40 03/31/17 16:08 Glucose (Fingerstick) 115 mg/dL (70-99) H 277 mg/dL (70-99) H 283 mg/dL (70-99) H White Blood Count 5.4 x10^3/uL (4.0-11.0) Red Blood Count 4.14 x10^6/uL (3.50-5.40) Hemoglobin 13.0 g/dL (12.0-15.5) Hematocrit 38.2 % (36.0-47.0) Mean Corpuscular Volume 92 fL (79-100) Mean Corpuscular Hemoglobin 32 pg (25-35) Mean Corpuscular Hemoglobin Concent 34 g/dL (31-37) Red Cell Distribution Width 14.0 % (11.5-14.5) Platelet Count 161 x10^3/uL (140-400) Neutrophils (%) (Auto) 50 % (31-73) Lymphocytes (%) (Auto) 37 % (24-48) Monocytes (%) (Auto) 9 % (0-9) Eosinophils (%) (Auto) 4 % (0-3) H Basophils (%) (Auto) 0 % (0-3) Neutrophils # (Auto) 2.7 x10^3uL (1.8-7.7) Lymphocytes # (Auto) 2.0 x10^3/uL (1.0-4.8) Monocytes # (Auto) 0.5 x10^3/uL (0.0-1.1) Eosinophils # (Auto) 0.2 x10^3/uL (0.0-0.7) Basophils # (Auto) 0.0 x10^3/uL (0.0-0.2) Sodium Level 137 mmol/L (136-145) Potassium Level 4.6 mmol/L (3.5-5.1) Chloride Level 100 mmol/L (98-107) Carbon Dioxide Level 30 mmol/L (21-32) Anion Gap 7 (6-14) Blood Urea Nitrogen 16 mg/dL (7-20) Creatinine 1.0 mg/dL (0.6-1.0) Estimated GFR (Cockcroft-Gault) 56.4 BUN/Creatinine Ratio 16 (6-20) Glucose Level 282 mg/dL (70-99) H Calcium Level 8.4 mg/dL (8.5-10.1) L Total Bilirubin 0.3 mg/dL (0.2-1.0) Aspartate Amino Transferase (AST) 21 U/L (15-37) Alanine Aminotransferase (ALT) 21 U/L (14-59) Alkaline Phosphatase 78 U/L (46-116) Total Protein 7.0 g/dL (6.4-8.2) Albumin 3.0 g/dL (3.4-5.0) L Albumin/Globulin Ratio 0.8 (1.0-1.7) L Test 03/31/17 19:22 Glucose (Fingerstick) 330 mg/dL (70-99) H Current Medications: Meds: Current Medications Acetaminophen (Tylenol) 650 mg PRN Q6HRS PRN PO PAIN / TEMP; Start 02/25/17 at 00:30; Stop 02/25/17 at 15:05; Status DC Multi-Ingredient Ointment (Analgesic [place]) 1 marcell PRN QID PRN TP MUSCLE PAIN Last administered on 03/29/17t 04:12; Start 02/25/17 at 00:30 Al Hydroxide/Mg Hydroxide (Mylanta Plus Xs) 15 ml PRN AFTMEALHC PRN PO DYSPEPSIA; Start 02/25/17 at 00:30 Magnesium Hydroxide (Milk Of Magnesia) 2,400 mg PRN QHS PRN PO CONSTIPATION; Start 02/25/17 at 00:30; Stop 02/25/17 at 15:05; Status DC Chlorpromazine HCl (Thorazine) 25 mg BID PO Last administered on 02/26/17 09: 34; Start 02/25/17 at 09:00; Stop 02/26/17 at 18:22; Status DC Citalopram Hydrobromide (Celexa) 20 mg DAILY PO Last administered on 03/31/17 09:21; Start 02/25/17 at 09:00 Lorazepam (Ativan) 1 mg PRN Q3HRS PRN PO ANXIETY / AGITATION Last administered on 03/20/17 11:12; Start 02/25/17 at 00:30 Risperidone (Risperdal) 0.5 mg BID PO Last administered on 02/26/17 09:34; Start 02/25/17 at 09:00; Stop 02/26/17 at 18:22; Status DC Trazodone HCl (Desyrel) 50 mg PRN QHS PRN PO INSOMNIA Last administered on 19:26; Start 02/25/17 at 00:30 Divalproex Sodium (Depakote Sprinkles) 500 mg TID PO Last administered on 21:05; Start 02/25/17 at 09:00 Acetaminophen (Tylenol) 650 mg PRN Q8HRS PRN PO PAIN Last administered on 04:12; Start 02/25/17 at 07:30 Amlodipine Besylate (Norvasc) 10 mg DAILY PO Last administered on 03/31/17 09: 32; Start 02/25/17 at 09:00 Gabapentin (Neurontin) 300 mg TID PO Last administered on 03/31/17 21:04; Start 02/25/17 at 09:00 Acetaminophen/ Hydrocodone Bitart (Lortab 5/325) 1 tab Q12HR PO Last administered on 03/31/17 21:04; Start 02/25/17 at 09:00 Insulin Aspart (Novolog) 6 units TIDWMEALS SQ Last administered on 03/31/17 17 :48; Start 02/25/17 at 08:00 Losartan Potassium (Cozaar) 50 mg DAILY PO Last administered on 03/31/17 09:33 ; Start 02/25/17 at 09:00 Senna/Docusate Sodium (Senna Plus) 1 tab DAILY PO Last administered on 09:23; Start 02/25/17 at 09:00 Insulin Detemir (Levemir) 15 units QHS SQ Last administered on 02/25/17 19:55 ; Start 02/25/17 at 21:00; Stop 02/26/17 at 14:21; Status DC Magnesium Hydroxide (Milk Of Magnesia) 2,400 mg PRN DAILY PRN PO CONSTIPATION; Start 02/25/17 at 07:45 Insulin Detemir (Levemir) 15 units QHS SQ Last administered on 03/31/17 21:14 ; Start 02/26/17 at 14:21 Chlorpromazine HCl (Thorazine) 25 mg DAILY PO Last administered on 02/28/17 09 :09; Start 02/27/17 at 09:00; Stop 02/28/17 at 15:50; Status DC Risperidone (Risperdal) 0.5 mg DAILY PO Last administered on 03/07/17 08:23; Start 02/27/17 at 09:00; Stop 03/07/17 at 18:51; Status DC Risperidone (Risperdal) 0.75 mg HS PO ; Start 02/26/17 at 21:00; Stop 02/26/17 at 21:00; Status DC Risperidone (Risperdal) 0.75 mg 14 PO Last administered on 03/31/17 14:30; Start 02/26/17 at 21:00 Buspirone HCl (Buspar) 5 mg BID PO Last administered on 03/01/17 08:38; Start 02/27/17 at 21:00; Stop 03/01/17 at 12:38; Status DC Buspirone HCl (Buspar) 10 mg BID PO Last administered on 03/02/17 08:05; Start 03/01/17 at 21:00; Stop 03/02/17 at 18:06; Status DC Trimethoprim/ Sulfamethoxazole (Bactrim Ds) 1 tab DAILY PO Last administered on 03/09/17 09:29; Start 03/02/17 at 09:00; Stop 03/09/17 at 09:01; Status DC Buspirone HCl (Buspar) 10 mg TIDAFTMEAL PO Last administered on 03/08/17 08:22 ; Start 03/03/17 at 09:00; Stop 03/08/17 at 12:53; Status DC Vitamin D (Vitamin D3) 50,000 unit WEEKLY PO Last administered on 03/31/17 09: 23; Start 03/03/17 at 09:00 Mirtazapine (Remeron) 7.5 mg QHS PO Last administered on 03/08/17 19:26; Start 03/05/17 at 21:00; Stop 03/09/17 at 18:14; Status DC Mirtazapine (Remeron) 15 mg QHS PO Last administered on 03/31/17 21:05; Start 03/06/17 at 21:00 Risperidone (Risperdal) 0.75 mg DAILY PO Last administered on 03/31/17 09:23; Start 03/08/17 at 09:00 Buspirone HCl (Buspar) 20 mg DAILY PO Last administered on 03/31/17 09:21; Start 03/09/17 at 09:00 Buspirone HCl (Buspar) 10 mg BID@1400,2100 PO Last administered on 03/31/17 21 :04; Start 03/08/17 at 14:00 Olanzapine (Zyprexa Zydis) 5 mg PRN Q2HR PRN PO PSYCHOSIS Last administered on 03/20/17 12:22; Start 03/08/17 at 13:00 Trazodone HCl (Desyrel) 12.5 mg BID92 PO Last administered on 03/21/17 08:36; Start 03/17/17 at 09:00; Stop 03/21/17 at 13:00; Status DC Multi-Ingred Cream/Lotion/Oil/ Oint (Hydrocerin) 1 marcell PRN Q4HRS PRN TP REDNESS Last administered on 03/21/17 16:52; Start 03/19/17 at 22:45 Trazodone HCl (Desyrel) 12.5 mg 0900,1200,1400,1900 PO Last administered on 17:48; Start 03/21/17 at 14:00 Albuterol Sulfate (Ventolin) 2.5 mg 1X ONCE NEB ; Start 03/25/17 at 13:15; Stop 03/25/17 at 13:15; Status DC Albuterol/ Ipratropium (Duoneb) 3 ml 1X ONCE NEB Last administered on t 13:18; Start 03/25/17 at 13:15; Stop 03/25/17 at 13:16; Status DC Active Scripts Active Reported Lantus Solostar (Insulin Glargine,Hum.rec.anlog) 100 Unit/1 Ml Insuln.pen 15 Unit SQ QHS Lorazepam 1 Mg Tablet 1 Mg PO PRN Q3HRS PRN Risperdal (Risperidone) 0.5 Mg Tablet 0.5 Mg PO BID Chlorpromazine Hcl 25 Mg Tablet 25 Mg PO BID Novolog Flexpen (Insulin Aspart) 100 Unit/1 Ml Insuln.pen 6 Unit SQ TIDWMEALS Gabapentin 300 Mg Capsule 300 Mg PO TID Milk Of Magnesia (Magnesium Hydroxide) 2,400 Mg/10 Ml Oral.susp 2,400 Mg PO PRN DAILY Trazodone Hcl 50 Mg Tablet 50 Mg PO PRN QHS PRN Divalproex Sodium 500 Mg Tablet.dr 500 Mg PO TID Losartan Potassium 50 Mg Tablet 50 Mg PO DAILY Senexon-S Tablet (Sennosides/Docusate Sodium) 1 Each Tablet 8.6-50 Mg PO DAILY Celexa (Citalopram Hydrobromide) 20 Mg Tablet 20 Mg PO DAILY Amlodipine Besylate 10 Mg Tablet 10 Mg PO DAILY Percocet 5-325 Mg Tablet (Oxycodone Hcl/Acetaminophen) 1 Each Tablet 1 Tab PO PRN Q8HRS PRN Hydrocodone-Apap 5-325 (Hydrocodone Bit/Acetaminophen) 1 Each Tablet 1 Tab PO Q12HR Tylenol (Acetaminophen) 325 Mg Tablet 650 Mg PO PRN Q8HRS PRN Diagnosis: Problems: (1) Psychiatric disorder (2) Bipolar affective, mixed, sev w/ psych (3) Anxiety disorder (4) Dementia in Alzheimer's disease with delusions (5) Impulse control disorder NANCY HAHN MD March 31, 2017 22:56
--- NOTE | 2017-03-31 23:35 | NUR ---
Behavior Intervention Response and Plan: BIRP Note: Behavior: Assumed Care of patient, patient located in Day Room at shift change. Patient exhibited the following behavior Calm, Able to Focus on Task, Irritable. Brief assessment on rounds of vital signs, medication needs, lab studies, and pain. Treatment plan problems .-2 Intervention: Patient assessed and the following interventions initiated safety checks 15 Minute Checks Cognitive Assessment , Head to toe Assessment , Medications. Response: After interactions and interventions patient responded in the following manner, Interactive , Calm ,Appropriate. Continue to assess behaviors and condition will continue to monitor throughout the shift as needed. 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 Continue to assess patient for changes in above assessment. Monitor for medication needs, pain, and safety concerns. Hourly rounding performed to ensure safe environment.
[2017-04-01 06:06] VITALS: BP 113/52
[2017-04-01] MEDS: INSULIN ASPART 300 UNITS/3 ML INSULN.PEN SQ SCH ×3 (08:31→17:44)
[2017-04-01] MEDS: busPIRone 10 MG TABLET. PO SCH ×3 (08:33→21:11)
[2017-04-01] MEDS: CITALOPRAM 20 MG TABLET. PO SCH (08:35)
[2017-04-01] MEDS: DIVALPROEX 125 MG CAP.SPRINK PO SCH ×3 (08:35→21:10)
[2017-04-01] MEDS: traZODone 50 MG TABLET. PO SCH ×4 (08:37→17:40)
[2017-04-01] MEDS: HYDROcodone/APAP 5/325MG 1 TAB TABLET PO SCH ×2 (08:38→21:10)
[2017-04-01] MEDS: SENNOSIDES/DOCUSATE 8.6/50MG TABLET. PO SCH (08:38)
[2017-04-01] MEDS: GABAPENTIN 300 MG CAPSULE. PO SCH ×3 (08:38→21:10)
[2017-04-01] MEDS: risperiDONE 0.5 MG TABLET. PO SCH (08:38)
[2017-04-01] MEDS: amLODIPine BESYLATE 10 MG TABLET PO SCH (09:00)
[2017-04-01] MEDS: LOSARTAN 50 MG TABLET. PO SCH (09:01)
--- NOTE | 2017-04-01 09:20 | NUR ---
Behavior Intervention Response and Plan: BIRP Note: Behavior: Assumed Care of patient, patient located in Patient Room at shift change. Patient exhibited the following behavior Able to Focus on Task, Interactive, social, compliant, Calm. Brief assessment on rounds of vital signs, medication needs, lab studies, and pain. Treatment plan problems: 1-2 . Intervention: Patient assessed and the following interventions initiated safety checks 15 Minute Checks Head to toe Assessment , Medications , Oral Hydration. Response: After interactions and interventions patient responded in the following manner, Cooperative , Compliant, polite, interacts appropriately with staff and peers. Continue to assess behaviors and condition will continue to monitor throughout the shift as needed. 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 Continue to assess patient for changes in above assessment. Monitor for medication needs, pain, and safety concerns. Hourly rounding performed to ensure safe environment.
[2017-04-01] MEDS: IPRATRPIUM/ALBUTEROL 0.5/2.5MG 3 ML NEBU. NEB ONE (09:35)
--- NOTE | 2017-04-01 10:00 | NUR ---
resumed care of pt.
[2017-04-01] MEDS: risperiDONE 0.25 MG TABLET. PO SCH (12:13)
[2017-04-01 16:31] VITALS: BP 100/62
--- NOTE | 2017-04-01 17:13 | NUR ---
pt up for meals adl. in pleasant spirits. compliant with meds and cares.
[2017-04-01] MEDS: MIRTAZAPINE 15 MG TABLET PO SCH (21:10)
[2017-04-01] MEDS: INSULIN DETEMIR 300 UNITS/3 ML INSULN.PEN. SQ SCH (21:14)
--- NOTE | 2017-04-01 21:14 | PDOC ---
Exam Johann Demential Exam: Johann Note: Please also refer to the separate dictated note~for this date of service dictated separately.~Patient seen individually. Discussed the patient with Nursing staff reviewed the chart.~Reviewed interim history and current functioning. Reviewed vital signs,~Labs/ Radiology~and current medications noted below. Continue current treatment with the changes noted in the dictated addendum note Assessment: Vital Signs: Vital Signs Date Time Temp Pulse Resp B/P (MAP) Pulse Ox O2 Delivery O2 Flow Rate FiO2 04/01/17 16:31 97.4 62 18 100/62 (75) 92 Room Air I&O Intake and Output 04/01/17 07:00 Intake Total 1560 ml Balance 1560 ml Intake Oral 1560 ml Labs: Laboratory Tests Test 04/01/17 07:30 04/01/17 11:38 04/01/17 16:41 04/01/17 19:06 Glucose (Fingerstick) 117 mg/dL (70-99) H 298 mg/dL (70-99) H 233 mg/dL (70-99) H 263 mg/dL (70-99) H Current Medications: Meds: Current Medications Acetaminophen (Tylenol) 650 mg PRN Q6HRS PRN PO PAIN / TEMP; Start 02/25/17 at 00:30; Stop 02/25/17 at 15:05; Status DC Multi-Ingredient Ointment (Analgesic [place]) 1 marcell PRN QID PRN TP MUSCLE PAIN Last administered on 03/29/17 04:12; Start 02/25/17 at 00:30 Al Hydroxide/Mg Hydroxide (Mylanta Plus Xs) 15 ml PRN AFTMEALHC PRN PO DYSPEPSIA; Start 02/25/17 at 00:30 Magnesium Hydroxide (Milk Of Magnesia) 2,400 mg PRN QHS PRN PO CONSTIPATION; Start 02/25/17 at 00:30; Stop 02/25/17 at 15:05; Status DC Chlorpromazine HCl (Thorazine) 25 mg BID PO Last administered on 02/26/17 09: 34; Start 02/25/17 at 09:00; Stop 02/26/17 at 18:22; Status DC Citalopram Hydrobromide (Celexa) 20 mg DAILY PO Last administered on 04/01/17 08:35; Start 02/25/17 at 09:00 Lorazepam (Ativan) 1 mg PRN Q3HRS PRN PO ANXIETY / AGITATION Last administered on 03/20/17 11:12; Start 02/25/17 at 00:30 Risperidone (Risperdal) 0.5 mg BID PO Last administered on 02/26/17 09:34; Start 02/25/17 at 09:00; Stop 02/26/17 at 18:22; Status DC Trazodone HCl (Desyrel) 50 mg PRN QHS PRN PO INSOMNIA Last administered on 19:26; Start 02/25/17 at 00:30 Divalproex Sodium (Depakote Sprinkles) 500 mg TID PO Last administered on 21:10; Start 02/25/17 at 09:00 Acetaminophen (Tylenol) 650 mg PRN Q8HRS PRN PO PAIN Last administered on 04:12; Start 02/25/17 at 07:30 Amlodipine Besylate (Norvasc) 10 mg DAILY PO Last administered on 03/31/17 09: 32; Start 02/25/17 at 09:00 Gabapentin (Neurontin) 300 mg TID PO Last administered on 04/01/17 21:10; Start 02/25/17 at 09:00 Acetaminophen/ Hydrocodone Bitart (Lortab 5/325) 1 tab Q12HR PO Last administered on 04/01/17 21:10; Start 02/25/17 at 09:00 Insulin Aspart (Novolog) 6 units TIDWMEALS SQ Last administered on 04/01/17 17 :44; Start 02/25/17 at 08:00 Losartan Potassium (Cozaar) 50 mg DAILY PO Last administered on 03/31/17 09:33 ; Start 02/25/17 at 09:00 Senna/Docusate Sodium (Senna Plus) 1 tab DAILY PO Last administered on 08:38; Start 02/25/17 at 09:00 Insulin Detemir (Levemir) 15 units QHS SQ Last administered on 02/25/17 19:55 ; Start 02/25/17 at 21:00; Stop 02/26/17 at 14:21; Status DC Magnesium Hydroxide (Milk Of Magnesia) 2,400 mg PRN DAILY PRN PO CONSTIPATION; Start 02/25/17 at 07:45 Insulin Detemir (Levemir) 15 units QHS SQ Last administered on 03/31/17 21:14 ; Start 02/26/17 at 14:21 Chlorpromazine HCl (Thorazine) 25 mg DAILY PO Last administered on 02/28/17 09 :09; Start 02/27/17 at 09:00; Stop 02/28/17 at 15:50; Status DC Risperidone (Risperdal) 0.5 mg DAILY PO Last administered on 03/07/17 08:23; Start 02/27/17 at 09:00; Stop 03/07/17 at 18:51; Status DC Risperidone (Risperdal) 0.75 mg HS PO ; Start 02/26/17 at 21:00; Stop 02/26/17 at 21:00; Status DC Risperidone (Risperdal) 0.75 mg 14 PO Last administered on 04/01/17 12:13; Start 02/26/17 at 21:00 Buspirone HCl (Buspar) 5 mg BID PO Last administered on 03/01/17 08:38; Start 02/27/17 at 21:00; Stop 03/01/17 at 12:38; Status DC Buspirone HCl (Buspar) 10 mg BID PO Last administered on 03/02/17 08:05; Start 03/01/17 at 21:00; Stop 03/02/17 at 18:06; Status DC Trimethoprim/ Sulfamethoxazole (Bactrim Ds) 1 tab DAILY PO Last administered on 03/09/17 09:29; Start 03/02/17 at 09:00; Stop 03/09/17 at 09:01; Status DC Buspirone HCl (Buspar) 10 mg TIDAFTMEAL PO Last administered on 03/08/17 08:22 ; Start 03/03/17 at 09:00; Stop 03/08/17 at 12:53; Status DC Vitamin D (Vitamin D3) 50,000 unit WEEKLY PO Last administered on 03/31/17 09: 23; Start 03/03/17 at 09:00 Mirtazapine (Remeron) 7.5 mg QHS PO Last administered on 03/08/17 19:26; Start 03/05/17 at 21:00; Stop 03/09/17 at 18:14; Status DC Mirtazapine (Remeron) 15 mg QHS PO Last administered on 04/01/17 21:10; Start 03/06/17 at 21:00 Risperidone (Risperdal) 0.75 mg DAILY PO Last administered on 04/01/17 08:38; Start 03/08/17 at 09:00 Buspirone HCl (Buspar) 20 mg DAILY PO Last administered on 04/01/17 08:33; Start 03/09/17 at 09:00 Buspirone HCl (Buspar) 10 mg BID@1400,2100 PO Last administered on 04/01/17 21 :11; Start 03/08/17 at 14:00 Olanzapine (Zyprexa Zydis) 5 mg PRN Q2HR PRN PO PSYCHOSIS Last administered on 03/20/17 12:22; Start 03/08/17 at 13:00 Trazodone HCl (Desyrel) 12.5 mg BID92 PO Last administered on 03/21/17 08:36; Start 03/17/17 at 09:00; Stop 03/21/17 at 13:00; Status DC Multi-Ingred Cream/Lotion/Oil/ Oint (Hydrocerin) 1 marcell PRN Q4HRS PRN TP REDNESS Last administered on 03/21/17 16:52; Start 03/19/17 at 22:45 Trazodone HCl (Desyrel) 12.5 mg 0900,1200,1400,1900 PO Last administered on 17:40; Start 03/21/17 at 14:00 Albuterol Sulfate (Ventolin) 2.5 mg 1X ONCE NEB ; Start 03/25/17 at 13:15; Stop 03/25/17 at 13:15; Status DC Albuterol/ Ipratropium (Duoneb) 3 ml 1X ONCE NEB Last administered on 13:18; Start 03/25/17 at 13:15; Stop 03/25/17 at 13:16; Status DC Albuterol/ Ipratropium (Duoneb) 3 ml 1X ONCE NEB Last administered on 5/28/ 17at 09:35; Start 04/01/17 at 09:35; Stop 04/01/17 at 09:36; Status DC Active Scripts Active Reported Lantus Solostar (Insulin Glargine,Hum.rec.anlog) 100 Unit/1 Ml Insuln.pen 15 Unit SQ QHS Lorazepam 1 Mg Tablet 1 Mg PO PRN Q3HRS PRN Risperdal (Risperidone) 0.5 Mg Tablet 0.5 Mg PO BID Chlorpromazine Hcl 25 Mg Tablet 25 Mg PO BID Novolog Flexpen (Insulin Aspart) 100 Unit/1 Ml Insuln.pen 6 Unit SQ TIDWMEALS Gabapentin 300 Mg Capsule 300 Mg PO TID Milk Of Magnesia (Magnesium Hydroxide) 2,400 Mg/10 Ml Oral.susp 2,400 Mg PO PRN DAILY Trazodone Hcl 50 Mg Tablet 50 Mg PO PRN QHS PRN Divalproex Sodium 500 Mg Tablet.dr 500 Mg PO TID Losartan Potassium 50 Mg Tablet 50 Mg PO DAILY Senexon-S Tablet (Sennosides/Docusate Sodium) 1 Each Tablet 8.6-50 Mg PO DAILY Celexa (Citalopram Hydrobromide) 20 Mg Tablet 20 Mg PO DAILY Amlodipine Besylate 10 Mg Tablet 10 Mg PO DAILY Percocet 5-325 Mg Tablet (Oxycodone Hcl/Acetaminophen) 1 Each Tablet 1 Tab PO PRN Q8HRS PRN Hydrocodone-Apap 5-325 (Hydrocodone Bit/Acetaminophen) 1 Each Tablet 1 Tab PO Q12HR Tylenol (Acetaminophen) 325 Mg Tablet 650 Mg PO PRN Q8HRS PRN NANCY HAHN MD April 01, 2017 21:14
--- NOTE | 2017-04-02 01:36 | NUR ---
Behavior Intervention Response and Plan: BIRP Note: Behavior: Assumed Care of patient, patient located in Day Room at shift change. Patient exhibited the following behavior Interactive, Able to Focus on Task, Social. Brief assessment on rounds of vital signs, medication needs, lab studies, and pain. Treatment plan problems :1-2 Intervention: Patient assessed and the following interventions initiated safety checks 15 Minute Checks Cognitive Assessment , Head to toe Assessment , Medications. Response: After interactions and interventions patient responded in the following manner, Calm , Cooperative ,Social. Continue to assess behaviors and condition will continue to monitor throughout the shift as needed. Plan: Continue to monitor Master Treatment Plan for patient's progress toward short term goals of Decreased Agitation, Improved Mood, superintendent terminal goals to return to previous living setting vs placement. Continue to assess patient for changes in above assessment. Monitor for medication needs, pain, and safety concerns. Hourly rounding performed to ensure safe environment.
--- NOTE | 2017-04-02 01:48 | PN ---
DATE: 03/30/2017 PSYCHIATRIC PROGRESS NOTE This is a late entry of 03/30/2017 covers elements not covered in my initial note. SUBJECTIVE: The patient has been calm, cooperative, social at times withdrawn to her room, but not aggressive most. REVIEW OF SYSTEMS: Hard of hearing, speech is loud. No CV, , pulmonary, eye system symptoms on review. MENTAL STATUS EXAM: Reasonably oriented. Abstraction fair, computation impaired, language function intact. Mood lability is improved. IMPRESSION: Unchanged. PLAN: Continue current psychotropics. MAN Kemal HAHN MD DR: MARGA/estelle JOB#: [id number] / [id number]
--- NOTE | 2017-04-02 01:53 | PN ---
DATE: 03/31/2017 This is a late entry of 03/31/2017, covers elements not covered in my initial note. SUBJECTIVE: Overall, the patient has been fairly cooperative per nursing report, not aggressive, mood lability is improved. REVIEW OF SYSTEMS: Hard of hearing. Speech is loud. Abstraction fair. Computation is somewhat impaired, language function is intact. Mood and affect are improved. IMPRESSION: Unchanged from initial note. PLAN: Continue current psychotropics mentioned in my initial note. MAN Kemal HAHN MD DR: MARGA/estelle JOB#: [id number] / [id number]
[2017-04-02 06:15] VITALS: BP 131/60
[2017-04-02] MEDS: GABAPENTIN 300 MG CAPSULE. PO SCH ×3 (08:05→19:25)
[2017-04-02] MEDS: DIVALPROEX 125 MG CAP.SPRINK PO SCH ×3 (08:05→19:25)
[2017-04-02] MEDS: risperiDONE 0.5 MG TABLET. PO SCH (08:05)
[2017-04-02] MEDS: busPIRone 10 MG TABLET. PO SCH ×3 (08:06→19:25)
[2017-04-02] MEDS: SENNOSIDES/DOCUSATE 8.6/50MG TABLET. PO SCH (08:06)
[2017-04-02] MEDS: HYDROcodone/APAP 5/325MG 1 TAB TABLET PO SCH ×2 (08:06→19:27)
[2017-04-02] MEDS: traZODone 50 MG TABLET. PO SCH ×4 (08:06→17:10)
[2017-04-02] MEDS: CITALOPRAM 20 MG TABLET. PO SCH (08:06)
[2017-04-02] MEDS: INSULIN ASPART 300 UNITS/3 ML INSULN.PEN SQ SCH ×3 (08:07→17:10)
[2017-04-02] MEDS: amLODIPine BESYLATE 10 MG TABLET PO SCH (08:17)
[2017-04-02] MEDS: LOSARTAN 50 MG TABLET. PO SCH (08:17)
--- NOTE | 2017-04-02 11:22 | NUR ---
SW sat w/Pt. while at the table coloring an activity to discuss discharge plans for later in the week. Pt. is consumed w/the idea of living and being buried in [place], [place]. Pt. was born and raised in [place], [place] and her parents are buried there as well. Pt. continued to ask if she was leaving this facility to live in an apartment in [place], [place]. SW told Pt. she would be leaving here to live in [place], [place] for the time being. Pt. had several questions about distance from [place], [place] and population of the city. Pt. was worried because she does not know anyone that lives in that town. SW explained she would be living in a place that is similar to this facility, w/a room w/her belongings. Pt. was accepting of the current dc plan and understands she will need to speak w/her ex brother in law, Dameon for further living arrangements in the future.
--- NOTE | 2017-04-02 12:32 | NUR ---
Behavior Intervention Response and Plan: BIRP Note: Behavior: Assumed Care of patient, patient located in Day Room at shift change. Patient exhibited the following behavior Interactive, Compliant, Cooperative. Brief assessment on rounds of vital signs, medication needs, lab studies, and pain. Treatment plan problems . Intervention: Patient assessed and the following interventions initiated safety checks 15 Minute Checks Cognitive Assessment , Head to toe Assessment , Medications. Response: After interactions and interventions patient responded in the following manner, Calm , Cooperative ,Compliant. Continue to assess behaviors and condition will continue to monitor throughout the shift as needed. 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 Continue to assess patient for changes in above assessment. Monitor for medication needs, pain, and safety concerns. Hourly rounding performed to ensure safe environment.
--- NOTE | 2017-04-02 14:00 | NUR ---
THERAPEUTIC RECREATION GROUP NOTE TITLE :: Ice Cream and Program ACTIVITY : Social Events and Holidays GOAL : Facilitate sense of belonging and well-being, elevate mood, increase socialization and social skills. Incorporate traditions. DURATION : 120 Minutes RESPONSE : Full participation. Pt. ate ice cream and went back and forth between rooms throughout the afternoon. She sat during the program and stayed after while music played. She clapped to a beat with a smile on her face.
[2017-04-02] MEDS: risperiDONE 0.25 MG TABLET. PO SCH (14:04)
--- NOTE | 2017-04-02 15:00 | NUR ---
OMA printed a map of the area and highlighted route to [place] and [place] to help Pt. to visualize where here new placement will be in comparison to , [place]. Pt. accepting of the information.
[2017-04-02 15:55] VITALS: BP 146/60
[2017-04-02] MEDS: MIRTAZAPINE 15 MG TABLET PO SCH (19:24)
[2017-04-02] MEDS: traZODone 50 MG TABLET. PO PRN (19:27)
[2017-04-02] MEDS: INSULIN DETEMIR 300 UNITS/3 ML INSULN.PEN. SQ SCH (19:29)
--- NOTE | 2017-04-02 21:00 | NUR ---
Behavior Intervention Response and Plan: BIRP Note: Behavior: Assumed Care of patient, patient located in Day Room at shift change. Patient exhibited the following behavior Calm, Able to Focus on Task, Irritable. Brief assessment on rounds of vital signs, medication needs, lab studies, and pain. Treatment plan problems .1-2 Intervention: Patient assessed and the following interventions initiated safety checks 15 Minute Checks Cognitive Assessment , Head to toe Assessment , Medications. Response: After interactions and interventions patient responded in the following manner, Interactive , Calm ,Appropriate. Continue to assess behaviors and condition will continue to monitor throughout the shift as needed. 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 Continue to assess patient for changes in above assessment. Monitor for medication needs, pain, and safety concerns. Hourly rounding performed to ensure safe environment.
--- NOTE | 2017-04-02 21:07 | PDOC ---
Exam Johann Demential Exam: Johann Note: Please also refer to the separate dictated note~for this date of service dictated separately.~Patient seen individually. Discussed the patient with Nursing staff reviewed the chart.~Reviewed interim history and current functioning. Reviewed vital signs,~Labs/ Radiology~and current medications noted below. Continue current treatment with the changes noted in the dictated addendum note Assessment: Vital Signs: Vital Signs Date Time Temp Pulse Resp B/P (MAP) Pulse Ox O2 Delivery O2 Flow Rate FiO2 04/02/17 20:27 Room Air 04/02/17 15:55 98.9 68 21 146/60 (88) 92 I&O Intake and Output 04/02/17 07:00 Intake Total 1440 ml Balance 1440 ml Intake Oral 1440 ml # Bowel Movements 1 Labs: Laboratory Tests Test 04/02/17 07:22 04/02/17 11:44 04/02/17 17:03 04/02/17 19:22 Glucose (Fingerstick) 129 mg/dL (70-99) H 143 mg/dL (70-99) H 160 mg/dL (70-99) H 246 mg/dL (70-99) H Current Medications: Meds: Current Medications Acetaminophen (Tylenol) 650 mg PRN Q6HRS PRN PO PAIN / TEMP; Start 02/25/17 at 00:30; Stop 02/25/17 at 15:05; Status DC Multi-Ingredient Ointment (Analgesic [place]) 1 marcell PRN QID PRN TP MUSCLE PAIN Last administered on 03/29/17 04:12; Start 02/25/17 at 00:30 Al Hydroxide/Mg Hydroxide (Mylanta Plus Xs) 15 ml PRN AFTMEALHC PRN PO DYSPEPSIA; Start 02/25/17 at 00:30 Magnesium Hydroxide (Milk Of Magnesia) 2,400 mg PRN QHS PRN PO CONSTIPATION; Start 02/25/17 at 00:30; Stop 02/25/17 at 15:05; Status DC Chlorpromazine HCl (Thorazine) 25 mg BID PO Last administered on 02/26/17 09: 34; Start 02/25/17 at 09:00; Stop 02/26/17 at 18:22; Status DC Citalopram Hydrobromide (Celexa) 20 mg DAILY PO Last administered on 04/02/17 08:06; Start 02/25/17 at 09:00 Lorazepam (Ativan) 1 mg PRN Q3HRS PRN PO ANXIETY / AGITATION Last administered on 03/20/17 11:12; Start 02/25/17 at 00:30 Risperidone (Risperdal) 0.5 mg BID PO Last administered on 02/26/17 09:34; Start 02/25/17 at 09:00; Stop 02/26/17 at 18:22; Status DC Trazodone HCl (Desyrel) 50 mg PRN QHS PRN PO INSOMNIA Last administered on 04/02 19:27; Start 02/25/17 at 00:30 Divalproex Sodium (Depakote Sprinkles) 500 mg TID PO Last administered on 19:25; Start 02/25/17 at 09:00 Acetaminophen (Tylenol) 650 mg PRN Q8HRS PRN PO PAIN Last administered on 04:12; Start 02/25/17 at 07:30 Amlodipine Besylate (Norvasc) 10 mg DAILY PO Last administered on 04/02/17 08: 17; Start 02/25/17 at 09:00 Gabapentin (Neurontin) 300 mg TID PO Last administered on 04/02/17 19:25; Start 02/25/17 at 09:00 Acetaminophen/ Hydrocodone Bitart (Lortab 5/325) 1 tab Q12HR PO Last administered on 04/02/17 19:27; Start 02/25/17 at 09:00 Insulin Aspart (Novolog) 6 units TIDWMEALS SQ Last administered on 04/02/17 17 :10; Start 02/25/17 at 08:00 Losartan Potassium (Cozaar) 50 mg DAILY PO Last administered on 04/02/17 08:17 ; Start 02/25/17 at 09:00 Senna/Docusate Sodium (Senna Plus) 1 tab DAILY PO Last administered on 08:06; Start 02/25/17 at 09:00 Insulin Detemir (Levemir) 15 units QHS SQ Last administered on 02/25/17 19:55 ; Start 02/25/17 at 21:00; Stop 02/26/17 at 14:21; Status DC Magnesium Hydroxide (Milk Of Magnesia) 2,400 mg PRN DAILY PRN PO CONSTIPATION; Start 02/25/17 at 07:45 Insulin Detemir (Levemir) 15 units QHS SQ Last administered on 04/02/17 19:29 ; Start 02/26/17 at 14:21 Chlorpromazine HCl (Thorazine) 25 mg DAILY PO Last administered on 02/28/17 09 :09; Start 02/27/17 at 09:00; Stop 02/28/17 at 15:50; Status DC Risperidone (Risperdal) 0.5 mg DAILY PO Last administered on 03/07/17 08:23; Start 02/27/17 at 09:00; Stop 03/07/17 at 18:51; Status DC Risperidone (Risperdal) 0.75 mg HS PO ; Start 02/26/17 at 21:00; Stop 02/26/17 at 21:00; Status DC Risperidone (Risperdal) 0.75 mg 14 PO Last administered on 04/02/17 14:04; Start 02/26/17 at 21:00 Buspirone HCl (Buspar) 5 mg BID PO Last administered on 03/01/17 08:38; Start 02/27/17 at 21:00; Stop 03/01/17 at 12:38; Status DC Buspirone HCl (Buspar) 10 mg BID PO Last administered on 03/02/17 08:05; Start 03/01/17 at 21:00; Stop 03/02/17 at 18:06; Status DC Trimethoprim/ Sulfamethoxazole (Bactrim Ds) 1 tab DAILY PO Last administered on 03/09/17 09:29; Start 03/02/17 at 09:00; Stop 03/09/17 at 09:01; Status DC Buspirone HCl (Buspar) 10 mg TIDAFTMEAL PO Last administered on 03/08/17 08:22 ; Start 03/03/17 at 09:00; Stop 03/08/17 at 12:53; Status DC Vitamin D (Vitamin D3) 50,000 unit WEEKLY PO Last administered on 03/31/17 09: 23; Start 03/03/17 at 09:00 Mirtazapine (Remeron) 7.5 mg QHS PO Last administered on 03/08/17 19:26; Start 03/05/17 at 21:00; Stop 03/09/17 at 18:14; Status DC Mirtazapine (Remeron) 15 mg QHS PO Last administered on 04/02/17 19:24; Start 03/06/17 at 21:00 Risperidone (Risperdal) 0.75 mg DAILY PO Last administered on 04/02/17 08:05; Start 03/08/17 at 09:00 Buspirone HCl (Buspar) 20 mg DAILY PO Last administered on 04/02/17 08:06; Start 03/09/17 at 09:00 Buspirone HCl (Buspar) 10 mg BID@1400,2100 PO Last administered on 04/02/17 19 :25; Start 03/08/17 at 14:00 Olanzapine (Zyprexa Zydis) 5 mg PRN Q2HR PRN PO PSYCHOSIS Last administered on 03/20/17 12:22; Start 03/08/17 at 13:00 Trazodone HCl (Desyrel) 12.5 mg BID92 PO Last administered on 03/21/17 08:36; Start 03/17/17 at 09:00; Stop 03/21/17 at 13:00; Status DC Multi-Ingred Cream/Lotion/Oil/ Oint (Hydrocerin) 1 marcell PRN Q4HRS PRN TP REDNESS Last administered on 03/21/17 16:52; Start 03/19/17 at 22:45 Trazodone HCl (Desyrel) 12.5 mg 0900,1200,1400,1900 PO Last administered on 17:10; Start 03/21/17 at 14:00 Albuterol Sulfate (Ventolin) 2.5 mg 1X ONCE NEB ; Start 03/25/17 at 13:15; Stop 03/25/17 at 13:15; Status DC Albuterol/ Ipratropium (Duoneb) 3 ml 1X ONCE NEB Last administered on 13:18; Start 03/25/17 at 13:15; Stop 03/25/17 at 13:16; Status DC Albuterol/ Ipratropium (Duoneb) 3 ml 1X ONCE NEB Last administered on t 09:35; Start 04/01/17 at 09:35; Stop 04/01/17 at 09:36; Status DC Active Scripts Active Reported Lantus Solostar (Insulin Glargine,Hum.rec.anlog) 100 Unit/1 Ml Insuln.pen 15 Unit SQ QHS Lorazepam 1 Mg Tablet 1 Mg PO PRN Q3HRS PRN Risperdal (Risperidone) 0.5 Mg Tablet 0.5 Mg PO BID Chlorpromazine Hcl 25 Mg Tablet 25 Mg PO BID Novolog Flexpen (Insulin Aspart) 100 Unit/1 Ml Insuln.pen 6 Unit SQ TIDWMEALS Gabapentin 300 Mg Capsule 300 Mg PO TID Milk Of Magnesia (Magnesium Hydroxide) 2,400 Mg/10 Ml Oral.susp 2,400 Mg PO PRN DAILY Trazodone Hcl 50 Mg Tablet 50 Mg PO PRN QHS PRN Divalproex Sodium 500 Mg Tablet.dr 500 Mg PO TID Losartan Potassium 50 Mg Tablet 50 Mg PO DAILY Senexon-S Tablet (Sennosides/Docusate Sodium) 1 Each Tablet 8.6-50 Mg PO DAILY Celexa (Citalopram Hydrobromide) 20 Mg Tablet 20 Mg PO DAILY Amlodipine Besylate 10 Mg Tablet 10 Mg PO DAILY Percocet 5-325 Mg Tablet (Oxycodone Hcl/Acetaminophen) 1 Each Tablet 1 Tab PO PRN Q8HRS PRN Hydrocodone-Apap 5-325 (Hydrocodone Bit/Acetaminophen) 1 Each Tablet 1 Tab PO Q12HR Tylenol (Acetaminophen) 325 Mg Tablet 650 Mg PO PRN Q8HRS PRN NANCY HAHN MD April 02, 2017 21:07
[2017-04-03] MEDS: ACETAMINOPHEN 325 MG TABLET PO PRN ×2 (01:44→07:30)
[2017-04-03 05:58] VITALS: BP 128/76
--- NOTE | 2017-04-03 07:30 | NUR ---
Patient c/o [facility] this AM and requesting medication, PRN tylenol given, will continue to monitor.
[2017-04-03] MEDS: DIVALPROEX 125 MG CAP.SPRINK PO SCH ×3 (08:09→20:03)
[2017-04-03] MEDS: busPIRone 10 MG TABLET. PO SCH ×3 (08:09→20:02)
[2017-04-03] MEDS: risperiDONE 0.5 MG TABLET. PO SCH (08:09)
[2017-04-03] MEDS: LOSARTAN 50 MG TABLET. PO SCH (08:10)
[2017-04-03] MEDS: amLODIPine BESYLATE 10 MG TABLET PO SCH (08:10)
[2017-04-03] MEDS: traZODone 50 MG TABLET. PO SCH ×4 (08:10→17:26)
[2017-04-03] MEDS: GABAPENTIN 300 MG CAPSULE. PO SCH ×3 (08:10→20:02)
[2017-04-03] MEDS: CITALOPRAM 20 MG TABLET. PO SCH (08:10)
[2017-04-03] MEDS: SENNOSIDES/DOCUSATE 8.6/50MG TABLET. PO SCH (08:10)
[2017-04-03] MEDS: INSULIN ASPART 300 UNITS/3 ML INSULN.PEN SQ SCH ×3 (08:12→17:26)
[2017-04-03] MEDS: HYDROcodone/APAP 5/325MG 1 TAB TABLET PO SCH ×2 (08:14→20:03)
--- NOTE | 2017-04-03 09:34 | NUR ---
OMA faxed updated clinical notes to [facility] to assist w/dc plans set for Sunday.
--- NOTE | 2017-04-03 09:43 | NUR ---
[facility] Social Work Discharge Planning Form Patient Name HAILY MIR Admit Date: 02/24/17 DISCHARGE PLAN Discharge Destination: new to [facility] Care Assessment: completed Level II Assessment: Qualified/sent to facility Transportation: Facility to [facility] 04/04/17 at 10:00-11:00 DISCHARGE TO FACILITY Facility: [facility] Address: [address] [place] [address] [place] [id number] Contact Name: PCP: at facility w/in 10-12 days of dc Psychiatrist: at facility w/in 10-12 days of dc
--- NOTE | 2017-04-03 14:00 | NUR ---
THERAPEUTIC RECREATION GROUP NOTE TITLE :Sing along with Frances and Allison ACTIVITY : Music GOAL : Increase socialization, elevate mood, stimulate memory DURATION : 120 Minutes RESPONSE : Full participation. Pt. colored for the first half of the afternoon but joined group, read and clapped along to songs. She was pleasant to have in group.
[2017-04-03] MEDS: risperiDONE 0.25 MG TABLET. PO SCH (14:04)
--- NOTE | 2017-04-03 15:12 | NUR ---
Behavior Intervention Response and Plan: BIRP Note: Behavior: Assumed Care of patient, patient located in Dining Room at shift change. Patient exhibited the following behavior Calm, Compliant, Cooperative. Brief assessment on rounds of vital signs, medication needs, lab studies, and pain. Treatment plan problems . Intervention: Patient assessed and the following interventions initiated safety checks 15 Minute Checks Cognitive Assessment , Head to toe Assessment , Medications. Response: After interactions and interventions patient responded in the following manner, Calm , Compliant ,Cooperative. Continue to assess behaviors and condition will continue to monitor throughout the shift as needed. Plan: Continue to monitor Master Treatment Plan for patient's progress toward short term goals of Decreased Agitation, Decreased Anxiety, fci goals to return to previous living setting vs placement. Continue to assess patient for changes in above assessment. Monitor for medication needs, pain, and safety concerns. Hourly rounding performed to ensure safe environment.
[2017-04-03 16:07] VITALS: BP 130/78
[2017-04-03] MEDS: MIRTAZAPINE 15 MG TABLET PO SCH (20:02)
[2017-04-03] MEDS: INSULIN DETEMIR 300 UNITS/3 ML INSULN.PEN. SQ SCH (20:05)
--- NOTE | 2017-04-03 21:19 | PDOC ---
Exam Johann Demential Exam: Johann Note: Please also refer to the separate dictated note~for this date of service dictated separately.~Patient seen individually. Discussed the patient with Nursing staff reviewed the chart.~Reviewed interim history and current functioning. Reviewed vital signs,~Labs/ Radiology~and current medications noted below. Continue current treatment with the changes noted in the dictated addendum note Assessment: Vital Signs: Vital Signs Date Time Temp Pulse Resp B/P (MAP) Pulse Ox O2 Delivery O2 Flow Rate FiO2 04/03/17 20:03 18 96 Room Air 04/03/17 16:07 97.4 59 130/78 (95) I&O Intake and Output 04/03/17 07:00 Intake Total 1920 ml Balance 1920 ml Intake Oral 1920 ml Labs: Laboratory Tests Test 04/03/17 07:14 04/03/17 11:12 Glucose (Fingerstick) 122 mg/dL (70-99) H 254 mg/dL (70-99) H Current Medications: Meds: Current Medications Acetaminophen (Tylenol) 650 mg PRN Q6HRS PRN PO PAIN / TEMP; Start 02/25/17 at 00:30; Stop 02/25/17 at 15:05; Status DC Multi-Ingredient Ointment (Analgesic [place]) 1 marcell PRN QID PRN TP MUSCLE PAIN Last administered on 03/29/17 04:12; Start 02/25/17 at 00:30 Al Hydroxide/Mg Hydroxide (Mylanta Plus Xs) 15 ml PRN AFTMEALHC PRN PO DYSPEPSIA; Start 02/25/17 at 00:30 Magnesium Hydroxide (Milk Of Magnesia) 2,400 mg PRN QHS PRN PO CONSTIPATION; Start 02/25/17 at 00:30; Stop 02/25/17 at 15:05; Status DC Chlorpromazine HCl (Thorazine) 25 mg BID PO Last administered on 02/26/17 09: 34; Start 02/25/17 at 09:00; Stop 02/26/17 at 18:22; Status DC Citalopram Hydrobromide (Celexa) 20 mg DAILY PO Last administered on 04/03/17 08:10; Start 02/25/17 at 09:00 Lorazepam (Ativan) 1 mg PRN Q3HRS PRN PO ANXIETY / AGITATION Last administered on 03/20/17 11:12; Start 02/25/17 at 00:30 Risperidone (Risperdal) 0.5 mg BID PO Last administered on 02/26/17 09:34; Start 02/25/17 at 09:00; Stop 02/26/17 at 18:22; Status DC Trazodone HCl (Desyrel) 50 mg PRN QHS PRN PO INSOMNIA Last administered on 04/02 19:27; Start 02/25/17 at 00:30 Divalproex Sodium (Depakote Sprinkles) 500 mg TID PO Last administered on 20:03; Start 02/25/17 at 09:00 Acetaminophen (Tylenol) 650 mg PRN Q8HRS PRN PO PAIN Last administered on 07:30; Start 02/25/17 at 07:30 Amlodipine Besylate (Norvasc) 10 mg DAILY PO Last administered on 04/03/17 08: 10; Start 02/25/17 at 09:00 Gabapentin (Neurontin) 300 mg TID PO Last administered on 04/03/17 20:02; Start 02/25/17 at 09:00 Acetaminophen/ Hydrocodone Bitart (Lortab 5/325) 1 tab Q12HR PO Last administered on 04/03/17 20:03; Start 02/25/17 at 09:00 Insulin Aspart (Novolog) 6 units TIDWMEALS SQ Last administered on 04/03/17 17 :26; Start 02/25/17 at 08:00 Losartan Potassium (Cozaar) 50 mg DAILY PO Last administered on 04/03/17 08:10 ; Start 02/25/17 at 09:00 Senna/Docusate Sodium (Senna Plus) 1 tab DAILY PO Last administered on 08:10; Start 02/25/17 at 09:00 Insulin Detemir (Levemir) 15 units QHS SQ Last administered on 02/25/17 19:55 ; Start 02/25/17 at 21:00; Stop 02/26/17 at 14:21; Status DC Magnesium Hydroxide (Milk Of Magnesia) 2,400 mg PRN DAILY PRN PO CONSTIPATION; Start 02/25/17 at 07:45 Insulin Detemir (Levemir) 15 units QHS SQ Last administered on 04/03/17 20:05 ; Start 02/26/17 at 14:21 Chlorpromazine HCl (Thorazine) 25 mg DAILY PO Last administered on 02/28/17 09 :09; Start 02/27/17 at 09:00; Stop 02/28/17 at 15:50; Status DC Risperidone (Risperdal) 0.5 mg DAILY PO Last administered on 03/07/17 08:23; Start 02/27/17 at 09:00; Stop 03/07/17 at 18:51; Status DC Risperidone (Risperdal) 0.75 mg HS PO ; Start 02/26/17 at 21:00; Stop 02/26/17 at 21:00; Status DC Risperidone (Risperdal) 0.75 mg 14 PO Last administered on 04/03/17 14:04; Start 02/26/17 at 21:00 Buspirone HCl (Buspar) 5 mg BID PO Last administered on 03/01/17 08:38; Start 02/27/17 at 21:00; Stop 03/01/17 at 12:38; Status DC Buspirone HCl (Buspar) 10 mg BID PO Last administered on 03/02/17 08:05; Start 03/01/17 at 21:00; Stop 03/02/17 at 18:06; Status DC Trimethoprim/ Sulfamethoxazole (Bactrim Ds) 1 tab DAILY PO Last administered on 03/09/17 09:29; Start 03/02/17 at 09:00; Stop 03/09/17 at 09:01; Status DC Buspirone HCl (Buspar) 10 mg TIDAFTMEAL PO Last administered on 03/08/17 08:22 ; Start 03/03/17 at 09:00; Stop 03/08/17 at 12:53; Status DC Vitamin D (Vitamin D3) 50,000 unit WEEKLY PO Last administered on 03/31/17 09: 23; Start 03/03/17 at 09:00 Mirtazapine (Remeron) 7.5 mg QHS PO Last administered on 03/08/17 19:26; Start 03/05/17 at 21:00; Stop 03/09/17 at 18:14; Status DC Mirtazapine (Remeron) 15 mg QHS PO Last administered on 04/03/17 20:02; Start 03/06/17 at 21:00 Risperidone (Risperdal) 0.75 mg DAILY PO Last administered on 04/03/17 08:09; Start 03/08/17 at 09:00 Buspirone HCl (Buspar) 20 mg DAILY PO Last administered on 04/03/17 08:09; Start 03/09/17 at 09:00 Buspirone HCl (Buspar) 10 mg BID@1400,2100 PO Last administered on 04/03/17 20 :02; Start 03/08/17 at 14:00 Olanzapine (Zyprexa Zydis) 5 mg PRN Q2HR PRN PO PSYCHOSIS Last administered on 03/20/17 12:22; Start 03/08/17 at 13:00 Trazodone HCl (Desyrel) 12.5 mg BID92 PO Last administered on 03/21/17 08:36; Start 03/17/17 at 09:00; Stop 03/21/17 at 13:00; Status DC Multi-Ingred Cream/Lotion/Oil/ Oint (Hydrocerin) 1 marcell PRN Q4HRS PRN TP REDNESS Last administered on 03/21/17 16:52; Start 03/19/17 at 22:45 Trazodone HCl (Desyrel) 12.5 mg 0900,1200,1400,1900 PO Last administered on 17:26; Start 03/21/17 at 14:00 Albuterol Sulfate (Ventolin) 2.5 mg 1X ONCE NEB ; Start 03/25/17 at 13:15; Stop 03/25/17 at 13:15; Status DC Albuterol/ Ipratropium (Duoneb) 3 ml 1X ONCE NEB Last administered on 13:18; Start 03/25/17 at 13:15; Stop 03/25/17 at 13:16; Status DC Albuterol/ Ipratropium (Duoneb) 3 ml 1X ONCE NEB Last administered on 09:35; Start 04/01/17 at 09:35; Stop 04/01/17 at 09:36; Status DC Active Scripts Active Reported Lantus Solostar (Insulin Glargine,Hum.rec.anlog) 100 Unit/1 Ml Insuln.pen 15 Unit SQ QHS Lorazepam 1 Mg Tablet 1 Mg PO PRN Q3HRS PRN Risperdal (Risperidone) 0.5 Mg Tablet 0.5 Mg PO BID Chlorpromazine Hcl 25 Mg Tablet 25 Mg PO BID Novolog Flexpen (Insulin Aspart) 100 Unit/1 Ml Insuln.pen 6 Unit SQ TIDWMEALS Gabapentin 300 Mg Capsule 300 Mg PO TID Milk Of Magnesia (Magnesium Hydroxide) 2,400 Mg/10 Ml Oral.susp 2,400 Mg PO PRN DAILY Trazodone Hcl 50 Mg Tablet 50 Mg PO PRN QHS PRN Divalproex Sodium 500 Mg Tablet.dr 500 Mg PO TID Losartan Potassium 50 Mg Tablet 50 Mg PO DAILY Senexon-S Tablet (Sennosides/Docusate Sodium) 1 Each Tablet 8.6-50 Mg PO DAILY Celexa (Citalopram Hydrobromide) 20 Mg Tablet 20 Mg PO DAILY Amlodipine Besylate 10 Mg Tablet 10 Mg PO DAILY Percocet 5-325 Mg Tablet (Oxycodone Hcl/Acetaminophen) 1 Each Tablet 1 Tab PO PRN Q8HRS PRN Hydrocodone-Apap 5-325 (Hydrocodone Bit/Acetaminophen) 1 Each Tablet 1 Tab PO Q12HR Tylenol (Acetaminophen) 325 Mg Tablet 650 Mg PO PRN Q8HRS PRN NANCY HAHN MD April 03, 2017 21:19
--- NOTE | 2017-04-03 23:20 | NUR ---
Behavior Intervention Response and Plan: BIRP Note: Behavior: Assumed Care of patient, patient located in Day Room at shift change. Patient exhibited the following behavior Calm, Interactive, Social. Brief assessment on rounds of vital signs, medication needs, lab studies, and pain. Treatment plan problems 1 and 2. Intervention: Patient assessed and the following interventions initiated safety checks 15 Minute Checks Cognitive Assessment , Head to toe Assessment , Medications. Response: After interactions and interventions patient responded in the following manner, Calm , Compliant ,Cooperative. Continue to assess behaviors and condition will continue to monitor throughout the shift as needed. Plan: Continue to monitor Master Treatment Plan for patient's progress toward short term goals of Decreased Agitation, Decreased Aggression, intermediate project manager goals to return to previous living setting vs placement. Continue to assess patient for changes in above assessment. Monitor for medication needs, pain, and safety concerns. Hourly rounding performed to ensure safe environment.
[2017-04-04] MEDS ORDERED: CHOL500050 PO (00:55)
[2017-04-04] MEDS ORDERED: MAG355OR17 PO (00:56)
[2017-04-04] MEDS ORDERED: METH29OI TP (00:58)
[2017-04-04] MEDS ORDERED: MINE120C TP (01:00)
[2017-04-04] MEDS ORDERED: MIRT15TA3 PO (01:04)
[2017-04-04] MEDS ORDERED: OLAN5TAB5 PO (01:05)
[2017-04-04] MEDS ORDERED: BUSP10TA PO (01:06)
[2017-04-04] MEDS ORDERED: RISP0.5T3 PO (01:08)
[2017-04-04] MEDS ORDERED: TRAZ50TA15 PO (01:09)
--- NOTE | 2017-04-04 01:44 | PN ---
DATE: 04/02/2017 This late entry for 04/02/2017 covers elements not covered in my initial note. SUBJECTIVE: Overall, the patient remains fairly appropriate on the unit, not aggressive. REVIEW OF SYSTEMS: Hard of hearing. No CV, , pulmonary system symptoms on review. MENTAL STATUS EXAM: Oriented to herself and situation. Speech loud, abstraction fair, computation impaired. Mood and affect, lability is improved. IMPRESSION AND CURRENT MEDICATIONS: Unchanged from initial note. MAN Kemal HAHN MD DR: MARGA/estelle JOB#: [id number] / [id number]
--- NOTE | 2017-04-04 04:37 | PN ---
DATE: 04/01/2017 This is a late entry, 04/01/2017, covers the elements not covered in my initial note. SUBJECTIVE: The patient overall has been fairly appropriate on the unit, not aggressive. REVIEW OF SYSTEMS: Hard of hearing. No CV, , GI system symptoms on review. Speech loud, because of being hard of hearing. MENTAL STATUS EXAM: Oriented to herself and situation. Abstraction fair. Computation impaired. Mood and affect is improved. IMPRESSION: Unchanged from initial note. PLAN: Continue psychotropics as mentioned in my initial note. MAN Kemal HAHN MD DR: MARGA/estelle JOB#: [id number] / [id number]
[2017-04-04] MEDS: ACETAMINOPHEN 325 MG TABLET PO PRN (05:41)
[2017-04-04 06:02] VITALS: BP 129/72
[2017-04-04] MEDS: GABAPENTIN 300 MG CAPSULE. PO SCH (09:04)
[2017-04-04] MEDS: busPIRone 10 MG TABLET. PO SCH (09:04)
[2017-04-04] MEDS: SENNOSIDES/DOCUSATE 8.6/50MG TABLET. PO SCH (09:05)
[2017-04-04] MEDS: traZODone 50 MG TABLET. PO SCH ×2 (09:05→11:48)
[2017-04-04] MEDS: DIVALPROEX 125 MG CAP.SPRINK PO SCH (09:05)
[2017-04-04] MEDS: CITALOPRAM 20 MG TABLET. PO SCH (09:05)
[2017-04-04] MEDS: risperiDONE 0.5 MG TABLET. PO SCH (09:06)
[2017-04-04] MEDS: LOSARTAN 50 MG TABLET. PO SCH (09:06)
[2017-04-04 09:07] VITALS: BP 129/72
[2017-04-04] MEDS: amLODIPine BESYLATE 10 MG TABLET PO SCH (09:07)
[2017-04-04] MEDS: HYDROcodone/APAP 5/325MG 1 TAB TABLET PO SCH (09:08)
[2017-04-04] MEDS: INSULIN ASPART 300 UNITS/3 ML INSULN.PEN SQ SCH ×2 (09:08→11:48)
[2017-04-04] MEDS ORDERED: RISP1TAB3 PO (09:36)
--- NOTE | 2017-04-04 11:43 | NUR ---
Behavior Intervention Response and Plan: BIRP Note: Behavior: Assumed Care of patient, patient located in Day Room at shift change. Patient exhibited the following behavior Calm, Interactive, Compliant. Brief assessment on rounds of vital signs, medication needs, lab studies, and pain. Treatment plan problems 1-2. Intervention: Patient assessed and the following interventions initiated safety checks 15 Minute Checks Cognitive Assessment , Head to toe Assessment , Medications. Response: After interactions and interventions patient responded in the following manner, Social , Compliant ,Interactive. Continue to assess behaviors and condition will continue to monitor throughout the shift as needed. Plan: Continue to monitor Master Treatment Plan for patient's progress toward short term goals of Improved Mood, No harm To self/ others, play therapist goals to return to previous living setting vs placement. Continue to assess patient for changes in above assessment. Monitor for medication needs, pain, and safety concerns. Hourly rounding performed to ensure safe environment.
--- NOTE | 2017-04-04 12:30 | NUR ---
Discharge Note [facility] Patient is not currently a tobacco user. Follow up Appointment made: PCP and pschiatrist Date and Time 04/04 1134 instructions and Social Work Discharge planning sheet sent to next level of care. [facility] contact Number for 24 hour support [phone] Discharge Packet Sent, and discusssed with patient and caregiver that includes Copies from the record of current medications with indications and frequencies, history and physical, Psychiatric Eval with reason and justification for admission, Lab values, Radiology results , follow up instructions for continuation of care, and Social Work discharge planning form: yes Discharge Packet Faxed to Provider/Next Level of Care: yes Discharge Packet Faxed with discharge Order and Discharge diagnosis sent to: GIRMA Holden Discharge Packet Discussed, and report Given to: Tracy MAN Discharge instruction sheet was included in the packet and sent with the patient upon discharge. Any Pending lab results can be obtained by calling [phone] Discharge Summary will be sent to next care provider when available. This includes the reason for admission, DC diagnosis, and next level of care recommendations.
--- NOTE | 2017-04-05 09:15 | PN ---
DATE: 04/03/2017 PSYCHIATRIC PROGRESS NOTE This is a late entry of 04/03/2017, covers elements not covered in my initial note. SUBJECTIVE: The patient has been fairly cooperative on the unit, talks loudly, but that is because she is hard of hearing. REVIEW OF SYSTEMS: No CV, , pulmonary, eye system symptoms on review. MENTAL STATUS EXAM: Reasonably oriented. Speech loud, coherent, abstraction fair, computation impaired, language function intact, attention span short. Mood and affect is improved. LABORATORY DATA: Reviewed. IMPRESSION: Schizoaffective disorder, bipolar type, mixed with psychotic features, bipolar 1 disorder, mixed with psychotic features, in partial remission. PLAN: Continue current psychotropics. Transition to residential this week. MAN Kemal HAHN MD DR: MARGA/esetlle JOB#: [id number] / [id number]
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
== END 2017-04-04 12:30 | DRG 885 ==
LOC: EDUNIT# 18:40 → GEROPSY 21:40 → EEVIPCON 21:40
PROVIDERS: ADMIT Psychiatry & Neurology Psychiatry; ATTEND Psychiatry & Neurology Psychiatry
DX: F25.0 Schizoaffective disorder, bipolar type (principal); E44.0 Moderate protein-calorie malnutrition; Z68.41 Body mass index [BMI] 40.0-44.9, adult; E11.9 Type 2 diabetes mellitus without complications; F31.77 Bipolar disorder, in partial remission, most recent episode mixed; F02.80 Dementia in other diseases classified elsewhere, unspecified severity, without behavioral disturbance, psychotic disturbance, mood disturbance, and anxiety; F09 Unspecified mental disorder due to known physiological condition; F63.9 Impulse disorder, unspecified; F22 Delusional disorders; F41.9 Anxiety disorder, unspecified; F79 Unspecified intellectual disabilities; H91.90 Unspecified hearing loss, unspecified ear; K59.09 Other constipation; R45.1 Restlessness and agitation; I10 Essential (primary) hypertension; Z96.619 Presence of unspecified artificial shoulder joint; K21.9 Gastro-esophageal reflux disease without esophagitis; M81.0 Age-related osteoporosis without current pathological fracture; Z79.899 Other long term (current) drug therapy; Z88.0 Allergy status to penicillin; Z87.440 Personal history of urinary (tract) infections
CPT/HCPCS: 36415; 80053; 80061; 80164; 81001; 82306; 82607; 82947; 83036; 83540; 83550; 83735; 84436; 84443; 84480; 85027; 86592; 86593; 87086; 93005; 93971; 94640; J1815; J7620; Q0161; 99285-25

== ENCOUNTER 2017-02-24 20:40 | Emergency (ER) | payer MEDICARE ==
[2017-02-24 20:40] VITALS: BP 133/67
--- NOTE | 2017-02-24 20:43 | ED.ADGEN ---
Past History Past Medical History: Dementia, Depression Adult General Chief Complaint Chief Complaint "... WHY?>>>>>>>........DO... DO... DO....DOODO.....!!!!!!!!.....HAILY... HAILY....ROCAEL.. ROCAEL.....".." .. I t is my bed time... " .."Why am ... I here... " " I need to go... go to my bed..." HPI HPI Patient is a 61 year old female who presents with hx . of mental status changes. [facility] called prior pt. arrival and we were not informed pt. was a direct admit. Pt. presented for aggressive behavior and mental status change. Pt.has been on Haldol 5 mg four times a day. Paramedics had no paper work. They advised pt was to be transported to ED. Pt. Verbal, moves all extremities and no respiratory distress. Patient has no specific complaints. Blood was drawn for evaluation. [facility] was contacted and advised that she was to be a direct admit and not to go to the ED. All pts tonight for [facility] were to be direct admits. Dr. Grant was notified and advised he accepted patient 2 hours ago for direct admit. Pt. was not to be in the ER for evaluation. Advised send pt. to [facility]. Pt. transfer from [facility]. No prior notification to ED. Review of Systems Review of Systems Poor historian. - No complaints Constitutional: Denies fever or chills [] Eyes: Denies change in visual acuity, redness, or eye pain [] HENT: Denies nasal congestion or sore throat [] Respiratory: Denies cough or shortness of breath [] Cardiovascular: No additional information not addressed in HPI [] GI: Denies abdominal pain, nausea, vomiting, bloody stools or diarrhea [] : Denies dysuria or hematuria [] Musculoskeletal: Denies back pain or joint pain [] Integument: Denies rash or skin lesions [] Neurologic: Denies headache, focal weakness or sensory changes [] Endocrine: Denies polyuria or polydipsia [] Family History Family History Not currently available Current Medications Current Medications See nursing for longterm meds Allergies Allergies Allergies Coded Allergies Type Severity Reaction Last Updated Verified Penicillins Allergy Unknown Unknown 02/25/17 Yes See nursing Physical Exam Physical Exam Constitutional: , no acute distress, non-toxic appearance. [] HENT: Normocephalic, atraumatic, bilateral external ears normal, oropharynx moist, no oral exudates, nose normal. [] Eyes: PERRLA, EOMI, conjunctiva normal, no discharge. Glasses Neck: Normal range of motion, no tenderness, supple, no stridor. More than 17 inches circumference Cardiovascular:Heart rate regular rhythm, no murmur, PMI to the left Lungs & Thorax: Bilateral breath sounds equal at apexes on auscultation [] Abdomen: Bowel sounds normal, soft, no tenderness, no masses, no pulsatile masses. Obese Skin: Warm, dry, no erythema, no rash. [] Back: No tenderness, no CVA tenderness. [] Extremities: No tenderness, no cyanosis, no clubbing, ROM intact, trace ankle edema. Moves all extremities spontaneously Neurologic: Alert and oriented X 1, no gross motor function deficits, no gross sensory function deficits, patient uncooperative for focal exam. Does cross react. Psychologic: Affect anxious, easily distracted, judgement poor insight, mood vacillates between crying, yelling and then laughing. Is able to form questions and limited verbal responses. Current Patient Data Vital Signs Vital Signs Date Time Temp Pulse Resp B/P Pulse Ox O2 Delivery O2 Flow Rate FiO2 02/24/17 20:40 98.7 72 20 93 Room Air EKG EKG [] Radiology/Procedures Radiology/Procedures [] Course & Med Decision Making Course & Med Decision Making Pertinent Labs and Imaging studies reviewed. (See chart for details). Pt. apparently to be a direct admit to unit. No work up to be done in ED. No work up completed. Transfer to prior assigned bed, Dr. Grant notified. [] Final Impression Final Impression 1. Mental status change 2. Dementia[] 3. Hx. Aggressive Behavior- hitting staff and other pt.s 4. Hx. of DM 5. Hx. of Dementia 6. Hx. of Seizures 7. Hx. of HTN 8. Hx. of Recent Hospital Admission- ??? ( Information Not currently Available) 9. Hx. of Agitation Problems: Dragon Disclaimer Dragon Disclaimer This electronic medical record was generated, in whole or in part, using a voice recognition dictation system. TIP HUA MD Feb 24, 2017 20:43
[2017-02-25] MEDS ORDERED: INSU100I13 SQ (00:29)
[2017-02-25] MEDS ORDERED: AMLO10TA2 PO (00:29)
[2017-02-25] MEDS ORDERED: LOSA50TA6 PO (00:29)
[2017-02-25] MEDS ORDERED: LORA1TAB PO (00:29)
[2017-02-25] MEDS ORDERED: DIVA500T9 PO ×2 (00:29→07:04)
[2017-02-25] MEDS ORDERED: HYDR-2666 PO (00:29)
[2017-02-25] MEDS ORDERED: CHLO25TA4 PO (00:29)
[2017-02-25] MEDS ORDERED: MAGN2400 PO (00:29)
[2017-02-25] MEDS ORDERED: OXYC-323 PO (00:29)
[2017-02-25] MEDS ORDERED: ACET325T9 PO (00:29)
[2017-02-25] MEDS ORDERED: RISP0.5T18 PO (00:29)
[2017-02-25] MEDS ORDERED: GABA-586 PO (00:29)
[2017-02-25] MEDS ORDERED: SENN1TAB9 PO (00:29)
[2017-02-25] MEDS ORDERED: TRAZ50TA15 PO (00:29)
[2017-02-25] MEDS ORDERED: CITA20TA9 PO (00:29)
[2017-02-25] MEDS ORDERED: INSU100I17 SQ (00:29)
== END 2017-02-24 21:30 | disposition other institution (70) ==
LOC: ER 20:40
DX: R41.82 Altered mental status, unspecified (principal); F03.90 Unspecified dementia, unspecified severity, without behavioral disturbance, psychotic disturbance, mood disturbance, and anxiety; E11.9 Type 2 diabetes mellitus without complications; I10 Essential (primary) hypertension; R45.1 Restlessness and agitation; F32.9 Major depressive disorder, single episode, unspecified; Z88.0 Allergy status to penicillin
CPT/HCPCS: 99285-25